=== PATIENT | female | born 1950 | race Caucasian/White ===

== ENCOUNTER 2019-04-20 08:23 | Emergency (ER) | payer MEDICARE, MEDICAID, SELFPAY ==
[2019-04-20 08:46] VITALS: BP 143/87; PULSE 92; RESP 16; TEMP 36.9; O2SAT 96; BMI 36.6
[2019-04-20 09:24] VITALS: BP 110/74; PULSE 86; RESP 18; O2SAT 98
--- NOTE | 2019-04-20 09:27 | PC.NURSE ---
Pt states that she has a spot on the right upper ribs that bothers her all the time. Patient states that her main complaint today is her headache and vomitting with constant dizziness - these have all been present for about a month now. Pt states she is worried that her cancer may have moved, she is unsure of the cause of her symptoms.
--- NOTE | 2019-04-20 09:29 | ED_ITS ---
Entered by Erma Benton, acting as scribe for Apr 20, 2019 08:23 HPI - Nausea/Vomiting/Diarrhea General: Chief complaint: Nausea/Vomiting/Diarrhea Stated complaint: multiple complaints Time Seen by Provider: 04/20/19 09:29 Source: patient and family Mode of arrival: ambulatory Limitations: no limitations History of Present Illness: HPI Narrative: 68 yo female presents with dizziness and vomiting. pt states this started one month ago. Pt has had neck pain. pt has R sided abdomen pain that is chronic. pt a history of lung cancer. pt has had a headache. pt denies any other symptoms at this time. MD elicited complaint: nausea, vomiting and abdominal pain (R side pain) Onset (ago): day(s) (yesterday) Associated nausea: Yes Associated abdominal pain: Yes Location of pain: RUQ and Other (head) Radiation: diffuse Pain consistency: constant Severity: moderate Exacerbating factors: vomiting and other (headache, dizziness) Relieving factors: none Associated symtoms: Reports dizziness, headache(s), nausea and other (neck pain); Denies altered mental status, change in vision, chest pain, diaphoresis, dysuria, fatigue, malaise, palpitations or syncope Treatment prior to arrival: none Review of Systems General: Reports: other (negative unless marked) Const: Denies: fever, chills, body aches, fatigue, malaise or diaphoresis Eyes: Denies: change in vision or blurry vision ENMT: Denies: throat pain, painful swallowing, hoarseness, ear pain, ear discharge, Change in hearing or nasal discharge Card: Denies: chest pain, palpitations, irregular heart rhythm, syncope, pre- syncope, shortness of breath on exertion or shortness of breath when lying down Resp: Denies: shortness of breath, productive cough, non-productive cough, wheezing, coughing up blood or chest congestion GI: Reports: nausea : Denies: flank pain, painful urination, urinary frequency, urinary urgency, decreased urine ouput, urinary incontinence or blood in urine Musc: Denies: neck pain, back pain, extremity pain, extremity swelling, joint pain, joint swelling, joint warmth or joint stiffness Skin/Breast: Denies: rash, skin tenderness or yellow skin Neuro: Reports: headache and dizziness Endo: Denies: excessive thirst, tired all the time, cold intolerance, excessive sweating, flushing or hot flashes Alexis/Lymph: Denies: easy bruising, easy bleeding, petechiae or enlarged lymph nodes All/Imm: Denies: hives, throat swelling, tongue swelling, facial swelling or acute wheezing PFSH ED PFSH: Statuses (acute, chronic, etc) shown below reflect problem list status as previously entered and may not be historically accurate Surgical History (Updated 04/20/19 @ 09:46 by Erma Benton) History of hysterectomy (Acute) Social History Smoking and tobacco status: former smoker Physical Exam Const: COMMON NORMALS: no apparent distress, oriented x3, no limitations, healthy appearing and well nourished EXAM LIMITATIONS: no altered mental status GENERAL APPEARANCE: cooperative, well kempt and well developed ORIENTATION/CONSCIOUSNESS: Yes awake HENMT: COMMON NORMALS: normocephalic, head/scalp atraumatic, hearing grossly normal bilaterally, external ears normal, EAC's normal, external nose normal and moist oral mucous membranes HEAD & SCALP: normal to inspection, normocephalic and atraumatic FACE & SINUS: normal facial exam and face symmetric NOSE: external nose normal and nares normal EXTERNAL EAR: Yes external ears normal EXTERNAL AUDITORY CANAL: EAC's normal MOUTH: oral and palatal mucosa normal and tongue normal Eye: COMMON NORMALS: PERRL, EOMs intact bilaterally, conjunctivae normal and no scleral icterus GENERAL EYE: normal appearance of both eyes and normal light reflex CONJUNCTIVA: Yes conjunctivae normal SCLERA: sclerae normal CORNEA: Yes corneas normal PUPIL: Yes PERRL DIRECT OPHTHALMOSCOPY: Yes normal light reflex Neck/C-Spine: COMMON NORMALS: full ROM, no lymphadenopathy, supple, no meningeal signs and no JVD GENERAL: Yes normal visual inspection and Yes trachea midline CERVICAL SPINE: Yes cervical ROM normal Chest: COMMONS NORMALS: inspection of chest normal and palpation of chest normal Resp: COMMON NORMALS: normal respiratory effort, no retractions, no use of accessory muscles and clear to auscultation bilaterally EFFORT & INSPECTION: Yes able to speak in complete sentences AUSCULTATION: clear to auscultation bilaterally Cardio: COMMON NORMALS: no JVD, regular rate, regular rhythm, S1 normal heart sound, S2 normal heart sound, no gallops, no clicks, no murmurs and no rub JUGULAR VENOUS DISTENTION: no JVD RATE: regular rate RHYTHM: regular rhythm HEART SOUNDS: S1 normal and S2 normal GI: COMMON NORMALS: soft to palpation, non-tender, no hepatosplenomegaly and no masses INSPECTION: Yes normal to inspection PALPATION: Yes soft and Yes no hepatosplenomegaly : COMMON NORMALS: Yes no CVA tenderness BLADDER/KIDNEY EXAM: Yes no CVA tenderness Back/Pelvis: COMMON NORMALS: no CVA tenderness, thoracic and lumbar spine normal to inspection, no thoracic nor lumbar tenderness and thoraco-lumbar ROM normal Extremity: COMMON NORMALS: normal to inspection, full ROM, normal capillary refill, no joint enlargement, no clubbing, cyanosis or edema and no calf tenderness Neuro: COMMON NORMALS: oriented x3, CN's II-XII intact bilaterally, moves all extremities, no focal motor deficits and no sensory deficits noted MENINGEAL SIGNS: Yes no meningeal signs Psych: COMMON NORMALS: mental status grossly normal, thought process normal, cooperative, affect normal, speech normal and activity/motor behavior normal APPEARANCE: Yes well kempt SPEECH: Yes normal speech THOUGHT PROCESS: normal thought process Skin: COMMON NORMALS: no rashes or lesions noted, skin turgor normal, no jaundice, no petechiae and no mottling GENERAL SKIN EXAM: no rashes or lesions noted and turgor normal Course Vital Signs: Vital signs: Vital Signs Temperature 98.1 F 04/20/19 11:25 Pulse Rate 92 04/20/19 11:25 Respiratory Rate 18 04/20/19 11:25 Blood Pressure 154/97 04/20/19 11:25 Pulse Oximetry 95 04/20/19 11:25 MDM - Nausea/Vomiting/Diarrhea MDM Narrative: Medical decision making narrative: 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 She will need transferred as we have no neurosurgery on-call here. The patient other than dizziness is asymptomatic. It appears as though she did not know she had metastatic disease. The concern is the amount of swelling and the possible development of herniation/hydrocephalus. I reviewed the case in full with Dr. Márquez at [facility] in the emergency department and he will accept the patient in transfer. We are currently trying to transfer by air but have been turned down. We will continue to try to transfer by air ambulance service but if unable we will transfer by life-threatening emergent status by self I will ground ambulance. Lab Data: Labs: Lab Results 04/20/19 04/20/19 04/20/19 Range/Units 09:39 09:39 10:06 WBC 8.5 (4.0-10.0) 10^3/ uL RBC 4.61 (4.1-5.3) 10^6/u L Hgb 13.2 (11.5-15.3) g/dL Hct 42.1 (37.0-47.0) % MCV 91.3 (81-99) fL MCH 28.6 (28.0-34.0) pg MCHC 31.4 (30.0-36.0) g/dL RDW 13.5 (12.1-15.1) % Plt Count 223 (130-400) 10^3/c mm MPV 8.6 (7.4-10.4) fL Neut % (Auto) 80.1 % Lymph % (Auto) 12.7 % [place]upe % (Auto) 5.9 % Eos % (Auto) 0.7 % Baso % (Auto) 0.2 % Neut # (Auto) 6.8 (1.8-7.7) 10^3/u L Lymph # (Auto) 1.1 (0.8-4.8) 10^3/u L [place] # (Auto) 0.5 (0.2-0.9) 10^3/u L Eos # (Auto) 0.1 (0.0-0.8) 10^3/u L Baso # (Auto) 0.0 (0.0-0.1) 10^3/u L Nucleated RBC % (a uto) 0 % Nucleated RBCs # 0.0 /100WBC Sodium 138 (136-145) mmol/L Potassium 4.8 (3.5-5.1) mmol/L Chloride 101 (98-107) mmol/L Carbon Dioxide 26 (22-29) mmol/L Anion Gap 15.8 (5-19) BUN 9 (8-23) mg/dL Creatinine 0.6 (0.5-0.9) mg/dL GFR Calculation 99.1 (90-130) mL/min Glucose 133 H (74-106) mg/dL Calcium 10.3 H (8.8-10.2) mg/Dl Magnesium 1.9 (1.7-2.3) mg/dL Total Bilirubin 0.5 (0.15-1.2) mg/dL AST 31 (0-32) U/L ALT 27 (0-33) U/L Alkaline Phosphata se 85 (35-105) IU/L Total Protein 7.7 (6.6-8.7) g/dL Albumin 5.1 (3.5-5.2) g/dL Globulin 2.6 (1.3-4.6) g/dL Lipase 27 (13-60) U/L Urine Color Straw (Yellow) Urine Appearance Sl hazy (CLEAR) Urine pH 7 (5-7) Ur Specific Gravit y 1.005 (1.005-1.030) Urine Protein Neg (Negative) Urine Glucose (UA) Norm (Normal) Urine Ketones Negative (Negative) Urine Occult Blood Neg (Negative) Urine Nitrate Negative (Negative) Urine Bilirubin Neg (NEGATIVE) Urine Urobilinogen Norm (Negative) mg/dL Ur Leukocyte Humaira ase Negative (Negative) Urine RBC Rare (0-2) /hpf Urine WBC 0-4 H (0-5) /hpf Ur Squamous Epith Cells 5-10 H (0-5) Urine Bacteria 1+ H (NONE) Hyaline Casts Rare Urine Mucus Trace Imaging Data^: CT Head: Radiologist's impression: [place] [address] CT Scan Report Signed Patient: Kristina Bertrand MR#: [id number] : 1950 Acct:[id number] Age/Sex: 68 / F ADM Date: 04/20/19 Loc: ER Attending Dr: Ordering Physician: Mandie Aleman DO Date of Service: 04/20/19 Procedure(s): CT head wo con* [id number] Accession Number(s): [id number] Report Number: [id number] WS: [id number] CT HEAD NONCONTRAST HISTORY: Dizziness TECHNIQUE: Contiguous axial imaging performed through the brain in 2.5 mm imaging. Bone and soft tissue windows. Sagittal and coronal reformats reviewed. All CT scans at [facility] use at least one of these dose optimization techniques: automated exposure control; mA and/or kV adjustment per patient size (includes targeted exams where dose is matched to clinical indication); or iterative reconstruction. DLP: 788.23 mGy.cm COMPARISON: None available. Large area of edema and sulcal effacement centered in the RIGHT cerebellum. There is shift of midline structures and effacement of the fourth ventricle. 6 mm of midline shift to the LEFT. There is also edema extending across the midline of the cerebellum to the LEFT. No associated hemorrhage is appreciated. Mild atrophy. Prior lacunar infarct RIGHT basal ganglia. Area of decreased attenuation in the subcortical white matter of the RIGHT parietal vertex. Ventricles: There is very minimal prominence of the temporal horns bilaterally. Third ventricle and the lateral ventricles are not dilated. Paranasal sinuses: Mucoperiosteal thickening in the posterior RIGHT ethmoid sinus. Mastoid air cells: Sclerosis and chronic RIGHT mastoiditis. Coalescence of the air spaces. Calvarium and scalp: Skull is intact with no soft tissue edema or swelling. Notified Mandie Aleman at 04/20/2019 10:[address]/CT head wo con* [id number] IMPRESSION: 1. Large amount of edema and centered in the RIGHT cerebellum with sulcal effacement and mass effect on the fourth ventricle. Highly suspicious for metastatic lesion or primary brain tumor. Recommend MRI brain with contrast. 2. Near complete effacement of the fourth ventricle. At this time there is no significant hydrocephalus. 3. Additional areas of decreased attenuation and prior lacunar infarcts in the supratentorial region. May be all related to chronic ischemic disease. Dictated By: Ivana Jones DO Signed By: Ivana Jones DO Signed Date/Time:04/20/19 1021 DD/ 1013 Discharge Plan Discharge Patient Disposition: Xfer Short-Term Hosp Clinical Impression: Metastatic cancer to brain, Dizzinesses Condition: Stable Discharge Orders: Discharge Order (Routine); Ordered 04/20/19 Ordered By: Mandie Aleman Referrals: Bakari Leahy [Primary Care Provider] - Discharge Date/Time: 04/20/19 11:25 Coding Level of Care Code ED Electrical Checkout Mechanic for Chg Fwd Exam Problem Focused The documentation recorded by the Chetan blake Bridget Annette, accurately reflects the service I personally performed and the decisions made by Guzmán Eli N Apr 20, 2019 08:23
--- NOTE | 2019-04-20 09:35 | CT_ITS ---
WS: [id number] CT HEAD NONCONTRAST HISTORY: Dizziness TECHNIQUE: Contiguous axial imaging performed through the brain in 2.5 mm imaging. Bone and soft tiss ue windows. Sagittal and coronal reformats reviewed. All CT scans at [facility] use at ast one of these dose optimization techniques: automated exposure control; mA and/or kV adjustment pe r patient size (includes targeted exams where dose is matched to clinical indication); or iterative r econstruction. DLP: 788.23 mGy.cm COMPARISON: None available. Large area of edema and sulcal effacement centered in the RIGHT cerebellum. There is shift of midline structures and effacement of the fourth ventricle. 6 mm of midline shift to the LEFT. There is also edema extending across the midline of the cerebellum to the LEFT. No associated hemorrhage is appreci ated. Mild atrophy. Prior lacunar infarct RIGHT basal ganglia. Area of decreased attenuation in the subcort ical white matter of the RIGHT parietal vertex. Ventricles: There is very minimal prominence of the temporal horns bilaterally. Third ventricle and the lateral ventricles are not dilated. Paranasal sinuses: Mucoperiosteal thickening in the posterior RIGHT ethmoid sinus. Mastoid air cells: Sclerosis and chronic RIGHT mastoiditis. Coalescence of the air spaces. Calvarium and scalp: Skull is intact with no soft tissue edema or swelling. Notified Mandie Aleman at 04/20/2019 10:[address]/CT head wo con* [id number] IMPRESSION: 1. Large amount of edema and centered in the RIGHT cerebellum with sulcal effa cement and mass effect on the fourth ventricle. Highly suspicious for metastati c lesion or primary brain tumor. Recommend MRI brain with contrast. 2. Near complete effacement of the fourth ventricle. At this time there is no significant hydrocephalus. 3. Additional areas of decreased attenuation and prior lacunar infarcts in the supratentorial region. May be all related to chronic ischemic disease.
[2019-04-20 09:40] VITALS: BP 124/74; PULSE 91; RESP 18; O2SAT 95
[2019-04-20 09:41] VITALS: BP 116/77; PULSE 95; RESP 18; O2SAT 95
[2019-04-20 09:48] LABS: Basophils % 0.2 %; Eosinophils # 0.1 10^3/uL (0.0-0.8); Eosinophils % 0.7 %; Hematocrit 42.1 % (37.0-47.0); Hemoglobin 13.2 g/dL (11.5-15.3); Lymphocytes # 1.1 10^3/uL (0.8-4.8); Lymphocytes % 12.7 %; Mean Corpuscular HGB Conc 31.4 g/dL (30.0-36.0); Mean Corpuscular Hemoglobin 28.6 pg (28.0-34.0); Mean Corpuscular Volume 91.3 fL (81-99); Mean Platelet Volume 8.6 fL (7.4-10.4); Monocytes # 0.5 10^3/uL (0.2-0.9); Monocytes % 5.9 %; Neutrophils # 6.8 10^3/uL (1.8-7.7); Neutrophils % 80.1 %; Nucleated Red Blood Cells % 0 %; Platelet Count 223 10^3/cmm (130-400); Red Blood Count 4.61 10^6/uL (4.1-5.3); Red Cell Distribution Width 13.5 % (12.1-15.1); White Blood Count 8.5 10^3/uL (4.0-10.0)
[2019-04-20 10:02] LABS: Alanine Aminotransferase 27 U/L (0-33); Albumin Level 5.1 g/dL (3.5-5.2); Alkaline Phosphatase 85 IU/L (35-105); Anion Gap 15.8 (5-19); Aspartate Amino Transferase 31 U/L (0-32); Blood Urea Nitrogen 9 mg/dL (8-23); Calcium 10.3 mg/Dl (8.8-10.2); Carbon Dioxide 26 mmol/L (22-29); Chloride 101 mmol/L (98-107); Globulin 2.6 g/dL (1.3-4.6); Glomerular Filtration Rate 99.1 mL/min (90-130); Glucose 133 mg/dL (74-106); Lipase 27 U/L (13-60); Magnesium 1.9 mg/dL (1.7-2.3); Potassium 4.8 mmol/L (3.5-5.1); Sodium 138 mmol/L (136-145); Total Bilirubin 0.5 mg/dL (0.15-1.2); Total Protein 7.7 g/dL (6.6-8.7)
--- NOTE | 2019-04-20 10:11 | PC.NURSE ---
Patient to CT at this time.
[2019-04-20] MEDS: diazePAM 5 mg Tablet PO (10:25)
[2019-04-20] MEDS: ondansetron 2 mg/ML SDV 2 mL 4 MG IVP (10:25)
[2019-04-20] MEDS: sodium chloride 0.9% 1,000 ML 999 ML IV (10:27)
[2019-04-20 10:46] LABS: Bilirubin Urine Neg (NEGATIVE); Blood Urine Neg (Negative); Glucose Urine UA Norm (Normal); Ketones Urine Negative (Negative); Leukocyte Esterase Urine Negative (Negative); Nitrate Urine Negative (Negative); Protein Urine Neg (Negative); Specific Gravity, Urine 1.005 (1.005-1.030); Urine Appearance SL Hazy (CLEAR); Urine Color Straw (Yellow); Urobilinogen Urine Norm (Negative); pH Urine 7 (5-7)
[2019-04-20 10:49] LABS: Hyaline Casts Urine RARE; Mucus Urine TRACE
[2019-04-20 10:51] LABS: Add Urine Culture? No; Bacteria Urine 1+; RBC Urine RARE /hpf (0-2); WBC Urine 0-4 /hpf (0-5)
--- NOTE | 2019-04-20 10:55 | PC.NURSE ---
DEXAMETHASONE WAS GIVEN IVP. NOT IN A DRIP
[2019-04-20 11:25] VITALS: BP 154/97; PULSE 92; RESP 18; TEMP 36.7; O2SAT 95
--- NOTE | 2019-04-20 11:26 | PC.CHAP ---
Pastoral Care Encounter/Spiritual Assessment Type of Contact [] Declined district fire management officer visit [] Patient/Family/Request visit [] Outpatient visit [] Follow-up visit [] Physician referral [] Code/Alert [] Routine visit [] Staff referral [] Actively dying [] Patient sleeping [] Family support [] [] Out of room [] Palliative care [] [] Receiving care in room [] Pre-surgical visit [] Trauma [] Long length of stay [] ICU visit [] Other: Relational/Emotional Strength [x] Patient feels connected with others/family/visitors/staff [] Distress [] Loneliness/isolation [] Abandonment Spirituality of Patient [x] Person of Radha [] Attends Scientology of their Radha [x] Believes in Prayer [] Reads Bible or Yazidi materials [] There are Spiritual issues to be addressed Central Office Inspector Interventions [x] Prayer [x] Active listening [x] Non-anxious presence [x] Spiritual/emotional support [x] Crisis/trauma care [x] Spiritual counseling [] Bereavement support [] Provided bereavement packet [] Provided Bible/devotional materials [] Provided toy/stuffed animal, coloring book to patient or family member [x] Completed spiritual assessment [] Provided Communion [] Anointing/[place] [] Salvation [] Other: Impact on Illness or Injury [] Angry [x] Fearful [x] Anxious [] Often cries [] Exhaustion [] Unable to work [] Unable to attend pentecostalism [] Unable to walk/stand [] Unable to read [] Unable to drive [] Unable to eat/drink [] Unable to sleep [] Unable to be with family [x] Other: fearful of unknown. Summary is very tearful. Central Office Inspector offered prayer for peace and strength for . guidance for the doctors as they provide care. Patient has a fear of flying and is very anxious to be flying.Family has been notified by patient. Time spent with patient 15 min
== END 2019-04-20 11:25 | disposition short-term general hospital (02) ==
PROVIDERS: Emergency Provider Emergency Medicine; PCP Radiology Radiation Oncology
DX: C79.31 Secondary malignant neoplasm of brain (principal); Z87.891 Personal history of nicotine dependence; Z85.118 Personal history of other malignant neoplasm of bronchus and lung
CPT/HCPCS: 70450; 80053; 81001; 83690; 83735; 85025; 96360; 96365; 96374; 99282; J1100; J2405; J7030

== ENCOUNTER 2019-09-13 09:13 | Outpatient (CLI) | payer MEDICARE, MEDICAID, SELFPAY ==
[2019-09-13 10:46] LABS: Basophils % 0.4 %; Eosinophils # 0.1 10^3/uL (0.0-0.8); Eosinophils % 1.6 %; Hematocrit 44.3 % (37.0-47.0); Hemoglobin 13.7 g/dL (11.5-15.3); Lymphocytes % 39.7 %; Mean Corpuscular HGB Conc 30.9 g/dL (30.0-36.0); Mean Corpuscular Hemoglobin 29.1 pg (28.0-34.0); Mean Corpuscular Volume 94.1 fL (81-99); Mean Platelet Volume 8.9 fL (7.4-10.4); Monocytes # 0.6 10^3/uL (0.2-0.9); Monocytes % 12.4 %; Neutrophils # 2.3 10^3/uL (1.8-7.7); Neutrophils % 45.7 %; Nucleated Red Blood Cells % 0 %; Platelet Count 209 10^3/cmm (130-400); Red Blood Count 4.71 10^6/uL (4.1-5.3); Red Cell Distribution Width 12.6 % (12.1-15.1)
[2019-09-13 11:21] LABS: Alanine Aminotransferase 41 U/L (0-33); Albumin Level 4.4 g/dL (3.5-5.2); Alkaline Phosphatase 67 IU/L (35-105); Anion Gap 16.1 (5-19); Aspartate Amino Transferase 43 U/L (0-32); Blood Urea Nitrogen 9 mg/dL (8-23); Calcium 9.6 mg/dL (8.5-10.5); Carbon Dioxide 25 mmol/L (22-29); Chloride 102 mmol/L (98-107); Globulin 2.9 g/dL (1.3-4.6); Glomerular Filtration Rate 99.1 mL/min (90-130); Glucose 111 mg/dL (65-115); Osmolality Calculated 285 mOsm/kg (285-295); Potassium 4.1 mmol/L (3.5-5.1); Sodium 139 mmol/L (136-145); Thyroid Stimulating Hormone 1.22 uIU/mL (0.27-4.20); Total Bilirubin 0.4 mg/dL (0.15-1.2); Total Protein 7.3 g/dL (6.6-8.7)
--- NOTE | 2019-09-13 20:19 | ONC CON_ITS ---
Dr. Meyer New Patient Note Patient: Kristina Bertrand Unit #: [id number]: 1950 Dicatated By: Maldonado Meyer M.D.Date of Visit: September 13, 2019 Onc MED New Patient/Consult Referring Physician: [facility] [place] Chief Complaint: Non-small cell lung cancer. 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 She was found to have a right upper lobe lung mass in December 2012 during the course of an ER evaluation for suspected diverticulitis. A CT guided needle biopsy of the mass January 2013 did confirm TTF-1 positive well-differentiated adenocarcinoma which was EGFR, ALK, and ROS-1 negative. Staging evaluation with brain MRI and PET/CT showed no obvious metastatic disease. The PET/CT showed right upper lobe mass measuring 3.2 x 2.4 cm and an additional right upper lobe nodule measuring 8 mm. She underwent thoracotomy with right upper lobectomy and mediastinal lymph node dissection on 04/29/2014. Pathology showed well-differentiated adenocarcinoma with predominantly mixed acinar and alveolar pattern. It measured 3.1 cm. There was invasion of the visceral pleura, but margins were negative. Lymph nodes at station 7, 11, and 10 were negative, thus stage IA (pT2a, pN0, M0). She received no adjuvant therapy. Surveillance chest CT in July 2015 showed a 2 cm nodule in the posterior central left lingual area, suspicious for metastatic disease or new primary malignancy. A subsequent PET/CT showed a smoothly marginated nodule in the left lung measuring 12 mm and tiny right upper lobe nodules which apparently felt to be improving, with no evidence of residual malignancy. She underwent bronchoscopy with FNA of station 11 on 08/22/2015. The FNA was negative. Brushings were inconclusive. Biopsy of the left lung nodule on 09/16/2015 was positive for adenocarcinoma, TTF-1 positive and EGFR mutation negative. There was insufficient material for ALK and ROS-1 studies. The tumor was negative for PD-L1 expression. In October [address] [facility] for second opinion evaluation. Evaluation there included brain MRI which showed no evidence of metastatic disease. PET/CT on 11/04/2015 showed an FDG avid centrally located left upper lobe nodule which had increased in size. There was no evidence of leonel or distant metastatic disease on that study. However, there was reportedly evidence of groundglass opacities in both lungs with the differential including atypical adenomatous hyperplasia and multifocal primary lung malignancy. Also noted were 2 air-containing cystic lesions with groundglass component's within the right lower lobe, also felt to be suspicious for primary lung malignancies. Ultimately, it was recommended that she undergo neoadjuvant chemotherapy with 4 cycles of cisplatin-pemetrexed. She was then seen here because she preferred to receive her chemotherapy locally. She received cycle 1 of cisplatin/Alimta on 12/15/2015. She tolerated it well. Side effects were limited to mild nausea and stomatitis. She received cycles 2 and 3 on schedule with no dose reductions. She did receive Neupogen following the second cycle due to a low radhika granulocyte count, and she was then given Neulasta prophylactically with cycle 3. She completed 4 cycles on 02/16/16. Her restaging PET/CT at [facility] on 03/18/2016 showed new FDG activity involving bilateral axillary lymph nodes, though without associated lymph node enlargement. Pre-paracardial lymph node was mildly increased in size but markedly FDG avid. A juxtaphrenic lymph node also showed new FDG activity with slight increased size. Small right paratracheal lymph nodes were not significantly change in size and only slightly FDG avid. The tumor at the left hilum was not significantly changed in size, but it remained markedly FDG avid. Groundglass attenuation nodules in both lungs were unchanged. The abdomen/pelvis showed extensive new metabolic activity at left gastric and periportal adenopathy with slight increase in the size of the lymph nodes. Multiple small retroperitoneal lymph nodes also showed new metabolic activity. Small left inguinal lymph nodes and bilateral external iliac lymph nodes also appeared FDG avid. Overall, the left hilar tumor was unchanged and there was new widespread leonel metabolic activity with only slight increase in the size of some the lymph nodes, consistent with reactive process. A repeat chest CT on 05/06/2016 showed stable left hilar lesion measuring 2.4 cm. There was no change in size of the FDG avid lymph nodes noted on the PET/CT in March. The right middle lobe peribronchial vascular nodular opacities were mildly decreased compared to October 2015. Given the findings on the imaging studies, it was felt that her disease was localized. She was given the option of surgical resection, but that would have necessitated complete pneumonectomy. Ultimately, she opted against surgery. She was then treated with radiation to the left hilar lesion. She completed treatment on 09/01/2016 to a total dose of 6600 cGy. The tumor did appear slightly smaller on the follow-up CT scan on 10/07/2016. Her restaging CT on 01/06/2017 showed stable left infrahilar soft tissue lesion measuring 1.3 x 1.1 cm. A groundglass opacity in the right lower lobe laterally measuring 1.7 x 1.4 cm it appeared slightly more prominent compared to previous study from April 2016. There was no mediastinal or hilar lymphadenopathy noted. Chest CT on 04/21/2017 reported increased enlargement of the right lower lobe lateral segment some solid nodule with reported differential including progressive neoplastic process, inflammatory process, and atypical infectious process. A right lower lobe anterior segment nodule at increased slightly, from 5.7 to 6.9 mm. A right upper lung zone groundglass nodule measuring 3-4 mm appeared unchanged. Left lower lobe superior segment bandlike atelectasis and/or scarring appeared stable. Restaging PET/CT on 07/30/2017 showed irregular right lower lobe infiltrate measuring 1.7 x 2.9 cm with FDG uptake less than that of normal mediastinal background, supporting a benign diagnosis. There was inflammatory uptake at a right lower lobe bulla. There was no evidence of malignancy. Given those findings, she continued on observation/expectant management. A repeat chest CT on 12/01/2017 showed persistence and slight progression of the irregular marginated semisolid densities in the anterior basal segment right lower lobe adjacent to a bolus emphysematous cavity. It measured 4 x 1.9 x 1.7 cm compared to 3.3 x 1.8 x 1.7 cm on the study from July 2017. A 7 mm rounded groundglass nodule in the anterior aspect of the right lower lobe appeared stable and a 4.3 mm right middle lobe nodule appeared stable. There was no obvious hilar, mediastinal, axillary, or supraclavicular lymphadenopathy noted. As the changes in the right lower lobe lesion were felt to be suspicious, she was referred to Dr. Justina Keith in [place], and a CT-guided biopsy of the right lung mass on 02/01/2018 was positive for malignant cells, at least adenocarcinoma in situ. She was then seen by Dr. Leahy and she underwent SBRT to the right lung lesion, completed on 03/08/2018 to a total dose of 5000 cGy. During subsequent follow-up, her surveillance chest CT on 12/12/2018 showed findings suspicious for developing neoplasm in the superior segment right lower lobe adjacent to a bolus emphysematous cavity. Postradiation changes in the right lower lobe at the site of the previous semisolid mass lesion appeared stable. Further evaluation with PET/CT on 12/16/2018 showed significant FDG uptake in the solid mural portion of the superior segment right lower lobe bulla, SUV up to 3.4 compared to 1.8 on the previous study. This was felt to be strongly suspicious for malignancy. There was no change in mild inflammatory activity in the scarlike infiltrate in the lateral right lower lobe. With those findings, he was given further SBRT to the right lower lobe lung lesion, completed on 01/08/2019 to a total dose of [address] on 02/19/2019 showed no change in the bullous emphysematous cavity in the right lower lobe with adjacent nodule measuring 11 x 10 mm, suspicious for neoplasm. A small adjacent noncalcified pulmonary nodule measuring 4 to 5 mm with slightly improved. Additional subcentimeter nodules in the right lower and right upper lobes also are unchanged. There is stable fibrotic opacity along the lingula and stable soft tissue thickening along the left hilum. Overall there was no evidence of disease progression. On 04/20/2019 she presented to the emergency room with nausea/vomiting and dizziness. Head CT showed a large amount of edema centered in the right cerebellum with sulcal effacement and mass-effect on the fourth ventricle. This is highly suspicious for metastatic lesion or primary brain tumor. She was admitted to [facility] and on 04/27/2019 she underwent craniotomy and resection of intra-axial and extra-axial metastatic lesion. Pathology showed metastatic adenocarcinoma. She then underwent stereotactic radiotherapy to the cerebellar metastasis cavity, completed on 06/05/2019 to a total dose of 2100 cGy. Her repeat brain MRI on 08/21/2019 showed minimal hemorrhage within the right cerebellar hemisphere at the site of the tumor resection. Residual enhancing tumor was still identified immediately abutting the right-sided transverse and sigmoid sinus. The tumor appeared to measure 2.9 cm in greatest long axis diameter, 9 mm transversely, and 9 mm superiorly to inferiorly. A 1 to 2 mm rounded area of enhancement within the left cerebellar hemisphere compatible with an additional site of metastasis was not significantly changed. There was significant improvement in vasogenic edema within the right cerebellar hemisphere and cerebellar vermis. There were no new areas of enhancement to suggest additional metastasis. She is seen for a follow-up visit. She says she is feeling good. Her energy has been okay. She has pretty much normal activity. Her ECOG score is 0. She has good appetite. She has not had fever or night sweats. She does report having some hot flashes. She has some shortness of breath with activity. She has just occasional cough. She still has some pain at the thoracotomy site in her right chest area. She otherwise does not have chest pain. She indicates that her heart occasionally skips now. She has no GI or complaints. She has no other joint or bone pain. She sometimes has headache, but is managed with Tylenol. She has a little bit of dysequilibrium when she first gets up, so that she tends to hold onto stuff to keep her balance. She has had numbness/tingling in her hands and feet for years. Past Medical History: Her medical history includes lung cancer and diverticulitis. Past Surgical History: She underwent craniotomy with resection of right cerebellar metastasis on 04/27/2019. Her other surgical/procedural history consists of bilateral cataract excisions, cholecystectomy, hernia repair, hysterctomy without oophorectomy, braim tumor removed in 2019, needle biopsy of left lung mass in 2015, bronchoscopy with FNA biopsy of station 11 in 2015, right thoracotomy with right upper lobectomy in 2014, cervical mediastinoscopy in 2013, biopsy of right lung mass in 2013, colonoscopy in 2011, and chest tube placement for right pneumothorax in 1999. Medications: Probiotic 1 Tablet Capsule Oral daily, Ventolin HFA 2 puff(s) (of 108 (90 base) mcg/act) Aerosol, solution Inhalation q 4 hours PRN Allergies: IV Contrast and Sulfa Antibiotics. Social History: Ms. Bertrand is . She has a history of smoking 2 packs of cigarettes daily for 30 years. She quit smoking in 1999. She does not drink alcohol. Family History: Both parents of lung cancer, father at age 77 and mother at age 81. She indicates that 3 sisters also of lung cancer, but she says that all were heavy smokers. Review of Systems: Constitutional - She is generally feeling pretty good. Her energy is good. Her activity is mostly normal. Her appetite is good and weight is stable. No fever or chills. She has hot flashes. No sweats. ECOG score is 0, ENMT - No sinus congestion/drainage. No mouth sores. No sore throat or difficulty swallowing, Hematologic/Lymphatic - No abnormal bruising or bleeding, Respiratory - She has occasional dyspnea with exertional activity. No cough. No hemoptysis. She has intermittent pain near her right lung/axilla area from previous surgery, Cardiovascular - No angina pain. She has noticed that her heart skips occasionally, Gastrointestinal - No nausea or vomiting. No heartburn or acid reflux. No diarrhea or constipation. No blood in the stool or black stools, Genitourinary (F) - No dysuria or hematuria. No urinary frequency. No urgency or incontinence, Musculoskeletal - No joint or bone pain, Integumentary - No skin complications, Neurologic - No headache or dizziness. She has chronic neuropathy in her hands and feet, this is unchanged, Psychiatric - No anxiety or depression. No insomnia. Vital Signs: Performed on September 13, 2019 09:40 Height - 63.00 in Weight - 193.4 lbs (LOW) BSA - 1.91 sq.m BMI - 34.26 (HIGH) Temperature - 98.4 F Pulse - 84 /min Respiration - 20 /min BP - 151/90 mm(hg) (HIGH) O2 Sat - 98 % Pain - 0 Physical Examination: Constitutional - She looks good generally, Eyes - Sclerae nonicteric. Conjunctivae clear, ENMT - No lesions noted in the oral cavity, Hematologic/Lymphatic - No cervical, clavicular, or axillary adenopathy, Respiratory - Lungs sound clear with slightly diminished breath sounds bilaterally, Cardiovascular - Heart rhythm is regular. There is no murmur, gallop, or rub noted, Abdomen - Soft. Liver and spleen are not enlarged. There is no abdominal mass or ascites noted and there is no inguinal adenopathy, Extremities - No edema. Dorsalis pedis pulses are palpable bilaterally, Neurologic - No focal neurologic deficits noted. Impression: 1. Patient with bilateral non-small cell lung cancer, now with evidence of metastatic involvement in the right cerebellar hemisphere, for which she underwent surgical resection on 04/27/2019. 2. She was then given stereotactic radiation to the cerebellar metastasis cavity, completed on 06/05/2019 to a total dose of 2100 cGy. 3. Restaging head MRI on 08/21/2019 showed residual enhancing tumor in the right cerebellar hemisphere measuring 2.9 cm. 4. She has additional MRI evidence of a small metastatic lesion in the left cerebellar hemisphere, but that appeared stable on the follow-up MRI. 5. She was originally diagnosed with TTF-1 positive adenocarcinoma involving the upper lobe of the right lung in 2014. She underwent right upper lobectomy/mediastinal lymph node dissection in April 2014. Her disease was stage IA (pT2a, pN0, M0). 6. She then had biopsy-proven adenocarcinoma involving the upper lobe of the left lung. By clinical evaluation her disease was most likely stage IA (T1b, N0, M0). 7. She was given neoadjuvant chemotherapy with 4 cycles of cisplatin/Alimta from 09/14/2015 through 02/16/2016. She tolerated the treatment well, both with only minimal response by follow-up imaging. 8. She was treated with radiation to the left lung lesion, completed on 09/01/2016 to a total dose of 6600 cGy. She tolerated the treatment well. 9. A repeat chest CT on 12/01/2017 showed further increase in the anterior segment right lower lobe densities, consistent with indolent neoplastic or unusual infectious process. CT-directed needle biopsy of the right lower lobe mass on 02/01/2018 was positive for malignant cells, at least adenocarcinoma in situ. She was treated with SBRT, completed on 03/08/2018 to a total dose of 5000 cGy. 10. There was suspected new involvement in new superior segment right lower lobe by PET/CT on 12/16/2018. It was treated with additional SBRT, completed on 01/08/2019 to a total dose of 4800 cGy. Plan: She will be scheduled for restaging PET/CT. In the meantime, I will request the MRI disks for review. In addition, I will request a next generation sequencing study on the resected cerebellar metastatic lesion so that we have an accurate assessment regarding the potential for immunotherapy and/or targeted therapy. Signed By: Maldonado Meyer M.D. <<Signature on File>>
== END 2019-09-13 09:14 | disposition home or self-care (01) ==
PROVIDERS: PCP Nurse Practitioner Family; Visit Provider Internal Medicine Medical Oncology
DX: C79.31 Secondary malignant neoplasm of brain (principal); C34.12 Malignant neoplasm of upper lobe, left bronchus or lung; C34.31 Malignant neoplasm of lower lobe, right bronchus or lung; R00.2 Palpitations; Z90.2 Acquired absence of lung [part of]; Z92.3 Personal history of irradiation; Z92.21 Personal history of antineoplastic chemotherapy; Z87.891 Personal history of nicotine dependence
CPT/HCPCS: 80053; 84443; 85025; 99215

== ENCOUNTER 2019-11-28 11:12 | Outpatient (CLI) | payer MEDICARE, MEDICAID, SELFPAY ==
--- NOTE | 2019-12-03 07:50 | ONC FU_ITS ---
Dr. Meyer Patient Follow-Up Note Patient: Kristina Bertrand Unit #: [id number]: 1950 Dicatated By: Maldonado Meyer M.D.Date of Visit:Nov 28, 2019 Onc Med Follow-up/Prog Note Chief Complaint: Non-small cell lung cancer. 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 She was found to have a right upper lobe lung mass in December 2012 during the course of an ER evaluation for suspected diverticulitis. A CT guided needle biopsy of the mass January 2013 did confirm TTF-1 positive well-differentiated adenocarcinoma which was EGFR, ALK, and ROS-1 negative. Staging evaluation with brain MRI and PET/CT showed no obvious metastatic disease. The PET/CT showed right upper lobe mass measuring 3.2 x 2.4 cm and an additional right upper lobe nodule measuring 8 mm. She underwent thoracotomy with right upper lobectomy and mediastinal lymph node dissection on 04/29/2014. Pathology showed well-differentiated adenocarcinoma with predominantly mixed acinar and alveolar pattern. It measured 3.1 cm. There was invasion of the visceral pleura, but margins were negative. Lymph nodes at station 7, 11, and 10 were negative, thus stage IA (pT2a, pN0, M0). She received no adjuvant therapy. Surveillance chest CT in July 2015 showed a 2 cm nodule in the posterior central left lingual area, suspicious for metastatic disease or new primary malignancy. A subsequent PET/CT showed a smoothly marginated nodule in the left lung measuring 12 mm and tiny right upper lobe nodules which apparently felt to be improving, with no evidence of residual malignancy. She underwent bronchoscopy with FNA of station 11 on 08/22/2015. The FNA was negative. Brushings were inconclusive. Biopsy of the left lung nodule on 09/16/2015 was positive for adenocarcinoma, TTF-1 positive and EGFR mutation negative. There was insufficient material for ALK and ROS-1 studies. The tumor was negative for PD-L1 expression. In October 2015 she went to [facility] for second opinion evaluation. Evaluation there included brain MRI which showed no evidence of metastatic disease. PET/CT on 11/04/2015 showed an FDG avid centrally located left upper lobe nodule which had increased in size. There was no evidence of leonel or distant metastatic disease on that study. However, there was reportedly evidence of groundglass opacities in both lungs with the differential including atypical adenomatous hyperplasia and multifocal primary lung malignancy. Also noted were 2 air-containing cystic lesions with groundglass component's within the right lower lobe, also felt to be suspicious for primary lung malignancies. Ultimately, it was recommended that she undergo neoadjuvant chemotherapy with 4 cycles of cisplatin-pemetrexed. She was then seen here because she preferred to receive her chemotherapy locally. She received cycle 1 of cisplatin/Alimta on 12/15/2015. She tolerated it well. Side effects were limited to mild nausea and stomatitis. She received cycles 2 and 3 on schedule with no dose reductions. She did receive Neupogen following the 2nd cycle due to a low radhika granulocyte count, and she was then given Neulasta prophylactically with cycle 3. She completed 4 cycles on 02/16/16. Her restaging PET/CT at [facility] on 03/18/2016 showed new FDG activity involving bilateral axillary lymph nodes, though without associated lymph node enlargement. Pre-paracardial lymph node was mildly increased in size but markedly FDG avid. A juxtaphrenic lymph node also showed new FDG activity with slight increased size. Small right paratracheal lymph nodes were not significantly change in size and only slightly FDG avid. The tumor at the left hilum was not significantly changed in size, but it remained markedly FDG avid. Groundglass attenuation nodules in both lungs were unchanged. The abdomen/pelvis showed extensive new metabolic activity at left gastric and periportal adenopathy with slight increase in the size of the lymph nodes. Multiple small retroperitoneal lymph nodes also showed new metabolic activity. Small left inguinal lymph nodes and bilateral external iliac lymph nodes also appeared FDG avid. Overall, the left hilar tumor was unchanged and there was new widespread leonel metabolic activity with only slight increase in the size of some the lymph nodes, consistent with reactive process. A repeat chest CT on 05/06/2016 showed stable left hilar lesion measuring 2.4 cm. There was no change in size of the FDG avid lymph nodes noted on the PET/CT in March. The right middle lobe peribronchial vascular nodular opacities were mildly decreased compared to October 2015. Given the findings on the imaging studies, it was felt that her disease was localized. She was given the option of surgical resection, but that would have necessitated complete pneumonectomy. Ultimately, she opted against surgery. She was then treated with radiation to the left hilar lesion. She completed treatment on 09/01/2016 to a total dose of 6600 cGy. The tumor did appear slightly smaller on the follow-up CT scan on 10/07/2016. Her restaging CT on 01/06/2017 showed stable left infrahilar soft tissue lesion measuring 1.3 x 1.1 cm. A groundglass opacity in the right lower lobe laterally measuring 1.7 x 1.4 cm it appeared slightly more prominent compared to previous study from April 2016. There was no mediastinal or hilar lymphadenopathy noted. Chest CT on 04/21/2017 reported increased enlargement of the right lower lobe lateral segment some solid nodule with reported differential including progressive neoplastic process, inflammatory process, and atypical infectious process. A right lower lobe anterior segment nodule at increased slightly, from 5.7 to 6.9 mm. A right upper lung zone groundglass nodule measuring 3-4 mm appeared unchanged. Left lower lobe superior segment bandlike atelectasis and/or scarring appeared stable. Restaging PET/CT on 07/30/2017 showed irregular right lower lobe infiltrate measuring 1.7 x 2.9 cm with FDG uptake less than that of normal mediastinal background, supporting a benign diagnosis. There was inflammatory uptake at a right lower lobe bulla. There was no evidence of malignancy. Given those findings, she continued on observation/expectant management. A repeat chest CT on 12/01/2017 showed persistence and slight progression of the irregular marginated semisolid densities in the anterior basal segment right lower lobe adjacent to a bolus emphysematous cavity. It measured 4 x 1.9 x 1.7 cm compared to 3.3 x 1.8 x 1.7 cm on the study from July 2017. A 7 mm rounded groundglass nodule in the anterior aspect of the right lower lobe appeared stable and a 4.3 mm right middle lobe nodule appeared stable. There was no obvious hilar, mediastinal, axillary, or supraclavicular lymphadenopathy noted. As the changes in the right lower lobe lesion were felt to be suspicious, she was referred to Dr. Justina Keith in [place], and a CT-guided biopsy of the right lung mass on 02/01/2018 was positive for malignant cells, at least adenocarcinoma in situ. She was then seen by Dr. Leahy and she underwent SBRT to the right lung lesion, completed on 03/08/2018 to a total dose of 5000 cGy. During subsequent follow-up, her surveillance chest CT on 12/12/2018 showed findings suspicious for developing neoplasm in the superior segment right lower lobe adjacent to a bolus emphysematous cavity. Postradiation changes in the right lower lobe at the site of the previous semisolid mass lesion appeared stable. Further evaluation with PET/CT on 12/16/2018 showed significant FDG uptake in the solid mural portion of the superior segment right lower lobe bulla, SUV up to 3.4 compared to 1.8 on the previous study. This was felt to be strongly suspicious for malignancy. There was no change in mild inflammatory activity in the scarlike infiltrate in the lateral right lower lobe. With those findings, he was given further SBRT to the right lower lobe lung lesion, completed on 01/08/2019 to a total dose of [address] on 02/19/2019 showed no change in the bullous emphysematous cavity in the right lower lobe with adjacent nodule measuring 11 x 10 mm, suspicious for neoplasm. A small adjacent noncalcified pulmonary nodule measuring 4 to 5 mm with slightly improved. Additional subcentimeter nodules in the right lower and right upper lobes also are unchanged. There is stable fibrotic opacity along the lingula and stable soft tissue thickening along the left hilum. Overall there was no evidence of disease progression. On 04/20/2019 she presented to the emergency room with nausea/vomiting and dizziness. Head CT showed a large amount of edema centered in the right cerebellum with sulcal effacement and mass-effect on the fourth ventricle. This is highly suspicious for metastatic lesion or primary brain tumor. She was admitted to [facility] and on 04/27/2019 she underwent craniotomy and resection of intra-axial and extra-axial metastatic lesion. Pathology showed metastatic adenocarcinoma. She then underwent stereotactic radiotherapy to the cerebellar metastasis cavity, completed on 06/05/2019 to a total dose of 2100 cGy. Her repeat brain MRI on 08/21/2019 showed minimal hemorrhage within the right cerebellar hemisphere at the site of the tumor resection. Residual enhancing tumor was still identified immediately abutting the right-sided transverse and sigmoid sinus. The tumor appeared to measure 2.9 cm in greatest long axis diameter, 9 mm transversely, and 9 mm superiorly to inferiorly. A 1 to 2 mm rounded area of enhancement within the left cerebellar hemisphere compatible with an additional site of metastasis was not significantly changed. There was significant improvement in vasogenic edema within the right cerebellar hemisphere and cerebellar vermis. There were no new areas of enhancement to suggest additional metastasis. I had seen her for a follow-up visit on 09/13/2019. She had further evaluation with restaging PET/CT on 09/22/2019. On that study the scarlike infiltrate in the right lower lobe was noted to be a solid lesion measuring 3.0 x 3.9 cm with SUV increased to 4.9 compared to 2.8 on the prior study from November 2018. The solid tissue in the superior segment right lower lobe bulla also showed an interval increase in SUV from 3.4 to 4.3. Both findings were felt to be indicative of malignant progression. There were stable reactive changes in mediastinal lymph nodes. There were no other areas of abnormal uptake. In the meantime, I also had requested a next generation sequencing study on the cerebellar lesion. It showed no evidence for EGFR, BRAF, or M ET mutations, and the ALK and ROS1 rearrangements were not detected. 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 The tumor was noted to be MSI stable, and it was negative for PD-L1 expression at 0%. She returns today to review the PET/CT and to discuss options for further management of her lung cancer. Medications: Probiotic 1 Tablet Capsule Oral daily, Ventolin HFA 2 puff(s) (of 108 (90 base) mcg/act) Aerosol, solution Inhalation q 4 hours PRN Allergies: IV Contrast and Sulfa Antibiotics. Vital Signs: Performed on Nov 28, 2019 11:35 Height - 63.00 in Weight - 191.6 lbs (LOW) BSA - 1.90 sq.m BMI - 33.94 (HIGH) Temperature - 99.2 F (HIGH) Pulse - 94 /min Respiration - 24 /min BP - 117/69 mm(hg) O2 Sat - 96 % Pain - 5 Impression: 1. Patient with bilateral non-small cell lung cancer, stage IV, with development of metastatic involvement in the right cerebellar hemisphere, for which she underwent surgical resection on 04/27/2019. 2. She was then given stereotactic radiation to the cerebellar metastasis cavity, completed on 06/05/2019 to a total dose of 2100 cGy. 3. Restaging head MRI on 08/21/2019 showed residual enhancing tumor in the right cerebellar hemisphere measuring 2.9 cm. 4. She had additional MRI evidence of a small metastatic lesion in the left cerebellar hemisphere, but that appeared stable on the follow-up MRI. 5. She was originally diagnosed with TTF-1 positive adenocarcinoma involving the upper lobe of the right lung in 2014. She underwent right upper lobectomy/mediastinal lymph node dissection in April 2014. Her disease was stage IA (pT2a, pN0, M0). 6. She then had biopsy-proven adenocarcinoma involving the upper lobe of the left lung. By clinical evaluation her disease was most likely stage IA (T1b, N0, M0). 7. She was given neoadjuvant chemotherapy with 4 cycles of cisplatin/Alimta from 09/14/2015 through 02/16/2016. She tolerated the treatment well, both with only minimal response by follow-up imaging. 8. She was treated with radiation to the left lung lesion, completed on 09/01/2016 to a total dose of 6600 cGy. She tolerated the treatment well. 9. A repeat chest CT on 12/01/2017 showed further increase in the anterior segment right lower lobe densities, consistent with indolent neoplastic or unusual infectious process. CT-directed needle biopsy of the right lower lobe mass on 02/01/2018 was positive for malignant cells, at least adenocarcinoma in situ. She was treated with SBRT, completed on 03/08/2018 to a total dose of 5000 cGy. 10. There was suspected new involvement in new superior segment right lower lobe by PET/CT on 12/16/2018. It was treated with additional SBRT, completed on 01/08/2019 to a total dose of 4800 cGy. Her restaging PET/CT on 09/22/2019 showed findings consistent with progression of 2 areas of malignant involvement in the lower lobe of the right lung. There was no evidence for any new metastatic disease. 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 The tumor was negative for PD-L1 expression at 0%. Plan: The PET/CT findings were reviewed, I also reviewed the PET/CT images with comparison to prior CT scans and the prior PET/CT. There clearly has been some change in the appearance of the 2 right lung lesions, though neither appears to be significantly larger, and in the absence of any new disease, there does not appear to be any urgency with starting systemic therapy. I did review treatment options, 1 of which would be the possibility of participating in a clinical trial targeting the KRAS mutation. The other option would be a trial of standard treatment with a chemotherapy/immunotherapy combination. At this point she prefers to just monitor the disease closely. As such, she will be scheduled for a follow-up visit with a repeat chest CT, which will represent a 3-month interval from her most recent PET/CT. [id number] time with patient was more than 30 minutes, greater than 50% spent in counseling/discussion. Signed By: Maldonado Meyer M.D. <<Signature on File>>
== END 2019-11-28 11:13 | disposition home or self-care (01) ==
LOC: ONCMED 11:21
PROVIDERS: PCP Nurse Practitioner Family; Visit Provider Internal Medicine Medical Oncology
DX: C34.31 Malignant neoplasm of lower lobe, right bronchus or lung (principal); C34.12 Malignant neoplasm of upper lobe, left bronchus or lung; C79.31 Secondary malignant neoplasm of brain; Z92.3 Personal history of irradiation; Z90.2 Acquired absence of lung [part of]; Z92.21 Personal history of antineoplastic chemotherapy
CPT/HCPCS: 99214

== ENCOUNTER 2020-01-01 10:11 | Outpatient (CLI) | payer MEDICARE, MEDICAID, SELFPAY ==
--- NOTE | 2020-01-01 10:17 | CT_ITS ---
WS: [id number] CT CHEST WITHOUT INTRAVENOUS CONTRAST HISTORY: LUNG CANCER TECHNIQUE: Contiguous 5 mm axial imaging performed on the thorax. Coronal and sagittal reformats are submitted. All CT scans at [facility] use at least one of these dose optimization techniq ues: automated exposure control; mA and/or kV adjustment per patient size (includes targeted exams wh ere dose is matched to clinical indication); or iterative reconstruction. CONTRAST: None DLP: 788.62 mGy.cm COMPARISON: 02/19/2019 Lungs and central airway: Prior RIGHT upper lobectomy. Cavitary lesion with wall thickening has progr essed since 02/19/2019. Cavitary lesion is unchanged in size of the solid peripheral lobulated compone nt continues to increase now measuring 1.8 x 2.3 cm. Increase in the soft tissue thickening around ne ansley the entire cavitation. Significant increase in size of the irregular spiculated solid component in the RIGHT lung base prior study. Spiculated mass with pleural thickening and tagging measures 3.3 x 5.3 cm. Groundglass nodule measuring 5 mm in the RIGHT lower lobe, image 29 of series 3. Scattered groundglass opacifications in the LEFT upper lobe. Again noted is a soft tissue thickening at the LEF T hilum which appears more prominent but it has on prior studies. The extent of disease is difficult to determine and stability is difficult to determine without IV contrast. Pleura: Normal. No pleural effusion. Heart and pericardium: Normal size heart with no pericardial effusion. Mediastinum and bryan: Precarinal lymph node measures 10 mm and has slightly increased in size. Increa sing fullness at the hilar regions bilaterally. Calcified subcarinal lymph node. Increasing soft tiss ue component around the proximal RIGHT lower lobe bronchus. Vessels: Mild atherosclerosis aorta. Chest wall and lower neck: No soft tissue masses. Upper abdomen: Prior cholecystectomy. Hepatic steatosis. Small hiatal hernia. Osseous structures: Mild increase in thoracic kyphosis. No osteoblastic or osteolytic disease. CT/CT chest wo con [id number] IMPRESSION: 1. Significant progression of the soft tissue nodular component surrounding th e cavitary lesion in the superior RIGHT lower lobe. Consistent with progression of neoplastic disease. 2. Cavitary lesion in the inferior aspect of the RIGHT lower lobe has become m ore consolidated with a large soft tissue spiculated mass measuring 3.3 x 5.3 c m. Highly suspicious for additional neoplasm. 3. Increasing soft tissue at the hilar regions suspicious for progression of m etastatic adenopathy. Mild progression of precarinal lymph node. Without IV con trast evaluation of individual lymph nodes and progression of disease is diffic ult. PET/CT may be worthwhile. 4. Prior RIGHT upper lobectomy.
[2020-01-01 10:57] LABS: Basophils # 0.1 10^3/uL (0.0-0.1); Basophils % 0.8 %; Eosinophils # 0.1 10^3/uL (0.0-0.8); Hematocrit 42.1 % (37.0-47.0); Hemoglobin 13.1 g/dL (11.5-15.3); Lymphocytes % 30.3 %; Mean Corpuscular HGB Conc 31.1 g/dL (30.0-36.0); Mean Corpuscular Hemoglobin 28.8 pg (28.0-34.0); Mean Corpuscular Volume 92.5 fL (81-99); Mean Platelet Volume 8.6 fL (7.4-10.4); Monocytes # 0.8 10^3/uL (0.2-0.9); Monocytes % 11.3 %; Neutrophils # 3.67 10^3/uL (1.8-7.7); Neutrophils % 55.3 %; Nucleated Red Blood Cells % 0 %; Platelet Count 242 10^3/cmm (130-400); Red Blood Count 4.55 10^6/uL (4.1-5.3); Red Cell Distribution Width 14.4 % (12.1-15.1); White Blood Count 6.6 10^3/uL (4.0-10.0)
[2020-01-01 11:23] LABS: Alanine Aminotransferase 31 U/L (0-33); Albumin Level 4.2 g/dL (3.5-5.2); Alkaline Phosphatase 77 IU/L (35-105); Anion Gap 13.1 (5-19); Aspartate Amino Transferase 31 U/L (0-32); Blood Urea Nitrogen 15 mg/dL (8-23); Calcium 9.2 mg/dL (8.5-10.5); Carbon Dioxide 28 mmol/L (22-29); Chloride 101 mmol/L (98-107); Globulin 3.6 g/dL (1.3-4.6); Glomerular Filtration Rate 98.8 mL/min (90-130); Glucose 114 mg/dL (65-115); Osmolality Calculated 283 mOsm/kg (285-295); Potassium 4.1 mmol/L (3.5-5.1); Sodium 138 mmol/L (136-145); Total Bilirubin 0.4 mg/dL (0.15-1.2); Total Protein 7.8 g/dL (6.6-8.7)
== END 2020-01-01 10:12 | disposition home or self-care (01) ==
LOC: CT 10:14
PROVIDERS: PCP Nurse Practitioner Family; Visit Provider Internal Medicine Medical Oncology
DX: C79.31 Secondary malignant neoplasm of brain (principal); C34.31 Malignant neoplasm of lower lobe, right bronchus or lung; D70.2 Other drug-induced agranulocytosis; C34.12 Malignant neoplasm of upper lobe, left bronchus or lung; C34.11 Malignant neoplasm of upper lobe, right bronchus or lung; Z90.2 Acquired absence of lung [part of]
CPT/HCPCS: 36415; 71250; 80053; 85025

== ENCOUNTER 2020-01-03 08:41 | Outpatient (CLI) | payer MEDICARE, MEDICAID, SELFPAY ==
--- NOTE | 2020-01-06 09:19 | ONC FU_ITS ---
Dr. Meyer Patient Follow-Up Note Patient: Kristina Bertrand Unit #: [id number]: 1950 Dicatated By: Maldonado Meyer M.D.Date of Visit:Jan 03, 2020 Onc Med Follow-up/Prog Note Chief Complaint: Non-small cell lung cancer. 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 She was found to have a right upper lobe lung mass in December 2012 during the course of an ER evaluation for suspected diverticulitis. A CT guided needle biopsy of the mass January 2013 did confirm TTF-1 positive well-differentiated adenocarcinoma which was EGFR, ALK, and ROS-1 negative. Staging evaluation with brain MRI and PET/CT showed no obvious metastatic disease. The PET/CT showed right upper lobe mass measuring 3.2 x 2.4 cm and an additional right upper lobe nodule measuring 8 mm. She underwent thoracotomy with right upper lobectomy and mediastinal lymph node dissection on 04/29/2014. Pathology showed well-differentiated adenocarcinoma with predominantly mixed acinar and alveolar pattern. It measured 3.1 cm. There was invasion of the visceral pleura, but margins were negative. Lymph nodes at station 7, 11, and 10 were negative, thus stage IA (pT2a, pN0, M0). She received no adjuvant therapy. Surveillance chest CT in July 2015 showed a 2 cm nodule in the posterior central left lingual area, suspicious for metastatic disease or new primary malignancy. A subsequent PET/CT showed a smoothly marginated nodule in the left lung measuring 12 mm and tiny right upper lobe nodules which apparently felt to be improving, with no evidence of residual malignancy. She underwent bronchoscopy with FNA of station 11 on 08/22/2015. The FNA was negative. Brushings were inconclusive. Biopsy of the left lung nodule on 09/16/2015 was positive for adenocarcinoma, TTF-1 positive and EGFR mutation negative. There was insufficient material for ALK and ROS-1 studies. The tumor was negative for PD-L1 expression. In October 2015 she went to [facility] for second opinion evaluation. Evaluation there included brain MRI which showed no evidence of metastatic disease. PET/CT on 11/04/2015 showed an FDG avid centrally located left upper lobe nodule which had increased in size. There was no evidence of leonel or distant metastatic disease on that study. However, there was reportedly evidence of groundglass opacities in both lungs with the differential including atypical adenomatous hyperplasia and multifocal primary lung malignancy. Also noted were 2 air-containing cystic lesions with groundglass component's within the right lower lobe, also felt to be suspicious for primary lung malignancies. Ultimately, it was recommended that she undergo neoadjuvant chemotherapy with 4 cycles of cisplatin-pemetrexed. She was then seen here because she preferred to receive her chemotherapy locally. She received cycle 1 of cisplatin/Alimta on 12/15/2015. She tolerated it well. Side effects were limited to mild nausea and stomatitis. She received cycles 2 and 3 on schedule with no dose reductions. She did receive Neupogen following the 2nd cycle due to a low radhika granulocyte count, and she was then given Neulasta prophylactically with cycle 3. She completed 4 cycles on 02/16/16. Her restaging PET/CT at [facility] on 03/18/2016 showed new FDG activity involving bilateral axillary lymph nodes, though without associated lymph node enlargement. Pre-paracardial lymph node was mildly increased in size but markedly FDG avid. A juxtaphrenic lymph node also showed new FDG activity with slight increased size. Small right paratracheal lymph nodes were not significantly change in size and only slightly FDG avid. The tumor at the left hilum was not significantly changed in size, but it remained markedly FDG avid. Groundglass attenuation nodules in both lungs were unchanged. The abdomen/pelvis showed extensive new metabolic activity at left gastric and periportal adenopathy with slight increase in the size of the lymph nodes. Multiple small retroperitoneal lymph nodes also showed new metabolic activity. Small left inguinal lymph nodes and bilateral external iliac lymph nodes also appeared FDG avid. Overall, the left hilar tumor was unchanged and there was new widespread leonel metabolic activity with only slight increase in the size of some the lymph nodes, consistent with reactive process. A repeat chest CT on 05/06/2016 showed stable left hilar lesion measuring 2.4 cm. There was no change in size of the FDG avid lymph nodes noted on the PET/CT in March. The right middle lobe peribronchial vascular nodular opacities were mildly decreased compared to October 2015. Given the findings on the imaging studies, it was felt that her disease was localized. She was given the option of surgical resection, but that would have necessitated complete pneumonectomy. Ultimately, she opted against surgery. She was then treated with radiation to the left hilar lesion. She completed treatment on 09/01/2016 to a total dose of 6600 cGy. The tumor did appear slightly smaller on the follow-up CT scan on 10/07/2016. Her restaging CT on 01/06/2017 showed stable left infrahilar soft tissue lesion measuring 1.3 x 1.1 cm. A groundglass opacity in the right lower lobe laterally measuring 1.7 x 1.4 cm it appeared slightly more prominent compared to previous study from April 2016. There was no mediastinal or hilar lymphadenopathy noted. Chest CT on 04/21/2017 reported increased enlargement of the right lower lobe lateral segment some solid nodule with reported differential including progressive neoplastic process, inflammatory process, and atypical infectious process. A right lower lobe anterior segment nodule at increased slightly, from 5.7 to 6.9 mm. A right upper lung zone groundglass nodule measuring 3-4 mm appeared unchanged. Left lower lobe superior segment bandlike atelectasis and/or scarring appeared stable. Restaging PET/CT on 07/30/2017 showed irregular right lower lobe infiltrate measuring 1.7 x 2.9 cm with FDG uptake less than that of normal mediastinal background, supporting a benign diagnosis. There was inflammatory uptake at a right lower lobe bulla. There was no evidence of malignancy. Given those findings, she continued on observation/expectant management. A repeat chest CT on 12/01/2017 showed persistence and slight progression of the irregular marginated semisolid densities in the anterior basal segment right lower lobe adjacent to a bolus emphysematous cavity. It measured 4 x 1.9 x 1.7 cm compared to 3.3 x 1.8 x 1.7 cm on the study from July 2017. A 7 mm rounded groundglass nodule in the anterior aspect of the right lower lobe appeared stable and a 4.3 mm right middle lobe nodule appeared stable. There was no obvious hilar, mediastinal, axillary, or supraclavicular lymphadenopathy noted. As the changes in the right lower lobe lesion were felt to be suspicious, she was referred to Dr. Justina Keith in [place], and a CT-guided biopsy of the right lung mass on 02/01/2018 was positive for malignant cells, at least adenocarcinoma in situ. She was then seen by Dr. Leahy and she underwent SBRT to the right lung lesion, completed on 03/08/2018 to a total dose of 5000 cGy. During subsequent follow-up, her surveillance chest CT on 12/12/2018 showed findings suspicious for developing neoplasm in the superior segment right lower lobe adjacent to a bolus emphysematous cavity. Postradiation changes in the right lower lobe at the site of the previous semisolid mass lesion appeared stable. Further evaluation with PET/CT on 12/16/2018 showed significant FDG uptake in the solid mural portion of the superior segment right lower lobe bulla, SUV up to 3.4 compared to 1.8 on the previous study. This was felt to be strongly suspicious for malignancy. There was no change in mild inflammatory activity in the scarlike infiltrate in the lateral right lower lobe. With those findings, he was given further SBRT to the right lower lobe lung lesion, completed on 01/08/2019 to a total dose of [address] on 02/19/2019 showed no change in the bullous emphysematous cavity in the right lower lobe with adjacent nodule measuring 11 x 10 mm, suspicious for neoplasm. A small adjacent noncalcified pulmonary nodule measuring 4 to 5 mm with slightly improved. Additional subcentimeter nodules in the right lower and right upper lobes also are unchanged. There is stable fibrotic opacity along the lingula and stable soft tissue thickening along the left hilum. Overall there was no evidence of disease progression. On 04/20/2019 she presented to the emergency room with nausea/vomiting and dizziness. Head CT showed a large amount of edema centered in the right cerebellum with sulcal effacement and mass-effect on the fourth ventricle. This is highly suspicious for metastatic lesion or primary brain tumor. She was admitted to [facility] and on 04/27/2019 she underwent craniotomy and resection of intra-axial and extra-axial metastatic lesion. Pathology showed metastatic adenocarcinoma. She then underwent stereotactic radiotherapy to the cerebellar metastasis cavity, completed on 06/05/2019 to a total dose of 2100 cGy. Her repeat brain MRI on 08/21/2019 showed minimal hemorrhage within the right cerebellar hemisphere at the site of the tumor resection. Residual enhancing tumor was still identified immediately abutting the right-sided transverse and sigmoid sinus. The tumor appeared to measure 2.9 cm in greatest long axis diameter, 9 mm transversely, and 9 mm superiorly to inferiorly. A 1 to 2 mm rounded area of enhancement within the left cerebellar hemisphere compatible with an additional site of metastasis was not significantly changed. There was significant improvement in vasogenic edema within the right cerebellar hemisphere and cerebellar vermis. There were no new areas of enhancement to suggest additional metastasis. I had seen her for a follow-up visit on 09/13/2019. She had further evaluation with restaging PET/CT on 09/22/2019. On that study the scarlike infiltrate in the right lower lobe was noted to be a solid lesion measuring 3.0 x 3.9 cm with SUV increased to 4.9 compared to 2.8 on the prior study from November 2018. The solid tissue in the superior segment right lower lobe bulla also showed an interval increase in SUV from 3.4 to 4.3. Both findings were felt to be indicative of malignant progression. There were stable reactive changes in mediastinal lymph nodes. There were no other areas of abnormal uptake. In the meantime, I also had requested a next generation sequencing study on the cerebellar lesion. It showed no evidence for EGFR, BRAF, or M ET mutations, and the ALK and ROS1 rearrangements were not detected. 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 The tumor was noted to be MSI stable, and it was negative for PD-L1 expression at 0%. I had reviewed the PET/CT with the patient and with the radiologist. While there did appear to be some progression, those changes were fairly minor at least for the time being we opted to continue observation/expectant management. She then had a restaging chest CT on 01/01/2020. That study reported significant progression of the soft tissue nodular component surrounding the cavitary lesion in the superior right lower lobe, consistent with progression of neoplastic disease. The cavitary lesion in the inferior aspect of the right lower lobe has become more consolidated having the appearance of a large soft tissue spiculated mass measuring 3.3 x 5.3 cm, highly suspicious for additional neoplasm. Increasing soft tissue at the hilar regions was also felt to be suspicious for progression of metastatic adenopathy. There is additionally mild progression of a precarinal lymph node. She is seen for a follow-up visit. She is still feeling okay. She has pretty good energy/activity tolerance. Her ECOG score is 0. She has good appetite. She has no fever or night sweats. She has just a little bit of cough productive of white or clear sputum. She is also just a little bit short of breath. She does not complain of chest pain. She has no GI or complaints. She has some joint pain, which is not new. She does not complain of headache. She has some numbness/tingling in her hands. Medications: Probiotic 1 Tablet Capsule Oral daily, Ventolin HFA 2 puff(s) (of 108 (90 base) mcg/act) Aerosol, solution Inhalation q 4 hours PRN Allergies: IV Contrast and Sulfa Antibiotics. Review of Systems: Constitutional - She is feeling good and her energy is good. She has normal activity without restrictions. Her appetite is good and weight is stable. No fever, night sweats, or hot flashes. ECOG score is 0, ENMT - No sinus congestion/drainage. No mouth sores. No sore throat or difficulty swallowing, Hematologic/Lymphatic - No abnormal bruising or bleeding, Respiratory - She is having more shortness of breath. She has a cough that is occasional produces clear or white phlegm. No pleuritic pain or hemoptysis, Cardiovascular - No angina pain. No palpitations, Gastrointestinal - No nausea or vomiting. She has occasional heartburn depending on what she eats. No diarrhea or constipation. No blood in the stool or black stools, Genitourinary (F) - No dysuria or hematuria. No urinary frequency. No urgency or incontinence, Musculoskeletal - No joint or bone pain, Integumentary - No skin complications, Neurologic - No headache. She has occasional dizziness with positional changes and when she bends over. She has numbness and tingling in her hands. No other focal neurologic symptoms, Psychiatric - No anxiety or depression. No insomnia. Vital Signs: Performed on Jan 03, 2020 09:01 Height - 63.00 in Weight - 189.8 lbs (LOW) BSA - 1.89 sq.m BMI - 33.62 (HIGH) Temperature - 99.1 F (HIGH) Pulse - 87 /min Respiration - 22 /min BP - 134/85 mm(hg) O2 Sat - 96 % Pain - 0 Physical Examination: Constitutional - She looks pretty good generally, Eyes - Sclerae nonicteric. Conjunctivae clear, ENMT - No lesions noted in the oral cavity, Hematologic/Lymphatic - No cervical, clavicular, or axillary adenopathy, Respiratory - Lungs sound clear, Cardiovascular - Heart rhythm is regular. There is no murmur, gallop, or rub noted, Abdomen - Soft. Liver and spleen are not enlarged. There is no abdominal mass or ascites noted and there is no inguinal adenopathy, Extremities - No edema, Neurologic - No focal neurologic deficits noted. Lab/Imaging: CBC shows hemoglobin 13.1 g, white blood cell count 6600, and platelet count 242,000. Comprehensive metabolic profile is unremarkable. Impression: 1. Patient with bilateral non-small cell lung cancer, stage IV, with development of metastatic involvement in the right cerebellar hemisphere, for which she underwent surgical resection on 04/27/2019. 2. She was then given stereotactic radiation to the cerebellar metastasis cavity, completed on 06/05/2019 to a total dose of 2100 cGy. 3. Restaging head MRI on 08/21/2019 showed residual enhancing tumor in the right cerebellar hemisphere measuring 2.9 cm. 4. She had additional MRI evidence of a small metastatic lesion in the left cerebellar hemisphere, but that appeared stable on the follow-up MRI. 5. She was originally diagnosed with TTF-1 positive adenocarcinoma involving the upper lobe of the right lung in 2014. She underwent right upper lobectomy/mediastinal lymph node dissection in April 2014. Her disease was stage IA (pT2a, pN0, M0). 6. She then had biopsy-proven adenocarcinoma involving the upper lobe of the left lung. By clinical evaluation her disease was most likely stage IA (T1b, N0, M0). 7. She was given neoadjuvant chemotherapy with 4 cycles of cisplatin/Alimta from 09/14/2015 through 02/16/2016. She tolerated the treatment well, both with only minimal response by follow-up imaging. 8. She was treated with radiation to the left lung lesion, completed on 09/01/2016 to a total dose of 6600 cGy. She tolerated the treatment well. 9. A repeat chest CT on 12/01/2017 showed further increase in the anterior segment right lower lobe densities, consistent with indolent neoplastic or unusual infectious process. CT-directed needle biopsy of the right lower lobe mass on 02/01/2018 was positive for malignant cells, at least adenocarcinoma in situ. She was treated with SBRT, completed on 03/08/2018 to a total dose of 5000 cGy. 10. There was suspected new involvement in new superior segment right lower lobe by PET/CT on 12/16/2018. It was treated with additional SBRT, completed on 01/08/2019 to a total dose of 4800 cGy. Her restaging PET/CT on 09/22/2019 showed findings consistent with progression of 2 areas of malignant involvement in the lower lobe of the right lung. There was no evidence for any new metastatic disease. 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 The tumor was negative for PD-L1 expression at 0%. After review of the PET/CT, the areas of progression appeared to be fairly minor, and we had initially opted to just continue with observation/expectant management. Her restaging chest CT on 01/01/2020, though, shows more significant progression of both lesions in the right lower lobe, now with high probability of malignancy. Her clinical status remains stable. Plan: I reviewed the CT images with the patient and her . We discussed the fact that there is now a very high probability that the lesions in the right lower lobe are malignant and are progressing. I discussed options for further management, one of which is to continue observation, though I do not really recommend it. A second option is to biopsy, and to that end I will review the CT with the radiologist. The third option is to just proceed with treatment which in her case would most likely be a chemotherapy/immunotherapy combination. The decision will be deferred pending review of the CT scan. Signed By: Maldonado Meyer M.D. <<Signature on File>>
== END 2020-01-03 08:42 | disposition home or self-care (01) ==
LOC: ONCMED 08:44
PROVIDERS: PCP Nurse Practitioner Family; Visit Provider Internal Medicine Medical Oncology
DX: C34.31 Malignant neoplasm of lower lobe, right bronchus or lung (principal); C79.31 Secondary malignant neoplasm of brain; D70.2 Other drug-induced agranulocytosis; T45.1X5A Adverse effect of antineoplastic and immunosuppressive drugs, initial encounter
CPT/HCPCS: 99214

== ENCOUNTER 2020-02-19 08:14 | Outpatient (CLI) | payer MEDICARE, MEDICAID, SELFPAY ==
[2020-02-19] MEDS: pneumococcal (23 valent) SDV 0.5 mL IM (09:35)
--- NOTE | 2020-02-23 10:15 | ONC FU_ITS ---
Dr. Meyer Patient Follow-Up Note Patient: Kristina Bertrand Unit #: [id number]: 1950 Dicatated By: Maldonado Meyer M.D.Date of Visit:Feb 19, 2020 Onc Med Follow-up/Prog Note Chief Complaint: Non-small cell lung cancer. 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 She was found to have a right upper lobe lung mass in December 2012 during the course of an ER evaluation for suspected diverticulitis. A CT guided needle biopsy of the mass January 2013 did confirm TTF-1 positive well-differentiated adenocarcinoma which was EGFR, ALK, and ROS-1 negative. Staging evaluation with brain MRI and PET/CT showed no obvious metastatic disease. The PET/CT showed right upper lobe mass measuring 3.2 x 2.4 cm and an additional right upper lobe nodule measuring 8 mm. She underwent thoracotomy with right upper lobectomy and mediastinal lymph node dissection on 04/29/2014. Pathology showed well-differentiated adenocarcinoma with predominantly mixed acinar and alveolar pattern. It measured 3.1 cm. There was invasion of the visceral pleura, but margins were negative. Lymph nodes at station 7, 11, and 10 were negative, thus stage IA (pT2a, pN0, M0). She received no adjuvant therapy. Surveillance chest CT in July 2015 showed a 2 cm nodule in the posterior central left lingual area, suspicious for metastatic disease or new primary malignancy. A subsequent PET/CT showed a smoothly marginated nodule in the left lung measuring 12 mm and tiny right upper lobe nodules which apparently felt to be improving, with no evidence of residual malignancy. She underwent bronchoscopy with FNA of station 11 on 08/22/2015. The FNA was negative. Brushings were inconclusive. Biopsy of the left lung nodule on 09/16/2015 was positive for adenocarcinoma, TTF-1 positive and EGFR mutation negative. There was insufficient material for ALK and ROS-1 studies. The tumor was negative for PD-L1 expression. In October 2015 she went to [facility] for second opinion evaluation. Evaluation there included brain MRI which showed no evidence of metastatic disease. PET/CT on 11/04/2015 showed an FDG avid centrally located left upper lobe nodule which had increased in size. There was no evidence of leonel or distant metastatic disease on that study. However, there was reportedly evidence of groundglass opacities in both lungs with the differential including atypical adenomatous hyperplasia and multifocal primary lung malignancy. Also noted were 2 air-containing cystic lesions with groundglass component's within the right lower lobe, also felt to be suspicious for primary lung malignancies. Ultimately, it was recommended that she undergo neoadjuvant chemotherapy with 4 cycles of cisplatin-pemetrexed. She was then seen here because she preferred to receive her chemotherapy locally. She received cycle 1 of cisplatin/Alimta on 12/15/2015. She tolerated it well. Side effects were limited to mild nausea and stomatitis. She received cycles 2 and 3 on schedule with no dose reductions. She did receive Neupogen following the 2nd cycle due to a low radhika granulocyte count, and she was then given Neulasta prophylactically with cycle 3. She completed 4 cycles on 02/16/16. Her restaging PET/CT at [facility] on 03/18/2016 showed new FDG activity involving bilateral axillary lymph nodes, though without associated lymph node enlargement. Pre-paracardial lymph node was mildly increased in size but markedly FDG avid. A juxtaphrenic lymph node also showed new FDG activity with slight increased size. Small right paratracheal lymph nodes were not significantly change in size and only slightly FDG avid. The tumor at the left hilum was not significantly changed in size, but it remained markedly FDG avid. Groundglass attenuation nodules in both lungs were unchanged. The abdomen/pelvis showed extensive new metabolic activity at left gastric and periportal adenopathy with slight increase in the size of the lymph nodes. Multiple small retroperitoneal lymph nodes also showed new metabolic activity. Small left inguinal lymph nodes and bilateral external iliac lymph nodes also appeared FDG avid. Overall, the left hilar tumor was unchanged and there was new widespread leonel metabolic activity with only slight increase in the size of some the lymph nodes, consistent with reactive process. A repeat chest CT on 05/06/2016 showed stable left hilar lesion measuring 2.4 cm. There was no change in size of the FDG avid lymph nodes noted on the PET/CT in March. The right middle lobe peribronchial vascular nodular opacities were mildly decreased compared to October 2015. Given the findings on the imaging studies, it was felt that her disease was localized. She was given the option of surgical resection, but that would have necessitated complete pneumonectomy. Ultimately, she opted against surgery. She was then treated with radiation to the left hilar lesion. She completed treatment on 09/01/2016 to a total dose of 6600 cGy. The tumor did appear slightly smaller on the follow-up CT scan on 10/07/2016. Her restaging CT on 01/06/2017 showed stable left infrahilar soft tissue lesion measuring 1.3 x 1.1 cm. A groundglass opacity in the right lower lobe laterally measuring 1.7 x 1.4 cm it appeared slightly more prominent compared to previous study from April 2016. There was no mediastinal or hilar lymphadenopathy noted. Chest CT on 04/21/2017 reported increased enlargement of the right lower lobe lateral segment some solid nodule with reported differential including progressive neoplastic process, inflammatory process, and atypical infectious process. A right lower lobe anterior segment nodule at increased slightly, from 5.7 to 6.9 mm. A right upper lung zone groundglass nodule measuring 3-4 mm appeared unchanged. Left lower lobe superior segment bandlike atelectasis and/or scarring appeared stable. Restaging PET/CT on 07/30/2017 showed irregular right lower lobe infiltrate measuring 1.7 x 2.9 cm with FDG uptake less than that of normal mediastinal background, supporting a benign diagnosis. There was inflammatory uptake at a right lower lobe bulla. There was no evidence of malignancy. Given those findings, she continued on observation/expectant management. A repeat chest CT on 12/01/2017 showed persistence and slight progression of the irregular marginated semisolid densities in the anterior basal segment right lower lobe adjacent to a bolus emphysematous cavity. It measured 4 x 1.9 x 1.7 cm compared to 3.3 x 1.8 x 1.7 cm on the study from July 2017. A 7 mm rounded groundglass nodule in the anterior aspect of the right lower lobe appeared stable and a 4.3 mm right middle lobe nodule appeared stable. There was no obvious hilar, mediastinal, axillary, or supraclavicular lymphadenopathy noted. As the changes in the right lower lobe lesion were felt to be suspicious, she was referred to Dr. Justina Keith in [place], and a CT-guided biopsy of the right lung mass on 02/01/2018 was positive for malignant cells, at least adenocarcinoma in situ. She was then seen by Dr. Leahy and she underwent SBRT to the right lung lesion, completed on 03/08/2018 to a total dose of 5000 cGy. During subsequent follow-up, her surveillance chest CT on 12/12/2018 showed findings suspicious for developing neoplasm in the superior segment right lower lobe adjacent to a bolus emphysematous cavity. Postradiation changes in the right lower lobe at the site of the previous semisolid mass lesion appeared stable. Further evaluation with PET/CT on 12/16/2018 showed significant FDG uptake in the solid mural portion of the superior segment right lower lobe bulla, SUV up to 3.4 compared to 1.8 on the previous study. This was felt to be strongly suspicious for malignancy. There was no change in mild inflammatory activity in the scarlike infiltrate in the lateral right lower lobe. With those findings, he was given further SBRT to the right lower lobe lung lesion, completed on 01/08/2019 to a total dose of [address] on 02/19/2019 showed no change in the bullous emphysematous cavity in the right lower lobe with adjacent nodule measuring 11 x 10 mm, suspicious for neoplasm. A small adjacent noncalcified pulmonary nodule measuring 4 to 5 mm with slightly improved. Additional subcentimeter nodules in the right lower and right upper lobes also are unchanged. There is stable fibrotic opacity along the lingula and stable soft tissue thickening along the left hilum. Overall there was no evidence of disease progression. On 04/20/2019 she presented to the emergency room with nausea/vomiting and dizziness. Head CT showed a large amount of edema centered in the right cerebellum with sulcal effacement and mass-effect on the fourth ventricle. This is highly suspicious for metastatic lesion or primary brain tumor. She was admitted to [facility] and on 04/27/2019 she underwent craniotomy and resection of intra-axial and extra-axial metastatic lesion. Pathology showed metastatic adenocarcinoma. She then underwent stereotactic radiotherapy to the cerebellar metastasis cavity, completed on 06/05/2019 to a total dose of 2100 cGy. Her repeat brain MRI on 08/21/2019 showed minimal hemorrhage within the right cerebellar hemisphere at the site of the tumor resection. Residual enhancing tumor was still identified immediately abutting the right-sided transverse and sigmoid sinus. The tumor appeared to measure 2.9 cm in greatest long axis diameter, 9 mm transversely, and 9 mm superiorly to inferiorly. A 1 to 2 mm rounded area of enhancement within the left cerebellar hemisphere compatible with an additional site of metastasis was not significantly changed. There was significant improvement in vasogenic edema within the right cerebellar hemisphere and cerebellar vermis. There were no new areas of enhancement to suggest additional metastasis. I had seen her for a follow-up visit on 09/13/2019. She had further evaluation with restaging PET/CT on 09/22/2019. On that study the scarlike infiltrate in the right lower lobe was noted to be a solid lesion measuring 3.0 x 3.9 cm with SUV increased to 4.9 compared to 2.8 on the prior study from November 2018. The solid tissue in the superior segment right lower lobe bulla also showed an interval increase in SUV from 3.4 to 4.3. Both findings were felt to be indicative of malignant progression. There were stable reactive changes in mediastinal lymph nodes. There were no other areas of abnormal uptake. In the meantime, I also had requested a next generation sequencing study on the cerebellar lesion. It showed no evidence for EGFR, BRAF, or M ET mutations, and the ALK and ROS1 rearrangements were not detected. 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 The tumor was noted to be MSI stable, and it was negative for PD-L1 expression at 0%. I had reviewed the PET/CT with the patient and with the radiologist. While there did appear to be some progression, those changes were fairly minor at least for the time being we opted to continue observation/expectant management. She then had a restaging chest CT on 01/01/2020. That study reported significant progression of the soft tissue nodular component surrounding the cavitary lesion in the superior right lower lobe, consistent with progression of neoplastic disease. The cavitary lesion in the inferior aspect of the right lower lobe has become more consolidated having the appearance of a large soft tissue spiculated mass measuring 3.3 x 5.3 cm, highly suspicious for additional neoplasm. Increasing soft tissue at the hilar regions was also felt to be suspicious for progression of metastatic adenopathy. There was additionally mild progression of a precarinal lymph node. I had been seeing her for a follow-up visit to discuss treatment options, including the possibility of a targeted therapy for the KRAS mutation, which would have been in the setting of a clinical trial. The other option would be chemotherapy/immunotherapy combination regimen. Ultimately, she opted for the latter, but when I came to actually scheduling her for the treatment, she wanted to reconsider. She is seen for a follow-up visit. She is still feeling good generally. She has good energy and activity tolerance. ECOG score 0. Appetite also is good. She has no fever or night sweats. She does get a little short of breath with activity. She does not complain of cough. She still has some discomfort in the area of her thoracotomy in the right chest. She has no GI or complaints. She sometimes has joint pain, but not bad. She does not complain of headache or dizziness. She does have some numbness/tingling in her hands. Medications: Probiotic 1 Tablet Capsule Oral daily, Ventolin HFA 2 puff(s) (of 108 (90 base) mcg/act) Aerosol, solution Inhalation q 4 hours PRN Allergies: IV Contrast and Sulfa Antibiotics. Review of Systems: Constitutional - She has been feeling good generally. She has good energy and activity tolerance. Appetite is good. Her weight is stable. No fever, night sweats, or hot flashes. ECOG score is 0, ENMT - No sinus congestion/drainage. No mouth sores. No sore throat or difficulty swallowing, Hematologic/Lymphatic - No abnormal bruising or bleeding, Respiratory - She has been a little bit more short of breath. No cough. She still has some postthoracotomy pain in the right chest. No hemoptysis, Cardiovascular - No angina pain. No palpitations, Gastrointestinal - No nausea or vomiting. No heartburn or acid reflux. No diarrhea or constipation. No blood in the stool or black stools, Genitourinary (F) - No dysuria or hematuria. No urinary frequency. No urgency or incontinence, Musculoskeletal - She sometimes has joint pain, Integumentary - No skin rash, Neurologic - No headache or dizziness. She always has numbness/tingling. No other focal neurologic symptoms, Psychiatric - She does have some anxiety. No depression. No insomnia. Vital Signs: Performed on Feb 19, 2020 08:51 Height - 63.00 in Weight - 190.6 lbs (HIGH) BSA - 1.89 sq.m BMI - 33.76 (HIGH) Temperature - 99.4 F (HIGH) Pulse - 82 /min Respiration - 22 /min BP - 177/76 mm(hg) (HIGH) O2 Sat - 99 % Pain - 0 Physical Examination: Constitutional - She looks good generally, Eyes - Sclerae nonicteric. Conjunctivae clear, ENMT - No lesions noted in the oral cavity, Hematologic/Lymphatic - No cervical, clavicular, or axillary adenopathy, Respiratory - Lungs sound clear, Cardiovascular - Heart rhythm is regular. There is no murmur, gallop, or rub noted, Abdomen - Soft. There is mild tenderness in the right upper quadrant. Liver and spleen are not enlarged. There is no abdominal mass or ascites noted and there is no inguinal adenopathy, Extremities - No edema, Neurologic - No focal neurologic deficits noted. Impression: 1. Patient with bilateral non-small cell lung cancer, stage IV, with development of metastatic involvement in the right cerebellar hemisphere, for which she underwent surgical resection on 04/27/2019. 2. She was then given stereotactic radiation to the cerebellar metastasis cavity, completed on 06/05/2019 to a total dose of 2100 cGy. 3. Restaging head MRI on 08/21/2019 showed residual enhancing tumor in the right cerebellar hemisphere measuring 2.9 cm. 4. She had additional MRI evidence of a small metastatic lesion in the left cerebellar hemisphere, but that appeared stable on the follow-up MRI. 5. She was originally diagnosed with TTF-1 positive adenocarcinoma involving the upper lobe of the right lung in 2014. She underwent right upper lobectomy/mediastinal lymph node dissection in April 2014. Her disease was stage IA (pT2a, pN0, M0). 6. She then had biopsy-proven adenocarcinoma involving the upper lobe of the left lung. By clinical evaluation her disease was most likely stage IA (T1b, N0, M0). 7. She was given neoadjuvant chemotherapy with 4 cycles of cisplatin/Alimta from 09/14/2015 through 02/16/2016. She tolerated the treatment well, both with only minimal response by follow-up imaging. 8. She was treated with radiation to the left lung lesion, completed on 09/01/2016 to a total dose of 6600 cGy. She tolerated the treatment well. 9. A repeat chest CT on 12/01/2017 showed further increase in the anterior segment right lower lobe densities, consistent with indolent neoplastic or unusual infectious process. CT-directed needle biopsy of the right lower lobe mass on 02/01/2018 was positive for malignant cells, at least adenocarcinoma in situ. She was treated with SBRT, completed on 03/08/2018 to a total dose of 5000 cGy. 10. There was suspected new involvement in new superior segment right lower lobe by PET/CT on 12/16/2018. It was treated with additional SBRT, completed on 01/08/2019 to a total dose of 4800 cGy. Her restaging PET/CT on 09/22/2019 showed findings consistent with progression of 2 areas of malignant involvement in the lower lobe of the right lung. There was no evidence for any new metastatic disease. 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 The tumor was negative for PD-L1 expression at 0%. After review of the PET/CT, the areas of progression appeared to be fairly minor, and we had initially opted to just continue with observation/expectant management. Her restaging chest CT on 01/01/2020 showed more significant progression of both lesions in the right lower lobe, particularly the lesion at the right lung base. The findings were felt to be consistent with a high probability of malignancy. I had seen her to discuss treatment options, at 1 point she did agree to proceed with a trial of a combination chemotherapy/immunotherapy regimen. However, as her disease was still localized to those 2 areas and as she has not experienced any change in her clinical status, she ultimately decided to defer starting any treatment. Plan: I again reviewed the CT images with the patient and her . While there is definitely progression of the findings in both the right lung lesions, particularly at the right lung base, her disease is still localized to those 2 areas, and as long as she is not overtly symptomatic, she prefers to continue to monitor this with close observation. As such, I will schedule her for a restaging PET/CT to be done next month, which will be a 3-month interval from her chest CT scan, but that will be subject to verification of insurance coverage. She will be given the flu shot and Pneumovax. Signed By: Maldonado Meyer M.D. <<Signature on File>>
== END 2020-02-19 08:15 | disposition home or self-care (01) ==
LOC: ONCMED 08:18
PROVIDERS: PCP Nurse Practitioner Family; Visit Provider Internal Medicine Medical Oncology
DX: C34.11 Malignant neoplasm of upper lobe, right bronchus or lung (principal); C34.12 Malignant neoplasm of upper lobe, left bronchus or lung; C34.31 Malignant neoplasm of lower lobe, right bronchus or lung; C79.31 Secondary malignant neoplasm of brain; D70.1 Agranulocytosis secondary to cancer chemotherapy; T45.1X5A Adverse effect of antineoplastic and immunosuppressive drugs, initial encounter; Z23 Encounter for immunization
CPT/HCPCS: 90471; 90686; 90732; 99214

== ENCOUNTER 2020-03-26 05:57 | Outpatient (CLI) | payer MEDICARE, MEDICAID, SELFPAY ==
[2020-03-26 11:01] LABS: Basophils % 0.5 %; Eosinophils # 0.1 10^3/uL (0.0-0.8); Eosinophils % 1.3 %; Hemoglobin 13.6 g/dL (11.5-15.3); Lymphocytes # 2.2 10^3/uL (0.8-4.8); Lymphocytes % 39.6 %; Mean Corpuscular HGB Conc 31.6 g/dL (30.0-36.0); Mean Corpuscular Hemoglobin 29.2 pg (28.0-34.0); Mean Corpuscular Volume 92.3 fL (81-99); Monocytes # 0.6 10^3/uL (0.2-0.9); Neutrophils # 2.56 10^3/uL (1.8-7.7); Neutrophils % 46.3 %; Nucleated Red Blood Cells % 0 %; Platelet Count 226 10^3/cmm (130-400); Red Blood Count 4.66 10^6/uL (4.1-5.3); Red Cell Distribution Width 14.7 % (12.1-15.1); White Blood Count 5.5 10^3/uL (4.0-10.0)
[2020-03-26 11:20] LABS: Alanine Aminotransferase 43 U/L (0-33); Albumin Level 4.4 g/dL (3.5-5.2); Alkaline Phosphatase 67 IU/L (35-105); Chloride 100 mmol/L (98-107); Potassium 4.5 mmol/L (3.5-5.1); Sodium 137 mmol/L (136-145)
[2020-03-26 11:35] LABS: Anion Gap 14.5 (5-19); Aspartate Amino Transferase 38 U/L (0-32); Blood Urea Nitrogen 11 mg/dL (8-23); Calcium 9.7 mg/dL (8.5-10.5); Carbon Dioxide 27 mmol/L (22-29); Globulin 3.1 g/dL (1.3-4.6); Glucose 100 mg/dL (65-115); Osmolality Calculated 283 mOsm/kg (285-295); Total Bilirubin 0.4 mg/dL (0.15-1.2); Total Protein 7.5 g/dL (6.6-8.7)
--- NOTE | 2020-03-29 12:11 | ONC FU_ITS ---
Dr. Meyer Patient Follow-Up Note Patient: Kristina Bertrand Unit #: [id number]: 1950 Dicatated By: Maldonado Meyer M.D.Date of Visit:Mar 26, 2020 Onc Med Follow-up/Prog Note Chief Complaint: Non-small cell lung cancer. 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 She was found to have a right upper lobe lung mass in December 2012 during the course of an ER evaluation for suspected diverticulitis. A CT guided needle biopsy of the mass January 2013 did confirm TTF-1 positive well-differentiated adenocarcinoma which was EGFR, ALK, and ROS-1 negative. Staging evaluation with brain MRI and PET/CT showed no obvious metastatic disease. The PET/CT showed right upper lobe mass measuring 3.2 x 2.4 cm and an additional right upper lobe nodule measuring 8 mm. She underwent thoracotomy with right upper lobectomy and mediastinal lymph node dissection on 04/29/2014. Pathology showed well-differentiated adenocarcinoma with predominantly mixed acinar and alveolar pattern. It measured 3.1 cm. There was invasion of the visceral pleura, but margins were negative. Lymph nodes at station 7, 11, and 10 were negative, thus stage IA (pT2a, pN0, M0). She received no adjuvant therapy. Surveillance chest CT in July 2015 showed a 2 cm nodule in the posterior central left lingual area, suspicious for metastatic disease or new primary malignancy. A subsequent PET/CT showed a smoothly marginated nodule in the left lung measuring 12 mm and tiny right upper lobe nodules which apparently felt to be improving, with no evidence of residual malignancy. She underwent bronchoscopy with FNA of station 11 on 08/22/2015. The FNA was negative. Brushings were inconclusive. Biopsy of the left lung nodule on 09/16/2015 was positive for adenocarcinoma, TTF-1 positive and EGFR mutation negative. There was insufficient material for ALK and ROS-1 studies. The tumor was negative for PD-L1 expression. In October 2015 she went to [facility] for second opinion evaluation. Evaluation there included brain MRI which showed no evidence of metastatic disease. PET/CT on 11/04/2015 showed an FDG avid centrally located left upper lobe nodule which had increased in size. There was no evidence of leonel or distant metastatic disease on that study. However, there was reportedly evidence of groundglass opacities in both lungs with the differential including atypical adenomatous hyperplasia and multifocal primary lung malignancy. Also noted were 2 air-containing cystic lesions with groundglass component's within the right lower lobe, also felt to be suspicious for primary lung malignancies. Ultimately, it was recommended that she undergo neoadjuvant chemotherapy with 4 cycles of cisplatin-pemetrexed. She was then seen here because she preferred to receive her chemotherapy locally. She received cycle 1 of cisplatin/Alimta on 12/15/2015. She tolerated it well. Side effects were limited to mild nausea and stomatitis. She received cycles 2 and 3 on schedule with no dose reductions. She did receive Neupogen following the 2nd cycle due to a low radhika granulocyte count, and she was then given Neulasta prophylactically with cycle 3. She completed 4 cycles on 02/16/16. Her restaging PET/CT at [facility] on 03/18/2016 showed new FDG activity involving bilateral axillary lymph nodes, though without associated lymph node enlargement. Pre-paracardial lymph node was mildly increased in size but markedly FDG avid. A juxtaphrenic lymph node also showed new FDG activity with slight increased size. Small right paratracheal lymph nodes were not significantly change in size and only slightly FDG avid. The tumor at the left hilum was not significantly changed in size, but it remained markedly FDG avid. Groundglass attenuation nodules in both lungs were unchanged. The abdomen/pelvis showed extensive new metabolic activity at left gastric and periportal adenopathy with slight increase in the size of the lymph nodes. Multiple small retroperitoneal lymph nodes also showed new metabolic activity. Small left inguinal lymph nodes and bilateral external iliac lymph nodes also appeared FDG avid. Overall, the left hilar tumor was unchanged and there was new widespread elonel metabolic activity with only slight increase in the size of some the lymph nodes, consistent with reactive process. A repeat chest CT on 05/06/2016 showed stable left hilar lesion measuring 2.4 cm. There was no change in size of the FDG avid lymph nodes noted on the PET/CT in March. The right middle lobe peribronchial vascular nodular opacities were mildly decreased compared to October 2015. Given the findings on the imaging studies, it was felt that her disease was localized. She was given the option of surgical resection, but that would have necessitated complete pneumonectomy. Ultimately, she opted against surgery. She was then treated with radiation to the left hilar lesion. She completed treatment on 09/01/2016 to a total dose of 6600 cGy. The tumor did appear slightly smaller on the follow-up CT scan on 10/07/2016. Her restaging CT on 01/06/2017 showed stable left infrahilar soft tissue lesion measuring 1.3 x 1.1 cm. A groundglass opacity in the right lower lobe laterally measuring 1.7 x 1.4 cm it appeared slightly more prominent compared to previous study from April 2016. There was no mediastinal or hilar lymphadenopathy noted. Chest CT on 04/21/2017 reported increased enlargement of the right lower lobe lateral segment some solid nodule with reported differential including progressive neoplastic process, inflammatory process, and atypical infectious process. A right lower lobe anterior segment nodule at increased slightly, from 5.7 to 6.9 mm. A right upper lung zone groundglass nodule measuring 3-4 mm appeared unchanged. Left lower lobe superior segment bandlike atelectasis and/or scarring appeared stable. Restaging PET/CT on 07/30/2017 showed irregular right lower lobe infiltrate measuring 1.7 x 2.9 cm with FDG uptake less than that of normal mediastinal background, supporting a benign diagnosis. There was inflammatory uptake at a right lower lobe bulla. There was no evidence of malignancy. Given those findings, she continued on observation/expectant management. A repeat chest CT on 12/01/2017 showed persistence and slight progression of the irregular marginated semisolid densities in the anterior basal segment right lower lobe adjacent to a bolus emphysematous cavity. It measured 4 x 1.9 x 1.7 cm compared to 3.3 x 1.8 x 1.7 cm on the study from July 2017. A 7 mm rounded groundglass nodule in the anterior aspect of the right lower lobe appeared stable and a 4.3 mm right middle lobe nodule appeared stable. There was no obvious hilar, mediastinal, axillary, or supraclavicular lymphadenopathy noted. As the changes in the right lower lobe lesion were felt to be suspicious, she was referred to Dr. Justina Keith in [place], and a CT-guided biopsy of the right lung mass on 02/01/2018 was positive for malignant cells, at least adenocarcinoma in situ. She was then seen by Dr. Leahy and she underwent SBRT to the right lung lesion, completed on 03/08/2018 to a total dose of 5000 cGy. During subsequent follow-up, her surveillance chest CT on 12/12/2018 showed findings suspicious for developing neoplasm in the superior segment right lower lobe adjacent to a bolus emphysematous cavity. Postradiation changes in the right lower lobe at the site of the previous semisolid mass lesion appeared stable. Further evaluation with PET/CT on 12/16/2018 showed significant FDG uptake in the solid mural portion of the superior segment right lower lobe bulla, SUV up to 3.4 compared to 1.8 on the previous study. This was felt to be strongly suspicious for malignancy. There was no change in mild inflammatory activity in the scarlike infiltrate in the lateral right lower lobe. With those findings, he was given further SBRT to the right lower lobe lung lesion, completed on 01/08/2019 to a total dose of [address] on 02/19/2019 showed no change in the bullous emphysematous cavity in the right lower lobe with adjacent nodule measuring 11 x 10 mm, suspicious for neoplasm. A small adjacent noncalcified pulmonary nodule measuring 4 to 5 mm with slightly improved. Additional subcentimeter nodules in the right lower and right upper lobes also are unchanged. There is stable fibrotic opacity along the lingula and stable soft tissue thickening along the left hilum. Overall there was no evidence of disease progression. On 04/20/2019 she presented to the emergency room with nausea/vomiting and dizziness. Head CT showed a large amount of edema centered in the right cerebellum with sulcal effacement and mass-effect on the fourth ventricle. This is highly suspicious for metastatic lesion or primary brain tumor. She was admitted to [facility] and on 04/27/2019 she underwent craniotomy and resection of intra-axial and extra-axial metastatic lesion. Pathology showed metastatic adenocarcinoma. She then underwent stereotactic radiotherapy to the cerebellar metastasis cavity, completed on 06/05/2019 to a total dose of 2100 cGy. Her repeat brain MRI on 08/21/2019 showed minimal hemorrhage within the right cerebellar hemisphere at the site of the tumor resection. Residual enhancing tumor was still identified immediately abutting the right-sided transverse and sigmoid sinus. The tumor appeared to measure 2.9 cm in greatest long axis diameter, 9 mm transversely, and 9 mm superiorly to inferiorly. A 1 to 2 mm rounded area of enhancement within the left cerebellar hemisphere compatible with an additional site of metastasis was not significantly changed. There was significant improvement in vasogenic edema within the right cerebellar hemisphere and cerebellar vermis. There were no new areas of enhancement to suggest additional metastasis. I had seen her for a follow-up visit on 09/13/2019. She had further evaluation with restaging PET/CT on 09/22/2019. On that study the scarlike infiltrate in the right lower lobe was noted to be a solid lesion measuring 3.0 x 3.9 cm with SUV increased to 4.9 compared to 2.8 on the prior study from November 2018. The solid tissue in the superior segment right lower lobe bulla also showed an interval increase in SUV from 3.4 to 4.3. Both findings were felt to be indicative of malignant progression. There were stable reactive changes in mediastinal lymph nodes. There were no other areas of abnormal uptake. In the meantime, I also had requested a next generation sequencing study on the cerebellar lesion. It showed no evidence for EGFR, BRAF, or M ET mutations, and the ALK and ROS1 rearrangements were not detected. 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 The tumor was noted to be MSI stable, and it was negative for PD-L1 expression at 0%. I had reviewed the PET/CT with the patient and with the radiologist. While there did appear to be some progression, those changes were fairly minor at least for the time being we opted to continue observation/expectant management. She then had a restaging chest CT on 01/01/2020. That study reported significant progression of the soft tissue nodular component surrounding the cavitary lesion in the superior right lower lobe, consistent with progression of neoplastic disease. The cavitary lesion in the inferior aspect of the right lower lobe has become more consolidated having the appearance of a large soft tissue spiculated mass measuring 3.3 x 5.3 cm, highly suspicious for additional neoplasm. Increasing soft tissue at the hilar regions was also felt to be suspicious for progression of metastatic adenopathy. There was additionally mild progression of a precarinal lymph node. I had been seeing her for a follow-up visit to discuss treatment options, including the possibility of a targeted therapy for the KRAS mutation, which would have been in the setting of a clinical trial. The other option would be chemotherapy/immunotherapy combination regimen. Ultimately, she opted to continue close observation. Restaging PET/CT on 03/22/2020 showed unchanged right lower lobe pulmonary nodule measuring 2.7 x 4.2 cm. The SUV was down slightly at 3.8 compared to 4.9 on the prior study. The mural right lower lobe bulla activity on the previous study showed decreased SUV to 2.2, down from 4.3. There were no new lesions identified. Overall, there is mild to moderate improvement compared to the prior PET/CT from 09/22/2019. She is seen for a follow-up visit. She says she is feeling fine. She does have some shortness of breath with activity, but she has good energy and activity tolerance. Her ECOG score is 0. She has good appetite. She has no fever or night sweats. She does not complain of cough and she has not been having chest pain. She has generalized joint pain, which she manages with Tylenol. She recently has developed some new pain in the area of the right costovertebral angle. She has no associated symptoms. She reports having some numbness in her hands and arms, but that has been going on for years. Medications: Probiotic 1 Tablet Capsule Oral daily, Ventolin HFA 2 puff(s) (of 108 (90 base) mcg/act) Aerosol, solution Inhalation q 4 hours PRN Allergies: IV Contrast and Sulfa Antibiotics. Review of Systems: Constitutional - She is feeling fine. She has good energy and activity tolerance. Appetite is good and weight is stable. No fever, night sweats, or hot flashes. ECOG score is 0, ENMT - No sinus congestion/drainage. No mouth sores. No sore throat or difficulty swallowing, Hematologic/Lymphatic - No abnormal bruising or bleeding, Respiratory - She has some shortness of breath with activity. No cough. No pleuritic pain or hemoptysis, Cardiovascular - No angina pain. No palpitations, Gastrointestinal - No nausea or vomiting. No heartburn or acid reflux. No diarrhea or constipation. No blood in the stool or black stools, Genitourinary (F) - No dysuria or hematuria. No urinary frequency. No urgency or incontinence, Musculoskeletal - She has generalized joint pain, which she manages with Tylenol. Recently she has had pain on the right side of her back, Integumentary - No skin rash, Neurologic - No headache or dizziness. She has some numbness in her hands and arms, but that has been going on for years. No other focal neurologic symptoms, Psychiatric - No anxiety or depression. No insomnia. Vital Signs: Performed on Mar 26, 2020 11:57 Height - 63.00 in Weight - 189.8 lbs (LOW) BSA - 1.89 sq.m BMI - 33.62 (HIGH) Temperature - 99.2 F (HIGH) Pulse - 104 /min (HIGH) Respiration - 20 /min BP - 140/74 mm(hg) O2 Sat - 96 % Pain - 0 Physical Examination: Constitutional - She looks pretty good generally, Eyes - Sclerae nonicteric. Conjunctivae clear, ENMT - No lesions noted in the oral cavity, Hematologic/Lymphatic - No cervical, clavicular, or axillary adenopathy, Respiratory - Lungs sound clear with diminished air movement bilaterally, Cardiovascular - Heart rhythm is regular. There is no murmur, gallop, or rub noted, Abdomen - Soft and non-tender. Liver and spleen are not enlarged. There is no abdominal mass or ascites noted and there is no inguinal adenopathy, Back/Spine - Her pain does localizes to the area of the right costovertebral angle, but she is not really tender in that area, Extremities - No edema, Neurologic - No focal neurologic deficits noted. Lab/Imaging: Test performed on Mar 26, 2020 10:18 Sodium 137 mmol/L Potassium 4.5 mmol/L Chloride 100 mmol/L CO2 27 mmol/L Anion Gap 14.5 BUN 11 mg/dL Creatinine 0.5 mg/dL Cr Clearance (Est) 148.8900 mL/min eGFR 122.0 mL/min Glucose 100 mg/dL Osmolality - Calculated 283 mOsm/kg Calcium 9.7 mg/dL Protein, Total 7.5 g/dL Albumin 4.4 g/dL Globulin 3.1 g/dL Bilirubin, Total 0.4 mg/dL ALT (SGPT) 43 U/L AST (SGOT) 38 U/L Alkaline Phosphatase 67 IU/L WBC 5.5 10 3/uL RBC 4.66 10 6/uL HGB 13.6 g/dL HCT 43.0 % MCV 92.3 fL MCH 29.2 pg MCHC 31.6 g/dL RDW 14.7 % Platelet Count 226 10 3/cmm MPV 9.0 fL Neutrophils 2.56 10 3/uL Lymphocytes 2.2 10 3/uL Monocytes 0.6 10 3/uL Eosinophils 0.1 10 3/uL Basophils 0.0 10 3/uL Neutrophil % 46.3 % Lymphocyte % 39.6 % Monocyte % 11.0 % Eosinophil % 1.3 % Basophils % 0.5 % NRBC % 0 % Impression: 1. Patient with bilateral non-small cell lung cancer, stage IV, with development of metastatic involvement in the right cerebellar hemisphere, for which she underwent surgical resection on 04/27/2019. 2. She was then given stereotactic radiation to the cerebellar metastasis cavity, completed on 06/05/2019 to a total dose of 2100 cGy. 3. Restaging head MRI on 08/21/2019 showed residual enhancing tumor in the right cerebellar hemisphere measuring 2.9 cm. 4. She had additional MRI evidence of a small metastatic lesion in the left cerebellar hemisphere, but that appeared stable on the follow-up MRI. 5. She was originally diagnosed with TTF-1 positive adenocarcinoma involving the upper lobe of the right lung in 2014. She underwent right upper lobectomy/mediastinal lymph node dissection in April 2014. Her disease was stage IA (pT2a, pN0, M0). 6. She then had biopsy-proven adenocarcinoma involving the upper lobe of the left lung. By clinical evaluation her disease was most likely stage IA (T1b, N0, M0). 7. She was given neoadjuvant chemotherapy with 4 cycles of cisplatin/Alimta from 09/14/2015 through 02/16/2016. She tolerated the treatment well, both with only minimal response by follow-up imaging. 8. She was treated with radiation to the left lung lesion, completed on 09/01/2016 to a total dose of 6600 cGy. She tolerated the treatment well. 9. A repeat chest CT on 12/01/2017 showed further increase in the anterior segment right lower lobe densities, consistent with indolent neoplastic or unusual infectious process. CT-directed needle biopsy of the right lower lobe mass on 02/01/2018 was positive for malignant cells, at least adenocarcinoma in situ. She was treated with SBRT, completed on 03/08/2018 to a total dose of 5000 cGy. 10. There was suspected new involvement in new superior segment right lower lobe by PET/CT on 12/16/2018. It was treated with additional SBRT, completed on 01/08/2019 to a total dose of 4800 cGy. Her restaging PET/CT on 09/22/2019 showed findings consistent with progression of 2 areas of malignant involvement in the lower lobe of the right lung. There was no evidence for any new metastatic disease. 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 The tumor was negative for PD-L1 expression at 0%. After review of the PET/CT, the areas of progression appeared to be fairly minor, and we had initially opted to just continue with observation/expectant management. Her restaging chest CT on 01/01/2020 showed more significant progression of both lesions in the right lower lobe, particularly the lesion at the right lung base. The findings were felt to be consistent with a high probability of malignancy. I had seen her to discuss treatment options, at 1 point she did agree to proceed with a trial of a combination chemotherapy/immunotherapy regimen. However, as her disease was still localized to those 2 areas and as she had not experienced any change in her clinical status, she ultimately decided to defer starting any treatment. At this point her clinical status remains stable. Her restaging PET/CT showed actually shows mild to moderate improvement compared to the previous study from September 2019. Plan: In the absence of any evidence of disease progression, she continues on observation/expectant management. I will see her again in 3 months. Signed By: Maldonado Meyer M.D. <<Signature on File>>
== END 2020-03-26 05:58 | disposition home or self-care (01) ==
LOC: ONCMED 05:59
PROVIDERS: PCP Nurse Practitioner Family; Visit Provider Internal Medicine Medical Oncology
DX: Z08 Encounter for follow-up examination after completed treatment for malignant neoplasm (principal); Z85.118 Personal history of other malignant neoplasm of bronchus and lung; Z85.841 Personal history of malignant neoplasm of brain; Q04.3 Other reduction deformities of brain; Z92.3 Personal history of irradiation; Z92.21 Personal history of antineoplastic chemotherapy
CPT/HCPCS: 80053; 85025; G0463

== ENCOUNTER 2020-06-23 13:39 | Outpatient (CLI) | payer MEDICARE, MEDICAID, SELFPAY ==
--- NOTE | 2020-06-23 14:27 | CT_ITS ---
WS: [id number] CT CHEST TECHNIQUE: Contrast enhanced CT of the chest with coronal and sagittal reformatted images. CLINICAL INFORMATION: LUNG CANCER COMPARISON: CT to December 2019 and PET/CT March 2020 DLP: 820.[address] scans at [facility] use at least one of these dose optimization techniques: automat ed exposure control; mA and/or kV adjustment per patient size (includes targeted exams where dose is matched to clinical indication); or iterative reconstruction. FINDINGS: Prior postoperative changes right upper lobectomy. Moderate chronic emphysematous changes. Cavitary l esion in the super segment right lower lobe with mural nodularity is not significantly changed since the prior examinations. Eccentric soft tissue nodularity measures 1.6 x 1.9 cm. Noncalcified nodule right upper lobe measuring 4 mm is unchanged. Spiculated mass in the right lower lobe abutting the pleura with associated pleural thickening. This is unchanged from previous today me asuring 4.8 x 2.6 cm. This measures a few millimeters smaller today. Otherwise not significantly castillo ged. There are a few associated air bronchograms. Stable hazy opacities within the lingula. Aortic calcification. Proximal main pulmonary arteries are normal. Coronary calcification. Bronchovas cular thickening along the right hilum is unchanged. Enlarged right hilar lymph node measuring 11 mm unchanged. Calcified subcarinal lymph nodes. No progressive mediastinal or hilar lymphadenopathy. No axillary lymphadenopathy.Small pericardial effusion/pericardial thickening. Cholecystectomy clips. Diffuse fatty infiltration liver. Adrenal glands are normal. Hypertrophic changes thoracic spine. CT/CT chest w con* [id number] IMPRESSION: 1. No evidence of disease progression. 2. Prior postoperative changes right upper lobectomy. 3. Stable bullae in the super segment right upper lobe with eccentric mural no dularity. 4. Stable spiculated mass in the right lower lobe suspicious for neoplasm. Thi s measures a few millimeters smaller today but not significantly changed. 5. Stable enlarged right hilar lymph node measuring 11 mm. No progressed lymph adenopathy. 6. Noncalcified nodule right upper lobe measuring 4 mm is unchanged. 7. No other significant changes from previous.
[2020-06-23 14:32] LABS: Basophils % 0.7 %; Eosinophils # 0.1 10^3/uL (0.0-0.8); Eosinophils % 1.3 %; Hematocrit 41.3 % (37.0-47.0); Lymphocytes # 2.1 10^3/uL (0.8-4.8); Lymphocytes % 35.2 %; Mean Corpuscular HGB Conc 31.5 g/dL (30.0-36.0); Mean Corpuscular Hemoglobin 29.3 pg (28.0-34.0); Mean Corpuscular Volume 93.2 fL (81-99); Mean Platelet Volume 8.9 fL (7.4-10.4); Monocytes # 0.5 10^3/uL (0.2-0.9); Monocytes % 9.1 %; Neutrophils # 3.16 10^3/uL (1.8-7.7); Neutrophils % 53.2 %; Nucleated Red Blood Cells % 0 %; Platelet Count 210 10^3/cmm (130-400); Red Blood Count 4.43 10^6/uL (4.1-5.3); Red Cell Distribution Width 13.5 % (12.1-15.1); White Blood Count 5.9 10^3/uL (4.0-10.0)
[2020-06-23 14:45] LABS: Chloride 101 mmol/L (98-107); Potassium 3.9 mmol/L (3.5-5.1); Sodium 138 mmol/L (136-145)
[2020-06-23 15:07] LABS: Alanine Aminotransferase 29 U/L (0-33); Albumin Level 4.1 g/dL (3.5-5.2); Alkaline Phosphatase 65 IU/L (35-105); Anion Gap 14.9 (5-19); Aspartate Amino Transferase 27 U/L (0-32); Blood Urea Nitrogen 13 mg/dL (8-23); Calcium 9.3 mg/dL (8.5-10.5); Carbon Dioxide 26 mmol/L (22-29); Globulin 3.6 g/dL (1.3-4.6); Glomerular Filtration Rate 98.8 mL/min (90-130); Glucose 91 mg/dL (65-115); Osmolality Calculated 286 mOsm/kg (285-295); Total Bilirubin 0.3 mg/dL (0.15-1.2); Total Protein 7.7 g/dL (6.6-8.7)
[2020-06-23] MEDS: iohexol 300 mg/mL 100 mL Btl IV (15:29)
== END 2020-06-23 13:40 | disposition home or self-care (01) ==
PROVIDERS: PCP Nurse Practitioner Family; Visit Provider Internal Medicine Medical Oncology
DX: C34.31 Malignant neoplasm of lower lobe, right bronchus or lung (principal); R91.1 Solitary pulmonary nodule
CPT/HCPCS: 36415; 71260; 80053; 85025

== ENCOUNTER 2020-06-26 11:52 | Outpatient (CLI) | payer MEDICARE, MEDICAID, SELFPAY ==
--- NOTE | 2020-06-26 20:24 | ONC FU_ITS ---
Dr. Meyer Patient Follow-Up Note Patient: Kristina Bertrand Unit #: [id number]: 1950 Dicatated By: Maldonado Meyer M.D.Date of Visit:Jun 26, 2020 Onc Med Follow-up/Prog Note Chief Complaint: Non-small cell lung cancer. 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 She was found to have a right upper lobe lung mass in December 2012 during the course of an ER evaluation for suspected diverticulitis. A CT guided needle biopsy of the mass January 2013 did confirm TTF-1 positive well-differentiated adenocarcinoma which was EGFR, ALK, and ROS-1 negative. Staging evaluation with brain MRI and PET/CT showed no obvious metastatic disease. The PET/CT showed right upper lobe mass measuring 3.2 x 2.4 cm and an additional right upper lobe nodule measuring 8 mm. She underwent thoracotomy with right upper lobectomy and mediastinal lymph node dissection on 04/29/2014. Pathology showed well-differentiated adenocarcinoma with predominantly mixed acinar and alveolar pattern. It measured 3.1 cm. There was invasion of the visceral pleura, but margins were negative. Lymph nodes at station 7, 11, and 10 were negative, thus stage IA (pT2a, pN0, M0). She received no adjuvant therapy. Surveillance chest CT in July 2015 showed a 2 cm nodule in the posterior central left lingual area, suspicious for metastatic disease or new primary malignancy. A subsequent PET/CT showed a smoothly marginated nodule in the left lung measuring 12 mm and tiny right upper lobe nodules which apparently felt to be improving, with no evidence of residual malignancy. She underwent bronchoscopy with FNA of station 11 on 08/22/2015. The FNA was negative. Brushings were inconclusive. Biopsy of the left lung nodule on 09/16/2015 was positive for adenocarcinoma, TTF-1 positive and EGFR mutation negative. There was insufficient material for ALK and ROS-1 studies. The tumor was negative for PD-L1 expression. In October 2015 she went to [facility] for second opinion evaluation. Evaluation there included brain MRI which showed no evidence of metastatic disease. PET/CT on 11/04/2015 showed an FDG avid centrally located left upper lobe nodule which had increased in size. There was no evidence of leonel or distant metastatic disease on that study. However, there was reportedly evidence of groundglass opacities in both lungs with the differential including atypical adenomatous hyperplasia and multifocal primary lung malignancy. Also noted were 2 air-containing cystic lesions with groundglass component's within the right lower lobe, also felt to be suspicious for primary lung malignancies. Ultimately, it was recommended that she undergo neoadjuvant chemotherapy with 4 cycles of cisplatin-pemetrexed. She was then seen here because she preferred to receive her chemotherapy locally. She received cycle 1 of cisplatin/Alimta on 12/15/2015. She tolerated it well. Side effects were limited to mild nausea and stomatitis. She received cycles 2 and 3 on schedule with no dose reductions. She did receive Neupogen following the 2nd cycle due to a low radhika granulocyte count, and she was then given Neulasta prophylactically with cycle 3. She completed 4 cycles on 02/16/16. Her restaging PET/CT at [facility] on 03/18/2016 showed new FDG activity involving bilateral axillary lymph nodes, though without associated lymph node enlargement. Pre-paracardial lymph node was mildly increased in size but markedly FDG avid. A juxtaphrenic lymph node also showed new FDG activity with slight increased size. Small right paratracheal lymph nodes were not significantly change in size and only slightly FDG avid. The tumor at the left hilum was not significantly changed in size, but it remained markedly FDG avid. Groundglass attenuation nodules in both lungs were unchanged. The abdomen/pelvis showed extensive new metabolic activity at left gastric and periportal adenopathy with slight increase in the size of the lymph nodes. Multiple small retroperitoneal lymph nodes also showed new metabolic activity. Small left inguinal lymph nodes and bilateral external iliac lymph nodes also appeared FDG avid. Overall, the left hilar tumor was unchanged and there was new widespread leonel metabolic activity with only slight increase in the size of some the lymph nodes, consistent with reactive process. A repeat chest CT on 05/06/2016 showed stable left hilar lesion measuring 2.4 cm. There was no change in size of the FDG avid lymph nodes noted on the PET/CT in March. The right middle lobe peribronchial vascular nodular opacities were mildly decreased compared to October 2015. Given the findings on the imaging studies, it was felt that her disease was localized. She was given the option of surgical resection, but that would have necessitated complete pneumonectomy. Ultimately, she opted against surgery. She was then treated with radiation to the left hilar lesion. She completed treatment on 09/01/2016 to a total dose of 6600 cGy. The tumor did appear slightly smaller on the follow-up CT scan on 10/07/2016. Her restaging CT on 01/06/2017 showed stable left infrahilar soft tissue lesion measuring 1.3 x 1.1 cm. A groundglass opacity in the right lower lobe laterally measuring 1.7 x 1.4 cm it appeared slightly more prominent compared to previous study from April 2016. There was no mediastinal or hilar lymphadenopathy noted. Chest CT on 04/21/2017 reported increased enlargement of the right lower lobe lateral segment some solid nodule with reported differential including progressive neoplastic process, inflammatory process, and atypical infectious process. A right lower lobe anterior segment nodule at increased slightly, from 5.7 to 6.9 mm. A right upper lung zone groundglass nodule measuring 3-4 mm appeared unchanged. Left lower lobe superior segment bandlike atelectasis and/or scarring appeared stable. Restaging PET/CT on 07/30/2017 showed irregular right lower lobe infiltrate measuring 1.7 x 2.9 cm with FDG uptake less than that of normal mediastinal background, supporting a benign diagnosis. There was inflammatory uptake at a right lower lobe bulla. There was no evidence of malignancy. Given those findings, she continued on observation/expectant management. A repeat chest CT on 12/01/2017 showed persistence and slight progression of the irregular marginated semisolid densities in the anterior basal segment right lower lobe adjacent to a bolus emphysematous cavity. It measured 4 x 1.9 x 1.7 cm compared to 3.3 x 1.8 x 1.7 cm on the study from July 2017. A 7 mm rounded groundglass nodule in the anterior aspect of the right lower lobe appeared stable and a 4.3 mm right middle lobe nodule appeared stable. There was no obvious hilar, mediastinal, axillary, or supraclavicular lymphadenopathy noted. As the changes in the right lower lobe lesion were felt to be suspicious, she was referred to Dr. Justina Keith in [place], and a CT-guided biopsy of the right lung mass on 02/01/2018 was positive for malignant cells, at least adenocarcinoma in situ. She was then seen by Dr. Leahy and she underwent SBRT to the right lung lesion, completed on 03/08/2018 to a total dose of 5000 cGy. During subsequent follow-up, her surveillance chest CT on 12/12/2018 showed findings suspicious for developing neoplasm in the superior segment right lower lobe adjacent to a bolus emphysematous cavity. Postradiation changes in the right lower lobe at the site of the previous semisolid mass lesion appeared stable. Further evaluation with PET/CT on 12/16/2018 showed significant FDG uptake in the solid mural portion of the superior segment right lower lobe bulla, SUV up to 3.4 compared to 1.8 on the previous study. This was felt to be strongly suspicious for malignancy. There was no change in mild inflammatory activity in the scarlike infiltrate in the lateral right lower lobe. With those findings, he was given further SBRT to the right lower lobe lung lesion, completed on 01/08/2019 to a total dose of [address] on 02/19/2019 showed no change in the bullous emphysematous cavity in the right lower lobe with adjacent nodule measuring 11 x 10 mm, suspicious for neoplasm. A small adjacent noncalcified pulmonary nodule measuring 4 to 5 mm with slightly improved. Additional subcentimeter nodules in the right lower and right upper lobes also are unchanged. There is stable fibrotic opacity along the lingula and stable soft tissue thickening along the left hilum. Overall there was no evidence of disease progression. On 04/20/2019 she presented to the emergency room with nausea/vomiting and dizziness. Head CT showed a large amount of edema centered in the right cerebellum with sulcal effacement and mass-effect on the fourth ventricle. This is highly suspicious for metastatic lesion or primary brain tumor. She was admitted to [facility] and on 04/27/2019 she underwent craniotomy and resection of intra-axial and extra-axial metastatic lesion. Pathology showed metastatic adenocarcinoma. She then underwent stereotactic radiotherapy to the cerebellar metastasis cavity, completed on 06/05/2019 to a total dose of 2100 cGy. Her repeat brain MRI on 08/21/2019 showed minimal hemorrhage within the right cerebellar hemisphere at the site of the tumor resection. Residual enhancing tumor was still identified immediately abutting the right-sided transverse and sigmoid sinus. The tumor appeared to measure 2.9 cm in greatest long axis diameter, 9 mm transversely, and 9 mm superiorly to inferiorly. A 1 to 2 mm rounded area of enhancement within the left cerebellar hemisphere compatible with an additional site of metastasis was not significantly changed. There was significant improvement in vasogenic edema within the right cerebellar hemisphere and cerebellar vermis. There were no new areas of enhancement to suggest additional metastasis. I had seen her for a follow-up visit on 09/13/2019. She had further evaluation with restaging PET/CT on 09/22/2019. On that study the scarlike infiltrate in the right lower lobe was noted to be a solid lesion measuring 3.0 x 3.9 cm with SUV increased to 4.9 compared to 2.8 on the prior study from November 2018. The solid tissue in the superior segment right lower lobe bulla also showed an interval increase in SUV from 3.4 to 4.3. Both findings were felt to be indicative of malignant progression. There were stable reactive changes in mediastinal lymph nodes. There were no other areas of abnormal uptake. In the meantime, I also had requested a next generation sequencing study on the cerebellar lesion. It showed no evidence for EGFR, BRAF, or M ET mutations, and the ALK and ROS1 rearrangements were not detected. 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 The tumor was noted to be MSI stable, and it was negative for PD-L1 expression at 0%. I had reviewed the PET/CT with the patient and with the radiologist. While there did appear to be some progression, those changes were fairly minor at least for the time being we opted to continue observation/expectant management. She then had a restaging chest CT on 01/01/2020. That study reported significant progression of the soft tissue nodular component surrounding the cavitary lesion in the superior right lower lobe, consistent with progression of neoplastic disease. The cavitary lesion in the inferior aspect of the right lower lobe has become more consolidated having the appearance of a large soft tissue spiculated mass measuring 3.3 x 5.3 cm, highly suspicious for additional neoplasm. Increasing soft tissue at the hilar regions was also felt to be suspicious for progression of metastatic adenopathy. There was additionally mild progression of a precarinal lymph node. I had been seeing her for a follow-up visit to discuss treatment options, including the possibility of a targeted therapy for the KRAS mutation, which would have been in the setting of a clinical trial. The other option would be chemotherapy/immunotherapy combination regimen. Ultimately, she opted to continue close observation. Restaging PET/CT on 03/22/2020 showed unchanged right lower lobe pulmonary nodule measuring 2.7 x 4.2 cm. The SUV was down slightly at 3.8 compared to 4.9 on the prior study. The mural right lower lobe bulla activity on the previous study showed decreased SUV to 2.2, down from 4.3. There were no new lesions identified. Overall, there was mild to moderate improvement compared to the prior PET/CT from 09/22/2019. Repeat chest CT on 06/23/2020 showed spiculated mass in the right lower lobe. The appearance was suspicious for neoplasm, but it measured a few millimeters smaller compared to the prior study. The cavitary lesion in the superior segment right lower lobe with mural nodularity also has not significantly changed. An enlarged right hilar lymph node appeared stable measuring 11 mm. Overall, there was no evidence of disease progression. She is seen for a follow-up visit. She is feeling fine. She has good energy and activity tolerance. ECOG score 0. Her appetite is good. She has no fever or night sweats. She does have some shortness of breath with activity. She has just very occasional cough. She does not complain of chest pain. She has no GI or complaints. She does have some joint pain, mainly in her hands, that is unchanged. She does not complain of headache. She sometimes has orthostatic lightheadedness. She has some numbness in her fingers and hands. Medications: Probiotic 1 Tablet Capsule Oral daily, Ventolin HFA 2 puff(s) (of 108 (90 base) mcg/act) Aerosol, solution Inhalation q 4 hours PRN Allergies: IV Contrast and Sulfa Antibiotics. Vital Signs: Performed on Jun 26, 2020 12:19 Height - 63.00 in Weight - 191.8 lbs (HIGH) BSA - 1.90 sq.m BMI - 33.98 (HIGH) Temperature - 98.7 F Pulse - 89 /min Respiration - 16 /min BP - 155/87 mm(hg) (HIGH) O2 Sat - 96 % Pain - 0 Physical Examination: Constitutional - She looks pretty good generally, Eyes - Sclerae nonicteric. Conjunctivae clear, ENMT - No lesions noted in the oral cavity, Hematologic/Lymphatic - No cervical, clavicular, or axillary adenopathy, Respiratory - Lungs sound clear. She has pretty good air movement bilaterally, Cardiovascular - Heart rhythm is regular. There is no murmur, gallop, or rub noted, Abdomen - Soft. Liver and spleen are not enlarged. There is no abdominal mass or ascites noted and there is no inguinal adenopathy, Extremities - No edema, Neurologic - No focal neurologic deficits noted. Lab/Imaging: CBC shows hemoglobin 13.0 g, white blood cell count 5900, and platelet count 210,000. Comprehensive metabolic profile is unremarkable. Problem List: 1. Patient with bilateral non-small cell lung cancer, stage IV, with development of metastatic involvement in the right cerebellar hemisphere, for which she underwent surgical resection on 04/27/2019. 2. She has a history of diverticulitis, but she has had no other ongoing medical illnesses. Problems Addressed with this Encounter and Plan: 1. Patient with bilateral non-small cell lung cancer, stage IV. She was originally diagnosed with TTF-1 positive adenocarcinoma involving the upper lobe of the right lung in 2014. She underwent right upper lobectomy/mediastinal lymph node dissection in April 2014. Her disease was stage IA (pT2a, pN0, M0). She then had biopsy-proven adenocarcinoma involving the upper lobe of the left lung. By clinical evaluation her disease was most likely stage IA (T1b, N0, M0). She was given neoadjuvant chemotherapy with 4 cycles of cisplatin/Alimta from 09/14/2015 through 02/16/2016. She tolerated the treatment well, but with only minimal response by follow-up imaging. She was treated with radiation to the left lung lesion, completed on 09/01/2016 to a total dose of 6600 cGy. She tolerated the treatment well. A repeat chest CT on 12/01/2017 showed further increase in the anterior segment right lower lobe densities, consistent with indolent neoplastic or unusual infectious process. CT-directed needle biopsy of the right lower lobe mass on 02/01/2018 was positive for malignant cells, at least adenocarcinoma in situ. She was treated with SBRT, completed on 03/08/2018 to a total dose of 5000 cGy. She then had suspected new involvement in the superior segment right lower lobe by PET/CT on 12/16/2018. It was treated with additional SBRT, completed on 01/08/2019 to a total dose of 4800 cGy. She was then followed expectantly. During followup there had been suspicion of disease progression by imaging, but she opted to continue observation. Thus far her further PET/CT and CT scans have showed stable findings with no evidence of diseae progression. Her clincal status has remained stable. At this point she remains on observation/expectant management. I will see her again in 3 months. 2. 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 Pathology showed metastatic adenocarcinoma. A next generation sequencing study on the cerebellar lesion showed no evidence for EGFR, BRAF, or M ET mutations, or for the ALK and ROS1 rearrangements were not detected. 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 The tumor was noted to be MSI stable, and it was negative for PD-L1 expression at 0%. She was given stereotactic radiation to the cerebellar metastasis cavity, completed on 06/05/2019 to a total dose of 2100 cGy. Restaging head MRI on 08/21/2019 showed residual enhancing tumor in the right cerebellar hemisphere measuring 2.9 cm. She had additional MRI evidence of a small metastatic lesion in the left cerebellar hemisphere, but that appeared stable on the follow-up MRI. Thus far during follow-up she has had no recurrence of PAINTER MIRROR symptoms, but she is overdue for surveillance MRI, and that will be scheduled now. She will have further evaluation as indicated. Signed By: Maldonado Meyer M.D. <<Signature on File>>
== END 2020-06-26 11:53 | disposition home or self-care (01) ==
LOC: ONCMED 11:56
PROVIDERS: PCP Nurse Practitioner Family; Visit Provider Internal Medicine Medical Oncology
DX: C34.11 Malignant neoplasm of upper lobe, right bronchus or lung (principal); C34.12 Malignant neoplasm of upper lobe, left bronchus or lung; C79.31 Secondary malignant neoplasm of brain; Z92.3 Personal history of irradiation; Z92.21 Personal history of antineoplastic chemotherapy
CPT/HCPCS: 99214

== ENCOUNTER 2020-07-16 12:16 | Outpatient (CLI) | payer MEDICARE, MEDICAID, SELFPAY ==
--- NOTE | 2020-07-16 | MR_ITS ---
WS: [id number] MRI BRAIN WITH AND WITHOUT CONTRAST HISTORY: LUNG CANCER, BRAIN METS COMPARISON: 08/21/2019 TECHNIQUE: Multiplanar imaging performed through the brain with MultiHance 19 ml's IV. Patient is status post RIGHT occipital craniotomy. Prior resection of a cerebellar tumor. At the tumo r site there is a new area of enhancement with nodularity and possible leptomeningeal spread centrall y. Moderate amount of surrounding edema and sulcal effacement. New area of enhancement extends along the inferior margin of the cerebellum with dural thickening and enhancement. Mass measures 1.9 x 1.8 x 1.7 cm. There is an additional mass in the LEFT inferior cerebellum towards the midline measuring 1 .5 x 1.6 x 1.2 cm. Small amount of surrounding edema. No additional areas of enhancement in the supra tentorial brain are appreciated. Moderate scattered chronic microvascular ischemic disease in the subcortical white matter. Ventricles are normal size. Paranasal sinuses: Well aerated with no significant disease. Mastoid air cells: Small amount of fluid in the RIGHT mastoid air cells. Calvarium and scalp: RIGHT occipital craniotomy. MR/MR head wo/w con [id number] IMPRESSION: 1. Bilateral cerebellar metastatic masses. 2. Mass in the RIGHT cerebellum that the prior craniotomy and resection site w ith moderate amount of surrounding edema. This mass measures 1.9 x 1.8 x 1.7 cm . There is enhancement and thickening along the inferior dura and possible meni ngeal extension. 3. Inferomedial LEFT cerebellar metastatic lesion measures 1.5 x 1.6 x 1.2 cm.
[2020-07-16] MEDS: gadobenate dimeglumine 20 mL vial IV (13:34)
== END 2020-07-16 12:17 | disposition home or self-care (01) ==
LOC: RADSHAW 12:17
PROVIDERS: PCP Nurse Practitioner Family; Visit Provider Internal Medicine Medical Oncology
DX: C34.90 Malignant neoplasm of unspecified part of unspecified bronchus or lung (principal); C79.31 Secondary malignant neoplasm of brain; R22.0 Localized swelling, mass and lump, head
CPT/HCPCS: 70553; A9577

== ENCOUNTER 2020-10-01 09:36 | Outpatient (CLI) | payer MEDICARE, MEDICAID, SELFPAY ==
--- NOTE | 2020-10-01 09:42 | CT_ITS ---
WS: [id number] CT CHEST AND ABDOMEN WITH CONTRAST HISTORY: LUNG CANCER TECHNIQUE: Axial imaging is performed through the chest and abdomen with IV and oral contrast.. Sagit hai and coronal reformats. All CT scans at [facility] use at least one of these dose opti mization techniques: automated exposure control; mA and/or kV adjustment per patient size (includes t argeted exams where dose is matched to clinical indication); or iterative reconstruction. CONTRAST: Omnipaque 300; 95 mL IV. DLP: 2160.43 mGy-cm. COMPARISON: 06/23/2020 and 01/01/[address]: Prior RIGHT upper lobectomy. Soft tissue ovoid consolidation in the RIGHT lower lobe with pleural tag ging measures 3.9 x 2.5 cm and continues to slowly decrease in size. The additional cavitary lesion i n the superior segment RIGHT lower lobe has slightly decreased in size. The solid peripheral componen t has decreased in size. The entire cavity measures 3.1 x 3.1 cm. The soft tissue nodular component n ow measures 2.0 x 0.8 cm. 4 mm nodule at the RIGHT apex is unchanged. Mild scarring or atelectasis at the lingula is stable. There is additional focal groundglass attenuation in the LEFT upper lobe whic h is unchanged. No pericardial or pleural effusions. Decrease in size of the RIGHT hilar lymph node now measuring 6 mm. Decreased from 11 mm on the prior study. No new or increasing adenopathy. There is a precarinal lymph node measuring 8 mm. Stable lymph node anterior to the pericardium. Abdomen CT: Liver: Hepatic steatosis. No mass. Gallbladder: Prior cholecystectomy. Pancreas: Normal. Spleen: Normal. Right kidney: Normal size kidney. Cortical hypodensities are too small to characterize. No obstructio n. Left kidney: Cortical hypodensities are too small to characterize. No obstruction or mass. Abdominal aorta: Mild atherosclerosis with no aneurysm. No adenopathy or ascites. Gastrointestinal tract: Visualized GI tract is tortuous with overlapping loops. Moderate fecal retent ion. Numerous diverticula in the transverse and visualized descending colon. There is a lobulated den se area of soft tissue measuring 3.7 x 3.5 cm in the cecum. There is adjacent fecal material. Osseous structures: No destructive lesions identified. CT/CT chest abdomen w con* IMPRESSION: 1. Status post RIGHT upper lobectomy. 2. Soft tissue consolidation in the RIGHT lower lobe continues to slowly decre ase in size now measuring 3.9 x 2.5 cm. 3. Decrease in size of the nodular component associated with the cavitary lesi on in the superior segment RIGHT lower lobe. 4. No new or increasing mediastinal or hilar adenopathy. 5. Stable 4 mm nodule at the RIGHT upper lung field. 6. No metastatic disease to the liver. 7. Lobulated soft tissue mass in the cecum measuring 3.7 x 3.5 cm. This may be inspissated fecal material. Underlying colonic neoplasm is not excluded. Consi sirisha follow-up evaluation by colonoscopy.
[2020-10-01 10:56] LABS: Basophils % 0.5 %; Eosinophils % 0.5 %; Hematocrit 43.1 % (37.0-47.0); Hemoglobin 13.6 g/dL (11.5-15.3); Lymphocytes # 2.1 10^3/uL (0.8-4.8); Lymphocytes % 27.9 %; Mean Corpuscular HGB Conc 31.6 g/dL (30.0-36.0); Mean Corpuscular Hemoglobin 29.6 pg (28.0-34.0); Mean Corpuscular Volume 93.9 fL (81-99); Mean Platelet Volume 8.6 fL (7.4-10.4); Monocytes # 0.6 10^3/uL (0.2-0.9); Monocytes % 8.1 %; Neutrophils # 4.61 10^3/uL (1.8-7.7); Neutrophils % 62.5 %; Nucleated Red Blood Cells % 0 %; Platelet Count 239 10^3/cmm (130-400); Red Blood Count 4.59 10^6/uL (4.1-5.3); White Blood Count 7.4 10^3/uL (4.0-10.0)
[2020-10-01] MEDS: iohexol 300 mg/mL 50 mL Btl PO (11:06)
[2020-10-01 11:31] LABS: Alanine Aminotransferase 33 U/L (0-33); Albumin Level 4.1 g/dL (3.5-5.2); Alkaline Phosphatase 64 IU/L (35-105); Anion Gap 13.1 (5-19); Aspartate Amino Transferase 24 U/L (0-32); Blood Urea Nitrogen 11 mg/dL (8-23); Calcium 8.8 mg/dL (8.5-10.5); Carbon Dioxide 25 mmol/L (22-29); Chloride 102 mmol/L (98-107); Globulin 2.8 g/dL (1.3-4.6); Glucose 99 mg/dL (65-115); Osmolality Calculated 281 mOsm/kg (285-295); Potassium 4.1 mmol/L (3.5-5.1); Sodium 136 mmol/L (136-145); Total Bilirubin 0.4 mg/dL (0.15-1.2); Total Protein 6.9 g/dL (6.6-8.7)
[2020-10-01] MEDS: iohexol 300 mg/mL 100 mL Btl IV (11:41)
== END 2020-10-01 09:37 | disposition home or self-care (01) ==
LOC: RADWPI 09:53 → ONCMED 10:14
PROVIDERS: Nurse Practitioner; PCP Nurse Practitioner Family; Visit Provider Internal Medicine Medical Oncology
DX: C34.11 Malignant neoplasm of upper lobe, right bronchus or lung (principal); C34.12 Malignant neoplasm of upper lobe, left bronchus or lung; C34.31 Malignant neoplasm of lower lobe, right bronchus or lung; C79.31 Secondary malignant neoplasm of brain; D70.2 Other drug-induced agranulocytosis; J98.11 Atelectasis; I70.0 Atherosclerosis of aorta; Z79.899 Other long term (current) drug therapy
CPT/HCPCS: 36415; 71260; 74160; 80053; 85025; Q9967

== ENCOUNTER 2020-10-06 06:06 | Outpatient (CLI) | payer MEDICARE, MEDICAID, SELFPAY ==
--- NOTE | 2020-10-10 11:12 | ONC FU_ITS ---
Dr. Meyer Patient Follow-Up Note Patient: Kristina Bertrand Unit #: [id number]: 1950 Dicatated By: Maldonado Meyer M.D.Date of Visit:Oct 06, 2020 Onc Med Follow-up/Prog Note Chief Complaint: Non-small cell lung cancer. 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 She was found to have a right upper lobe lung mass in December 2012 during the course of an ER evaluation for suspected diverticulitis. A CT guided needle biopsy of the mass January 2013 did confirm TTF-1 positive well-differentiated adenocarcinoma which was EGFR, ALK, and ROS-1 negative. Staging evaluation with brain MRI and PET/CT showed no obvious metastatic disease. The PET/CT showed right upper lobe mass measuring 3.2 x 2.4 cm and an additional right upper lobe nodule measuring 8 mm. She underwent thoracotomy with right upper lobectomy and mediastinal lymph node dissection on 04/29/2014. Pathology showed well-differentiated adenocarcinoma with predominantly mixed acinar and alveolar pattern. It measured 3.1 cm. There was invasion of the visceral pleura, but margins were negative. Lymph nodes at station 7, 11, and 10 were negative, thus stage IA (pT2a, pN0, M0). She received no adjuvant therapy. Surveillance chest CT in July 2015 showed a 2 cm nodule in the posterior central left lingual area, suspicious for metastatic disease or new primary malignancy. A subsequent PET/CT showed a smoothly marginated nodule in the left lung measuring 12 mm and tiny right upper lobe nodules which apparently felt to be improving, with no evidence of residual malignancy. She underwent bronchoscopy with FNA of station 11 on 08/22/2015. The FNA was negative. Brushings were inconclusive. Biopsy of the left lung nodule on 09/16/2015 was positive for adenocarcinoma, TTF-1 positive and EGFR mutation negative. There was insufficient material for ALK and ROS-1 studies. The tumor was negative for PD-L1 expression. In October [address] [facility] for second opinion evaluation. Evaluation there included brain MRI which showed no evidence of metastatic disease. PET/CT on 11/04/2015 showed an FDG avid centrally located left upper lobe nodule which had increased in size. There was no evidence of leonel or distant metastatic disease on that study. However, there was reportedly evidence of groundglass opacities in both lungs with the differential including atypical adenomatous hyperplasia and multifocal primary lung malignancy. Also noted were 2 air-containing cystic lesions with groundglass component's within the right lower lobe, also felt to be suspicious for primary lung malignancies. Ultimately, it was recommended that she undergo neoadjuvant chemotherapy with 4 cycles of cisplatin-pemetrexed. She was then seen here because she preferred to receive her chemotherapy locally. She received cycle 1 of cisplatin/Alimta on 12/15/2015. She tolerated it well. Side effects were limited to mild nausea and stomatitis. She received cycles 2 and 3 on schedule with no dose reductions. She did receive Neupogen following the 2nd cycle due to a low radhika granulocyte count, and she was then given Neulasta prophylactically with cycle 3. She completed 4 cycles on 02/16/16. Her restaging PET/CT at [facility] on 03/18/2016 showed new FDG activity involving bilateral axillary lymph nodes, though without associated lymph node enlargement. Pre-paracardial lymph node was mildly increased in size but markedly FDG avid. A juxtaphrenic lymph node also showed new FDG activity with slight increased size. Small right paratracheal lymph nodes were not significantly change in size and only slightly FDG avid. The tumor at the left hilum was not significantly changed in size, but it remained markedly FDG avid. Groundglass attenuation nodules in both lungs were unchanged. The abdomen/pelvis showed extensive new metabolic activity at left gastric and periportal adenopathy with slight increase in the size of the lymph nodes. Multiple small retroperitoneal lymph nodes also showed new metabolic activity. Small left inguinal lymph nodes and bilateral external iliac lymph nodes also appeared FDG avid. Overall, the left hilar tumor was unchanged and there was new widespread leonel metabolic activity with only slight increase in the size of some the lymph nodes, consistent with reactive process. A repeat chest CT on 05/06/2016 showed stable left hilar lesion measuring 2.4 cm. There was no change in size of the FDG avid lymph nodes noted on the PET/CT in March. The right middle lobe peribronchial vascular nodular opacities were mildly decreased compared to October 2015. Given the findings on the imaging studies, it was felt that her disease was localized. She was given the option of surgical resection, but that would have necessitated complete pneumonectomy. Ultimately, she opted against surgery. She was then treated with radiation to the left hilar lesion. She completed treatment on 09/01/2016 to a total dose of 6600 cGy. The tumor did appear slightly smaller on the follow-up CT scan on 10/07/2016. Her restaging CT on 01/06/2017 showed stable left infrahilar soft tissue lesion measuring 1.3 x 1.1 cm. A groundglass opacity in the right lower lobe laterally measuring 1.7 x 1.4 cm it appeared slightly more prominent compared to previous study from April 2016. There was no mediastinal or hilar lymphadenopathy noted. Chest CT on 04/21/2017 reported increased enlargement of the right lower lobe lateral segment some solid nodule with reported differential including progressive neoplastic process, inflammatory process, and atypical infectious process. A right lower lobe anterior segment nodule at increased slightly, from 5.7 to 6.9 mm. A right upper lung zone groundglass nodule measuring 3-4 mm appeared unchanged. Left lower lobe superior segment bandlike atelectasis and/or scarring appeared stable. Restaging PET/CT on 07/30/2017 showed irregular right lower lobe infiltrate measuring 1.7 x 2.9 cm with FDG uptake less than that of normal mediastinal background, supporting a benign diagnosis. There was inflammatory uptake at a right lower lobe bulla. There was no evidence of malignancy. Given those findings, she continued on observation/expectant management. A repeat chest CT on 12/01/2017 showed persistence and slight progression of the irregular marginated semisolid densities in the anterior basal segment right lower lobe adjacent to a bolus emphysematous cavity. It measured 4 x 1.9 x 1.7 cm compared to 3.3 x 1.8 x 1.7 cm on the study from July 2017. A 7 mm rounded groundglass nodule in the anterior aspect of the right lower lobe appeared stable and a 4.3 mm right middle lobe nodule appeared stable. There was no obvious hilar, mediastinal, axillary, or supraclavicular lymphadenopathy noted. As the changes in the right lower lobe lesion were felt to be suspicious, she was referred to Dr. Justina Keith in [place], and a CT-guided biopsy of the right lung mass on 02/01/2018 was positive for malignant cells, at least adenocarcinoma in situ. She was then seen by Dr. Leahy and she underwent SBRT to the right lung lesion, completed on 03/08/2018 to a total dose of 5000 cGy. During subsequent follow-up, her surveillance chest CT on 12/12/2018 showed findings suspicious for developing neoplasm in the superior segment right lower lobe adjacent to a bolus emphysematous cavity. Postradiation changes in the right lower lobe at the site of the previous semisolid mass lesion appeared stable. Further evaluation with PET/CT on 12/16/2018 showed significant FDG uptake in the solid mural portion of the superior segment right lower lobe bulla, SUV up to 3.4 compared to 1.8 on the previous study. This was felt to be strongly suspicious for malignancy. There was no change in mild inflammatory activity in the scarlike infiltrate in the lateral right lower lobe. With those findings, he was given further SBRT to the right lower lobe lung lesion, completed on 01/08/2019 to a total dose of [address] on 02/19/2019 showed no change in the bullous emphysematous cavity in the right lower lobe with adjacent nodule measuring 11 x 10 mm, suspicious for neoplasm. A small adjacent noncalcified pulmonary nodule measuring 4 to 5 mm with slightly improved. Additional subcentimeter nodules in the right lower and right upper lobes also are unchanged. There is stable fibrotic opacity along the lingula and stable soft tissue thickening along the left hilum. Overall there was no evidence of disease progression. On 04/20/2019 she presented to the emergency room with nausea/vomiting and dizziness. Head CT showed a large amount of edema centered in the right cerebellum with sulcal effacement and mass-effect on the fourth ventricle. This is highly suspicious for metastatic lesion or primary brain tumor. She was admitted to [facility] and on 04/27/2019 she underwent craniotomy and resection of intra-axial and extra-axial metastatic lesion. Pathology showed metastatic adenocarcinoma. She then underwent stereotactic radiotherapy to the cerebellar metastasis cavity, completed on 06/05/2019 to a total dose of 2100 cGy. Her repeat brain MRI on 08/21/2019 showed minimal hemorrhage within the right cerebellar hemisphere at the site of the tumor resection. Residual enhancing tumor was still identified immediately abutting the right-sided transverse and sigmoid sinus. The tumor appeared to measure 2.9 cm in greatest long axis diameter, 9 mm transversely, and 9 mm superiorly to inferiorly. A 1 to 2 mm rounded area of enhancement within the left cerebellar hemisphere compatible with an additional site of metastasis was not significantly changed. There was significant improvement in vasogenic edema within the right cerebellar hemisphere and cerebellar vermis. There were no new areas of enhancement to suggest additional metastasis. I had seen her for a follow-up visit on 09/13/2019. She had further evaluation with restaging PET/CT on 09/22/2019. On that study the scarlike infiltrate in the right lower lobe was noted to be a solid lesion measuring 3.0 x 3.9 cm with SUV increased to 4.9 compared to 2.8 on the prior study from November 2018. The solid tissue in the superior segment right lower lobe bulla also showed an interval increase in SUV from 3.4 to 4.3. Both findings were felt to be indicative of malignant progression. There were stable reactive changes in mediastinal lymph nodes. There were no other areas of abnormal uptake. In the meantime, I also had requested a next generation sequencing study on the cerebellar lesion. It showed no evidence for EGFR, BRAF, or M ET mutations, and the ALK and ROS1 rearrangements were not detected. 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 The tumor was noted to be MSI stable, and it was negative for PD-L1 expression at 0%. I had reviewed the PET/CT with the patient and with the radiologist. While there did appear to be some progression, those changes were fairly minor at least for the time being we opted to continue observation/expectant management. She then had a restaging chest CT on 01/01/2020. That study reported significant progression of the soft tissue nodular component surrounding the cavitary lesion in the superior right lower lobe, consistent with progression of neoplastic disease. The cavitary lesion in the inferior aspect of the right lower lobe has become more consolidated having the appearance of a large soft tissue spiculated mass measuring 3.3 x 5.3 cm, highly suspicious for additional neoplasm. Increasing soft tissue at the hilar regions was also felt to be suspicious for progression of metastatic adenopathy. There was additionally mild progression of a precarinal lymph node. I had been seeing her for a follow-up visit to discuss treatment options, including the possibility of a targeted therapy for the KRAS mutation, which would have been in the setting of a clinical trial. The other option would be chemotherapy/immunotherapy combination regimen. Ultimately, she opted to continue close observation. Restaging PET/CT on 03/22/2020 showed unchanged right lower lobe pulmonary nodule measuring 2.7 x 4.2 cm. The SUV was down slightly at 3.8 compared to 4.9 on the prior study. The mural right lower lobe bulla activity on the previous study showed decreased SUV to 2.2, down from 4.3. There were no new lesions identified. Overall, there was mild to moderate improvement compared to the prior PET/CT from 09/22/2019. Repeat chest CT on 06/23/2020 showed spiculated mass in the right lower lobe. The appearance was suspicious for neoplasm, but it measured a few millimeters smaller compared to the prior study. The cavitary lesion in the superior segment right lower lobe with mural nodularity also has not significantly changed. An enlarged right hilar lymph node appeared stable measuring 11 mm. Overall, there was no evidence of disease progression. She was still feeling good generally, and she opted to continue on expectant management. Her repeat CT of the chest/abdomen on 10/01/2020 showed continued slow decrease in size of the right lower lobe soft tissue consolidation measuring 3.9 x 2.5 cm. There was also decreased in the size of the nodular component associated with the cavitary lesion in the superior segment of the right lower lobe. A 4 mm nodule in the right upper lung field appeared stable. There was no new or increasing mediastinal or hilar adenopathy. A lobulated soft tissue mass in the cecum measuring 3.7 x 3.5 cm appeared consistent with inspissated fecal material, but underlying colonic neoplasm was not excluded. She is seen for a follow-up visit. She has been feeling pretty good generally. Recently she has developed some pain in the right shoulder area rating into her back muscles. The pain at first started in the area just under her right shoulder blade. She has been managing it with topical therapy. She still has normal activity. ECOG score is 0. She has good appetite. She has no fever or night sweats. She has some allergy related sinus symptoms. She does not have much cough. She has a little bit of shortness of breath with activity. She does not complain of chest pain. She developed nausea/vomiting a couple of weeks ago. At that point her steroid dosage was increased to 2 mg twice daily, and the symptoms improved. The dosage was then tapered. As of a couple days ago it was down to 1 mg daily. She has no other GI or complaints. She has no other joint or bone pain. She does not complain of headache. She sometimes has dizziness. She has some numbness/tingling in her right arm. She has no other focal neurologic symptoms. Medications: Dexamethasone (2 mg) Tablet Oral b.i.d., Probiotic 1 Tablet Capsule Oral daily, Ventolin HFA 2 puff(s) (of 108 (90 base) mcg/act) Aerosol, solution Inhalation q 4 hours PRN Allergies: IV Contrast and Sulfa Antibiotics. Vital Signs: Performed on Oct 06, 2020 15:57 Height - 63.00 in Weight - 194.2 lbs (HIGH) BSA - 1.91 sq.m BMI - 34.40 (HIGH) Temperature - 97.8 F (LOW) Pulse - 99 /min Respiration - 18 /min BP - 142/79 mm(hg) (HIGH) O2 Sat - 96 % Pain - 8 Fatigue - 6 Physical Examination: Constitutional - She looks pretty good generally, Eyes - Sclerae nonicteric. Conjunctivae clear, ENMT - No lesions noted in the oral cavity, Hematologic/Lymphatic - No cervical, clavicular, or axillary adenopathy, Respiratory - Lungs sound clear with slightly diminished air movement bilaterally, Cardiovascular - Heart rhythm is regular. There is no murmur, gallop, or rub noted, Abdomen - Soft. Liver and spleen are not enlarged. There is no abdominal mass or ascites noted and there is no inguinal adenopathy, Extremities - No edema, Neurologic - No focal neurologic deficits noted. Lab/Imaging: CBC shows hemoglobin 13.6 g, white blood cell count 7400, and platelet count 239,000. Comprehensive metabolic profile is unremarkable. Problem List: 1. Patient with bilateral non-small cell lung cancer, stage IV, with development of metastatic involvement in the right cerebellar hemisphere, for which she underwent surgical resection on 04/27/2019. 2. She has a history of diverticulitis, but she has had no other ongoing medical illnesses. Problems Addressed with this Encounter and Plan: 1. Patient with bilateral non-small cell lung cancer, stage IV. She was originally diagnosed with TTF-1 positive adenocarcinoma involving the upper lobe of the right lung in 2014. She underwent right upper lobectomy/mediastinal lymph node dissection in April 2014. Her disease was stage IA (pT2a, pN0, M0). She then had biopsy-proven adenocarcinoma involving the upper lobe of the left lung. By clinical evaluation her disease was most likely stage IA (T1b, N0, M0). She was given neoadjuvant chemotherapy with 4 cycles of cisplatin/Alimta from 09/14/2015 through 02/16/2016. She tolerated the treatment well, but with only minimal response by follow-up imaging. She was treated with radiation to the left lung lesion, completed on 09/01/2016 to a total dose of 6600 cGy. She tolerated the treatment well. A repeat chest CT on 12/01/2017 showed further increase in the anterior segment right lower lobe densities, consistent with indolent neoplastic or unusual infectious process. CT-directed needle biopsy of the right lower lobe mass on 02/01/2018 was positive for malignant cells, at least adenocarcinoma in situ. She was treated with SBRT, completed on 03/08/2018 to a total dose of 5000 cGy. She then had suspected new involvement in the superior segment right lower lobe by PET/CT on 12/16/2018. It was treated with additional SBRT, completed on 01/08/2019 to a total dose of 4800 cGy. She was then followed expectantly. During followup there had been suspicion of disease progression by imaging, but she opted to continue observation. Thus far her further surveillance imaging with PET/CT and CT scans have shown stable findings with no evidence of diseae progression. As her clincal status has also remained stable, she has preferred to continue expectant management. I will see her again in 3 months. 2. 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 Pathology showed metastatic adenocarcinoma. A next generation sequencing study on the cerebellar lesion showed no evidence for EGFR, BRAF, or M ET mutations, or for the ALK and ROS1 rearrangements were not detected. 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 The tumor was noted to be MSI stable, and it was negative for PD-L1 expression at 0%. She was given stereotactic radiation to the cerebellar metastasis cavity, completed on 06/05/2019 to a total dose of 2100 cGy. Restaging head MRI on 08/21/2019 showed residual enhancing tumor in the right cerebellar hemisphere measuring 2.9 cm. She had additional MRI evidence of a small metastatic lesion in the left cerebellar hemisphere, but that appeared stable on the follow-up MRI. She has continued follow-up for the [employer] disease with her radiation oncologist. She recently had increased her dexamethasone dosage due to recurrence of nausea/vomiting. Thus far her symptoms have remained adequately managed as the dexamethasone dosage has been tapered. She is now down to 1 mg daily, which she will continue for 2 weeks. She will then further reduce to 0.5 mg daily. Signed By: Maldonado Meyer M.D. <<Signature on File>>
== END 2020-10-06 06:07 | disposition home or self-care (01) ==
LOC: ONCMED 06:09
PROVIDERS: PCP Nurse Practitioner Family; Visit Provider Internal Medicine Medical Oncology
DX: C34.01 Malignant neoplasm of right main bronchus (principal); C34.02 Malignant neoplasm of left main bronchus; C79.31 Secondary malignant neoplasm of brain; K57.92 Diverticulitis of intestine, part unspecified, without perforation or abscess without bleeding; Z79.899 Other long term (current) drug therapy; Z92.21 Personal history of antineoplastic chemotherapy; Z92.3 Personal history of irradiation
CPT/HCPCS: 99214

== ENCOUNTER 2020-11-24 13:12 | Outpatient (CLI) | payer MEDICARE, MEDICAID, SELFPAY ==
--- NOTE | 2020-11-24 13:18 | MR_ITS ---
WS: [id number] MRI HEAD WITH CONTRAST TECHNIQUE: Sagittal T1, T2 axial, T2 axial FLAIR, axial susceptibility weighted imaging, axial diffus ion weighted images, and coronal T2 images were obtained. Pre and post-T1 axial and post T1 coronal i mages. ADC and FSPGR images. CLINICAL INFORMATION: BRAIN METS;HX OF MALIG NEOPLASM OF BRONCHUS/LUNG COMPARISON: MRI 07/16/2020 and 08/21/2019 FINDINGS: History of prior right occipital craniotomy. Resection cavity in the right cerebellum. Interval enlar gement of the enhancing right cerebellar lesion today measuring 3.4 x 3.3 cm abutting the right trans verse and sigmoid sinus. Larger amount of surrounding edema with mass effect on the middle cerebellar peduncle and brachium pontis. Partial effacement of the fourth ventricle. Mass effect on the jesse wi th effacement of the right ambient cistern. Mass effect on the aqueduct. Previously described left cerebellar lesion has decreased in size today measuring 7.9 x 9.4 mm. Stabl e edema and T2 hyperintensity within the left cerebellum. New enhancing metastatic lesion in the left occipital skull base and mastoid with adjacent narrowing of the sigmoid sinus and transverse sinus. This involves the left occipital condyle and abuts the bas ioccipital portion of the clivus. This extends into the hypoglossal canal and likely involves the jug ular foramen. Mild obstructive hydrocephalus with mild dilatation of the lateral ventricles. Mild bowing of the thi rd ventricle and temporal horns. Small amount of transependymal edema about the occipital horns. Moderate small vessel changes. Moderate parenchymal volume loss. Fluid in the mastoid air cells. Mild mucosal thickening in the paranasal sinuses. Small focus of hemosiderin in the inferior left cerebel lum. Tiny focus of restricted diffusion in the inferior medial left cerebellum. Normal optic chiasm a nd pituitary infundibulum. MR/MR head wo/w con [id number] IMPRESSION: 1. Interval progression of the right cerebellar metastatic lesion compared to the prior examination today measuring 3.3 x 3.4 cm with a large amount of edema in the right cerebellum and partial effacement of the fourth ventricle. 2. Mass effect on the right middle cerebellar peduncle and brachium pontis wit h effacement of the right ambient cistern. Associated obstructive hydrocephalus with dilatation of ventricular system progressed from July 16, 2020. Small am ount of transependymal edema about the occipital horns. 3. New enhancing metastatic lesion involving the left skull base measuring 1.9 x 2.1 cm involving the left occipital condyle and hypoglossal canal extending to the left mastoid. Associated narrowing of the sigmoid and transverse sinus. 4. Smaller left cerebellar lesion is decreased in size today measuring 7.9 x 9 .4 mm with stable surrounding nonenhancing T2 hyperintensity. 5. Tiny focus of restricted diffusion in the left parasagittal cerebellum susp icious for small tiny focus of acute ischemia. Notified Dr. Meyer at 11/24/2020 5:02 PM.
== END 2020-11-24 13:13 | disposition home or self-care (01) ==
LOC: RADSHAW 13:17
PROVIDERS: PCP Nurse Practitioner Family; Visit Provider Specialist
DX: Z92.3 Personal history of irradiation (principal); C79.31 Secondary malignant neoplasm of brain; Z85.118 Personal history of other malignant neoplasm of bronchus and lung; G93.9 Disorder of brain, unspecified
CPT/HCPCS: 70553; A9577

== ENCOUNTER 2020-12-18 14:23 | Outpatient (CLI) | payer MEDICARE, MEDICAID, SELFPAY ==
--- NOTE | 2020-12-19 07:23 | ONC FU_ITS ---
Dr. Meyer Patient Follow-Up Note Patient: Kristina Bertrand Unit #: [id number]: 1950 Dicatated By: Maldonado Meyer M.D.Date of Visit:Dec 18, 2020 Onc Med Follow-up/Prog Note Chief Complaint: Non-small cell lung cancer. 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 She was found to have a right upper lobe lung mass in December 2012 during the course of an ER evaluation for suspected diverticulitis. A CT guided needle biopsy of the mass January 2013 did confirm TTF-1 positive well-differentiated adenocarcinoma which was EGFR, ALK, and ROS-1 negative. Staging evaluation with brain MRI and PET/CT showed no obvious metastatic disease. The PET/CT showed right upper lobe mass measuring 3.2 x 2.4 cm and an additional right upper lobe nodule measuring 8 mm. She underwent thoracotomy with right upper lobectomy and mediastinal lymph node dissection on 04/29/2014. Pathology showed well-differentiated adenocarcinoma with predominantly mixed acinar and alveolar pattern. It measured 3.1 cm. There was invasion of the visceral pleura, but margins were negative. Lymph nodes at station 7, 11, and 10 were negative, thus stage IA (pT2a, pN0, M0). She received no adjuvant therapy. Surveillance chest CT in July 2015 showed a 2 cm nodule in the posterior central left lingual area, suspicious for metastatic disease or new primary malignancy. A subsequent PET/CT showed a smoothly marginated nodule in the left lung measuring 12 mm and tiny right upper lobe nodules which apparently felt to be improving, with no evidence of residual malignancy. She underwent bronchoscopy with FNA of station 11 on 08/22/2015. The FNA was negative. Brushings were inconclusive. Biopsy of the left lung nodule on 09/16/2015 was positive for adenocarcinoma, TTF-1 positive and EGFR mutation negative. There was insufficient material for ALK and ROS-1 studies. The tumor was negative for PD-L1 expression. In October 2015 she went to [facility] for second opinion evaluation. Evaluation there included brain MRI which showed no evidence of metastatic disease. PET/CT on 11/04/2015 showed an FDG avid centrally located left upper lobe nodule which had increased in size. There was no evidence of leonel or distant metastatic disease on that study. However, there was reportedly evidence of groundglass opacities in both lungs with the differential including atypical adenomatous hyperplasia and multifocal primary lung malignancy. Also noted were 2 air-containing cystic lesions with groundglass component's within the right lower lobe, also felt to be suspicious for primary lung malignancies. Ultimately, it was recommended that she undergo neoadjuvant chemotherapy with 4 cycles of cisplatin-pemetrexed. She was then seen here because she preferred to receive her chemotherapy locally. She received cycle 1 of cisplatin/Alimta on 12/15/2015. She tolerated it well. Side effects were limited to mild nausea and stomatitis. She received cycles 2 and 3 on schedule with no dose reductions. She did receive Neupogen following the 2nd cycle due to a low radhika granulocyte count, and she was then given Neulasta prophylactically with cycle 3. She completed 4 cycles on 02/16/16. Her restaging PET/CT at [facility] on 03/18/2016 showed new FDG activity involving bilateral axillary lymph nodes, though without associated lymph node enlargement. Pre-paracardial lymph node was mildly increased in size but markedly FDG avid. A juxtaphrenic lymph node also showed new FDG activity with slight increased size. Small right paratracheal lymph nodes were not significantly change in size and only slightly FDG avid. The tumor at the left hilum was not significantly changed in size, but it remained markedly FDG avid. Groundglass attenuation nodules in both lungs were unchanged. The abdomen/pelvis showed extensive new metabolic activity at left gastric and periportal adenopathy with slight increase in the size of the lymph nodes. Multiple small retroperitoneal lymph nodes also showed new metabolic activity. Small left inguinal lymph nodes and bilateral external iliac lymph nodes also appeared FDG avid. Overall, the left hilar tumor was unchanged and there was new widespread leonel metabolic activity with only slight increase in the size of some the lymph nodes, consistent with reactive process. A repeat chest CT on 05/06/2016 showed stable left hilar lesion measuring 2.4 cm. There was no change in size of the FDG avid lymph nodes noted on the PET/CT in March. The right middle lobe peribronchial vascular nodular opacities were mildly decreased compared to October 2015. Given the findings on the imaging studies, it was felt that her disease was localized. She was given the option of surgical resection, but that would have necessitated complete pneumonectomy. Ultimately, she opted against surgery. She was then treated with radiation to the left hilar lesion. She completed treatment on 09/01/2016 to a total dose of 6600 cGy. The tumor did appear slightly smaller on the follow-up CT scan on 10/07/2016. Her restaging CT on 01/06/2017 showed stable left infrahilar soft tissue lesion measuring 1.3 x 1.1 cm. A groundglass opacity in the right lower lobe laterally measuring 1.7 x 1.4 cm it appeared slightly more prominent compared to previous study from April 2016. There was no mediastinal or hilar lymphadenopathy noted. Chest CT on 04/21/2017 reported increased enlargement of the right lower lobe lateral segment some solid nodule with reported differential including progressive neoplastic process, inflammatory process, and atypical infectious process. A right lower lobe anterior segment nodule at increased slightly, from 5.7 to 6.9 mm. A right upper lung zone groundglass nodule measuring 3-4 mm appeared unchanged. Left lower lobe superior segment bandlike atelectasis and/or scarring appeared stable. Restaging PET/CT on 07/30/2017 showed irregular right lower lobe infiltrate measuring 1.7 x 2.9 cm with FDG uptake less than that of normal mediastinal background, supporting a benign diagnosis. There was inflammatory uptake at a right lower lobe bulla. There was no evidence of malignancy. Given those findings, she continued on observation/expectant management. A repeat chest CT on 12/01/2017 showed persistence and slight progression of the irregular marginated semisolid densities in the anterior basal segment right lower lobe adjacent to a bolus emphysematous cavity. It measured 4 x 1.9 x 1.7 cm compared to 3.3 x 1.8 x 1.7 cm on the study from July 2017. A 7 mm rounded groundglass nodule in the anterior aspect of the right lower lobe appeared stable and a 4.3 mm right middle lobe nodule appeared stable. There was no obvious hilar, mediastinal, axillary, or supraclavicular lymphadenopathy noted. As the changes in the right lower lobe lesion were felt to be suspicious, she was referred to Dr. Justina Keith in [place], and a CT-guided biopsy of the right lung mass on 02/01/2018 was positive for malignant cells, at least adenocarcinoma in situ. She was then seen by Dr. Leahy and she underwent SBRT to the right lung lesion, completed on 03/08/2018 to a total dose of 5000 cGy. During subsequent follow-up, her surveillance chest CT on 12/12/2018 showed findings suspicious for developing neoplasm in the superior segment right lower lobe adjacent to a bolus emphysematous cavity. Postradiation changes in the right lower lobe at the site of the previous semisolid mass lesion appeared stable. Further evaluation with PET/CT on 12/16/2018 showed significant FDG uptake in the solid mural portion of the superior segment right lower lobe bulla, SUV up to 3.4 compared to 1.8 on the previous study. This was felt to be strongly suspicious for malignancy. There was no change in mild inflammatory activity in the scarlike infiltrate in the lateral right lower lobe. With those findings, he was given further SBRT to the right lower lobe lung lesion, completed on 01/08/2019 to a total dose of [address] on 02/19/2019 showed no change in the bullous emphysematous cavity in the right lower lobe with adjacent nodule measuring 11 x 10 mm, suspicious for neoplasm. A small adjacent noncalcified pulmonary nodule measuring 4 to 5 mm with slightly improved. Additional subcentimeter nodules in the right lower and right upper lobes also are unchanged. There is stable fibrotic opacity along the lingula and stable soft tissue thickening along the left hilum. Overall there was no evidence of disease progression. On 04/20/2019 she presented to the emergency room with nausea/vomiting and dizziness. Head CT showed a large amount of edema centered in the right cerebellum with sulcal effacement and mass-effect on the fourth ventricle. This is highly suspicious for metastatic lesion or primary brain tumor. She was admitted to [facility] and on 04/27/2019 she underwent craniotomy and resection of intra-axial and extra-axial metastatic lesion. Pathology showed metastatic adenocarcinoma. She then underwent stereotactic radiotherapy to the cerebellar metastasis cavity, completed on 06/05/2019 to a total dose of 2100 cGy. Her repeat brain MRI on 08/21/2019 showed minimal hemorrhage within the right cerebellar hemisphere at the site of the tumor resection. Residual enhancing tumor was still identified immediately abutting the right-sided transverse and sigmoid sinus. The tumor appeared to measure 2.9 cm in greatest long axis diameter, 9 mm transversely, and 9 mm superiorly to inferiorly. A 1 to 2 mm rounded area of enhancement within the left cerebellar hemisphere compatible with an additional site of metastasis was not significantly changed. There was significant improvement in vasogenic edema within the right cerebellar hemisphere and cerebellar vermis. There were no new areas of enhancement to suggest additional metastasis. I had seen her for a follow-up visit on 09/13/2019. She had further evaluation with restaging PET/CT on 09/22/2019. On that study the scarlike infiltrate in the right lower lobe was noted to be a solid lesion measuring 3.0 x 3.9 cm with SUV increased to 4.9 compared to 2.8 on the prior study from November 2018. The solid tissue in the superior segment right lower lobe bulla also showed an interval increase in SUV from 3.4 to 4.3. Both findings were felt to be indicative of malignant progression. There were stable reactive changes in mediastinal lymph nodes. There were no other areas of abnormal uptake. In the meantime, I also had requested a next generation sequencing study on the cerebellar lesion. It showed no evidence for EGFR, BRAF, or M ET mutations, and the ALK and ROS1 rearrangements were not detected. 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 The tumor was noted to be MSI stable, and it was negative for PD-L1 expression at 0%. I had reviewed the PET/CT with the patient and with the radiologist. While there did appear to be some progression, those changes were fairly minor at least for the time being we opted to continue observation/expectant management. She then had a restaging chest CT on 01/01/2020. That study reported significant progression of the soft tissue nodular component surrounding the cavitary lesion in the superior right lower lobe, consistent with progression of neoplastic disease. The cavitary lesion in the inferior aspect of the right lower lobe has become more consolidated having the appearance of a large soft tissue spiculated mass measuring 3.3 x 5.3 cm, highly suspicious for additional neoplasm. Increasing soft tissue at the hilar regions was also felt to be suspicious for progression of metastatic adenopathy. There was additionally mild progression of a precarinal lymph node. I had been seeing her for a follow-up visit to discuss treatment options, including the possibility of a targeted therapy for the KRAS mutation, which would have been in the setting of a clinical trial. The other option would be chemotherapy/immunotherapy combination regimen. Ultimately, she opted to continue close observation. Restaging PET/CT on 03/22/2020 showed unchanged right lower lobe pulmonary nodule measuring 2.7 x 4.2 cm. The SUV was down slightly at 3.8 compared to 4.9 on the prior study. The mural right lower lobe bulla activity on the previous study showed decreased SUV to 2.2, down from 4.3. There were no new lesions identified. Overall, there was mild to moderate improvement compared to the prior PET/CT from 09/22/2019. Repeat chest CT on 06/23/2020 showed spiculated mass in the right lower lobe. The appearance was suspicious for neoplasm, but it measured a few millimeters smaller compared to the prior study. The cavitary lesion in the superior segment right lower lobe with mural nodularity also has not significantly changed. An enlarged right hilar lymph node appeared stable measuring 11 mm. Overall, there was no evidence of disease progression. Her repeat CT of the chest/abdomen on 10/01/2020 showed continued slow decrease in size of the right lower lobe soft tissue consolidation measuring 3.9 x 2.5 cm. There was also decreased in the size of the nodular component associated with the cavitary lesion in the superior segment of the right lower lobe. A 4 mm nodule in the right upper lung field appeared stable. There was no new or increasing mediastinal or hilar adenopathy. A lobulated soft tissue mass in the cecum measuring 3.7 x 3.5 cm appeared consistent with inspissated fecal material, but underlying colonic neoplasm was not excluded. With those findings she opted to continue on expectant management. A follow-up head MRI on 11/24/2020 showed interval progression of the right cerebellar metastatic lesion measuring 3.3 x 3.4 cm. There was a large amount of associated edema in the right cerebellum with partial effacement of the fourth ventricle. There was mass-effect on the right middle cerebellar peduncle and brachium pontis with effacement of the right ambient cistern. There was also associated obstructive hydrocephalus with dilatation of the ventricular system, progressed since the June 2020 study. There was a new enhancing metastatic lesion involving the left skull base measuring 1.9 x 2.1 cm involving the left occipital condyle and hypoglossal canal extending to the left mastoid. The smaller left cerebellar lesion was noted to have decreased in size measuring 7.9 x 9.4 mm. She then began on dexamethasone 4 mg 4 times daily. She had radiation oncology follow-up with Dr. Pompa on 12/01/2020. She was offered the option to have whole brain radiation, which she initially declined. In the meantime, we had also contacted her neurosurgeon in [place], Dr. Fabio England, and the MRI images were shared electronically with that office. She is seen for a follow-up visit. She has been feeling good generally since she has been on the dexamethasone, though she does complain that it is making her crazy. She has since then taper the daily dosage from 16 to 12 mg. She says she does not have much energy, but she is still doing light work. ECOG score is 1. She has good appetite. She has not had fever. She does have some sweating after she takes her steroid. She has not had sore mouth or throat. She complains that she has a little bit of cough after she takes the steroid. Her breathing, though, has been okay. She does not complain of chest pain. She has no GI complaints other than some acid reflux, which she manages with Rolaids. She has frequent urination. She has no significant joint or bone pain. She does not complain of headache. She does have some dizziness/dysequilibrium. She has no numbness/paresthesia or other focal neurologic symptoms. Medications: Dexamethasone (2 mg) Tablet Oral b.i.d., Probiotic 1 Tablet Capsule Oral daily, Ventolin HFA 2 puff(s) (of 108 (90 base) mcg/act) Aerosol, solution Inhalation q 4 hours PRN Allergies: IV Contrast and Sulfa Antibiotics. Vital Signs: Performed on Dec 18, 2020 15:28 Height - 63.00 in Weight - 191 lbs (LOW) BSA - 1.90 sq.m BMI - 33.83 (HIGH) Temperature - 96.8 F (LOW) Pulse - 73 /min Respiration - 18 /min BP - 166/81 mm(hg) (HIGH) O2 Sat - 97 % Pain - 0 Fatigue - 8 Physical Examination: Constitutional - She looks pretty good generally, Eyes - Sclerae nonicteric. Conjunctivae clear, ENMT - No lesions noted in the oral cavity, Hematologic/Lymphatic - No cervical, clavicular, or axillary adenopathy, Respiratory - Lungs show slightly diminished air movement and coarse breath sounds bilaterally, Cardiovascular - Heart rhythm is regular. There is no murmur, gallop, or rub noted, Abdomen - Soft. Liver and spleen are not enlarged. There is no abdominal mass or ascites noted and there is no inguinal adenopathy, Extremities - No edema, Neurologic - No focal neurologic deficits noted. Problem List: 1. Patient with bilateral non-small cell lung cancer, stage IV, with development of metastatic involvement in the right cerebellar hemisphere, for which she underwent surgical resection on 04/27/2019. 2. She has a history of diverticulitis, but she has had no other ongoing medical illnesses. Problems Addressed with this Encounter and Plan: 1. Patient with bilateral non-small cell lung cancer, stage IV. She was originally diagnosed with TTF-1 positive adenocarcinoma involving the upper lobe of the right lung in 2014. She underwent right upper lobectomy/mediastinal lymph node dissection in April 2014. Her disease was stage IA (pT2a, pN0, M0). She then had biopsy-proven adenocarcinoma involving the upper lobe of the left lung. By clinical evaluation her disease was most likely stage IA (T1b, N0, M0). She was given neoadjuvant chemotherapy with 4 cycles of cisplatin/Alimta from 09/14/2015 through 02/16/2016. She tolerated the treatment well, but with only minimal response by follow-up imaging. She was treated with radiation to the left lung lesion, completed on 09/01/2016 to a total dose of 6600 cGy. She tolerated the treatment well. A repeat chest CT on 12/01/2017 showed further increase in the anterior segment right lower lobe densities, consistent with indolent neoplastic or unusual infectious process. CT-directed needle biopsy of the right lower lobe mass on 02/01/2018 was positive for malignant cells, at least adenocarcinoma in situ. She was treated with SBRT, completed on 03/08/2018 to a total dose of 5000 cGy. She then had suspected new involvement in the superior segment right lower lobe by PET/CT on 12/16/2018. It was treated with additional SBRT, completed on 01/08/2019 to a total dose of 4800 cGy. She was then followed expectantly. During followup there has been suspicion of disease progression by imaging. She had previously opted to just continue with observation/symptomatic management. However, at this point she is agreeable to begin a trial of targeted therapy with sotorasib for the KRAS G12C mutation. It will be initiated at a standard dosage of 960 mg daily, subject to verification of insurance coverage. She will need restaging CT scans prior to starting treatment. 2. 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 Pathology showed metastatic adenocarcinoma. A next generation sequencing study on the cerebellar lesion showed no evidence for EGFR, BRAF, or M ET mutations, or for the ALK and ROS1 rearrangements were not detected. 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 The tumor was noted to be MSI stable, and it was negative for PD-L1 expression at 0%. She was given stereotactic radiation to the cerebellar metastasis cavity, completed on 06/05/2019 to a total dose of 2100 cGy. Restaging head MRI on 08/21/2019 showed residual enhancing tumor in the right cerebellar hemisphere measuring 2.9 cm. She had additional MRI evidence of a small metastatic lesion in the left cerebellar hemisphere, but that appeared stable on the follow-up MRI. She was initially followed on expectant management. As of her follow-up visit in September 2020 she had required an increase in her dexamethasone dosage due to nausea/vomiting. Her repeat head MRI on 11/24/2020 showed significant progression of the right cerebellar metastatic lesion as well as development of a new enhancing metastatic lesion involving the left skull base. She has had improvement in her symptoms with a further increase in her dexamethasone dosage. As she is having some side effects with the dexamethasone, I will now have her try tapering the dosage to 4 mg daily. At least for now she is not interested in pursuing whole brain radiation, but there may potentially be benefit in controlling her [employer] disease with the targeted therapy. She will, though, require close monitoring. Signed By: Maldonado Meyer M.D. <<Signature on File>>
== END 2020-12-18 14:24 | disposition home or self-care (01) ==
LOC: ONCMED 14:29
PROVIDERS: PCP Nurse Practitioner Family; Visit Provider Internal Medicine Medical Oncology
DX: C34.12 Malignant neoplasm of upper lobe, left bronchus or lung (principal); C34.31 Malignant neoplasm of lower lobe, right bronchus or lung; C79.31 Secondary malignant neoplasm of brain; Z79.899 Other long term (current) drug therapy; Z79.52 Long term (current) use of systemic steroids
CPT/HCPCS: 99215

== ENCOUNTER 2021-01-02 07:40 | Outpatient (CLI) | payer MEDICARE, MEDICAID, SELFPAY ==
[2021-01-02 08:43] LABS: Basophils % 0.3 %; Eosinophils % 0.2 %; Hematocrit 43.3 % (37.0-47.0); Lymphocytes # 1.7 10^3/uL (0.8-4.8); Lymphocytes % 16.4 %; Mean Corpuscular HGB Conc 32.3 g/dL (30.0-36.0); Mean Corpuscular Hemoglobin 30.3 pg (28.0-34.0); Mean Corpuscular Volume 93.7 fl (81-99); Mean Platelet Volume 7.9 fL (7.4-10.4); Monocytes # 0.5 10^3/uL (0.2-0.9); Monocytes % 4.8 %; Neutrophils # 7.34 10^3/uL (1.8-7.7); Neutrophils % 72.7 %; Nucleated Red Blood Cells % 0 %; Platelet Count 341 10^3/cmm (130-400); Red Blood Count 4.62 10^6/uL (4.1-5.3); Red Cell Distribution Width 14.4 % (12.1-15.1); White Blood Count 10.1 10^3/uL (4.0-10.0)
[2021-01-02 08:54] LABS: Alanine Aminotransferase 40 U/L (0-33); Albumin Level 3.6 g/dL (3.5-5.2); Alkaline Phosphatase 65 IU/L (35-105); Aspartate Amino Transferase 16 U/L (0-32); Blood Urea Nitrogen 15 mg/dL (8-23); Calcium 8.8 mg/dL (8.5-10.5); Carbon Dioxide 26 mmol/L (22-29); Chloride 99 mmol/L (98-107); Globulin 2.7 g/dL (1.3-4.6); Glucose 91 mg/dL (65-115); Osmolality Calculated 280 mOsm/kg (285-295); Sodium 135 mmol/L (136-145); Total Bilirubin 0.3 mg/dL (0.15-1.2); Total Protein 6.3 g/dL (6.6-8.7)
--- NOTE | 2021-01-02 09:03 | CT_ITS ---
WS: [id number] CT CHEST, ABDOMEN AND PELVIS WITH CONTRAST HISTORY: LUNG CA TECHNIQUE: Contiguous 5 mm axial imaging performed through the chest, abdomen and pelvis with IV cont rast, oral contrast has been provided. Coronal and sagittal reformats chest. Coronal and sagittal ref ormats through the abdomen and pelvis. All CT scans at [facility] use at least one of these d ose optimization techniques: automated exposure control; mA and/or kV adjustment per patient size (in cludes targeted exams where dose is matched to clinical indication); or iterative reconstruction. CONTRAST: Omnipaque 300; 95 mL IV. DLP: 1732.03 mGy.cm COMPARISON: 10/01/2020 and 06/23/2020 and 01/01/2020. Chest CT: Status post RIGHT upper lobectomy. Bullous nodule with eccentric soft tissue nodular compon ent has not significantly changed. The solid component measures 2.8 x 0.5 cm. There is also no improv ement. There are additional small scattered nodules within the RIGHT middle and RIGHT upper lobe whic h are stable. Larger consolidation in the RIGHT lower lobe measures 3.6 x 2.4 cm and has not signific antly changed since 10/01/2020. This nodule has decreased since 06/23/2020. There are also a few very snowden btle groundglass opacifications in the LEFT upper lobe which are stable. Moderate atherosclerosis aor ta. Pulmonary artery size is slightly enlarged. High RIGHT paratracheal lymph node at 5 mm is stable. Inferior RIGHT paratracheal lymph node stable at 8 mm. No new or increasing size of hilar adenopathy . Heart is normal size. No pericardial effusions. Abdomen CT: There is a very subtle area of decreased attenuation in the LEFT lobe of the liver adjace nt to the LEFT hepatic vein. This area measures 1.4 cm and appears slightly more obvious than on the prior study. An early metastatic lesion is not excluded. Very mild central bile duct dilatation. Panc reas and spleen are normal. No adrenal mass. No change the kidneys. No hydronephrosis. Atherosclerosi s aorta. No adenopathy or ascites. Moderate diffuse fecal retention and diffuse diverticular disease. Pelvic CT: No free fluid in the pelvis. No adenopathy. L5 bilateral pars defects. No osteoblastic or osteolytic bone disease. CT/CT chest abd pel w con* IMPRESSION: 1. Eccentric soft tissue nodule associated with the largest bulla in the super ior segment RIGHT lower lobe has not significantly progressed or improved. 2. Stable RIGHT lower lobe mass without increase in size. 3. There are a few areas of groundglass attenuation in the LEFT upper lobe whi ch are stable. These could represent early neoplastic sites. Will reevaluated o n follow-up imaging. 4. LEFT hepatic lobe 1.4 cm area of decreased attenuation. Appears more promin ent than it did on the most recent examination. Early metastatic lesions not ex cluded. Recommend 3 month follow-up CT evaluation. This would probably not be e vident by ultrasound.
[2021-01-02 09:27] LABS: Slide Review Slide Review Perform
[2021-01-02] MEDS: iohexol 300 mg/mL 50 mL Btl PO (09:40)
[2021-01-02] MEDS: iohexol 300 mg/mL 100 mL Btl IV (11:05)
== END 2021-01-02 07:41 | disposition home or self-care (01) ==
LOC: ONCMED 07:40
PROVIDERS: PCP Nurse Practitioner Family; Visit Provider Internal Medicine Medical Oncology
DX: C34.31 Malignant neoplasm of lower lobe, right bronchus or lung (principal); C79.31 Secondary malignant neoplasm of brain
CPT/HCPCS: 36415; 71260; 74177; 80053; 85025; Q9967

== ENCOUNTER 2021-01-13 12:50 | Outpatient (CLI) | payer MEDICARE, MEDICAID, SELFPAY ==
[2021-01-13 13:13] LABS: Hematocrit 43.4 % (37.0-47.0); Hemoglobin 14.1 g/dL (11.5-15.3); Mean Corpuscular HGB Conc 32.5 g/dL (30.0-36.0); Mean Corpuscular Hemoglobin 30.3 pg (28.0-34.0); Mean Corpuscular Volume 93.1 fl (81-99); Mean Platelet Volume 8.1 fL (7.4-10.4); Platelet Count 337 10^3/cmm (130-400); Red Blood Count 4.66 10^6/uL (4.1-5.3); Red Cell Distribution Width 14.7 % (12.1-15.1); White Blood Count 19.1 10^3/uL (4.0-10.0)
[2021-01-13 13:38] LABS: Alanine Aminotransferase 77 U/L (0-33); Albumin Level 3.6 g/dL (3.5-5.2); Alkaline Phosphatase 58 IU/L (35-105); Anion Gap 13.7 (5-19); Aspartate Amino Transferase 26 U/L (0-32); Blood Urea Nitrogen 18 mg/dL (8-23); Calcium 9.1 mg/dL (8.5-10.5); Carbon Dioxide 27 mmol/L (22-29); Chloride 99 mmol/L (98-107); Globulin 2.8 g/dL (1.3-4.6); Glucose 99 mg/dL (65-115); Osmolality Calculated 282 mOsm/kg (285-295); Potassium 4.7 mmol/L (3.5-5.1); Sodium 135 mmol/L (136-145); Total Bilirubin 0.3 mg/dL (0.15-1.2); Total Protein 6.4 g/dL (6.6-8.7)
[2021-01-13 13:55] LABS: Absolute Segmented Neutrophil 12.6 10/cmm (1.6-7.1); Band Neutrophils Absolute 1.9 10^3/cmm (0.0-1.2); Segmented Neutrophils 66 %; Total Cells Counted 100 (0-100)
[2021-01-13 13:56] LABS: Absolute Neutrophil 14.5 10^3/cmm (1.4-6.5); Lymphocytes 11 %; Lymphocytes Absolute 2.9 10^3/cmm (1.2-3.4); Monocytes Absolute 0.6 10^3/cmm (0.1-0.6); Platelet Estimate Normal (Normal)
--- NOTE | 2021-01-14 06:52 | ONC FU_ITS ---
Dr. Meyer Patient Follow-Up Note Patient: Kristina Bertrand Unit #: [id number]: 1950 Dicatated By: Maldonado Meyer M.D.Date of Visit:Jan 13, 2021 Onc Med Follow-up/Prog Note Chief Complaint: Non-small cell lung cancer. 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 She was found to have a right upper lobe lung mass in December 2012 during the course of an ER evaluation for suspected diverticulitis. A CT guided needle biopsy of the mass January 2013 did confirm TTF-1 positive well-differentiated adenocarcinoma which was EGFR, ALK, and ROS-1 negative. Staging evaluation with brain MRI and PET/CT showed no obvious metastatic disease. The PET/CT showed right upper lobe mass measuring 3.2 x 2.4 cm and an additional right upper lobe nodule measuring 8 mm. She underwent thoracotomy with right upper lobectomy and mediastinal lymph node dissection on 04/29/2014. Pathology showed well-differentiated adenocarcinoma with predominantly mixed acinar and alveolar pattern. It measured 3.1 cm. There was invasion of the visceral pleura, but margins were negative. Lymph nodes at station 7, 11, and 10 were negative, thus stage IA (pT2a, pN0, M0). She received no adjuvant therapy. Surveillance chest CT in July 2015 showed a 2 cm nodule in the posterior central left lingual area, suspicious for metastatic disease or new primary malignancy. A subsequent PET/CT showed a smoothly marginated nodule in the left lung measuring 12 mm and tiny right upper lobe nodules which apparently felt to be improving, with no evidence of residual malignancy. She underwent bronchoscopy with FNA of station 11 on 08/22/2015. The FNA was negative. Brushings were inconclusive. Biopsy of the left lung nodule on 09/16/2015 was positive for adenocarcinoma, TTF-1 positive and EGFR mutation negative. There was insufficient material for ALK and ROS-1 studies. The tumor was negative for PD-L1 expression. In October 2015 she went to [facility] for second opinion evaluation. Evaluation there included brain MRI which showed no evidence of metastatic disease. PET/CT on 11/04/2015 showed an FDG avid centrally located left upper lobe nodule which had increased in size. There was no evidence of leonel or distant metastatic disease on that study. However, there was reportedly evidence of groundglass opacities in both lungs with the differential including atypical adenomatous hyperplasia and multifocal primary lung malignancy. Also noted were 2 air-containing cystic lesions with groundglass component's within the right lower lobe, also felt to be suspicious for primary lung malignancies. Ultimately, it was recommended that she undergo neoadjuvant chemotherapy with 4 cycles of cisplatin-pemetrexed. She was then seen here because she preferred to receive her chemotherapy locally. She received cycle 1 of cisplatin/Alimta on 12/15/2015. She tolerated it well. Side effects were limited to mild nausea and stomatitis. She received cycles 2 and 3 on schedule with no dose reductions. She did receive Neupogen following the 2nd cycle due to a low radhika granulocyte count, and she was then given Neulasta prophylactically with cycle 3. She completed 4 cycles on 02/16/16. Her restaging PET/CT at [facility] on 03/18/2016 showed new FDG activity involving bilateral axillary lymph nodes, though without associated lymph node enlargement. Pre-paracardial lymph node was mildly increased in size but markedly FDG avid. A juxtaphrenic lymph node also showed new FDG activity with slight increased size. Small right paratracheal lymph nodes were not significantly change in size and only slightly FDG avid. The tumor at the left hilum was not significantly changed in size, but it remained markedly FDG avid. Groundglass attenuation nodules in both lungs were unchanged. The abdomen/pelvis showed extensive new metabolic activity at left gastric and periportal adenopathy with slight increase in the size of the lymph nodes. Multiple small retroperitoneal lymph nodes also showed new metabolic activity. Small left inguinal lymph nodes and bilateral external iliac lymph nodes also appeared FDG avid. Overall, the left hilar tumor was unchanged and there was new widespread leonel metabolic activity with only slight increase in the size of some the lymph nodes, consistent with reactive process. A repeat chest CT on 05/06/2016 showed stable left hilar lesion measuring 2.4 cm. There was no change in size of the FDG avid lymph nodes noted on the PET/CT in March. The right middle lobe peribronchial vascular nodular opacities were mildly decreased compared to October 2015. Given the findings on the imaging studies, it was felt that her disease was localized. She was given the option of surgical resection, but that would have necessitated complete pneumonectomy. Ultimately, she opted against surgery. She was then treated with radiation to the left hilar lesion. She completed treatment on 09/01/2016 to a total dose of 6600 cGy. The tumor did appear slightly smaller on the follow-up CT scan on 10/07/2016. Her restaging CT on 01/06/2017 showed stable left infrahilar soft tissue lesion measuring 1.3 x 1.1 cm. A groundglass opacity in the right lower lobe laterally measuring 1.7 x 1.4 cm it appeared slightly more prominent compared to previous study from April 2016. There was no mediastinal or hilar lymphadenopathy noted. Chest CT on 04/21/2017 reported increased enlargement of the right lower lobe lateral segment some solid nodule with reported differential including progressive neoplastic process, inflammatory process, and atypical infectious process. A right lower lobe anterior segment nodule at increased slightly, from 5.7 to 6.9 mm. A right upper lung zone groundglass nodule measuring 3-4 mm appeared unchanged. Left lower lobe superior segment bandlike atelectasis and/or scarring appeared stable. Restaging PET/CT on 07/30/2017 showed irregular right lower lobe infiltrate measuring 1.7 x 2.9 cm with FDG uptake less than that of normal mediastinal background, supporting a benign diagnosis. There was inflammatory uptake at a right lower lobe bulla. There was no evidence of malignancy. Given those findings, she continued on observation/expectant management. A repeat chest CT on 12/01/2017 showed persistence and slight progression of the irregular marginated semisolid densities in the anterior basal segment right lower lobe adjacent to a bolus emphysematous cavity. It measured 4 x 1.9 x 1.7 cm compared to 3.3 x 1.8 x 1.7 cm on the study from July 2017. A 7 mm rounded groundglass nodule in the anterior aspect of the right lower lobe appeared stable and a 4.3 mm right middle lobe nodule appeared stable. There was no obvious hilar, mediastinal, axillary, or supraclavicular lymphadenopathy noted. As the changes in the right lower lobe lesion were felt to be suspicious, she was referred to Dr. Justina Keith in [place], and a CT-guided biopsy of the right lung mass on 02/01/2018 was positive for malignant cells, at least adenocarcinoma in situ. She was then seen by Dr. Leahy and she underwent SBRT to the right lung lesion, completed on 03/08/2018 to a total dose of 5000 cGy. During subsequent follow-up, her surveillance chest CT on 12/12/2018 showed findings suspicious for developing neoplasm in the superior segment right lower lobe adjacent to a bolus emphysematous cavity. Postradiation changes in the right lower lobe at the site of the previous semisolid mass lesion appeared stable. Further evaluation with PET/CT on 12/16/2018 showed significant FDG uptake in the solid mural portion of the superior segment right lower lobe bulla, SUV up to 3.4 compared to 1.8 on the previous study. This was felt to be strongly suspicious for malignancy. There was no change in mild inflammatory activity in the scarlike infiltrate in the lateral right lower lobe. With those findings, he was given further SBRT to the right lower lobe lung lesion, completed on 01/08/2019 to a total dose of [address] on 02/19/2019 showed no change in the bullous emphysematous cavity in the right lower lobe with adjacent nodule measuring 11 x 10 mm, suspicious for neoplasm. A small adjacent noncalcified pulmonary nodule measuring 4 to 5 mm with slightly improved. Additional subcentimeter nodules in the right lower and right upper lobes also are unchanged. There is stable fibrotic opacity along the lingula and stable soft tissue thickening along the left hilum. Overall there was no evidence of disease progression. On 04/20/2019 she presented to the emergency room with nausea/vomiting and dizziness. Head CT showed a large amount of edema centered in the right cerebellum with sulcal effacement and mass-effect on the fourth ventricle. This is highly suspicious for metastatic lesion or primary brain tumor. She was admitted to [facility] and on 04/27/2019 she underwent craniotomy and resection of intra-axial and extra-axial metastatic lesion. Pathology showed metastatic adenocarcinoma. She then underwent stereotactic radiotherapy to the cerebellar metastasis cavity, completed on 06/05/2019 to a total dose of 2100 cGy. Her repeat brain MRI on 08/21/2019 showed minimal hemorrhage within the right cerebellar hemisphere at the site of the tumor resection. Residual enhancing tumor was still identified immediately abutting the right-sided transverse and sigmoid sinus. The tumor appeared to measure 2.9 cm in greatest long axis diameter, 9 mm transversely, and 9 mm superiorly to inferiorly. A 1 to 2 mm rounded area of enhancement within the left cerebellar hemisphere compatible with an additional site of metastasis was not significantly changed. There was significant improvement in vasogenic edema within the right cerebellar hemisphere and cerebellar vermis. There were no new areas of enhancement to suggest additional metastasis. I had seen her for a follow-up visit on 09/13/2019. She had further evaluation with restaging PET/CT on 09/22/2019. On that study the scarlike infiltrate in the right lower lobe was noted to be a solid lesion measuring 3.0 x 3.9 cm with SUV increased to 4.9 compared to 2.8 on the prior study from November 2018. The solid tissue in the superior segment right lower lobe bulla also showed an interval increase in SUV from 3.4 to 4.3. Both findings were felt to be indicative of malignant progression. There were stable reactive changes in mediastinal lymph nodes. There were no other areas of abnormal uptake. In the meantime, I also had requested a next generation sequencing study on the cerebellar lesion. It showed no evidence for EGFR, BRAF, or M ET mutations, and the ALK and ROS1 rearrangements were not detected. 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 The tumor was noted to be MSI stable, and it was negative for PD-L1 expression at 0%. I had reviewed the PET/CT with the patient and with the radiologist. While there did appear to be some progression, those changes were fairly minor at least for the time being we opted to continue observation/expectant management. She then had a restaging chest CT on 01/01/2020. That study reported significant progression of the soft tissue nodular component surrounding the cavitary lesion in the superior right lower lobe, consistent with progression of neoplastic disease. The cavitary lesion in the inferior aspect of the right lower lobe has become more consolidated having the appearance of a large soft tissue spiculated mass measuring 3.3 x 5.3 cm, highly suspicious for additional neoplasm. Increasing soft tissue at the hilar regions was also felt to be suspicious for progression of metastatic adenopathy. There was additionally mild progression of a precarinal lymph node. I had been seeing her for a follow-up visit to discuss treatment options, including the possibility of a targeted therapy for the KRAS mutation, which would have been in the setting of a clinical trial. The other option would be chemotherapy/immunotherapy combination regimen. Ultimately, she opted to continue close observation. Restaging PET/CT on 03/22/2020 showed unchanged right lower lobe pulmonary nodule measuring 2.7 x 4.2 cm. The SUV was down slightly at 3.8 compared to 4.9 on the prior study. The mural right lower lobe bulla activity on the previous study showed decreased SUV to 2.2, down from 4.3. There were no new lesions identified. Overall, there was mild to moderate improvement compared to the prior PET/CT from 09/22/2019. Repeat chest CT on 06/23/2020 showed spiculated mass in the right lower lobe. The appearance was suspicious for neoplasm, but it measured a few millimeters smaller compared to the prior study. The cavitary lesion in the superior segment right lower lobe with mural nodularity also has not significantly changed. An enlarged right hilar lymph node appeared stable measuring 11 mm. Overall, there was no evidence of disease progression. Her repeat CT of the chest/abdomen on 10/01/2020 showed continued slow decrease in size of the right lower lobe soft tissue consolidation measuring 3.9 x 2.5 cm. There was also decreased in the size of the nodular component associated with the cavitary lesion in the superior segment of the right lower lobe. A 4 mm nodule in the right upper lung field appeared stable. There was no new or increasing mediastinal or hilar adenopathy. A lobulated soft tissue mass in the cecum measuring 3.7 x 3.5 cm appeared consistent with inspissated fecal material, but underlying colonic neoplasm was not excluded. With those findings she opted to continue on expectant management. A follow-up head MRI on 11/24/2020 showed interval progression of the right cerebellar metastatic lesion measuring 3.3 x 3.4 cm. There was a large amount of associated edema in the right cerebellum with partial effacement of the fourth ventricle. There was mass-effect on the right middle cerebellar peduncle and brachium pontis with effacement of the right ambient cistern. There was also associated obstructive hydrocephalus with dilatation of the ventricular system, progressed since the June 2020 study. There was a new enhancing metastatic lesion involving the left skull base measuring 1.9 x 2.1 cm involving the left occipital condyle and hypoglossal canal extending to the left mastoid. The smaller left cerebellar lesion was noted to have decreased in size measuring 7.9 x 9.4 mm. She then began on dexamethasone 4 mg 4 times daily. She had radiation oncology follow-up with Dr. Pompa on 12/01/2020. She was offered the option to have whole brain radiation, which she initially declined. Restaging CT scans of the chest, abdomen, and pelvis on 01/02/2021 showed no significant progression of the soft tissue nodule with associated large bulla in the superior segment right lower lobe and the right lower lobe mass also appeared stable. A few areas of groundglass attenuation in the left upper lobe also appeared stable. An area of decreased attenuation in the left hepatic lobe measuring 1.4 cm appeared slightly more prominent, suspicious for metastatic involvement. There were no other areas of disease progression. She is seen for a follow-up visit. She complains that she is really really weak. She continues on dexamethasone with her dosage adjusted to 4 mg in the morning, 2 mg in the afternoon and 2 mg in the evening. She has limited activity. She is able to ambulate with a walker. ECOG score is 2. She has good appetite. She has not had fever. She does have some sweating. She has had a little bit of soreness in her mouth and throat. She does not complain of cough, and she has not been having shortness of breath or chest pain. She has not been having nausea. She does have some heartburn, depending on what she eats. Her bowels have been a little loose. Bladder function remains adequate, though she has noticed a different odor to her urine. She has no significant joint or bone pain. She is not having headaches and she does not complain of dizziness. She has no numbness/paresthesia or other focal neurologic symptoms. Medications: Dexamethasone (2 mg) Tablet Oral b.i.d., Probiotic 1 Tablet Capsule Oral daily, Ventolin HFA 2 puff(s) (of 108 (90 base) mcg/act) Aerosol, solution Inhalation q 4 hours PRN Allergies: IV Contrast and Sulfa Antibiotics. Vital Signs: Performed on Jan 13, 2021 16:48 Height - 63.00 in Temperature - 98 F (LOW) Pulse - 109 /min (HIGH) Respiration - 18 /min BP - 148/89 mm(hg) (HIGH) O2 Sat - 97 % Pain - 0 Fatigue - 8 Physical Examination: Constitutional - She appears somewhat weak generally, Eyes - Sclerae nonicteric. Conjunctivae clear, ENMT - There is very slight oral candidiasis. There are no other lesions noted in the oral cavity, Hematologic/Lymphatic - No cervical, clavicular, or axillary adenopathy, Respiratory - Lungs show slightly diminished air movement and coarse breath sounds bilaterally, Cardiovascular - Heart rhythm is regular. There is no murmur, gallop, or rub noted, Abdomen - Soft. Liver and spleen are not enlarged. There is no abdominal mass or ascites noted and there is no inguinal adenopathy, Extremities - No edema, Neurologic - No focal neurologic deficits noted. Lab/Imaging: Test performed on Jan 13, 2021 12:50 Sodium 135 mmol/L Potassium 4.7 mmol/L Chloride 99 mmol/L CO2 27 mmol/L Anion Gap 13.7 BUN 18 mg/dL Creatinine 0.5 mg/dL Cr Clearance (Est) 146.7600 mL/min Glucose 99 mg/dL Osmolality - Calculated 282 mOsm/kg Calcium 9.1 mg/dL Protein, Total 6.4 g/dL Albumin 3.6 g/dL Globulin 2.8 g/dL Bilirubin, Total 0.3 mg/dL ALT (SGPT) 77 U/L AST (SGOT) 26 U/L Alkaline Phosphatase 58 IU/L WBC 19.1 10 3/uL Manual Segs % 66 % Manual Bands % 10.0 % RBC 4.66 10 6/uL HGB 14.1 g/dL Manual Lymphs % 11 % Atypical Lymphs % 4.0 % HCT 43.4 % MCV 93.1 fl Total Cells Counted 100 Manual Monos % 3.0 % MCH 30.3 pg MCHC 32.5 g/dL RDW 14.7 % Metamyelocytes % 2.0 % Platelet Count 337 10 3/cmm MPV 8.1 fL Myelocytes % 4.0 % Platelet Estimate Normal Manual Segs Abs 12.6 10/cmm Manual Bands Abs 1.9 10 3/cmm Manual Neutrophils Abs 14.5 10 3/cmm Manual Lymphocytes Abs 2.9 10 3/cmm Manual Monocytes Abs 0.6 10 3/cmm Problem List: 1. Patient with bilateral non-small cell lung cancer, stage IV, with development of metastatic involvement in the right cerebellar hemisphere, for which she underwent surgical resection on 04/27/2019. 2. She has a history of diverticulitis, but she has had no other ongoing medical illnesses. Problems Addressed with this Encounter and Plan: 1. Patient with bilateral non-small cell lung cancer, stage IV. She was originally diagnosed with TTF-1 positive adenocarcinoma involving the upper lobe of the right lung in 2014. She underwent right upper lobectomy/mediastinal lymph node dissection in April 2014. Her disease was stage IA (pT2a, pN0, M0). She then had biopsy-proven adenocarcinoma involving the upper lobe of the left lung. By clinical evaluation her disease was most likely stage IA (T1b, N0, M0). She was given neoadjuvant chemotherapy with 4 cycles of cisplatin/Alimta from 09/14/2015 through 02/16/2016. She tolerated the treatment well, but with only minimal response by follow-up imaging. She was treated with radiation to the left lung lesion, completed on 09/01/2016 to a total dose of 6600 cGy. She tolerated the treatment well. A repeat chest CT on 12/01/2017 showed further increase in the anterior segment right lower lobe densities, consistent with indolent neoplastic or unusual infectious process. CT-directed needle biopsy of the right lower lobe mass on 02/01/2018 was positive for malignant cells, at least adenocarcinoma in situ. She was treated with SBRT, completed on 03/08/2018 to a total dose of 5000 cGy. She then had suspected new involvement in the superior segment right lower lobe by PET/CT on 12/16/2018. It was treated with additional SBRT, completed on 01/08/2019 to a total dose of 4800 cGy. She was then followed expectantly. During followup there has been suspicion of disease progression by imaging. Her restaging CT scans on 01/02/2021 showed no significant pression of the known disease in the lower lobe of the right lung, but there was suspected progression of metastatic involvement in the left hepatic lobe. With those findings, and with the known KRAS G12C mutation, she will now begin a trial of therapy with sotorasib at the standard dosage of 960 mg daily. I reviewed anticipated side effects which may include fatigue, GI symptoms, musculoskeletal pain, skin rash, and liver toxicity, among others. She is aware that there is also a low risk for cardiac and/or pulmonary toxicity. She will be scheduled for a follow-up visit in 3 weeks. 2. 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 Pathology showed metastatic adenocarcinoma. A next generation sequencing study on the cerebellar lesion showed no evidence for EGFR, BRAF, or M ET mutations, or for the ALK and ROS1 rearrangements were not detected. 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 The tumor was noted to be MSI stable, and it was negative for PD-L1 expression at 0%. She was given stereotactic radiation to the cerebellar metastasis cavity, completed on 06/05/2019 to a total dose of 2100 cGy. Restaging head MRI on 08/21/2019 showed residual enhancing tumor in the right cerebellar hemisphere measuring 2.9 cm. She had additional MRI evidence of a small metastatic lesion in the left cerebellar hemisphere, but that appeared stable on the follow-up MRI. She was initially followed on expectant management. As of her follow-up visit in September 2020 she had required an increase in her dexamethasone dosage due to nausea/vomiting. Her repeat head MRI on 11/24/2020 showed significant progression of the right cerebellar metastatic lesion as well as development of a new enhancing metastatic lesion involving the left skull base. She has had improvement in her symptoms with a further increase in her dexamethasone dosage, but that has been somewhat problematic, she also has had side effects with the dexamethasone. For now she will continue dexamethasone at the same dosage, that is 4 mg in the morning, 2 mg in the afternoon and 2 mg in the evening. Signed By: Maldonado Meyer M.D. <<Signature on File>>
== END 2021-01-13 12:51 | disposition home or self-care (01) ==
LOC: ONCMED 12:54
PROVIDERS: PCP Nurse Practitioner Family; Visit Provider Internal Medicine Medical Oncology
DX: C79.31 Secondary malignant neoplasm of brain (principal); C34.11 Malignant neoplasm of upper lobe, right bronchus or lung; K57.92 Diverticulitis of intestine, part unspecified, without perforation or abscess without bleeding; Z79.899 Other long term (current) drug therapy; Z79.52 Long term (current) use of systemic steroids
CPT/HCPCS: 36415; 80053; 85007; 85025; 99215

== ENCOUNTER 2021-02-03 08:52 | Outpatient (CLI) | payer MEDICARE, MEDICAID, SELFPAY ==
[2021-02-03 09:44] LABS: Basophils % 0.4 %; Eosinophils % 0.4 %; Hematocrit 39.9 % (37.0-47.0); Hemoglobin 12.6 g/dL (11.5-15.3); Lymphocytes # 2.7 10^3/uL (0.8-4.8); Lymphocytes % 29.4 %; Mean Corpuscular HGB Conc 31.6 g/dL (30.0-36.0); Mean Corpuscular Volume 98.3 fl (81-99); Mean Platelet Volume 7.7 fL (7.4-10.4); Monocytes # 0.7 10^3/uL (0.2-0.9); Monocytes % 7.8 %; Neutrophils # 5.19 10^3/uL (1.8-7.7); Neutrophils % 57.3 %; Nucleated Red Blood Cells % 0 %; Platelet Count 258 10^3/cmm (130-400); Red Blood Count 4.06 10^6/uL (4.1-5.3); Red Cell Distribution Width 17.1 % (12.1-15.1); White Blood Count 9.1 10^3/uL (4.0-10.0)
[2021-02-03 10:33] LABS: Alanine Aminotransferase 44 U/L (0-33); Albumin Level 3.7 g/dL (3.5-5.2); Alkaline Phosphatase 56 IU/L (35-105); Anion Gap 12.8 (5-19); Aspartate Amino Transferase 19 U/L (0-32); Blood Urea Nitrogen 19 mg/dL (8-23); Calcium 9.4 mg/dL (8.5-10.5); Carbon Dioxide 27 mmol/L (22-29); Chloride 103 mmol/L (98-107); Globulin 2.6 g/dL (1.3-4.6); Glucose 88 mg/dL (65-115); Osmolality Calculated 288 mOsm/kg (285-295); Potassium 4.8 mmol/L (3.5-5.1); Sodium 138 mmol/L (136-145); Total Bilirubin 0.2 mg/dL (0.15-1.2); Total Protein 6.3 g/dL (6.6-8.7)
--- NOTE | 2021-02-11 23:47 | ONC FU_ITS ---
[facility] Patient Note Patient: Kristina Bertrand Unit #: [id number]: 1950 Dictated By: Jose L NamDate of Visit: Feb 03, 2021 Onc MED Follow-Up/Prog Note Chief Complaint: Non-small cell lung cancer. 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 She was found to have a right upper lobe lung mass in December 2012 during the course of an ER evaluation for suspected diverticulitis. A CT guided needle biopsy of the mass January 2013 did confirm TTF-1 positive well-differentiated adenocarcinoma which was EGFR, ALK, and ROS-1 negative. Staging evaluation with brain MRI and PET/CT showed no obvious metastatic disease. The PET/CT showed right upper lobe mass measuring 3.2 x 2.4 cm and an additional right upper lobe nodule measuring 8 mm. She underwent thoracotomy with right upper lobectomy and mediastinal lymph node dissection on 04/29/2014. Pathology showed well-differentiated adenocarcinoma with predominantly mixed acinar and alveolar pattern. It measured 3.1 cm. There was invasion of the visceral pleura, but margins were negative. Lymph nodes at station 7, 11, and 10 were negative, thus stage IA (pT2a, pN0, M0). She received no adjuvant therapy. Surveillance chest CT in July 2015 showed a 2 cm nodule in the posterior central left lingual area, suspicious for metastatic disease or new primary malignancy. A subsequent PET/CT showed a smoothly marginated nodule in the left lung measuring 12 mm and tiny right upper lobe nodules which apparently felt to be improving, with no evidence of residual malignancy. She underwent bronchoscopy with FNA of station 11 on 08/22/2015. The FNA was negative. Brushings were inconclusive. Biopsy of the left lung nodule on 09/16/2015 was positive for adenocarcinoma, TTF-1 positive and EGFR mutation negative. There was insufficient material for ALK and ROS-1 studies. The tumor was negative for PD-L1 expression. In October 2015 she went to [facility] for second opinion evaluation. Evaluation there included brain MRI which showed no evidence of metastatic disease. PET/CT on 11/04/2015 showed an FDG avid centrally located left upper lobe nodule which had increased in size. There was no evidence of leonel or distant metastatic disease on that study. However, there was reportedly evidence of groundglass opacities in both lungs with the differential including atypical adenomatous hyperplasia and multifocal primary lung malignancy. Also noted were 2 air-containing cystic lesions with groundglass component's within the right lower lobe, also felt to be suspicious for primary lung malignancies. Ultimately, it was recommended that she undergo neoadjuvant chemotherapy with 4 cycles of cisplatin-pemetrexed. She was then seen here because she preferred to receive her chemotherapy locally. She received cycle 1 of cisplatin/Alimta on 12/15/2015. She tolerated it well. Side effects were limited to mild nausea and stomatitis. She received cycles 2 and 3 on schedule with no dose reductions. She did receive Neupogen following the 2nd cycle due to a low radhika granulocyte count, and she was then given Neulasta prophylactically with cycle 3. She completed 4 cycles on 02/16/16. Her restaging PET/CT at [facility] on 03/18/2016 showed new FDG activity involving bilateral axillary lymph nodes, though without associated lymph node enlargement. Pre-paracardial lymph node was mildly increased in size but markedly FDG avid. A juxtaphrenic lymph node also showed new FDG activity with slight increased size. Small right paratracheal lymph nodes were not significantly change in size and only slightly FDG avid. The tumor at the left hilum was not significantly changed in size, but it remained markedly FDG avid. Groundglass attenuation nodules in both lungs were unchanged. The abdomen/pelvis showed extensive new metabolic activity at left gastric and periportal adenopathy with slight increase in the size of the lymph nodes. Multiple small retroperitoneal lymph nodes also showed new metabolic activity. Small left inguinal lymph nodes and bilateral external iliac lymph nodes also appeared FDG avid. Overall, the left hilar tumor was unchanged and there was new widespread leonel metabolic activity with only slight increase in the size of some the lymph nodes, consistent with reactive process. A repeat chest CT on 05/06/2016 showed stable left hilar lesion measuring 2.4 cm. There was no change in size of the FDG avid lymph nodes noted on the PET/CT in March. The right middle lobe peribronchial vascular nodular opacities were mildly decreased compared to October 2015. Given the findings on the imaging studies, it was felt that her disease was localized. She was given the option of surgical resection, but that would have necessitated complete pneumonectomy. Ultimately, she opted against surgery. She was then treated with radiation to the left hilar lesion. She completed treatment on 09/01/2016 to a total dose of 6600 cGy. The tumor did appear slightly smaller on the follow-up CT scan on 10/07/2016. Her restaging CT on 01/06/2017 showed stable left infrahilar soft tissue lesion measuring 1.3 x 1.1 cm. A groundglass opacity in the right lower lobe laterally measuring 1.7 x 1.4 cm it appeared slightly more prominent compared to previous study from April 2016. There was no mediastinal or hilar lymphadenopathy noted. Chest CT on 04/21/2017 reported increased enlargement of the right lower lobe lateral segment some solid nodule with reported differential including progressive neoplastic process, inflammatory process, and atypical infectious process. A right lower lobe anterior segment nodule at increased slightly, from 5.7 to 6.9 mm. A right upper lung zone groundglass nodule measuring 3-4 mm appeared unchanged. Left lower lobe superior segment bandlike atelectasis and/or scarring appeared stable. Restaging PET/CT on 07/30/2017 showed irregular right lower lobe infiltrate measuring 1.7 x 2.9 cm with FDG uptake less than that of normal mediastinal background, supporting a benign diagnosis. There was inflammatory uptake at a right lower lobe bulla. There was no evidence of malignancy. Given those findings, she continued on observation/expectant management. A repeat chest CT on 12/01/2017 showed persistence and slight progression of the irregular marginated semisolid densities in the anterior basal segment right lower lobe adjacent to a bolus emphysematous cavity. It measured 4 x 1.9 x 1.7 cm compared to 3.3 x 1.8 x 1.7 cm on the study from July 2017. A 7 mm rounded groundglass nodule in the anterior aspect of the right lower lobe appeared stable and a 4.3 mm right middle lobe nodule appeared stable. There was no obvious hilar, mediastinal, axillary, or supraclavicular lymphadenopathy noted. As the changes in the right lower lobe lesion were felt to be suspicious, she was referred to Dr. Justina Keith in [place], and a CT-guided biopsy of the right lung mass on 02/01/2018 was positive for malignant cells, at least adenocarcinoma in situ. She was then seen by Dr. Leahy and she underwent SBRT to the right lung lesion, completed on 03/08/2018 to a total dose of 5000 cGy. During subsequent follow-up, her surveillance chest CT on 12/12/2018 showed findings suspicious for developing neoplasm in the superior segment right lower lobe adjacent to a bolus emphysematous cavity. Postradiation changes in the right lower lobe at the site of the previous semisolid mass lesion appeared stable. Further evaluation with PET/CT on 12/16/2018 showed significant FDG uptake in the solid mural portion of the superior segment right lower lobe bulla, SUV up to 3.4 compared to 1.8 on the previous study. This was felt to be strongly suspicious for malignancy. There was no change in mild inflammatory activity in the scarlike infiltrate in the lateral right lower lobe. With those findings, he was given further SBRT to the right lower lobe lung lesion, completed on 01/08/2019 to a total dose of [address] on 02/19/2019 showed no change in the bullous emphysematous cavity in the right lower lobe with adjacent nodule measuring 11 x 10 mm, suspicious for neoplasm. A small adjacent noncalcified pulmonary nodule measuring 4 to 5 mm with slightly improved. Additional subcentimeter nodules in the right lower and right upper lobes also are unchanged. There is stable fibrotic opacity along the lingula and stable soft tissue thickening along the left hilum. Overall there was no evidence of disease progression. On 04/20/2019 she presented to the emergency room with nausea/vomiting and dizziness. Head CT showed a large amount of edema centered in the right cerebellum with sulcal effacement and mass-effect on the fourth ventricle. This is highly suspicious for metastatic lesion or primary brain tumor. She was admitted to [facility] and on 04/27/2019 she underwent craniotomy and resection of intra-axial and extra-axial metastatic lesion. Pathology showed metastatic adenocarcinoma. She then underwent stereotactic radiotherapy to the cerebellar metastasis cavity, completed on 06/05/2019 to a total dose of 2100 cGy. Her repeat brain MRI on 08/21/2019 showed minimal hemorrhage within the right cerebellar hemisphere at the site of the tumor resection. Residual enhancing tumor was still identified immediately abutting the right-sided transverse and sigmoid sinus. The tumor appeared to measure 2.9 cm in greatest long axis diameter, 9 mm transversely, and 9 mm superiorly to inferiorly. A 1 to 2 mm rounded area of enhancement within the left cerebellar hemisphere compatible with an additional site of metastasis was not significantly changed. There was significant improvement in vasogenic edema within the right cerebellar hemisphere and cerebellar vermis. There were no new areas of enhancement to suggest additional metastasis. Dr Meyer had seen her for a follow-up visit on 09/13/2019. She had further evaluation with restaging PET/CT on 09/22/2019. On that study the scarlike infiltrate in the right lower lobe was noted to be a solid lesion measuring 3.0 x 3.9 cm with SUV increased to 4.9 compared to 2.8 on the prior study from November 2018. The solid tissue in the superior segment right lower lobe bulla also showed an interval increase in SUV from 3.4 to 4.3. Both findings were felt to be indicative of malignant progression. There were stable reactive changes in mediastinal lymph nodes. There were no other areas of abnormal uptake. In the meantime, I also had requested a next generation sequencing study on the cerebellar lesion. It showed no evidence for EGFR, BRAF, or M ET mutations, and the ALK and ROS1 rearrangements were not detected. 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 The tumor was noted to be MSI stable, and it was negative for PD-L1 expression at 0%. Dr Meyer had reviewed the PET/CT from 09/22/2019 with the patient and with the radiologist. While there did appear to be some progression, those changes were fairly minor at least for the time being we opted to continue observation/expectant management. She then had a restaging chest CT on 01/01/2020. That study reported significant progression of the soft tissue nodular component surrounding the cavitary lesion in the superior right lower lobe, consistent with progression of neoplastic disease. The cavitary lesion in the inferior aspect of the right lower lobe has become more consolidated having the appearance of a large soft tissue spiculated mass measuring 3.3 x 5.3 cm, highly suspicious for additional neoplasm. Increasing soft tissue at the hilar regions was also felt to be suspicious for progression of metastatic adenopathy. There was additionally mild progression of a precarinal lymph node. Dr Meyer had been seeing her for a follow-up visit to discuss treatment options, including the possibility of a targeted therapy for the KRAS mutation, which would have been in the setting of a clinical trial. The other option would be chemotherapy/immunotherapy combination regimen. Ultimately, she opted to continue close observation. Restaging PET/CT on 03/22/2020 showed unchanged right lower lobe pulmonary nodule measuring 2.7 x 4.2 cm. The SUV was down slightly at 3.8 compared to 4.9 on the prior study. The mural right lower lobe bulla activity on the previous study showed decreased SUV to 2.2, down from 4.3. There were no new lesions identified. Overall, there was mild to moderate improvement compared to the prior PET/CT from 09/22/2019. Repeat chest CT on 06/23/2020 showed spiculated mass in the right lower lobe. The appearance was suspicious for neoplasm, but it measured a few millimeters smaller compared to the prior study. The cavitary lesion in the superior segment right lower lobe with mural nodularity also has not significantly changed. An enlarged right hilar lymph node appeared stable measuring 11 mm. Overall, there was no evidence of disease progression. Her repeat CT of the chest/abdomen on 10/01/2020 showed continued slow decrease in size of the right lower lobe soft tissue consolidation measuring 3.9 x 2.5 cm. There was also decreased in the size of the nodular component associated with the cavitary lesion in the superior segment of the right lower lobe. A 4 mm nodule in the right upper lung field appeared stable. There was no new or increasing mediastinal or hilar adenopathy. A lobulated soft tissue mass in the cecum measuring 3.7 x 3.5 cm appeared consistent with inspissated fecal material, but underlying colonic neoplasm was not excluded. With those findings she opted to continue on expectant management. A follow-up head MRI on 11/24/2020 showed interval progression of the right cerebellar metastatic lesion measuring 3.3 x 3.4 cm. There was a large amount of associated edema in the right cerebellum with partial effacement of the fourth ventricle. There was mass-effect on the right middle cerebellar peduncle and brachium pontis with effacement of the right ambient cistern. There was also associated obstructive hydrocephalus with dilatation of the ventricular system, progressed since the June 2020 study. There was a new enhancing metastatic lesion involving the left skull base measuring 1.9 x 2.1 cm involving the left occipital condyle and hypoglossal canal extending to the left mastoid. The smaller left cerebellar lesion was noted to have decreased in size measuring 7.9 x 9.4 mm. She then began on dexamethasone 4 mg 4 times daily. She had radiation oncology follow-up with Dr. Pompa on 12/01/2020. She was offered the option to have whole brain radiation, which she initially declined. Restaging CT scans of the chest, abdomen, and pelvis on 01/02/2021 showed no significant progression of the soft tissue nodule with associated large bulla in the superior segment right lower lobe and the right lower lobe mass also appeared stable. A few areas of groundglass attenuation in the left upper lobe also appeared stable. An area of decreased attenuation in the left hepatic lobe measuring 1.4 cm appeared slightly more prominent, suspicious for metastatic involvement. There were no other areas of disease progression. She was seen by Dr. Meyer on January 13, 2021 and was having significant fatigue even with dexamethasone 4 mg the morning 2 in the afternoon and 2 in the evening. She was able to ambulate with a walker and her ECOG was 2. Dr. Meyer discussed with her that there was suspicion of progression in the metastatic involvement in the left hepatic lobe. She has a known KRAS G12C mutation making her a candidate for treatment with sotorasib. Dr. Meyer did discuss potential risk and benefits and she is opted to undergo a trial. Her current dosing is 160 mg daily. She began this on January 13, 2021. Mrs. Bertrand is here today for follow-up after initiating a trial of the sotorasib. She reports she thinks she is doing well with that overall. She denies any nausea or vomiting. She has had no rash. She denies any fever or chills. She denies any worsening headaches or vision changes. Her current dexamethasone dose is at 4 mg a.m. 2 at noon and 2 in p.m. She has not tried to wean recently according to her. Discussing this with her he actually regulates her medication. He feels that there would like to try to decrease her dexamethasone more to see if we can wean her off more. We did discuss using the dexamethasone 2 mg 3 times a day and gradually weaning as needed. Mrs. Sharif complains of significant leg cramps. She is wanting to try quinine for this. She states they bother her more so at rest. She denies any lower extremity edema. She has had no swelling or warmth of the extremities. She denies any lower back pain. She states her bowel and bladder are normal for her. She has not had any diarrhea or constipation. Her ECOG is 2. She states she is feeling pretty good overall except the leg cramps. Past Medical History: Diverticulitis Lung cancer Past Surgical History: Bilateral cataract excisions Cholecystectomy Hernia repair Hysterctomy without oophorectomy Flu vaccine in 2019 - given in right deltoid/lc Pneumonia vaccine in 2019 - given in left deltoid/lc Braim tumor removed in 2019 Needle biopsy of left lung mass in 2015 Bronchoscopy with FNA biopsy of station 11 in 2015 Right thoracotomy with right upper lobectomy in 2014 Cervical mediastinoscopy in 2013 Biopsy of right lung mass in 2013 Colonoscopy in 2011 Chest tube placement for right pneumothorax in 1999 Allergies: IV Contrast and Sulfa Antibiotics. Medications: Dexamethasone (2 mg) Tablet Oral b.i.d. Probiotic 1 Tablet Capsule Oral daily Ventolin HFA 2 puff(s) (of 108 (90 base) mcg/act) Aerosol, solution Inhalation q 4 hours PRN Family History: Ms. Bertrand's mother at age 81: lung cancer. Ms. Bertrand's father at age 77: lung cancer. Ms. Bertrand has 3 sisters: 3 . Ms. Bertrand's first sister's lung cancer. Another sister's lung cancer. Another sister's lung cancer. Both parents of lung cancer, father at age 77 and mother at age 81. She indicates that 3 sisters also of lung cancer, but she says that all were heavy smokers. Social History: Ms. Bertrand is and she is unemployed. Ms. Bertrand quit smoking 19 years ago but had smoked 2.0 packs/day for 30 years. She has no history of drinking. Ms. Bertrand reports the following support systems: lives with spouse, significant other, family, or friends, lives in own house, supportive family/friends willing to assist with needs, and adequate transportation available for expected visits. Her diet consists of regular meals. She indicates her activity level as: daily activities. She has a history of smoking 2 packs of cigarettes daily for 30 years. She quit smoking in 1999. She does not drink alcohol. Review Of Symptoms: <See Above> Vital Signs: Performed on Feb 03, 2021 11:33 Height - 63.00 in Weight - 195.2 lbs (HIGH) BSA - 1.91 sq.m BMI - 34.58 (HIGH) Temperature - 97.6 F (LOW) Pulse - 112 /min (HIGH) Respiration - 18 /min BP - 156/84 mm(hg) (HIGH) O2 Sat - 95 % (LOW) Pain - 0 Fatigue - 8,2 - Ambulatory/capable of all self-care, unable to perform any work activities. Up and about more than 50% of waking hours. (ECOG) Physical Examination: Constitutional Alert, oriented, no acute distress. Skin pink, warm and dry. Head Normocephalic; atraumatic. Eyes Conjunctivae and sclerae are clear and without icterus. Pupils are reactive and equal. Neck Supple without masses or thyromegaly. No jugular venous distension. Hematologic/Lymphatic No petechiae or purpura. No tender or palpable lymph nodes in the cervical or supraclavicular area Respiratory Lungs are clear to auscultation without rhonchi or wheezing. Cardiovascular Regular rate and rhythm of heart without murmurs,clicks, gallops or rubs. Back/Spine Non-tender to palpation. Extremities No visible deformities, no cyanosis, clubbing or edema. Musculoskeletal No tenderness or swelling, normal range of motion without obvious weakness. Integumentary No rashes or lesions. Other than above. Neurologic No obvious sensory or motor deficits-normal speech and answers questions appropriately normal/slow gait. Psychiatric Alert and oriented times three. Coherent speech. Verbalizes understanding of our discussions today. Laboratory:Test performed on Feb 03, 2021 09:16 Sodium 138 mmol/L Potassium 4.8 mmol/L Chloride 103 mmol/L CO2 27 mmol/L Anion Gap 12.8 BUN 19 mg/dL Creatinine 0.4 mg/dL Cr Clearance (Est) 183.4500 mL/min Glucose 88 mg/dL Osmolality - Calculated 288 mOsm/kg Calcium 9.4 mg/dL Protein, Total 6.3 g/dL Albumin 3.7 g/dL Globulin 2.6 g/dL Bilirubin, Total 0.2 mg/dL ALT (SGPT) 44 U/L AST (SGOT) 19 U/L Alkaline Phosphatase 56 IU/L WBC 9.1 10 3/uL RBC 4.06 10 6/uL HGB 12.6 g/dL HCT 39.9 % MCV 98.3 fl MCH 31.0 pg MCHC 31.6 g/dL RDW 17.1 % Platelet Count 258 10 3/cmm MPV 7.7 fL Neutrophils 5.19 10 3/uL Lymphocytes 2.7 10 3/uL Monocytes 0.7 10 3/uL Eosinophils 0.0 10 3/uL Basophils 0.0 10 3/uL Neutrophil % 57.3 % Lymphocyte % 29.4 % Monocyte % 7.8 % Eosinophil % 0.4 % Basophils % 0.4 % NRBC % 0 % Test performed on Jan 13, 2021 12:50 Manual Segs % 66 % Manual Bands % 10.0 % Manual Lymphs % 11 % Atypical Lymphs % 4.0 % Total Cells Counted 100 Manual Monos % 3.0 % Metamyelocytes % 2.0 % Myelocytes % 4.0 % Platelet Estimate Normal Manual Segs Abs 12.6 10/cmm Manual Bands Abs 1.9 10 3/cmm Manual Neutrophils Abs 14.5 10 3/cmm Manual Lymphocytes Abs 2.9 10 3/cmm Manual Monocytes Abs 0.6 10 3/cmm Impression: 1. Patient with bilateral non-small cell lung cancer, stage IV, with development of metastatic involvement in the right cerebellar hemisphere, for which she underwent surgical resection on 04/27/2019. 2. She has a history of diverticulitis, but she has had no other ongoing medical illnesses. Plan/Problems Addressed at this Visit: 1. Patient with bilateral non-small cell lung cancer, stage IV. She was originally diagnosed with TTF-1 positive adenocarcinoma involving the upper lobe of the right lung in 2014. She underwent right upper lobectomy/mediastinal lymph node dissection in April 2014. Her disease was stage IA (pT2a, pN0, M0). She then had biopsy-proven adenocarcinoma involving the upper lobe of the left lung. By clinical evaluation her disease was most likely stage IA (T1b, N0, M0). She was given neoadjuvant chemotherapy with 4 cycles of cisplatin/Alimta from 09/14/2015 through 02/16/2016. She tolerated the treatment well, but with only minimal response by follow-up imaging. She was treated with radiation to the left lung lesion, completed on 09/01/2016 to a total dose of 6600 cGy. She tolerated the treatment well. A repeat chest CT on 12/01/2017 showed further increase in the anterior segment right lower lobe densities, consistent with indolent neoplastic or unusual infectious process. CT-directed needle biopsy of the right lower lobe mass on 02/01/2018 was positive for malignant cells, at least adenocarcinoma in situ. She was treated with SBRT, completed on 03/08/2018 to a total dose of 5000 cGy. She then had suspected new involvement in the superior segment right lower lobe by PET/CT on 12/16/2018. It was treated with additional SBRT, completed on 01/08/2019 to a total dose of 4800 cGy. She was then followed expectantly. During followup there has been suspicion of disease progression by imaging. Her restaging CT scans on 01/02/2021 showed no significant pression of the known disease in the lower lobe of the right lung, but there was suspected progression of metastatic involvement in the left hepatic lobe. With those findings, and with the known KRAS G12C mutation, she began a trial of therapy with sotorasib at the standard dosage of 960 mg daily on 01/13/2021. A. Proceed with sotorasib 960 mg daily orally. B. Attempt to decrease dexamethasone to 2 mg 3 times daily. Mr. Bertrand and I discussed at length that they could titrate her back up if needed to 4 mg a.m. 2 mg a p.m. which is her current dose. They could also try weaning her to 2 mg twice daily for a week or 2 and then once daily if she tolerates this. We will just have to see how she does with that. C. Today's labs were reviewed in detail and discussed with and Mrs. Bertrand and a copy was given to them. WBC 9.1, hemoglobin 12.6, platelets 258,000, ANC is 5200. Potassium 4.8 random glucose 88 creatinine 0.4 her ALT is improved at 44 it was 77 at her last visit. Her AST is 19 and her alk phos is 56. Her weight is stable at 195.2 today. Her blood pressure stable 156/84. D. I have asked to add a TSH to the blood in lab just for her significant fatigue. This is most likely related to her disease and current treatment but will follow up on a TSH. E. We will plan to see her back in 3 weeks with CBC CMP as well as a provider visit to monitor how she is tolerating the new treatment with the sotorasib 960 mg daily. F. WE DID DISCUSS TO AVOID GRAPEFRUIT PRODUCTS WITH ORAL CHEMOTHERAPY G. and Mrs. Bertrand were instructed to contact us in interim should questions or problems arise. 2.. LEG CRAMPS OF UNKNOWN ETIOLOGY WITH NORMAL CHEMISTRY A. she may try Quinine 324 mg 1 at bedtime prn for leg cramps. B. She was encouraged to contact us if this is not working. 3. 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 Pathology showed metastatic adenocarcinoma. A next generation sequencing study on the cerebellar lesion showed no evidence for EGFR, BRAF, or M ET mutations, or for the ALK and ROS1 rearrangements were not detected. 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 The tumor was noted to be MSI stable, and it was negative for PD-L1 expression at 0%. She was given stereotactic radiation to the cerebellar metastasis cavity, completed on 06/05/2019 to a total dose of 2100 cGy. Restaging head MRI on 08/21/2019 showed residual enhancing tumor in the right cerebellar hemisphere measuring 2.9 cm. She had additional MRI evidence of a small metastatic lesion in the left cerebellar hemisphere, but that appeared stable on the follow-up MRI. She was initially followed on expectant management. As of her follow-up visit in September 2020 she had required an increase in her dexamethasone dosage due to nausea/vomiting. Her repeat head MRI on 11/24/2020 showed significant progression of the right cerebellar metastatic lesion as well as development of a new enhancing metastatic lesion involving the left skull base. She had improvement in her symptoms with a further increase in her dexamethasone dosage, but that has been somewhat problematic, she also has had side effects with the dexamethasone. She and her states that her symptoms have stable she is having no further nausea or vomiting. She is wanting to try to decrease the steroids as they tend to give her side effects such as crabbiness , she also attributes her worsening fatigue to the steroids and possibly her leg cramps per her report. We did discuss decreasing the steroids as above but she will just have to monitor side effects and may need to increase as needed. Signed By: Jose L Nam-, AOCNP Maldonado Meyer MD <<Signature on File>>
== END 2021-02-03 08:53 | disposition home or self-care (01) ==
LOC: ONCMED 08:57
PROVIDERS: PCP Nurse Practitioner Family; Visit Provider Nurse Practitioner
DX: C34.11 Malignant neoplasm of upper lobe, right bronchus or lung (principal); C78.02 Secondary malignant neoplasm of left lung; C79.31 Secondary malignant neoplasm of brain
CPT/HCPCS: 36415; 80053; 85025; 99214

== ENCOUNTER 2021-02-24 13:14 | Outpatient (CLI) | payer MEDICARE, MEDICAID, SELFPAY ==
[2021-02-24 14:21] LABS: Basophils % 0.5 %; Eosinophils % 0.4 %; Hematocrit 36.3 % (37.0-47.0); Hemoglobin 11.3 g/dL (11.5-15.3); Lymphocytes # 1.8 10^3/uL (0.8-4.8); Lymphocytes % 24.3 %; Mean Corpuscular HGB Conc 31.1 g/dL (30.0-36.0); Mean Corpuscular Hemoglobin 31.4 pg (28.0-34.0); Mean Corpuscular Volume 100.8 fl (81-99); Mean Platelet Volume 8.4 fL (7.4-10.4); Monocytes # 0.5 10^3/uL (0.2-0.9); Monocytes % 6.4 %; Neutrophils % 67.3 %; Nucleated Red Blood Cells % 0 %; Platelet Count 274 10^3/cmm (130-400); Red Cell Distribution Width 17.5 % (12.1-15.1); White Blood Count 7.3 10^3/uL (4.0-10.0)
[2021-02-24 14:50] LABS: Alanine Aminotransferase 23 U/L (0-33); Albumin Level 3.7 g/dL (3.5-5.2); Alkaline Phosphatase 51 IU/L (35-105); Aspartate Amino Transferase 17 U/L (0-32); Blood Urea Nitrogen 14 mg/dL (8-23); Calcium 9.1 mg/dL (8.5-10.5); Carbon Dioxide 26 mmol/L (22-29); Chloride 101 mmol/L (98-107); Globulin 2.8 g/dL (1.3-4.6); Glucose 150 mg/dL (65-115); Osmolality Calculated 287 mOsm/kg (285-295); Sodium 137 mmol/L (136-145); Total Bilirubin 0.2 mg/dL (0.15-1.2); Total Protein 6.5 g/dL (6.6-8.7)
== END 2021-02-24 13:15 | disposition home or self-care (01) ==
LOC: ONCMED 13:19
PROVIDERS: PCP Nurse Practitioner Family; Visit Provider Internal Medicine Medical Oncology
DX: C34.01 Malignant neoplasm of right main bronchus (principal); C78.02 Secondary malignant neoplasm of left lung; C79.31 Secondary malignant neoplasm of brain; D70.2 Other drug-induced agranulocytosis; T45.1X5D Adverse effect of antineoplastic and immunosuppressive drugs, subsequent encounter; Z79.899 Other long term (current) drug therapy
CPT/HCPCS: 36415; 80053; 85025

== ENCOUNTER 2021-03-03 06:35 | Outpatient (CLI) | payer MEDICARE, MEDICAID, SELFPAY ==
--- NOTE | 2021-03-16 23:48 | ONC FU_ITS ---
[facility] Patient Note Patient: Kristina Bertrand Unit #: [id number]: 1950 Dictated By: Jose L NamDate of Visit: Mar 03, 2021 Onc MED Follow-Up/Prog Note Chief Complaint: Non-small cell lung cancer. 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 She was found to have a right upper lobe lung mass in December 2012 during the course of an ER evaluation for suspected diverticulitis. A CT guided needle biopsy of the mass January 2013 did confirm TTF-1 positive well-differentiated adenocarcinoma which was EGFR, ALK, and ROS-1 negative. Staging evaluation with brain MRI and PET/CT showed no obvious metastatic disease. The PET/CT showed right upper lobe mass measuring 3.2 x 2.4 cm and an additional right upper lobe nodule measuring 8 mm. She underwent thoracotomy with right upper lobectomy and mediastinal lymph node dissection on 04/29/2014. Pathology showed well-differentiated adenocarcinoma with predominantly mixed acinar and alveolar pattern. It measured 3.1 cm. There was invasion of the visceral pleura, but margins were negative. Lymph nodes at station 7, 11, and 10 were negative, thus stage IA (pT2a, pN0, M0). She received no adjuvant therapy. Surveillance chest CT in July 2015 showed a 2 cm nodule in the posterior central left lingual area, suspicious for metastatic disease or new primary malignancy. A subsequent PET/CT showed a smoothly marginated nodule in the left lung measuring 12 mm and tiny right upper lobe nodules which apparently felt to be improving, with no evidence of residual malignancy. She underwent bronchoscopy with FNA of station 11 on 08/22/2015. The FNA was negative. Brushings were inconclusive. Biopsy of the left lung nodule on 09/16/2015 was positive for adenocarcinoma, TTF-1 positive and EGFR mutation negative. There was insufficient material for ALK and ROS-1 studies. The tumor was negative for PD-L1 expression. In October 2015 she went to [facility] for second opinion evaluation. Evaluation there included brain MRI which showed no evidence of metastatic disease. PET/CT on 11/04/2015 showed an FDG avid centrally located left upper lobe nodule which had increased in size. There was no evidence of leonel or distant metastatic disease on that study. However, there was reportedly evidence of groundglass opacities in both lungs with the differential including atypical adenomatous hyperplasia and multifocal primary lung malignancy. Also noted were 2 air-containing cystic lesions with groundglass component's within the right lower lobe, also felt to be suspicious for primary lung malignancies. Ultimately, it was recommended that she undergo neoadjuvant chemotherapy with 4 cycles of cisplatin-pemetrexed. She was then seen here because she preferred to receive her chemotherapy locally. She received cycle 1 of cisplatin/Alimta on 12/15/2015. She tolerated it well. Side effects were limited to mild nausea and stomatitis. She received cycles 2 and 3 on schedule with no dose reductions. She did receive Neupogen following the 2nd cycle due to a low radhika granulocyte count, and she was then given Neulasta prophylactically with cycle 3. She completed 4 cycles on 02/16/16. Her restaging PET/CT at [facility] on 03/18/2016 showed new FDG activity involving bilateral axillary lymph nodes, though without associated lymph node enlargement. Pre-paracardial lymph node was mildly increased in size but markedly FDG avid. A juxtaphrenic lymph node also showed new FDG activity with slight increased size. Small right paratracheal lymph nodes were not significantly change in size and only slightly FDG avid. The tumor at the left hilum was not significantly changed in size, but it remained markedly FDG avid. Groundglass attenuation nodules in both lungs were unchanged. The abdomen/pelvis showed extensive new metabolic activity at left gastric and periportal adenopathy with slight increase in the size of the lymph nodes. Multiple small retroperitoneal lymph nodes also showed new metabolic activity. Small left inguinal lymph nodes and bilateral external iliac lymph nodes also appeared FDG avid. Overall, the left hilar tumor was unchanged and there was new widespread leonel metabolic activity with only slight increase in the size of some the lymph nodes, consistent with reactive process. A repeat chest CT on 05/06/2016 showed stable left hilar lesion measuring 2.4 cm. There was no change in size of the FDG avid lymph nodes noted on the PET/CT in March. The right middle lobe peribronchial vascular nodular opacities were mildly decreased compared to October 2015. Given the findings on the imaging studies, it was felt that her disease was localized. She was given the option of surgical resection, but that would have necessitated complete pneumonectomy. Ultimately, she opted against surgery. She was then treated with radiation to the left hilar lesion. She completed treatment on 09/01/2016 to a total dose of 6600 cGy. The tumor did appear slightly smaller on the follow-up CT scan on 10/07/2016. Her restaging CT on 01/06/2017 showed stable left infrahilar soft tissue lesion measuring 1.3 x 1.1 cm. A groundglass opacity in the right lower lobe laterally measuring 1.7 x 1.4 cm it appeared slightly more prominent compared to previous study from April 2016. There was no mediastinal or hilar lymphadenopathy noted. Chest CT on 04/21/2017 reported increased enlargement of the right lower lobe lateral segment some solid nodule with reported differential including progressive neoplastic process, inflammatory process, and atypical infectious process. A right lower lobe anterior segment nodule at increased slightly, from 5.7 to 6.9 mm. A right upper lung zone groundglass nodule measuring 3-4 mm appeared unchanged. Left lower lobe superior segment bandlike atelectasis and/or scarring appeared stable. Restaging PET/CT on 07/30/2017 showed irregular right lower lobe infiltrate measuring 1.7 x 2.9 cm with FDG uptake less than that of normal mediastinal background, supporting a benign diagnosis. There was inflammatory uptake at a right lower lobe bulla. There was no evidence of malignancy. Given those findings, she continued on observation/expectant management. A repeat chest CT on 12/01/2017 showed persistence and slight progression of the irregular marginated semisolid densities in the anterior basal segment right lower lobe adjacent to a bolus emphysematous cavity. It measured 4 x 1.9 x 1.7 cm compared to 3.3 x 1.8 x 1.7 cm on the study from July 2017. A 7 mm rounded groundglass nodule in the anterior aspect of the right lower lobe appeared stable and a 4.3 mm right middle lobe nodule appeared stable. There was no obvious hilar, mediastinal, axillary, or supraclavicular lymphadenopathy noted. As the changes in the right lower lobe lesion were felt to be suspicious, she was referred to Dr. Justina Keith in [place], and a CT-guided biopsy of the right lung mass on 02/01/2018 was positive for malignant cells, at least adenocarcinoma in situ. She was then seen by Dr. Leahy and she underwent SBRT to the right lung lesion, completed on 03/08/2018 to a total dose of 5000 cGy. During subsequent follow-up, her surveillance chest CT on 12/12/2018 showed findings suspicious for developing neoplasm in the superior segment right lower lobe adjacent to a bolus emphysematous cavity. Postradiation changes in the right lower lobe at the site of the previous semisolid mass lesion appeared stable. Further evaluation with PET/CT on 12/16/2018 showed significant FDG uptake in the solid mural portion of the superior segment right lower lobe bulla, SUV up to 3.4 compared to 1.8 on the previous study. This was felt to be strongly suspicious for malignancy. There was no change in mild inflammatory activity in the scarlike infiltrate in the lateral right lower lobe. With those findings, he was given further SBRT to the right lower lobe lung lesion, completed on 01/08/2019 to a total dose of [address] on 02/19/2019 showed no change in the bullous emphysematous cavity in the right lower lobe with adjacent nodule measuring 11 x 10 mm, suspicious for neoplasm. A small adjacent noncalcified pulmonary nodule measuring 4 to 5 mm with slightly improved. Additional subcentimeter nodules in the right lower and right upper lobes also are unchanged. There is stable fibrotic opacity along the lingula and stable soft tissue thickening along the left hilum. Overall there was no evidence of disease progression. On 04/20/2019 she presented to the emergency room with nausea/vomiting and dizziness. Head CT showed a large amount of edema centered in the right cerebellum with sulcal effacement and mass-effect on the fourth ventricle. This is highly suspicious for metastatic lesion or primary brain tumor. She was admitted to [facility] and on 04/27/2019 she underwent craniotomy and resection of intra-axial and extra-axial metastatic lesion. Pathology showed metastatic adenocarcinoma. She then underwent stereotactic radiotherapy to the cerebellar metastasis cavity, completed on 06/05/2019 to a total dose of 2100 cGy. Her repeat brain MRI on 08/21/2019 showed minimal hemorrhage within the right cerebellar hemisphere at the site of the tumor resection. Residual enhancing tumor was still identified immediately abutting the right-sided transverse and sigmoid sinus. The tumor appeared to measure 2.9 cm in greatest long axis diameter, 9 mm transversely, and 9 mm superiorly to inferiorly. A 1 to 2 mm rounded area of enhancement within the left cerebellar hemisphere compatible with an additional site of metastasis was not significantly changed. There was significant improvement in vasogenic edema within the right cerebellar hemisphere and cerebellar vermis. There were no new areas of enhancement to suggest additional metastasis. Dr Meyer had seen her for a follow-up visit on 09/13/2019. She had further evaluation with restaging PET/CT on 09/22/2019. On that study the scarlike infiltrate in the right lower lobe was noted to be a solid lesion measuring 3.0 x 3.9 cm with SUV increased to 4.9 compared to 2.8 on the prior study from November 2018. The solid tissue in the superior segment right lower lobe bulla also showed an interval increase in SUV from 3.4 to 4.3. Both findings were felt to be indicative of malignant progression. There were stable reactive changes in mediastinal lymph nodes. There were no other areas of abnormal uptake. In the meantime, I also had requested a next generation sequencing study on the cerebellar lesion. It showed no evidence for EGFR, BRAF, or M ET mutations, and the ALK and ROS1 rearrangements were not detected. 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 The tumor was noted to be MSI stable, and it was negative for PD-L1 expression at 0%. Dr Meyer had reviewed the PET/CT from 09/22/2019 with the patient and with the radiologist. While there did appear to be some progression, those changes were fairly minor at least for the time being we opted to continue observation/expectant management. She then had a restaging chest CT on 01/01/2020. That study reported significant progression of the soft tissue nodular component surrounding the cavitary lesion in the superior right lower lobe, consistent with progression of neoplastic disease. The cavitary lesion in the inferior aspect of the right lower lobe has become more consolidated having the appearance of a large soft tissue spiculated mass measuring 3.3 x 5.3 cm, highly suspicious for additional neoplasm. Increasing soft tissue at the hilar regions was also felt to be suspicious for progression of metastatic adenopathy. There was additionally mild progression of a precarinal lymph node. Dr Meyer had been seeing her for a follow-up visit to discuss treatment options, including the possibility of a targeted therapy for the KRAS mutation, which would have been in the setting of a clinical trial. The other option would be chemotherapy/immunotherapy combination regimen. Ultimately, she opted to continue close observation. Restaging PET/CT on 03/22/2020 showed unchanged right lower lobe pulmonary nodule measuring 2.7 x 4.2 cm. The SUV was down slightly at 3.8 compared to 4.9 on the prior study. The mural right lower lobe bulla activity on the previous study showed decreased SUV to 2.2, down from 4.3. There were no new lesions identified. Overall, there was mild to moderate improvement compared to the prior PET/CT from 09/22/2019. Repeat chest CT on 06/23/2020 showed spiculated mass in the right lower lobe. The appearance was suspicious for neoplasm, but it measured a few millimeters smaller compared to the prior study. The cavitary lesion in the superior segment right lower lobe with mural nodularity also has not significantly changed. An enlarged right hilar lymph node appeared stable measuring 11 mm. Overall, there was no evidence of disease progression. Her repeat CT of the chest/abdomen on 10/01/2020 showed continued slow decrease in size of the right lower lobe soft tissue consolidation measuring 3.9 x 2.5 cm. There was also decreased in the size of the nodular component associated with the cavitary lesion in the superior segment of the right lower lobe. A 4 mm nodule in the right upper lung field appeared stable. There was no new or increasing mediastinal or hilar adenopathy. A lobulated soft tissue mass in the cecum measuring 3.7 x 3.5 cm appeared consistent with inspissated fecal material, but underlying colonic neoplasm was not excluded. With those findings she opted to continue on expectant management. A follow-up head MRI on 11/24/2020 showed interval progression of the right cerebellar metastatic lesion measuring 3.3 x 3.4 cm. There was a large amount of associated edema in the right cerebellum with partial effacement of the fourth ventricle. There was mass-effect on the right middle cerebellar peduncle and brachium pontis with effacement of the right ambient cistern. There was also associated obstructive hydrocephalus with dilatation of the ventricular system, progressed since the June 2020 study. There was a new enhancing metastatic lesion involving the left skull base measuring 1.9 x 2.1 cm involving the left occipital condyle and hypoglossal canal extending to the left mastoid. The smaller left cerebellar lesion was noted to have decreased in size measuring 7.9 x 9.4 mm. She then began on dexamethasone 4 mg 4 times daily. She had radiation oncology follow-up with Dr. Pompa on 12/01/2020. She was offered the option to have whole brain radiation, which she initially declined. Restaging CT scans of the chest, abdomen, and pelvis on 01/02/2021 showed no significant progression of the soft tissue nodule with associated large bulla in the superior segment right lower lobe and the right lower lobe mass also appeared stable. A few areas of groundglass attenuation in the left upper lobe also appeared stable. An area of decreased attenuation in the left hepatic lobe measuring 1.4 cm appeared slightly more prominent, suspicious for metastatic involvement. There were no other areas of disease progression. She was seen by Dr. Meyer on January 13, 2021 and was having significant fatigue even with dexamethasone 4 mg the morning 2 in the afternoon and 2 in the evening. She was able to ambulate with a walker and her ECOG was 2. Dr. Meyer discussed with her that there was suspicion of progression in the metastatic involvement in the left hepatic lobe. She has a known KRAS G12C mutation making her a candidate for treatment with sotorasib. Dr. Meyer did discuss potential risk and benefits and she is opted to undergo a trial. Her current dosing is 160 mg daily. She began this on January 13, 2021. Mrs. Bertrand is here today for follow-up after initiating a trial of the sotorasib. She reports she thinks she is doing well with that overall. She denies any nausea or vomiting. She has had no rash. She denies any fever or chills. She denies any worsening headaches or vision changes. Her current dexamethasone dose is at 2 mg a.m. 1 at noon and 2 in p.m. Should requested quinine for leg cramps at her last visit but was unable to get it through her local pharmacy. She states the leg cramps are some better and she is known to tolerate them overall. She denies any new concerns. She states her bowels and bladder are normal for her. She denies any diarrhea or constipation. She denies any lower extremity edema or neuropathy symptoms. Her appetite is good and her weight is up. She denies mouth sores, sore throat or difficulty swallowing. She has an ECOG of 1 today. Past Medical History: Diverticulitis Lung cancer Past Surgical History: Bilateral cataract excisions Cholecystectomy Hernia repair Hysterctomy without oophorectomy Flu vaccine in 2019 - given in right deltoid/lc Pneumonia vaccine in 2019 - given in left deltoid/lc Braim tumor removed in 2019 Needle biopsy of left lung mass in 2015 Bronchoscopy with FNA biopsy of station 11 in 2015 Right thoracotomy with right upper lobectomy in 2014 Cervical mediastinoscopy in 2013 Biopsy of right lung mass in 2013 Colonoscopy in 2011 Chest tube placement for right pneumothorax in 1999 Allergies: IV Contrast and Sulfa Antibiotics. Medications: Dexamethasone (2 mg) Tablet Oral b.i.d. Probiotic 1 Tablet Capsule Oral daily Ventolin HFA 2 puff(s) (of 108 (90 base) mcg/act) Aerosol, solution Inhalation q 4 hours PRN Family History: Ms. Bertrand's mother at age 81: lung cancer. Ms. Bertrand's father at age 77: lung cancer. Ms. Bertrand has 3 sisters: 3 . Ms. Bertrand's first sister's lung cancer. Another sister's lung cancer. Another sister's lung cancer. Both parents of lung cancer, father at age 77 and mother at age 81. She indicates that 3 sisters also of lung cancer, but she says that all were heavy smokers. Social History: Ms. Bertrand is and she is unemployed. Ms. Bertrand quit smoking 19 years ago but had smoked 2.0 packs/day for 30 years. She has no history of drinking. Ms. Bertrand reports the following support systems: lives with spouse, significant other, family, or friends, lives in own house, supportive family/friends willing to assist with needs, and adequate transportation available for expected visits. Her diet consists of regular meals. She indicates her activity level as: daily activities. She has a history of smoking 2 packs of cigarettes daily for 30 years. She quit smoking in 1999. She does not drink alcohol. Review Of Symptoms: <See Above> Vital Signs: Performed on Mar 03, 2021 11:47 Height - 63.00 in Weight - 208.6 lbs (HIGH) BSA - 1.97 sq.m BMI - 36.95 (HIGH) Temperature - 98.1 F (LOW) Pulse - 103 /min (HIGH) Respiration - 18 /min BP - 144/83 mm(hg) (HIGH) O2 Sat - 100 % Pain - 0 Fatigue - 8,1 - No physically strenuous activity, but ambulatory and able to carry out light or sedentary work (e.g. office work, light house work). (ECOG) Physical Examination: Constitutional Alert, oriented, no acute distress. Skin pink, warm and dry. Head Normocephalic; atraumatic. Eyes Conjunctivae and sclerae are clear and without icterus. Pupils are reactive and equal. Neck Supple without masses or thyromegaly. No jugular venous distension. Hematologic/Lymphatic No petechiae or purpura. No tender or palpable lymph nodes in the cervical or supraclavicular area Respiratory Lungs are clear to auscultation without rhonchi or wheezing. Cardiovascular Regular rate and rhythm of heart without murmurs,clicks, gallops or rubs. Back/Spine Non-tender to palpation. Extremities No visible deformities, no cyanosis, clubbing or edema. Musculoskeletal No tenderness or swelling, normal range of motion without obvious weakness. Integumentary No rashes or lesions. Other than above. Neurologic No obvious sensory or motor deficits-normal speech and answers questions appropriately normal/slow gait. Psychiatric Alert and oriented times three. Coherent speech. Verbalizes understanding of our discussions today. Laboratory:Test performed on Feb 24, 2021 13:42 Sodium 137 mmol/L Potassium 4.0 mmol/L Chloride 101 mmol/L CO2 26 mmol/L Anion Gap 14.0 BUN 14 mg/dL Creatinine 0.4 mg/dL Cr Clearance (Est) 183.4500 mL/min Glucose 150 mg/dL Osmolality - Calculated 287 mOsm/kg Calcium 9.1 mg/dL Protein, Total 6.5 g/dL Albumin 3.7 g/dL Globulin 2.8 g/dL Bilirubin, Total 0.2 mg/dL ALT (SGPT) 23 U/L AST (SGOT) 17 U/L Alkaline Phosphatase 51 IU/L WBC 7.3 10 3/uL RBC 3.60 10 6/uL HGB 11.3 g/dL HCT 36.3 % MCV 100.8 fl MCH 31.4 pg MCHC 31.1 g/dL RDW 17.5 % Platelet Count 274 10 3/cmm MPV 8.4 fL Neutrophils 4.90 10 3/uL Lymphocytes 1.8 10 3/uL Monocytes 0.5 10 3/uL Eosinophils 0.0 10 3/uL Basophils 0.0 10 3/uL Neutrophil % 67.3 % Lymphocyte % 24.3 % Monocyte % 6.4 % Eosinophil % 0.4 % Basophils % 0.5 % NRBC % 0 % Test performed on Jan 13, 2021 12:50 Manual Segs % 66 % Manual Bands % 10.0 % Manual Lymphs % 11 % Atypical Lymphs % 4.0 % Total Cells Counted 100 Manual Monos % 3.0 % Metamyelocytes % 2.0 % Myelocytes % 4.0 % Platelet Estimate Normal Manual Segs Abs 12.6 10/cmm Manual Bands Abs 1.9 10 3/cmm Manual Neutrophils Abs 14.5 10 3/cmm Manual Lymphocytes Abs 2.9 10 3/cmm Manual Monocytes Abs 0.6 10 3/cmm Test performed on Jan 02, 2021 08:14 CBC Slide Review Slide Review Perform SLIDE REVIEW AGREES WITH AUTOMATED RESULTS ST Impression: 1. Patient with bilateral non-small cell lung cancer, stage IV, with development of metastatic involvement in the right cerebellar hemisphere, for which she underwent surgical resection on 04/27/2019. 2. She has a history of diverticulitis, but she has had no other ongoing medical illnesses. Plan/Problems Addressed at this Visit: 1. Patient with bilateral non-small cell lung cancer, stage IV. She was originally diagnosed with TTF-1 positive adenocarcinoma involving the upper lobe of the right lung in 2014. She underwent right upper lobectomy/mediastinal lymph node dissection in April 2014. Her disease was stage IA (pT2a, pN0, M0). She then had biopsy-proven adenocarcinoma involving the upper lobe of the left lung. By clinical evaluation her disease was most likely stage IA (T1b, N0, M0). She was given neoadjuvant chemotherapy with 4 cycles of cisplatin/Alimta from 09/14/2015 through 02/16/2016. She tolerated the treatment well, but with only minimal response by follow-up imaging. She was treated with radiation to the left lung lesion, completed on 09/01/2016 to a total dose of 6600 cGy. She tolerated the treatment well. A repeat chest CT on 12/01/2017 showed further increase in the anterior segment right lower lobe densities, consistent with indolent neoplastic or unusual infectious process. CT-directed needle biopsy of the right lower lobe mass on 02/01/2018 was positive for malignant cells, at least adenocarcinoma in situ. She was treated with SBRT, completed on 03/08/2018 to a total dose of 5000 cGy. She then had suspected new involvement in the superior segment right lower lobe by PET/CT on 12/16/2018. It was treated with additional SBRT, completed on 01/08/2019 to a total dose of 4800 cGy. She was then followed expectantly. During followup there has been suspicion of disease progression by imaging. Her restaging CT scans on 01/02/2021 showed no significant pression of the known disease in the lower lobe of the right lung, but there was suspected progression of metastatic involvement in the left hepatic lobe. With those findings, and with the known KRAS G12C mutation, she began a trial of therapy with sotorasib at the standard dosage of 960 mg daily on 01/13/2021. A. Proceed with sotorasib 960 mg daily orally. B. Attempt to decrease dexamethasone to 2 mg twice times daily. Mr. Bertrand and I discussed at length that they could titrate her back up if needed to 4 mg a.m. 2 mg a p.m. if needed. They could also try weaning her to 2 mg twice daily for a week or 2 and then once daily if she tolerates this. We will just have to see how she does with that. C. February 24, 2021 labs were reviewed in detail and discussed with . and Mrs. Bertrand and a copy was given to them. WBC 7.3, hemoglobin 11.3, platelets 224,000, ANC is 4900. Creatinine 0.4 random glucose 150 LFTs are normal. D. I have asked to add a TSH to the blood in lab just for her significant fatigue. This is most likely related to her disease and current treatment but will follow up on a TSH. E. We will plan to see her back in 3 weeks with CBC CMP as well as a provider visit to monitor how she is tolerating the sotorasib 960 mg daily. She will have follow-up head as her last MRI was 02/24/2021. She also have follow-up CT of the chest abdomen pelvis with contrast as her last scan was 01/02/2021. F. WE DID DISCUSS TO AVOID GRAPEFRUIT PRODUCTS WITH ORAL CHEMOTHERAPY G. and Mrs. Bertrand were instructed to contact us in interim should questions or problems arise. 2.. LEG CRAMPS OF UNKNOWN ETIOLOGY WITH NORMAL CHEMISTRY A. she was unable to try Quinine 324 mg 1 at bedtime prn for leg cramps at it was not available through her local pharmacy. She indicates her leg cramps are somewhat better at present. 3. 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 Pathology showed metastatic adenocarcinoma. A next generation sequencing study on the cerebellar lesion showed no evidence for EGFR, BRAF, or M ET mutations, or for the ALK and ROS1 rearrangements were not detected. 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 The tumor was noted to be MSI stable, and it was negative for PD-L1 expression at 0%. She was given stereotactic radiation to the cerebellar metastasis cavity, completed on 06/05/2019 to a total dose of 2100 cGy. Restaging head MRI on 08/21/2019 showed residual enhancing tumor in the right cerebellar hemisphere measuring 2.9 cm. She had additional MRI evidence of a small metastatic lesion in the left cerebellar hemisphere, but that appeared stable on the follow-up MRI. She was initially followed on expectant management. As of her follow-up visit in September 2020 she had required an increase in her dexamethasone dosage due to nausea/vomiting. Her repeat head MRI on 11/24/2020 showed significant progression of the right cerebellar metastatic lesion as well as development of a new enhancing metastatic lesion involving the left skull base. She had improvement in her symptoms with a further increase in her dexamethasone dosage, but that has been somewhat problematic, she also has had side effects with the dexamethasone. She and her states that her symptoms have been stable and she is having no further nausea or vomiting. She is wanting to continue try to decrease the steroids as they tend to give her side effects such as crabbiness , she also attributes her worsening fatigue to the steroids and possibly her leg cramps per her report. We did discuss decreasing the steroids as above but she will just have to monitor side effects and may need to increase as needed. Signed By: Jose L Nam-, AOCNP Maldonado Meyer MD <<Signature on File>>
== END 2021-03-03 06:36 | disposition home or self-care (01) ==
LOC: ONCMED 06:35
PROVIDERS: PCP Nurse Practitioner Family; Visit Provider Nurse Practitioner
DX: C34.11 Malignant neoplasm of upper lobe, right bronchus or lung (principal); C78.02 Secondary malignant neoplasm of left lung; C79.31 Secondary malignant neoplasm of brain; K57.92 Diverticulitis of intestine, part unspecified, without perforation or abscess without bleeding; Z79.899 Other long term (current) drug therapy; Z92.21 Personal history of antineoplastic chemotherapy
CPT/HCPCS: 99214

== ENCOUNTER 2021-03-09 12:55 | Outpatient (CLI) | payer MEDICARE, MEDICAID, SELFPAY ==
--- NOTE | 2021-03-09 13:09 | MR_ITS ---
WS: [id number] MRI BRAIN WITH AND WITHOUT CONTRAST HISTORY: FOLLOWUP BRAIN METS;LUNG CA COMPARISON: 11/24/2020 TECHNIQUE: Multiplanar imaging performed through the brain with MultiHance ml's IV. Status post prior RIGHT occipital craniotomy and resection cavity is noted in the RIGHT cerebellum. Previously described large metastatic lesion in the RIGHT cerebellum which abutted the RIGHT transver se and sigmoid sinus has significantly decreased in size. There is still an enhancing lesion in the R IGHT cerebellum measuring 2.4 x 2.2 cm. There is enhancement along the dural surface of the inferior cerebellum still abutting the sigmoid sinus. The edema has decreased and there is less mass effect up on the fourth ventricle and the aqueduct and middle cerebellar peduncle. Enhancing metastatic lesion in the central LEFT cerebellum has significantly decreased in size now me asuring 0.5 x 0.3 cm. Metastatic enhancing lesion centered in the LEFT occipital skull base with extension into the mastoid air cells measures 1.9 x 1.7 cm. This enhancing metastatic lesion appears slightly smaller in size w ith less enhancement. This metastatic lesion also abuts and is causing stenosis in the LEFT sigmoid s inus similar to the prior study. No ventricular dilatation or hydrocephalus identified on today's examination. There is extensive manager strategy & account tuyet supraventricular white matter disease which is chronic and not progressed. No hemorrhage. Paranasal sinuses: Well aerated with no significant disease. Mastoid air cells: Bilateral mastoid air cell fluid. Calvarium and scalp: Normal. MR/MR head wo/w con [id number] IMPRESSION: 1. Significant decrease in size of the RIGHT cerebellar metastatic lesion and edema which extended to involve the transverse and sigmoid sinus. This lesion n ow measures 2.4 x 2.2 cm. Less mass effect upon the fourth ventricle and aquedu ct. 2. Significant decrease in size of the medial LEFT cerebellar metastatic lesio n now measuring 0.5 x 0.3 cm. 3. Slight decrease in size of the osseous mass centered in the LEFT skull base . 4. No hydrocephalus persisting. 5. 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 No new or enlarging metastatic lesions.
[2021-03-09] MEDS: gadobenate dimeglumine 20 mL vial IV (14:21)
== END 2021-03-09 12:56 | disposition home or self-care (01) ==
LOC: RADSHAW 12:59
PROVIDERS: PCP Nurse Practitioner Family; Visit Provider Nurse Practitioner
DX: C79.31 Secondary malignant neoplasm of brain (principal); C34.31 Malignant neoplasm of lower lobe, right bronchus or lung; C34.12 Malignant neoplasm of upper lobe, left bronchus or lung; C34.11 Malignant neoplasm of upper lobe, right bronchus or lung; I67.82 Cerebral ischemia
CPT/HCPCS: 70553; A9577

== ENCOUNTER 2021-03-11 10:04 | Outpatient (CLI) | payer MEDICARE, MEDICAID, SELFPAY ==
--- NOTE | 2021-03-11 | CT_ITS ---
WS: [id number] CT CHEST, ABDOMEN, AND PELVIS TECHNIQUE: Contrast-enhanced CT of the chest, abdomen, and pelvis with coronal and sagittal reformatt ed images. CLINICAL INFORMATION: MALIGNANT NEOPLASM LUNG COMPARISON: CT January 02, 2021. October 01, 2020. PET CT March 22, 2020. DLP: 2626.[address] scans at [facility] use at least one of these dose optimization techniques: automated e xposure control; mA and/or kV adjustment per patient size (includes targeted exams where dose is matc hed to clinical indication); or iterative reconstruction. CT CHEST: Prior postoperative changes right upper lobectomy. Again seen is bullous formation with eccentric sof t tissue nodularity in the super segment right lower lobe unchanged in appearance. Right lower lobe m asslike consolidation measuring 3.6 x 2.5 cm Previously described groundglass opacity in the left upper lobe laterally measuring 1.9 cm is persist ent and unchanged. Additional smaller vague ground glass opacities in the left upper lobe laterally a re also unchanged. Additional fibrotic appearing opacity in the inferior segment left upper lobe viviana ures approximately 2.1 x 1.7 cm unchanged from previous. Small noncalcified nodule right upper lobe m easuring 4 mm is stable. Normal caliber thoracic aorta. Aortic calcification. No mediastinal or hilar lymphadenopathy. No axil clair lymphadenopathy. CT ABDOMEN AND PELVIS: Diffuse fatty infiltration the liver. Prior cholecystectomy. Stable low-attenuation lesion left hepat ic lobe measuring 15 mm is unchanged. Normal spleen. Normal pancreas. Normal GE junction. Adrenal gla nds are normal. Normal renal parenchymal enhancement. No hydronephrosis. Diverticulosis. No evidence of acute diverticulitis. No adenopathy in the abdomen or pelvis. Tiny fat -containing umbilical hernia. A few prominent lymph nodes in the upper abdomen unchanged since the pr ior examinations. No pelvic or inguinal lymphadenopathy. Hypertrophic changes thoracic spine. Bilateral pars defects L5-S1. No significant anterolisthesis. CT/CT chest abd pel w con* IMPRESSION: 1. Prior postoperative changes right upper lobectomy. 2. Stable bulla formation in the super segment right lower lobe with eccentric soft tissue thickening. This is unchanged. 3. Stable masslike right lower lobe consolidation is unchanged from previous. 4. Persistent hazy opacities in the left upper lobe are unchanged. These were present dating back to January 01, 2020. 5. Stable irregular fibrotic opacity in the inferior left upper lobe adjacent to the fissure also stable and present dating back to January 01, 2020. 6. No mediastinal or hilar lymphadenopathy. 7. Stable low-attenuation lesion left hepatic lobe measuring 15 mm. 8. No other interval changes.
[2021-03-11] MEDS: iohexol 300 mg/mL 100 mL Btl IV (12:29)
[2021-03-11] MEDS: iohexol 300 mg/mL 50 mL Btl PO (12:30)
== END 2021-03-11 10:05 | disposition home or self-care (01) ==
PROVIDERS: PCP Nurse Practitioner Family; Visit Provider Nurse Practitioner
DX: C34.90 Malignant neoplasm of unspecified part of unspecified bronchus or lung (principal); K76.9 Liver disease, unspecified
CPT/HCPCS: 71260; 74177; Q9967

== ENCOUNTER 2021-03-20 08:25 | Outpatient (CLI) | payer MEDICARE, MEDICAID, SELFPAY ==
[2021-03-20 09:19] LABS: Basophils % 0.7 %; Eosinophils # 0.1 10^3/uL (0.0-0.8); Eosinophils % 0.8 %; Hematocrit 38.3 % (37.0-47.0); Hemoglobin 11.5 g/dL (11.5-15.3); Lymphocytes # 1.5 10^3/uL (0.8-4.8); Lymphocytes % 24.7 %; Mean Corpuscular Hemoglobin 31.3 pg (28.0-34.0); Mean Corpuscular Volume 104.1 fl (81-99); Mean Platelet Volume 8.2 fL (7.4-10.4); Monocytes # 0.7 10^3/uL (0.2-0.9); Neutrophils # 3.77 10^3/uL (1.8-7.7); Nucleated Red Blood Cells % 0 %; Platelet Count 239 10^3/cmm (130-400); Red Blood Count 3.68 10^6/uL (4.1-5.3); Red Cell Distribution Width 15.2 % (12.1-15.1); White Blood Count 6.1 10^3/uL (4.0-10.0)
[2021-03-20 09:35] LABS: Alanine Aminotransferase 20 U/L (0-33); Albumin Level 3.6 g/dL (3.5-5.2); Alkaline Phosphatase 56 IU/L (35-105); Aspartate Amino Transferase 18 U/L (0-32); Blood Urea Nitrogen 11 mg/dL (8-23); Calcium 8.6 mg/dL (8.5-10.5); Carbon Dioxide 29 mmol/L (22-29); Chloride 103 mmol/L (98-107); Globulin 2.5 g/dL (1.3-4.6); Glucose 113 mg/dL (65-115); Osmolality Calculated 290 mOsm/kg (285-295); Sodium 140 mmol/L (136-145); Total Bilirubin 0.2 mg/dL (0.15-1.2); Total Protein 6.1 g/dL (6.6-8.7)
== END 2021-03-20 08:26 | disposition home or self-care (01) ==
LOC: ONCMED 08:29
PROVIDERS: PCP Nurse Practitioner Family; Visit Provider Internal Medicine Medical Oncology
DX: C34.31 Malignant neoplasm of lower lobe, right bronchus or lung (principal); C79.31 Secondary malignant neoplasm of brain
CPT/HCPCS: 36415; 80053; 85025

== ENCOUNTER 2021-04-07 08:43 | Outpatient (CLI) | payer MEDICARE, MEDICAID, SELFPAY ==
[2021-04-07 09:10] LABS: Basophils % 0.6 %; Eosinophils # 0.1 10^3/uL (0.0-0.8); Eosinophils % 1.4 %; Hematocrit 37.7 % (37.0-47.0); Hemoglobin 11.1 g/dL (11.5-15.3); Lymphocytes # 1.5 10^3/uL (0.8-4.8); Mean Corpuscular HGB Conc 29.4 g/dL (30.0-36.0); Mean Corpuscular Hemoglobin 29.8 pg (28.0-34.0); Mean Corpuscular Volume 101.3 fl (81-99); Mean Platelet Volume 8.3 fL (7.4-10.4); Monocytes # 0.8 10^3/uL (0.2-0.9); Monocytes % 11.9 %; Neutrophils # 4.06 10^3/uL (1.8-7.7); Neutrophils % 62.6 %; Nucleated Red Blood Cells % 0 %; Platelet Count 247 10^3/cmm (130-400); Red Blood Count 3.72 10^6/uL (4.1-5.3); Red Cell Distribution Width 13.9 % (12.1-15.1); White Blood Count 6.5 10^3/uL (4.0-10.0)
[2021-04-07 09:29] LABS: Alanine Aminotransferase 21 U/L (0-33); Albumin Level 3.6 g/dL (3.5-5.2); Alkaline Phosphatase 59 IU/L (35-105); Aspartate Amino Transferase 18 U/L (0-32); Blood Urea Nitrogen 12 mg/dL (8-23); Calcium 8.3 mg/dL (8.5-10.5); Carbon Dioxide 25 mmol/L (22-29); Chloride 106 mmol/L (98-107); Globulin 2.7 g/dL (1.3-4.6); Glucose 81 mg/dL (65-115); Osmolality Calculated 293 mOsm/kg (285-295); Sodium 142 mmol/L (136-145); Total Bilirubin 0.2 mg/dL (0.15-1.2); Total Protein 6.3 g/dL (6.6-8.7)
--- NOTE | 2021-04-07 19:30 | ONC FU_ITS ---
Dr. Meyer Patient Follow-Up Note Patient: Kristina Bertrand Unit #: [id number]: 1950 Dicatated By: Maldonado Meyer M.D.Date of Visit:Apr 07, 2021 Onc Med Follow-up/Prog Note Chief Complaint: Non-small cell lung cancer. 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 She was found to have a right upper lobe lung mass in December 2012 during the course of an ER evaluation for suspected diverticulitis. A CT guided needle biopsy of the mass January 2013 did confirm TTF-1 positive well-differentiated adenocarcinoma which was EGFR, ALK, and ROS-1 negative. Staging evaluation with brain MRI and PET/CT showed no obvious metastatic disease. The PET/CT showed right upper lobe mass measuring 3.2 x 2.4 cm and an additional right upper lobe nodule measuring 8 mm. She underwent thoracotomy with right upper lobectomy and mediastinal lymph node dissection on 04/29/2014. Pathology showed well-differentiated adenocarcinoma with predominantly mixed acinar and alveolar pattern. It measured 3.1 cm. There was invasion of the visceral pleura, but margins were negative. Lymph nodes at station 7, 11, and 10 were negative, thus stage IA (pT2a, pN0, M0). She received no adjuvant therapy. Surveillance chest CT in July 2015 showed a 2 cm nodule in the posterior central left lingual area, suspicious for metastatic disease or new primary malignancy. A subsequent PET/CT showed a smoothly marginated nodule in the left lung measuring 12 mm and tiny right upper lobe nodules which apparently felt to be improving, with no evidence of residual malignancy. She underwent bronchoscopy with FNA of station 11 on 08/22/2015. The FNA was negative. Brushings were inconclusive. Biopsy of the left lung nodule on 09/16/2015 was positive for adenocarcinoma, TTF-1 positive and EGFR mutation negative. There was insufficient material for ALK and ROS-1 studies. The tumor was negative for PD-L1 expression. In October [address] [facility] for second opinion evaluation. Evaluation there included brain MRI which showed no evidence of metastatic disease. PET/CT on 11/04/2015 showed an FDG avid centrally located left upper lobe nodule which had increased in size. There was no evidence of leonel or distant metastatic disease on that study. However, there was reportedly evidence of groundglass opacities in both lungs with the differential including atypical adenomatous hyperplasia and multifocal primary lung malignancy. Also noted were 2 air-containing cystic lesions with groundglass component's within the right lower lobe, also felt to be suspicious for primary lung malignancies. Ultimately, it was recommended that she undergo neoadjuvant chemotherapy with 4 cycles of cisplatin-pemetrexed. She was then seen here because she preferred to receive her chemotherapy locally. She received cycle 1 of cisplatin/Alimta on 12/15/2015. She tolerated it well. Side effects were limited to mild nausea and stomatitis. She received cycles 2 and 3 on schedule with no dose reductions. She did receive Neupogen following the 2nd cycle due to a low radhika granulocyte count, and she was then given Neulasta prophylactically with cycle 3. She completed 4 cycles on 02/16/16. Her restaging PET/CT at [facility] on 03/18/2016 showed new FDG activity involving bilateral axillary lymph nodes, though without associated lymph node enlargement. Pre-paracardial lymph node was mildly increased in size but markedly FDG avid. A juxtaphrenic lymph node also showed new FDG activity with slight increased size. Small right paratracheal lymph nodes were not significantly change in size and only slightly FDG avid. The tumor at the left hilum was not significantly changed in size, but it remained markedly FDG avid. Groundglass attenuation nodules in both lungs were unchanged. The abdomen/pelvis showed extensive new metabolic activity at left gastric and periportal adenopathy with slight increase in the size of the lymph nodes. Multiple small retroperitoneal lymph nodes also showed new metabolic activity. Small left inguinal lymph nodes and bilateral external iliac lymph nodes also appeared FDG avid. Overall, the left hilar tumor was unchanged and there was new widespread leonel metabolic activity with only slight increase in the size of some the lymph nodes, consistent with reactive process. A repeat chest CT on 05/06/2016 showed stable left hilar lesion measuring 2.4 cm. There was no change in size of the FDG avid lymph nodes noted on the PET/CT in March. The right middle lobe peribronchial vascular nodular opacities were mildly decreased compared to October 2015. Given the findings on the imaging studies, it was felt that her disease was localized. She was given the option of surgical resection, but that would have necessitated complete pneumonectomy. Ultimately, she opted against surgery. She was then treated with radiation to the left hilar lesion. She completed treatment on 09/01/2016 to a total dose of 6600 cGy. The tumor did appear slightly smaller on the follow-up CT scan on 10/07/2016. Her restaging CT on 01/06/2017 showed stable left infrahilar soft tissue lesion measuring 1.3 x 1.1 cm. A groundglass opacity in the right lower lobe laterally measuring 1.7 x 1.4 cm it appeared slightly more prominent compared to previous study from April 2016. There was no mediastinal or hilar lymphadenopathy noted. Chest CT on 04/21/2017 reported increased enlargement of the right lower lobe lateral segment some solid nodule with reported differential including progressive neoplastic process, inflammatory process, and atypical infectious process. A right lower lobe anterior segment nodule at increased slightly, from 5.7 to 6.9 mm. A right upper lung zone groundglass nodule measuring 3-4 mm appeared unchanged. Left lower lobe superior segment bandlike atelectasis and/or scarring appeared stable. Restaging PET/CT on 07/30/2017 showed irregular right lower lobe infiltrate measuring 1.7 x 2.9 cm with FDG uptake less than that of normal mediastinal background, supporting a benign diagnosis. There was inflammatory uptake at a right lower lobe bulla. There was no evidence of malignancy. Given those findings, she continued on observation/expectant management. A repeat chest CT on 12/01/2017 showed persistence and slight progression of the irregular marginated semisolid densities in the anterior basal segment right lower lobe adjacent to a bolus emphysematous cavity. It measured 4 x 1.9 x 1.7 cm compared to 3.3 x 1.8 x 1.7 cm on the study from July 2017. A 7 mm rounded groundglass nodule in the anterior aspect of the right lower lobe appeared stable and a 4.3 mm right middle lobe nodule appeared stable. There was no obvious hilar, mediastinal, axillary, or supraclavicular lymphadenopathy noted. As the changes in the right lower lobe lesion were felt to be suspicious, she was referred to Dr. Justina Keith in [place], and a CT-guided biopsy of the right lung mass on 02/01/2018 was positive for malignant cells, at least adenocarcinoma in situ. She was then seen by Dr. Leahy and she underwent SBRT to the right lung lesion, completed on 03/08/2018 to a total dose of 5000 cGy. On 04/20/2019 she presented to the emergency room with nausea/vomiting and dizziness. Head CT showed a large amount of edema centered in the right cerebellum with sulcal effacement and mass-effect on the fourth ventricle. This is highly suspicious for metastatic lesion or primary brain tumor. She was admitted to [facility] and on 04/27/2019 she underwent craniotomy and resection of intra-axial and extra-axial metastatic lesion. Pathology showed metastatic adenocarcinoma. She then underwent stereotactic radiotherapy to the cerebellar metastasis cavity, completed on 06/05/2019 to a total dose of 2100 cGy. Her repeat brain MRI on 08/21/2019 showed minimal hemorrhage within the right cerebellar hemisphere at the site of the tumor resection. Residual enhancing tumor was still identified immediately abutting the right-sided transverse and sigmoid sinus. The tumor appeared to measure 2.9 cm in greatest long axis diameter, 9 mm transversely, and 9 mm superiorly to inferiorly. A 1 to 2 mm rounded area of enhancement within the left cerebellar hemisphere compatible with an additional site of metastasis was not significantly changed. There was significant improvement in vasogenic edema within the right cerebellar hemisphere and cerebellar vermis. There were no new areas of enhancement to suggest additional metastasis. I had seen her for a follow-up visit on 09/13/2019. She had further evaluation with restaging PET/CT on 09/22/2019. On that study the scarlike infiltrate in the right lower lobe was noted to be a solid lesion measuring 3.0 x 3.9 cm with SUV increased to 4.9 compared to 2.8 on the prior study from November 2018. The solid tissue in the superior segment right lower lobe bulla also showed an interval increase in SUV from 3.4 to 4.3. Both findings were felt to be indicative of malignant progression. There were stable reactive changes in mediastinal lymph nodes. There were no other areas of abnormal uptake. In the meantime, I also had requested a next generation sequencing study on the cerebellar lesion. It showed no evidence for EGFR, BRAF, or MET mutations, and the ALK and ROS1 rearrangements were not detected. 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 The tumor was noted to be MSI stable, and it was negative for PD-L1 expression at 0%. At that point she opted to continue with observation/expectant management. During subsequent follow-up her clinical status basically remained stable and there was no significant progression on her follow-up imaging studies. However, a follow-up head MRI on 11/24/2020 showed interval progression of the right cerebellar metastatic lesion measuring 3.3 x 3.4 cm. There was a large amount of associated edema in the right cerebellum with partial effacement of the fourth ventricle. There was mass-effect on the right middle cerebellar peduncle and brachium pontis with effacement of the right ambient cistern. There was also associated obstructive hydrocephalus with dilatation of the ventricular system, progressed since the June 2020 study. There was a new enhancing metastatic lesion involving the left skull base measuring 1.9 x 2.1 cm involving the left occipital condyle and hypoglossal canal extending to the left mastoid. The smaller left cerebellar lesion was noted to have decreased in size measuring 7.9 x 9.4 mm. At that point she had become symptomatic with weakness/fatigue, anorexia, and nausea/vomiting. She began on dexamethasone 4 mg 4 times daily. She had radiation oncology follow-up with Dr. Pompa on 12/01/2020. She was offered the option to have whole brain radiation, which she initially declined. Restaging CT scans of the chest, abdomen, and pelvis on 01/02/2021 showed no significant progression of the soft tissue nodule with associated large bulla in the superior segment right lower lobe and the right lower lobe mass also appeared stable. A few areas of groundglass attenuation in the left upper lobe also appeared stable. An area of decreased attenuation in the left hepatic lobe measuring 1.4 cm appeared slightly more prominent, suspicious for metastatic involvement. There were no other areas of disease progression. With evidence of disease progression and with the known KRAS G12C mutation, she was offered the option of a trial of targeted therapy with sotorasib. She began treatment on 02/03/2021 at a standard dosage of 960 mg daily. Repeat head MRI on 03/09/2021 showed a significant decrease in the right cerebellar metastatic lesion measuring 2.4 x 2.2 cm. There was also improvement in the associated edema and the mass-effect on the fourth ventricle. The medial left cerebellar metastatic lesion had also decreased significantly measuring 0.5 x 0.3 cm. There was a slight decrease in the size of the osseous mass centered in the left skull base. There were no new or enlarging metastatic lesions. Restaging CT scans of the chest, abdomen, and pelvis on 03/11/2021 showed similar findings with no evidence of disease progression. She is seen for a follow-up visit. She has been feeling pretty good generally. Since she has been on the sotorasib she has had significant weight gain, now close to 20 pounds. She has been having some hair loss. She has been having more joint pain, mainly in the lower extremities, and her leg muscles have been getting weak to the point that she is having difficulty lifting her legs. She has continued on steroid therapy with dexamethasone, with the dosage now tapered to 2 mg in the morning and 1 mg in the evening. She is still able to do housework. ECOG score is 1. Her appetite is good. She has no fever or night sweats. She has some sinus drainage. She has not had sore mouth or throat. She does not complain of cough. She has been a little more short of breath, but that she attributes to her weight. She has not been having chest pain. She has no GI/ complaints other than her bowels are intermittently runny. She does not complain of headache or dizziness, and she has no focal neurologic symptoms. Medications: Dexamethasone (2 mg) Tablet Oral b.i.d., Probiotic 1 Tablet Capsule Oral daily, Ventolin HFA 2 puff(s) (of 108 (90 base) mcg/act) Aerosol, solution Inhalation q 4 hours PRN Allergies: IV Contrast and Sulfa Antibiotics. Vital Signs: Performed on Apr 07, 2021 11:41 Height - 63.00 in Weight - 212.0 lbs (HIGH) BSA - 1.98 sq.m BMI - 37.55 (HIGH) Temperature - 98.2 F (LOW) Pulse - 105 /min (HIGH) Respiration - 22 /min BP - 164/77 mm(hg) (HIGH) O2 Sat - 92 % (LOW) Pain - 0 Fatigue - 9 Physical Examination: Constitutional - She appears somewhat weak generally, Eyes - Sclerae nonicteric. Conjunctivae clear, ENMT - No lesions noted in the oral cavity, Hematologic/Lymphatic - No cervical, clavicular, or axillary adenopathy, Respiratory - Lungs sound clear with some decrease in air movement bilaterally, Cardiovascular - Heart rhythm is regular. There is no murmur, gallop, or rub noted, Abdomen - Soft. Liver and spleen are not enlarged. There is no abdominal mass or ascites noted and there is no inguinal adenopathy, Extremities - No edema, Neurologic - She appears to have some proximal leg weakness. There are no focal neurologic deficits noted. Lab/Imaging: Test performed on Apr 07, 2021 08:58 Sodium 142 mmol/L TSH 1.10 uIU/mL Potassium 4.0 mmol/L Chloride 106 mmol/L CO2 25 mmol/L Anion Gap 15.0 BUN 12 mg/dL Creatinine 0.5 mg/dL Cr Clearance (Est) 156.67 mL/min Glucose 81 mg/dL Osmolality - Calculated 293 mOsm/kg Calcium 8.3 mg/dL Protein, Total 6.3 g/dL Albumin 3.6 g/dL Globulin 2.7 g/dL Bilirubin, Total 0.2 mg/dL ALT (SGPT) 21 U/L AST (SGOT) 18 U/L Alkaline Phosphatase 59 IU/L WBC 6.5 10 3/uL RBC 3.72 10 6/uL HGB 11.1 g/dL HCT 37.7 % MCV 101.3 fl MCH 29.8 pg MCHC 29.4 g/dL RDW 13.9 % Platelet Count 247 10 3/cmm MPV 8.3 fL Neutrophils 4.06 10 3/uL Lymphocytes 1.5 10 3/uL Monocytes 0.8 10 3/uL Eosinophils 0.1 10 3/uL Basophils 0.0 10 3/uL Neutrophil % 62.6 % Lymphocyte % 23.0 % Monocyte % 11.9 % Eosinophil % 1.4 % Basophils % 0.6 % NRBC % 0 % Problem List: 1. Patient with bilateral non-small cell lung cancer, stage IVB, with development of metastatic involvement in the right cerebellar hemisphere, for which she underwent surgical resection on 04/27/2019. 2. She has a history of diverticulitis, but she has had no other ongoing medical illnesses. Problems Addressed with this Encounter and Plan: Patient with bilateral non-small cell lung cancer, stage IVB. She was originally diagnosed with TTF-1 positive adenocarcinoma involving the upper lobe of the right lung in 2014. She underwent right upper lobectomy/mediastinal lymph node dissection in April 2014. Her disease was stage IA (pT2a, pN0, M0). She then had biopsy-proven adenocarcinoma involving the upper lobe of the left lung. By clinical evaluation her disease was most likely stage IA (T1b, N0, M0). She was given neoadjuvant chemotherapy with 4 cycles of cisplatin/Alimta from 09/14/2015 through 02/16/2016. She tolerated the treatment well, but with only minimal response by follow-up imaging. She was treated with radiation to the left lung lesion, completed on 09/01/2016 to a total dose of 6600 cGy. She tolerated the treatment well. A repeat chest CT on 12/01/2017 showed further increase in the anterior segment right lower lobe densities, consistent with indolent neoplastic or unusual infectious process. CT-directed needle biopsy of the right lower lobe mass on 02/01/2018 was positive for malignant cells, at least adenocarcinoma in situ. She was treated with SBRT, completed on 03/08/2018 to a total dose of 5000 cGy. She then had suspected new involvement in the superior segment right lower lobe by PET/CT on 12/16/2018. It was treated with additional SBRT, completed on 01/08/2019 to a total dose of 4800 cGy. She was then followed expectantly. 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 Pathology showed metastatic adenocarcinoma. A next generation sequencing study on the cerebellar lesion showed no evidence for EGFR, BRAF, or M ET mutations, or for the ALK and ROS1 rearrangements were not detected. 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 The tumor was noted to be MSI stable, and it was negative for PD-L1 expression at 0%. She was given stereotactic radiation to the cerebellar metastasis cavity, completed on 06/05/2019 to a total dose of 2100 cGy. Restaging head MRI on 08/21/2019 showed residual enhancing tumor in the right cerebellar hemisphere measuring 2.9 cm. She had additional MRI evidence of a small metastatic lesion in the left cerebellar hemisphere, but that appeared stable on the follow-up MRI. She was initially followed on expectant management. As of her follow-up visit in September 2020 she had required an increase in her dexamethasone dosage due to nausea/vomiting. Her repeat head MRI on 11/24/2020 showed significant progression of the right cerebellar metastatic lesion as well as development of a new enhancing metastatic lesion involving the left skull base. With those findings, she had radiation oncology consultation with Dr. Gr in [place]. She declined palliative whole brain radiation. With the known KRAS G12C mutation, she was then given the option to have a trial of targeted therapy with sotorasib. She began treatment on 02/03/2021 at the standard dosage of 960 mg daily. During follow-up she has been doing pretty well clinically, though since starting the sotorasib she has had weight gain, alopecia, and joint pain. She also has developed some proximal leg weakness. It is uncertain to what extent those symptoms may be related to the sotorasib, to the steroid, or to the underlying malignancy. However, she does appear to be showing a significant response by follow-up MRI. Her dexamethasone had been tapered to 2 mg in the morning and 1 mg in the evening, and it will now further decreased to 1 mg twice daily. She will continue sotorasib 960 mg daily. I will have her start Lasix 20 mg daily along with a potassium supplement daily. I will see her again in 3 months, or sooner as needed. Signed By: Maldonado Meyer M.D. <<Signature on File>>
== END 2021-04-07 08:44 | disposition home or self-care (01) ==
LOC: ONCMED 08:50
PROVIDERS: PCP Nurse Practitioner Family; Visit Provider Internal Medicine Medical Oncology
DX: C34.12 Malignant neoplasm of upper lobe, left bronchus or lung (principal); C34.11 Malignant neoplasm of upper lobe, right bronchus or lung; C79.31 Secondary malignant neoplasm of brain; K57.92 Diverticulitis of intestine, part unspecified, without perforation or abscess without bleeding; R63.5 Abnormal weight gain; L65.9 Nonscarring hair loss, unspecified; M25.50 Pain in unspecified joint; R53.1 Weakness
CPT/HCPCS: 36415; 80053; 84443; 85025; 99214

== ENCOUNTER 2021-04-14 13:17 | Outpatient (CLI) | payer MEDICARE, MEDICAID, SELFPAY ==
--- NOTE | 2021-04-14 13:24 | XR_ITS ---
WS: [id number] Chest 2 views, 04/14/2021 Clinical Data: LUNG CANCER Comparison: CT chest, 03/11/2021. Findings: No nodules, masses or effusions are seen. The heart is normal. The pulmonary vascularity is not increased. No pneumonia or pneumothorax is seen. There are opacities in the right upper lobe, ri ght lower lobe and left lower lobe which correspond to opacities noted on the CT chest. No new abnorm alities are seen. The heart is normal. The aortic arch shows calcification and mild tortuosity. There are clips in the right upper quadrant from a cholecystectomy. XR/XR chest 2V* [id number] Impression: 1. Right upper lobe, right lower lobe and left lower lobe opacities which corre spond to opacities on the CT chest. 2. Negative for new nodules or masses.
== END 2021-04-14 13:18 | disposition home or self-care (01) ==
LOC: RAD 13:20
PROVIDERS: PCP Nurse Practitioner Family; Visit Provider Nurse Practitioner Family
DX: C34.90 Malignant neoplasm of unspecified part of unspecified bronchus or lung (principal)
CPT/HCPCS: 71046

== ENCOUNTER 2021-05-05 13:23 | Outpatient (CLI) | payer MEDICARE, MEDICAID, SELFPAY ==
[2021-05-05 14:23] LABS: Basophils % 0.4 %; Eosinophils # 0.1 10^3/uL (0.0-0.8); Eosinophils % 0.7 %; Hematocrit 38.1 % (37.0-47.0); Hemoglobin 11.1 g/dL (11.5-15.3); Lymphocytes % 27.9 %; Mean Corpuscular HGB Conc 29.1 g/dL (30.0-36.0); Mean Corpuscular Hemoglobin 28.3 pg (28.0-34.0); Mean Corpuscular Volume 97.2 fl (81-99); Mean Platelet Volume 9.3 fL (7.4-10.4); Monocytes # 0.6 10^3/uL (0.2-0.9); Monocytes % 7.9 %; Neutrophils # 4.44 10^3/uL (1.8-7.7); Neutrophils % 62.7 %; Nucleated Red Blood Cells % 0 %; Platelet Count 185 10^3/cmm (130-400); Red Blood Count 3.92 10^6/uL (4.1-5.3); Red Cell Distribution Width 13.9 % (12.1-15.1); White Blood Count 7.1 10^3/uL (4.0-10.0)
[2021-05-05 14:39] LABS: Alanine Aminotransferase 32 U/L (0-33); Albumin Level 3.8 g/dL (3.5-5.2); Alkaline Phosphatase 71 IU/L (35-105); Aspartate Amino Transferase 29 U/L (0-32); Blood Urea Nitrogen 12 mg/dL (8-23); Carbon Dioxide 25 mmol/L (22-29); Chloride 101 mmol/L (98-107); Glucose 98 mg/dL (65-115); Osmolality Calculated 282 mOsm/kg (285-295); Sodium 136 mmol/L (136-145); Total Bilirubin 0.2 mg/dL (0.15-1.2); Total Protein 6.8 g/dL (6.6-8.7)
[2021-05-05 14:40] LABS: Anion Gap 14.1 (5-19); Potassium 4.1 mmol/L (3.5-5.1)
== END 2021-05-05 13:24 | disposition home or self-care (01) ==
PROVIDERS: PCP Nurse Practitioner Family; Visit Provider Internal Medicine Medical Oncology
DX: C34.11 Malignant neoplasm of upper lobe, right bronchus or lung (principal); C34.12 Malignant neoplasm of upper lobe, left bronchus or lung; C79.31 Secondary malignant neoplasm of brain
CPT/HCPCS: 36415; 80053; 85025

== ENCOUNTER 2021-05-26 13:26 | Outpatient (CLI) | payer MEDICARE, MEDICAID, SELFPAY ==
[2021-05-26 14:10] LABS: Basophils # 0.1 10^3/uL (0.0-0.1); Basophils % 0.7 %; Eosinophils % 0.6 %; Hematocrit 38.8 % (37.0-47.0); Hemoglobin 11.6 g/dL (11.5-15.3); Lymphocytes # 1.7 10^3/uL (0.8-4.8); Lymphocytes % 23.6 %; Mean Corpuscular HGB Conc 29.9 g/dL (30.0-36.0); Mean Corpuscular Hemoglobin 28.4 pg (28.0-34.0); Mean Corpuscular Volume 94.9 fl (81-99); Mean Platelet Volume 8.8 fL (7.4-10.4); Monocytes # 0.6 10^3/uL (0.2-0.9); Monocytes % 8.5 %; Neutrophils # 4.78 10^3/uL (1.8-7.7); Neutrophils % 66.3 %; Nucleated Red Blood Cells % 0 %; Platelet Count 243 10^3/cmm (130-400); Red Blood Count 4.09 10^6/uL (4.1-5.3); Red Cell Distribution Width 14.4 % (12.1-15.1); White Blood Count 7.2 10^3/uL (4.0-10.0)
[2021-05-26 14:43] LABS: Alanine Aminotransferase 31 U/L (0-33); Albumin Level 3.9 g/dL (3.5-5.2); Alkaline Phosphatase 70 IU/L (35-105); Aspartate Amino Transferase 28 U/L (0-32); Glucose 106 mg/dL (65-115); Total Protein 6.9 g/dL (6.6-8.7)
[2021-05-26 14:57] LABS: Blood Urea Nitrogen 19 mg/dL (8-23); Carbon Dioxide 22 mmol/L (22-29); Osmolality Calculated 287 mOsm/kg (285-295); Total Bilirubin 0.2 mg/dL (0.15-1.2)
[2021-05-26 15:00] LABS: Anion Gap 16.5 (5-19); Chloride 103 mmol/L (98-107); Potassium 4.5 mmol/L (3.5-5.1); Sodium 137 mmol/L (136-145)
== END 2021-05-26 13:27 | disposition home or self-care (01) ==
LOC: ONCMED 13:29
PROVIDERS: PCP Nurse Practitioner Family; Visit Provider Internal Medicine Medical Oncology
DX: C34.92 Malignant neoplasm of unspecified part of left bronchus or lung (principal); C34.91 Malignant neoplasm of unspecified part of right bronchus or lung; C79.31 Secondary malignant neoplasm of brain
CPT/HCPCS: 36415; 80053; 85025

== ENCOUNTER 2021-06-29 13:41 | Outpatient (CLI) | payer MEDICARE, MEDICAID, SELFPAY ==
--- NOTE | 2021-06-29 14:02 | MR_ITS ---
WS: [id number] MRI HEAD WITH CONTRAST TECHNIQUE: Sagittal T1, T2 axial, T2 axial FLAIR, axial susceptibility weighted imaging, axial diffus ion weighted images, and coronal T2 images were obtained. Pre and post-T1 axial and post T1 coronal i mages. ADC and FSPGR images. CLINICAL INFORMATION: LUNG CANCER, BRAIN METS COMPARISON: Multiple prior MRIs most recent March 09, 2021 FINDINGS: Previously described osseous lesion LEFT skull base involving the LEFT occipital condyle and hypoglos titi canal extending to the LEFT mastoid demonstrates less enhancement today compatible with treated d isease. No evidence of progression in this area. Subcentimeter LEFT cerebellar lesion is stable in si ze. Enhancing RIGHT cerebellar metastatic lesion is stable. Associated encephalomalacia and gliosis. No evidence of progressed disease. No hydrocephalus. Moderate small vessel changes with moderate parenchymal volume loss. No restricted diffusion to suggest acute ischemia. Prior RIGHT occipital craniotomy with resection cavity in the RI GHT cerebellum. Mucosal thickening in the mastoid tips. Paranasal sinuses are well aerated. Chronic lacunar infarct L EFT cerebellum. Normal vascular flow voids at the skull base. No restricted diffusion to suggest acut e ischemia. Normal optic chiasm and pituitary infundibulum. Moderate symmetric atrophy temporal lobes and hippocampal formations. MR/MR head wo/w con [id number] IMPRESSION: 1. Overall no significant changes compared to previous. 2. Stable enhancing RIGHT cerebellar metastatic lesion. No significant mass ef fect. No hydrocephalus. 3. Stable enhancing medial LEFT cerebellar metastatic lesion subcentimeter in size. 4. LEFT skull base osseous metastatic lesion is stable with no enhancement com patible with treated disease. 5. Recommend continued surveillance of the above metastatic lesions. 6. Moderate small vessel changes with moderate parenchymal volume loss.
[2021-06-29] MEDS: gadobenate dimeglumine 20 mL vial IV (15:48)
== END 2021-06-29 13:42 | disposition home or self-care (01) ==
LOC: RAD 13:43
PROVIDERS: PCP Nurse Practitioner Family; Visit Provider Internal Medicine Medical Oncology
DX: C34.11 Malignant neoplasm of upper lobe, right bronchus or lung (principal); C34.12 Malignant neoplasm of upper lobe, left bronchus or lung; C34.31 Malignant neoplasm of lower lobe, right bronchus or lung; C79.31 Secondary malignant neoplasm of brain
CPT/HCPCS: 70553

== ENCOUNTER 2021-07-02 12:40 | Outpatient (CLI) | payer MEDICARE, MEDICAID, SELFPAY ==
--- NOTE | 2021-07-02 13:00 | CTR_ITS ---
PROCEDURE INFORMATION: Exam: CT Chest With Contrast; Diagnostic Exam date and time: 07/02/2021 1:40 PM Age: 70 years old Clinical indication: Condition or disease; Lung condition and disease; Cancer of the lung; Right; Unspecified; Primary cancer: RT lung CA with brain mets; Follow-up oncological assessment; Prior surgery; Surgery type: Brain, rul lung, breast bx, hyst; Additional info: Lung cancer TECHNIQUE: Imaging protocol: Diagnostic computed tomography of the chest with contrast. Radiation optimization: All CT scans at this facility use at least one of these dose optimization techniques: automated exposure control; mA and/or kV adjustment per patient size (includes targeted exams where dose is matched to clinical indication); or iterative reconstruction. Contrast material: OMNI 300; Contrast volume: 95 ml; Contrast route: INTRAVENOUS (IV); COMPARISON: CT chest abd pel w con* 03/11/2021 12:06 PM RADIATION DOSE METRICS: Total DLP (mGy-cm): 829.56 FINDINGS: Lungs: Emphysematous changes. Right lower lobe superior seg somewhat thick-walled 3.9 cm cavitary lesion concerning for underlying malignancy, similar to prior exam. Several relatively stable areas of ground-glass airspace opacification in the left lung measuring up to 2.2 cm in the upper lobe may reflect persistent metastatic disease. Left upper to lingular lobe 3.3 cm area dense airspace opacification similar to prior exam. Pleural spaces: Right lower lobe superior segment somewhat thick-walled 3.9 cm cavitary lesion concerning for underlying malignancy, similar to prior exam. Heart: Coronary artery atherosclerotic calcifications. Aorta: Unremarkable. No aortic aneurysm. Lymph nodes: Scattered prominent stable subcentimeter mediastinal lymph nodes, nonspecific. Liver: Hepatomegaly suspected. Left hepatic lobe 15 mm low-attenuation lesion not as readily apparent on current exam. Gallbladder and bile ducts: Cholecystectomy. Intestine: Diverticulosis without diverticulitis partially visualized. Bones/joints: Unremarkable. No acute fracture. Soft tissues: Unremarkable. CT/CT chest w con* [id number] IMPRESSION: 1. Scattered prominent stable subcentimeter mediastinal lymph nodes, nonspecific. 2. Coronary artery atherosclerotic calcifications. 3. Hepatomegaly suspected. 4. Cholecystectomy. 5. Diverticulosis without diverticulitis partially visualized. 6. Emphysematous changes. 7. Right lower lobe superior segment somewhat thick-walled 3.9 cm cavitary lesion concerning for underlying malignancy, similar to prior exam. 8. Right lower lobe dense masslike area of airspace opacification abutting the lateral pleura measuring up to 5.3 cm, similar to prior exam, concerning for underlying malignancy. 9. Several relatively stable areas of ground-glass airspace opacification in the left lung measuring up to 2.2 cm in the upper lobe may reflect persistent metastatic disease. 10. Left upper to lingular lobe 3.3 cm area dense airspace opacification similar to prior exam. 11. Left hepatic lobe 15 mm low-attenuation lesion not as readily apparent on current exam.
[2021-07-02] MEDS: iohexol 300 mg/mL 100 mL Btl IV (14:00)
== END 2021-07-02 12:41 | disposition home or self-care (01) ==
LOC: RAD 12:45
PROVIDERS: PCP Nurse Practitioner Family; Visit Provider Internal Medicine Medical Oncology
DX: C34.31 Malignant neoplasm of lower lobe, right bronchus or lung (principal); C34.12 Malignant neoplasm of upper lobe, left bronchus or lung; I25.10 Atherosclerotic heart disease of native coronary artery without angina pectoris; Z90.49 Acquired absence of other specified parts of digestive tract; K57.90 Diverticulosis of intestine, part unspecified, without perforation or abscess without bleeding
CPT/HCPCS: 71260

== ENCOUNTER 2021-07-08 12:57 | Outpatient (CLI) | payer MEDICARE, MEDICAID, SELFPAY ==
[2021-07-08 14:06] LABS: Basophils % 0.6 %; Eosinophils # 0.1 10^3/uL (0.0-0.8); Eosinophils % 0.9 %; Hematocrit 38.8 % (37.0-47.0); Hemoglobin 11.6 g/dL (11.5-15.3); Lymphocytes # 1.5 10^3/uL (0.8-4.8); Lymphocytes % 22.1 %; Mean Corpuscular HGB Conc 29.9 g/dL (30.0-36.0); Mean Corpuscular Hemoglobin 27.2 pg (28.0-34.0); Mean Corpuscular Volume 90.9 fl (81-99); Mean Platelet Volume 8.7 fL (7.4-10.4); Monocytes # 0.5 10^3/uL (0.2-0.9); Monocytes % 7.4 %; Neutrophils # 4.58 10^3/uL (1.8-7.7); Neutrophils % 68.7 %; Nucleated Red Blood Cells % 0 %; Platelet Count 260 10^3/cmm (130-400); Red Blood Count 4.27 10^6/uL (4.1-5.3); Red Cell Distribution Width 15.7 % (12.1-15.1); White Blood Count 6.7 10^3/uL (4.0-10.0)
[2021-07-08 14:23] LABS: Alanine Aminotransferase 29 U/L (0-33); Albumin Level 4.1 g/dL (3.5-5.2); Alkaline Phosphatase 74 IU/L (35-105); Anion Gap 13.1 (5-19); Aspartate Amino Transferase 28 U/L (0-32); Blood Urea Nitrogen 10 mg/dL (8-23); Calcium 9.8 mg/dL (8.5-10.5); Carbon Dioxide 26 mmol/L (22-29); Chloride 102 mmol/L (98-107); Globulin 2.9 g/dL (1.3-4.6); Glucose 127 mg/dL (65-115); Osmolality Calculated 285 mOsm/kg (285-295); Potassium 4.1 mmol/L (3.5-5.1); Sodium 137 mmol/L (136-145); Total Bilirubin 0.2 mg/dL (0.15-1.2)
--- NOTE | 2021-07-12 09:33 | ONC FU_ITS ---
Dr. Meyer Patient Follow-Up Note Patient: Kristina Bertrand Unit #: [id number]: 1950 Dicatated By: Maldonado Meyer M.D.Date of Visit:Jul 08, 2021 Onc Med Follow-up/Prog Note Chief Complaint: Non-small cell lung cancer. 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 She was found to have a right upper lobe lung mass in December 2012 during the course of an ER evaluation for suspected diverticulitis. A CT guided needle biopsy of the mass January 2013 did confirm TTF-1 positive well-differentiated adenocarcinoma which was EGFR, ALK, and ROS-1 negative. Staging evaluation with brain MRI and PET/CT showed no obvious metastatic disease. The PET/CT showed right upper lobe mass measuring 3.2 x 2.4 cm and an additional right upper lobe nodule measuring 8 mm. She underwent thoracotomy with right upper lobectomy and mediastinal lymph node dissection on 04/29/2014. Pathology showed well-differentiated adenocarcinoma with predominantly mixed acinar and alveolar pattern. It measured 3.1 cm. There was invasion of the visceral pleura, but margins were negative. Lymph nodes at station 7, 11, and 10 were negative, thus stage IA (pT2a, pN0, M0). She received no adjuvant therapy. Surveillance chest CT in July 2015 showed a 2 cm nodule in the posterior central left lingual area, suspicious for metastatic disease or new primary malignancy. A subsequent PET/CT showed a smoothly marginated nodule in the left lung measuring 12 mm and tiny right upper lobe nodules which apparently felt to be improving, with no evidence of residual malignancy. She underwent bronchoscopy with FNA of station 11 on 08/22/2015. The FNA was negative. Brushings were inconclusive. Biopsy of the left lung nodule on 09/16/2015 was positive for adenocarcinoma, TTF-1 positive and EGFR mutation negative. There was insufficient material for ALK and ROS-1 studies. The tumor was negative for PD-L1 expression. In October 2015 she went to [facility] for second opinion evaluation. Evaluation there included brain MRI which showed no evidence of metastatic disease. PET/CT on 11/04/2015 showed an FDG avid centrally located left upper lobe nodule which had increased in size. There was no evidence of leonel or distant metastatic disease on that study. However, there was reportedly evidence of groundglass opacities in both lungs with the differential including atypical adenomatous hyperplasia and multifocal primary lung malignancy. Also noted were 2 air-containing cystic lesions with groundglass component's within the right lower lobe, also felt to be suspicious for primary lung malignancies. Ultimately, it was recommended that she undergo neoadjuvant chemotherapy with 4 cycles of cisplatin-pemetrexed. She was then seen here because she preferred to receive her chemotherapy locally. She received cycle 1 of cisplatin/Alimta on 12/15/2015. She tolerated it well. Side effects were limited to mild nausea and stomatitis. She received cycles 2 and 3 on schedule with no dose reductions. She did receive Neupogen following the 2nd cycle due to a low radhika granulocyte count, and she was then given Neulasta prophylactically with cycle 3. She completed 4 cycles on 02/16/16. Her restaging PET/CT at [facility] on 03/18/2016 showed new FDG activity involving bilateral axillary lymph nodes, though without associated lymph node enlargement. Pre-paracardial lymph node was mildly increased in size but markedly FDG avid. A juxtaphrenic lymph node also showed new FDG activity with slight increased size. Small right paratracheal lymph nodes were not significantly change in size and only slightly FDG avid. The tumor at the left hilum was not significantly changed in size, but it remained markedly FDG avid. Groundglass attenuation nodules in both lungs were unchanged. The abdomen/pelvis showed extensive new metabolic activity at left gastric and periportal adenopathy with slight increase in the size of the lymph nodes. Multiple small retroperitoneal lymph nodes also showed new metabolic activity. Small left inguinal lymph nodes and bilateral external iliac lymph nodes also appeared FDG avid. Overall, the left hilar tumor was unchanged and there was new widespread leonel metabolic activity with only slight increase in the size of some the lymph nodes, consistent with reactive process. A repeat chest CT on 05/06/2016 showed stable left hilar lesion measuring 2.4 cm. There was no change in size of the FDG avid lymph nodes noted on the PET/CT in March. The right middle lobe peribronchial vascular nodular opacities were mildly decreased compared to October 2015. Given the findings on the imaging studies, it was felt that her disease was localized. She was given the option of surgical resection, but that would have necessitated complete pneumonectomy. Ultimately, she opted against surgery. She was then treated with radiation to the left hilar lesion. She completed treatment on 09/01/2016 to a total dose of 6600 cGy. The tumor did appear slightly smaller on the follow-up CT scan on 10/07/2016. Her restaging CT on 01/06/2017 showed stable left infrahilar soft tissue lesion measuring 1.3 x 1.1 cm. A groundglass opacity in the right lower lobe laterally measuring 1.7 x 1.4 cm it appeared slightly more prominent compared to previous study from April 2016. There was no mediastinal or hilar lymphadenopathy noted. Chest CT on 04/21/2017 reported increased enlargement of the right lower lobe lateral segment some solid nodule with reported differential including progressive neoplastic process, inflammatory process, and atypical infectious process. A right lower lobe anterior segment nodule at increased slightly, from 5.7 to 6.9 mm. A right upper lung zone groundglass nodule measuring 3-4 mm appeared unchanged. Left lower lobe superior segment bandlike atelectasis and/or scarring appeared stable. Restaging PET/CT on 07/30/2017 showed irregular right lower lobe infiltrate measuring 1.7 x 2.9 cm with FDG uptake less than that of normal mediastinal background, supporting a benign diagnosis. There was inflammatory uptake at a right lower lobe bulla. There was no evidence of malignancy. Given those findings, she continued on observation/expectant management. A repeat chest CT on 12/01/2017 showed persistence and slight progression of the irregular marginated semisolid densities in the anterior basal segment right lower lobe adjacent to a bolus emphysematous cavity. It measured 4 x 1.9 x 1.7 cm compared to 3.3 x 1.8 x 1.7 cm on the study from July 2017. A 7 mm rounded groundglass nodule in the anterior aspect of the right lower lobe appeared stable and a 4.3 mm right middle lobe nodule appeared stable. There was no obvious hilar, mediastinal, axillary, or supraclavicular lymphadenopathy noted. As the changes in the right lower lobe lesion were felt to be suspicious, she was referred to Dr. Justina Keith in [place], and a CT-guided biopsy of the right lung mass on 02/01/2018 was positive for malignant cells, at least adenocarcinoma in situ. She was then seen by Dr. Leahy and she underwent SBRT to the right lung lesion, completed on 03/08/2018 to a total dose of 5000 cGy. On 04/20/2019 she presented to the emergency room with nausea/vomiting and dizziness. Head CT showed a large amount of edema centered in the right cerebellum with sulcal effacement and mass-effect on the fourth ventricle. This is highly suspicious for metastatic lesion or primary brain tumor. She was admitted to [facility] and on 04/27/2019 she underwent craniotomy and resection of intra-axial and extra-axial metastatic lesion. Pathology showed metastatic adenocarcinoma. She then underwent stereotactic radiotherapy to the cerebellar metastasis cavity, completed on 06/05/2019 to a total dose of 2100 cGy. Her repeat brain MRI on 08/21/2019 showed minimal hemorrhage within the right cerebellar hemisphere at the site of the tumor resection. Residual enhancing tumor was still identified immediately abutting the right-sided transverse and sigmoid sinus. The tumor appeared to measure 2.9 cm in greatest long axis diameter, 9 mm transversely, and 9 mm superiorly to inferiorly. A 1 to 2 mm rounded area of enhancement within the left cerebellar hemisphere compatible with an additional site of metastasis was not significantly changed. There was significant improvement in vasogenic edema within the right cerebellar hemisphere and cerebellar vermis. There were no new areas of enhancement to suggest additional metastasis. I had seen her for a follow-up visit on 09/13/2019. She had further evaluation with restaging PET/CT on 09/22/2019. On that study the scarlike infiltrate in the right lower lobe was noted to be a solid lesion measuring 3.0 x 3.9 cm with SUV increased to 4.9 compared to 2.8 on the prior study from November 2018. The solid tissue in the superior segment right lower lobe bulla also showed an interval increase in SUV from 3.4 to 4.3. Both findings were felt to be indicative of malignant progression. There were stable reactive changes in mediastinal lymph nodes. There were no other areas of abnormal uptake. In the meantime, I also had requested a next generation sequencing study on the cerebellar lesion. It showed no evidence for EGFR, BRAF, or MET mutations, and the ALK and ROS1 rearrangements were not detected. 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 The tumor was noted to be MSI stable, and it was negative for PD-L1 expression at 0%. At that point she opted to continue with observation/expectant management. During subsequent follow-up her clinical status basically remained stable and there was no significant progression on her follow-up imaging studies. However, a follow-up head MRI on 11/24/2020 showed interval progression of the right cerebellar metastatic lesion measuring 3.3 x 3.4 cm. There was a large amount of associated edema in the right cerebellum with partial effacement of the fourth ventricle. There was mass-effect on the right middle cerebellar peduncle and brachium pontis with effacement of the right ambient cistern. There was also associated obstructive hydrocephalus with dilatation of the ventricular system, progressed since the June 2020 study. There was a new enhancing metastatic lesion involving the left skull base measuring 1.9 x 2.1 cm involving the left occipital condyle and hypoglossal canal extending to the left mastoid. The smaller left cerebellar lesion was noted to have decreased in size measuring 7.9 x 9.4 mm. At that point she had become symptomatic with weakness/fatigue, anorexia, and nausea/vomiting. She began on dexamethasone 4 mg 4 times daily. She had radiation oncology follow-up with Dr. Pompa on 12/01/2020. She was offered the option to have whole brain radiation, which she initially declined. Restaging CT scans of the chest, abdomen, and pelvis on 01/02/2021 showed no significant progression of the soft tissue nodule with associated large bulla in the superior segment right lower lobe and the right lower lobe mass also appeared stable. A few areas of groundglass attenuation in the left upper lobe also appeared stable. An area of decreased attenuation in the left hepatic lobe measuring 1.4 cm appeared slightly more prominent, suspicious for metastatic involvement. There were no other areas of disease progression. With evidence of disease progression and with the known KRAS G12C mutation, she was offered the option of a trial of targeted therapy with sotorasib. She began treatment on 02/03/2021 at a standard dosage of 960 mg daily. Repeat head MRI on 03/09/2021 showed a significant decrease in the right cerebellar metastatic lesion measuring 2.4 x 2.2 cm. There was also improvement in the associated edema and the mass-effect on the fourth ventricle. The medial left cerebellar metastatic lesion had also decreased significantly measuring 0.5 x 0.3 cm. There was a slight decrease in the size of the osseous mass centered in the left skull base. There were no new or enlarging metastatic lesions. Restaging CT scans of the chest, abdomen, and pelvis on 03/11/2021 showed similar findings with no evidence of disease progression. At that point she appeared stable clinically. She was tolerating treatment without significant toxicity. She continued sotorasib [address] scans on 07/02/2021 showed thin-walled right lower lobe superior segment cavitary lesion measuring 3.9 cm, similar to the prior study. The dense masslike right lower lobe airspace opacification abutting of the lateral pleura measuring 5.3 cm also appeared similar to the prior exam. There were several areas of groundglass airspace opacification in the left lung measuring up to 2.2 cm with stable appearance, and a 3.3 cm area of dense airspace opacification in the left upper lobe also appeared similar. Scattered prominent mediastinal lymph nodes appeared stable. A left hepatic low-attenuation lesion measuring 15 mm was not as readily apparent compared to the prior exam. Overall, there was no evidence of disease progression. She is seen for a follow-up visit. She has been feeling pretty good generally, though her energy has been down a little. She is still doing housework. ECOG score is 1. She has good appetite. She has no fever or night sweats. She has some sinus drainage. She has not had sore mouth or throat, and she does not complain of cough. Her breathing is labored with activity, but no worse. She has had some sharp, pleuritic pain in the right lower anterior chest area. She has no GI or complaints. She has joint pain, mainly in the shoulders/arms and in the hips. She does not complain of headache, and she has no focal neurologic symptoms. Medications: Dexamethasone (2 mg) Tablet Oral b.i.d., Probiotic 1 Tablet Capsule Oral daily, Sotorasib 8 Tablet (of 120 mg) Oral daily, Ventolin HFA 2 puff(s) (of 108 (90 base) mcg/act) Aerosol, solution Inhalation q 4 hours PRN Allergies: IV Contrast and Sulfa Antibiotics. Vital Signs: Performed on Jul 08, 2021 15:26 Height - 63.00 in Weight - 205.8 lbs (LOW) BSA - 1.96 sq.m BMI - 36.46 (HIGH) Temperature - 98.1 F (LOW) Pulse - 112 /min (HIGH) Respiration - 20 /min BP - 157/82 mm(hg) (HIGH) O2 Sat - 94 % (LOW) Pain - 8 Fatigue - 7 Physical Examination: Constitutional - She looks pretty good generally, Eyes - Sclerae nonicteric. Conjunctivae clear, ENMT - No lesions noted in the oral cavity, Hematologic/Lymphatic - No cervical, clavicular, or axillary adenopathy, Respiratory - Lungs sound clear with some decrease in air movement bilaterally, Cardiovascular - Heart rhythm is regular. There is no murmur, gallop, or rub noted, Abdomen - Soft. Liver and spleen are not enlarged. There is no abdominal mass or ascites noted and there is no inguinal adenopathy, Extremities - No edema, Neurologic - No focal neurologic deficits noted. Lab/Imaging: Test performed on Jul 08, 2021 13:55 Sodium 137 mmol/L Potassium 4.1 mmol/L Chloride 102 mmol/L CO2 26 mmol/L Anion Gap 13.1 BUN 10 mg/dL Creatinine 0.4 mg/dL Cr Clearance (Est) 190.11 mL/min Glucose 127 mg/dL Osmolality - Calculated 285 mOsm/kg Calcium 9.8 mg/dL Protein, Total 7.0 g/dL Albumin 4.1 g/dL Globulin 2.9 g/dL Bilirubin, Total 0.2 mg/dL ALT (SGPT) 29 U/L AST (SGOT) 28 U/L Alkaline Phosphatase 74 IU/L WBC 6.7 10 3/uL RBC 4.27 10 6/uL HGB 11.6 g/dL HCT 38.8 % MCV 90.9 fl MCH 27.2 pg MCHC 29.9 g/dL RDW 15.7 % Platelet Count 260 10 3/cmm MPV 8.7 fL Neutrophils 4.58 10 3/uL Lymphocytes 1.5 10 3/uL Monocytes 0.5 10 3/uL Eosinophils 0.1 10 3/uL Basophils 0.0 10 3/uL Neutrophil % 68.7 % Lymphocyte % 22.1 % Monocyte % 7.4 % Eosinophil % 0.9 % Basophils % 0.6 % NRBC % 0 % Test performed on Apr 07, 2021 08:58 TSH 1.10 uIU/mL Test performed on Jan 13, 2021 12:50 Manual Segs % 66 % Manual Bands % 10.0 % Manual Lymphs % 11 % Atypical Lymphs % 4.0 % Total Cells Counted 100 Manual Monos % 3.0 % Metamyelocytes % 2.0 % Myelocytes % 4.0 % Platelet Estimate Normal Manual Segs Abs 12.6 10/cmm Manual Bands Abs 1.9 10 3/cmm Manual Neutrophils Abs 14.5 10 3/cmm Manual Lymphocytes Abs 2.9 10 3/cmm Manual Monocytes Abs 0.6 10 3/cmm Problem List: 1. Patient with bilateral non-small cell lung cancer, stage IVB, with development of metastatic involvement in the right cerebellar hemisphere, for which she underwent surgical resection on 04/27/2019. 2. She has a history of diverticulitis, but she has had no other ongoing medical illnesses. Problems Addressed with this Encounter and Plan: Patient with bilateral non-small cell lung cancer, stage IVB. She was originally diagnosed with TTF-1 positive adenocarcinoma involving the upper lobe of the right lung in 2014. She underwent right upper lobectomy/mediastinal lymph node dissection in April 2014. Her disease was stage IA (pT2a, pN0, M0). She then had biopsy-proven adenocarcinoma involving the upper lobe of the left lung. By clinical evaluation her disease was most likely stage IA (T1b, N0, M0). She was given neoadjuvant chemotherapy with 4 cycles of cisplatin/Alimta from 09/14/2015 through 02/16/2016. She tolerated the treatment well, but with only minimal response by follow-up imaging. She was treated with radiation to the left lung lesion, completed on 09/01/2016 to a total dose of 6600 cGy. She tolerated the treatment well. A repeat chest CT on 12/01/2017 showed further increase in the anterior segment right lower lobe densities, consistent with indolent neoplastic or unusual infectious process. CT-directed needle biopsy of the right lower lobe mass on 02/01/2018 was positive for malignant cells, at least adenocarcinoma in situ. She was treated with SBRT, completed on 03/08/2018 to a total dose of 5000 cGy. She then had suspected new involvement in the superior segment right lower lobe by PET/CT on 12/16/2018. It was treated with additional SBRT, completed on 01/08/2019 to a total dose of 4800 cGy. She was then followed expectantly. 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 Pathology showed metastatic adenocarcinoma. A next generation sequencing study on the cerebellar lesion showed no evidence for EGFR, BRAF, or M ET mutations, or for the ALK and ROS1 rearrangements were not detected. 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 The tumor was noted to be MSI stable, and it was negative for PD-L1 expression at 0%. She was given stereotactic radiation to the cerebellar metastasis cavity, completed on 06/05/2019 to a total dose of 2100 cGy. Restaging head MRI on 08/21/2019 showed residual enhancing tumor in the right cerebellar hemisphere measuring 2.9 cm. She had additional MRI evidence of a small metastatic lesion in the left cerebellar hemisphere, but that appeared stable on the follow-up MRI. She was initially followed on expectant management. As of her follow-up visit in September 2020 she had required an increase in her dexamethasone dosage due to nausea/vomiting. Her repeat head MRI on 11/24/2020 showed significant progression of the right cerebellar metastatic lesion as well as development of a new enhancing metastatic lesion involving the left skull base. With those findings, she had radiation oncology consultation with Dr. Gr in [place]. She declined palliative whole brain radiation. With the known KRAS G12C mutation, she was then given the option to have a trial of targeted therapy with sotorasib. She began treatment on 02/03/2021 at the standard dosage of 960 mg daily. Thus far during follow-up she has had some fatigue, weight gain, and musculoskeletal pain. Overall, though, she has been tolerating treatment well, thus far with no evidence of progression of the lung cancer. As such, she will continue sotorasib 960 mg daily. I will see her again in 3 months, or sooner as needed. Signed By: Maldonado Meyer M.D. <<Signature on File>>
== END 2021-07-08 12:58 | disposition home or self-care (01) ==
PROVIDERS: PCP Nurse Practitioner Family; Visit Provider Internal Medicine Medical Oncology
DX: C79.31 Secondary malignant neoplasm of brain (principal); Z85.118 Personal history of other malignant neoplasm of bronchus and lung; Z79.899 Other long term (current) drug therapy
CPT/HCPCS: 36415; 80053; 85025; 99214

== ENCOUNTER 2021-07-30 09:46 | Outpatient (CLI) | payer MEDICARE, MEDICAID, SELFPAY ==
[2021-07-30 10:21] LABS: Basophils # 0.1 10^3/uL (0.0-0.1); Basophils % 0.6 %; Eosinophils # 0.1 10^3/uL (0.0-0.8); Hematocrit 39.8 % (37.0-47.0); Hemoglobin 11.7 g/dL (11.5-15.3); Lymphocytes # 1.6 10^3/uL (0.8-4.8); Lymphocytes % 17.9 %; Mean Corpuscular HGB Conc 29.4 g/dL (30.0-36.0); Mean Corpuscular Volume 91.9 fl (81-99); Mean Platelet Volume 8.5 fL (7.4-10.4); Monocytes # 0.7 10^3/uL (0.2-0.9); Monocytes % 7.9 %; Neutrophils # 6.53 10^3/uL (1.8-7.7); Neutrophils % 71.9 %; Nucleated Red Blood Cells % 0 %; Platelet Count 297 10^3/cmm (130-400); Red Blood Count 4.33 10^6/uL (4.1-5.3); Red Cell Distribution Width 16.3 % (12.1-15.1); White Blood Count 9.1 10^3/uL (4.0-10.0)
[2021-07-30 10:42] LABS: Alanine Aminotransferase 32 U/L (0-33); Alkaline Phosphatase 79 IU/L (35-105); Anion Gap 12.1 (5-19); Aspartate Amino Transferase 30 U/L (0-32); Blood Urea Nitrogen 11 mg/dL (8-23); Calcium 9.5 mg/dL (8.5-10.5); Carbon Dioxide 28 mmol/L (22-29); Chloride 100 mmol/L (98-107); Globulin 3.7 g/dL (1.3-4.6); Glucose 110 mg/dL (65-115); Osmolality Calculated 282 mOsm/kg (285-295); Potassium 4.1 mmol/L (3.5-5.1); Sodium 136 mmol/L (136-145); Total Bilirubin 0.4 mg/dL (0.15-1.2); Total Protein 7.7 g/dL (6.6-8.7)
== END 2021-07-30 09:47 | disposition home or self-care (01) ==
LOC: ONCMED 09:48
PROVIDERS: PCP Nurse Practitioner Family; Visit Provider Internal Medicine Medical Oncology
DX: C34.11 Malignant neoplasm of upper lobe, right bronchus or lung (principal); C34.12 Malignant neoplasm of upper lobe, left bronchus or lung; C79.31 Secondary malignant neoplasm of brain
CPT/HCPCS: 36415; 80053; 85025

== ENCOUNTER 2021-08-20 14:04 | Outpatient (CLI) | payer MEDICARE, MEDICAID, SELFPAY ==
[2021-08-20 14:31] LABS: Basophils % 0.5 %; Eosinophils # 0.1 10^3/uL (0.0-0.8); Eosinophils % 0.8 %; Hematocrit 39.8 % (37.0-47.0); Hemoglobin 11.8 g/dL (11.5-15.3); Lymphocytes # 1.9 10^3/uL (0.8-4.8); Lymphocytes % 24.5 %; Mean Corpuscular HGB Conc 29.6 g/dL (30.0-36.0); Mean Corpuscular Hemoglobin 26.9 pg (28.0-34.0); Mean Corpuscular Volume 90.7 fl (81-99); Mean Platelet Volume 9.1 fL (7.4-10.4); Monocytes # 0.5 10^3/uL (0.2-0.9); Monocytes % 6.8 %; Neutrophils # 5.13 10^3/uL (1.8-7.7); Neutrophils % 66.9 %; Nucleated Red Blood Cells % 0 %; Platelet Count 313 10^3/cmm (130-400); Red Blood Count 4.39 10^6/uL (4.1-5.3); White Blood Count 7.7 10^3/uL (4.0-10.0)
[2021-08-20 14:57] LABS: Alanine Aminotransferase 32 U/L (0-33); Albumin Level 3.9 g/dL (3.5-5.2); Alkaline Phosphatase 90 IU/L (35-105); Anion Gap 14.1 (5-19); Aspartate Amino Transferase 32 U/L (0-32); Blood Urea Nitrogen 16 mg/dL (8-23); Calcium 9.6 mg/dL (8.5-10.5); Carbon Dioxide 27 mmol/L (22-29); Chloride 103 mmol/L (98-107); Globulin 3.6 g/dL (1.3-4.6); Glucose 157 mg/dL (65-115); Osmolality Calculated 294 mOsm/kg (285-295); Potassium 4.1 mmol/L (3.5-5.1); Sodium 140 mmol/L (136-145); Total Bilirubin 0.2 mg/dL (0.15-1.2); Total Protein 7.5 g/dL (6.6-8.7)
== END 2021-08-20 14:05 | disposition home or self-care (01) ==
LOC: LAB 14:07
PROVIDERS: PCP Nurse Practitioner Family; Visit Provider Internal Medicine Medical Oncology
DX: C34.31 Malignant neoplasm of lower lobe, right bronchus or lung (principal)
CPT/HCPCS: 36415; 80053; 85025

== ENCOUNTER 2021-09-30 12:23 | Outpatient (CLI) | payer MEDICARE, MEDICAID, SELFPAY ==
--- NOTE | 2021-09-30 12:48 | CT_ITS ---
WS: [id number] CT CHEST TECHNIQUE: Contrast enhanced CT of the chest with coronal and sagittal reformatted images. CLINICAL INFORMATION: LUNG CANCER COMPARISON: CT July 02, 2021 March 11, 2021. PET CT March 22, 2020 DLP: 707.[address] scans at [facility] use at least one of these dose optimization techniques: automated e xposure control; mA and/or kV adjustment per patient size (includes targeted exams where dose is matc hed to clinical indication); or iterative reconstruction. FINDINGS: Prior postoperative changes RIGHT upper lobectomy.Again seen is the cavitary lesion with eccentric so ft tissue nodularity in the super segment right lower lobe unchanged in appearance measuring 3.5 x 2. 9 Right lower lobe peripheral masslike consolidation measuring 3.6 x 2.5 cm is stable compared to previ ous. Stable hazy opacity in the LEFT upper lobe measuring 2.0 CM. Stable 4 mm noncalcified nodule RI GHT upper lobe.Stable irregular fibrotic opacity in the inferior left upper lobe adjacent to the fiss ure also stable measuring 2.1 x 1.8 cm Normal caliber thoracic aorta. Mild aortic calcification. Calcified RIGHT hilar and subcarinal lymph nodes. No axillary lymphadenopathy. Normal GE junction. Diffuse fatty infiltration liver. Hepatomegaly. Prior cholecystectomy. Stable low-attenuation lesion LEFT hepatic lobe measuring [address] mm[address] GE junction. CT/CT chest w con* [id number] IMPRESSION: Overall no significant changes compared to previous. 1. Prior postoperative changes right upper lobectomy. 2. Stable cavitary lesion in the super segment right lower lobe with eccentric soft tissue thickening. This is unchanged measuring 3.6 cm. 3. Stable masslike right lower lobe consolidation is unchanged from previous me asuring 3.6 x 2.5 cm. 4. Persistent hazy opacity in the left upper lobe unchanged. 5. Stable irregular fibrotic opacity in the inferior left upper lobe adjacent t o the fissure also stable measuring 2.1 x 1.8 cm 6. No mediastinal or hilar lymphadenopathy.
[2021-09-30] MEDS: iohexol 300 mg/mL 100 mL Btl IV (13:31)
== END 2021-09-30 12:24 | disposition home or self-care (01) ==
LOC: RAD 12:26
PROVIDERS: PCP Nurse Practitioner Family; Visit Provider Internal Medicine Medical Oncology
DX: C34.90 Malignant neoplasm of unspecified part of unspecified bronchus or lung (principal)
CPT/HCPCS: 71260

== ENCOUNTER 2021-10-01 13:25 | Oncology outpatient (recurring) (ONCR) | payer MEDICARE, MEDICAID, SELFPAY ==
[2021-10-01 13:01] LABS: Basophils % 0.5 %; Eosinophils # 0.1 10^3/uL (0.0-0.8); Eosinophils % 0.9 %; Hematocrit 38.3 % (37.0-47.0); Hemoglobin 11.8 g/dL (11.5-15.3); Lymphocytes # 1.7 10^3/uL (0.8-4.8); Lymphocytes % 22.1 %; Mean Corpuscular HGB Conc 30.8 g/dL (30.0-36.0); Mean Corpuscular Hemoglobin 26.8 pg (28.0-34.0); Mean Corpuscular Volume 86.8 fl (81-99); Mean Platelet Volume 9.3 fL (7.4-10.4); Monocytes # 0.6 10^3/uL (0.2-0.9); Monocytes % 8.5 %; Neutrophils # 5.12 10^3/uL (1.8-7.7); Neutrophils % 67.9 %; Nucleated Red Blood Cells % 0 %; Platelet Count 301 10^3/cmm (130-400); Red Blood Count 4.41 10^6/uL (4.1-5.3); Red Cell Distribution Width 15.7 % (12.1-15.1); White Blood Count 7.6 10^3/uL (4.0-10.0)
[2021-10-01 13:15] LABS: Alanine Aminotransferase 32 U/L (0-33); Alkaline Phosphatase 92 IU/L (35-105); Anion Gap 14.3 (5-19); Aspartate Amino Transferase 34 U/L (0-32); Blood Urea Nitrogen 12 mg/dL (8-23); Calcium 9.6 mg/dL (8.5-10.5); Carbon Dioxide 26 mmol/L (22-29); Chloride 101 mmol/L (98-107); Globulin 3.3 g/dL (1.3-4.6); Glucose 99 mg/dL (65-115); Osmolality Calculated 284 mOsm/kg (285-295); Potassium 4.3 mmol/L (3.5-5.1); Sodium 137 mmol/L (136-145); Total Bilirubin 0.2 mg/dL (0.15-1.2); Total Protein 7.3 g/dL (6.6-8.7)
== END 2021-10-15 23:59 | disposition home or self-care (01) ==
PROVIDERS: PCP Nurse Practitioner Family; Visit Provider Internal Medicine Medical Oncology
DX: C34.31 Malignant neoplasm of lower lobe, right bronchus or lung (principal); C79.31 Secondary malignant neoplasm of brain; Z79.52 Long term (current) use of systemic steroids; Z87.891 Personal history of nicotine dependence
CPT/HCPCS: 36415; 80053; 85025; 99214

== ENCOUNTER 2021-10-25 02:52 | Emergency (ER) | payer MEDICARE, MEDICAID, SELFPAY ==
[2021-10-25 03:02] VITALS: BP 132/88; PULSE 104; RESP 24; TEMP 36.8; O2SAT 93
[2021-10-25 03:21] VITALS: BP 149/100; PULSE 99; RESP 16; O2SAT 94
--- NOTE | 2021-10-25 03:21 | ECG_ITS ---
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 Measurements Intervals [place] Rate: 101 P: 70 HI: 168 QRS: 99 QRSD: 86 T: 77 QT: 328 QTc: 426 Interpretive Statements SINUS TACHYCARDIA BORDERLINE RIGHT AXIS DEVIATION [QRS AXIS > 90] No previous ECG available for comparison Electronically Signed On 10-25-2021 23:35:58 CDT by Jermaine Sharma M.D. [id number] f
--- NOTE | 2021-10-25 03:21 | XRR_ITS ---
PROCEDURE INFORMATION: Exam: XR Chest Exam date and time: 10/25/2021 3:35 AM Age: 70 years old Clinical indication: Cough and shortness of breath; Additional info: Cough SOB TECHNIQUE: Imaging protocol: Radiologic exam of the chest. Views: 1 view. COMPARISON: CT chest w con* [id number] 09/30/2021 1:28 PM FINDINGS: Lungs: Unremarkable. No consolidation. Pleural spaces: Unremarkable. No pleural effusion. No pneumothorax. Heart/Mediastinum: Unremarkable. No cardiomegaly. Bones/joints: Unremarkable. XR/XR chest 1V portable [id number] IMPRESSION: No acute findings.
[2021-10-25 03:32] LABS: Basophils # 0.1 10^3/uL (0.0-0.1); Basophils % 0.8 %; Eosinophils # 0.1 10^3/uL (0.0-0.8); Eosinophils % 0.8 %; Hematocrit 39.4 % (37.0-47.0); Hemoglobin 11.8 g/dL (11.5-15.3); Lymphocytes # 1.7 10^3/uL (0.8-4.8); Lymphocytes % 26.7 %; Mean Corpuscular HGB Conc 29.9 g/dL (30.0-36.0); Mean Corpuscular Hemoglobin 26.9 pg (28.0-34.0); Mean Corpuscular Volume 89.7 fl (81-99); Mean Platelet Volume 8.6 fL (7.4-10.4); Monocytes # 0.6 10^3/uL (0.2-0.9); Monocytes % 8.9 %; Neutrophils # 4.05 10^3/uL (1.8-7.7); Neutrophils % 62.3 %; Nucleated Red Blood Cells % 0 %; Platelet Count 272 10^3/cmm (130-400); Red Blood Count 4.39 10^6/uL (4.1-5.3); Red Cell Distribution Width 15.7 % (12.1-15.1); White Blood Count 6.5 10^3/uL (4.0-10.0)
[2021-10-25 03:46] VITALS: PULSE 91; RESP 16; O2SAT 94
[2021-10-25] MEDS: ipratropium-albuterol 3 mL Neb INHALATION (03:46)
[2021-10-25 03:56] LABS: Alanine Aminotransferase 38 U/L (0-33); Albumin Level 3.9 g/dL (3.5-5.2); Alkaline Phosphatase 89 IU/L (35-105); Anion Gap 13.1 (5-19); Aspartate Amino Transferase 35 U/L (0-32); Blood Urea Nitrogen 10 mg/dL (8-23); Calcium 9.3 mg/dL (8.5-10.5); Carbon Dioxide 27 mmol/L (22-29); Chloride 103 mmol/L (98-107); Globulin 3.2 g/dL (1.3-4.6); Glucose 109 mg/dL (65-115); NT Pro B Type Natriuretic Pept 36 pg/mL (0-125); Osmolality Calculated 288 mOsm/kg (285-295); Potassium 4.1 mmol/L (3.5-5.1); Sodium 139 mmol/L (136-145); Total Bilirubin 0.2 mg/dL (0.15-1.2); Total Protein 7.1 g/dL (6.6-8.7)
[2021-10-25] MEDS: doxycycline 100 mg Tablet PO (04:22)
--- NOTE | 2021-10-25 04:22 | PC.NURSE ---
PT refused PCR swab.
[2021-10-25 04:34] VITALS: BP 145/87; PULSE 87; RESP 16; O2SAT 95
--- NOTE | 2021-10-25 05:30 | ED_ITS ---
HPI - SOB/Dyspnea General: Chief Complaint: Shortness of Breath/Dyspnea Stated Complaint: SOB/cough Time Seen by Provider: 10/25/21 03:15 Source: patient History of Present Illness: HPI Narrative: 70-year-old female presenting with shortness of breath. She has a history of right lower lobe cancer of the lung. She is status post lobectomy. She notes she has been coughing for a couple of weeks, and that this is progressed. She has had shortness of breath that has progressed as well. She has used an inhaler on and off without much improvement. She is taken Robitussin without much improvement either. She denies fever. She has some clear sputum no swelling of the feet. No chest pain, except with cough. She does note some wheezing. MD elicited complaint: shortness of breath and cough Pertinent past history: other Onset (ago): day(s) (14) Timing: constant and progressively worsening Severity: moderate Exacerbating factors: lying flat, exertion and coughing Relieving factors: nothing Known history of: other Associated symptoms: Reports chest congestion and cough; Deny abdominal pain, chest pain, diaphoresis, dizziness, extremity pain, fever(s), nausea or vomiting Review of Systems Const: Denies: fever(s) or diaphoresis ENMT: Denies: throat pain Card: Denies: chest pain Resp: Reports: dyspnea, productive cough and chest congestion GI: Denies: abdominal pain, nausea or vomiting Musc: Denies: extremity pain Neuro: Denies: dizziness [facility] ED PFSH: Medical History (Updated 10/25/21 @ 04:09 by Williams Weeks DO) Diverticulitis Metastatic non-small cell lung cancer Surgical History History of bronchoscopy Bronchoscopy with FNA biopsy of station 11 - 08/22/2015 History of cataract extraction Bilateral History of cholecystectomy History of hernia repair History of hysterectomy History of lobectomy of lung (04/29/14) Thoracotomy with right upper lobectomy and mediastinal lymph node dissection History of lung biopsy (09/16/15) Left lung biopsy History of lung biopsy (02/01/18) Right lung biopsy S/P brain surgery (04/27/19) Craniotomy with resection of intra-axial and extra-axial metastatic lesions Family History Sister CAD (coronary artery disease) Clotting disorder Other Cancer Diabetes Hypertension Lung disease Denies family history of Dementia Hyperlipidemia Psychiatric illness Chronic kidney disease (CKD) Suicide Anesthesia complication Bleeding disorder Stroke Social History (Updated 10/01/21 @ 14:25 by Fiona Redman LPN) Smoking and tobacco status: former smoker Alcohol intake: never Physical Exam Const: COMMON NORMALS: no acute distress GENERAL APPEARANCE: cooperative; not ill appearing and not frail appearing HENMT: COMMON NORMALS: normocephalic, atraumatic and Normal external nose present HEAD & SCALP: normocephalic and atraumatic FACE & SINUS: normal facial exam and face symmetric NOSE: Normal external nose present Eye: COMMON NORMALS: Equal, round and reactive pupils present and EOMs intact bilaterally PUPIL: Yes Equal, round and reactive pupils present Neck/C-Spine: COMMON NORMALS: full ROM GENERAL: Yes trachea midline Chest: CHEST: Yes Symmetrical chest wall rise Resp: EFFORT & INSPECTION: Yes uses accessory muscles (mildly) AUSCULTATION: wheezes (intermittent) and diminished lung sounds Cardio: COMMON NORMALS: regular rate and regular rhythm RATE: regular rate RHYTHM: regular rhythm GI: COMMON NORMALS: Soft to palpation PALPATION: Yes Soft to palpation Extremity: COMMON NORMALS: no pedal edema Neuro: JOE COMA SCALE: document GCS findings Joe coma scale eye opening: Spontaneous [place] coma scale verbal response: Orientated Joe coma scale motor response: Obey commands [place] coma scale total score: 15 Course Vital Signs: Vital signs: Vital Signs Temperature 98.2 F 10/25/21 03:02 Pulse Rate 87 10/25/21 04:34 Respiratory Rate 16 10/25/21 04:34 Blood Pressure 145/87 10/25/21 04:34 Pulse Oximetry 95 10/25/21 04:34 MDM - SOB/Dyspnea Medical Decision Making Patient was minimally tachycardic on arrival, not now. She has some wheezes. She has a history of cough. There is no history of chest pain. She is not overly hypoxic. CBC is normal. BMP is normal. Chest x-ray is negative for infiltrate. With cough with sputum production, she will be treated for bronchitis as her symptoms have been persistent for 2 weeks. She declined COVID-19 testing this morning. Lab Data : 10/25/21 03:21 10/25/21 03:21 Labs/Radiology: Radiology Impressions Chest X-Ray 10/25/21 03:21 IMPRESSION: No acute findings. Laboratory Results WBC 6.5 10^3/uL (4.0-10.0) 10/25/21 03:21 RBC 4.39 10^6/uL (4.1-5.3) 10/25/21 03:21 Hgb 11.8 g/dL (11.5-15.3) 10/25/21 03:21 Hct 39.4 % (37.0-47.0) 10/25/21 03:21 MCV 89.7 fl (81-99) 10/25/21 03:21 MCH 26.9 pg (28.0-34.0) L 10/25/21 03:21 MCHC 29.9 g/dL (30.0-36.0) L 10/25/21 03:21 RDW 15.7 % (12.1-15.1) H 10/25/21 03:21 Plt Count 272 10^3/cmm (130-400) 10/25/21 03:21 MPV 8.6 fL (7.4-10.4) 10/25/21 03:21 Neut % (Auto) 62.3 % 10/25/21 03:21 Lymph % (Auto) 26.7 % 10/25/21 03:21 [place] % (Auto) 8.9 % 10/25/21 03:21 Eos % (Auto) 0.8 % 10/25/21 03:21 Baso % (Auto) 0.8 % 10/25/21 03:21 Neut # (Auto) 4.05 10^3/uL (1.8-7.7) 10/25/21 03:21 Lymph # (Auto) 1.7 10^3/uL (0.8-4.8) 10/25/21 03:21 [place] # (Auto) 0.6 10^3/uL (0.2-0.9) 10/25/21 03:21 Eos # (Auto) 0.1 10^3/uL (0.0-0.8) 10/25/21 03:21 Baso # (Auto) 0.1 10^3/uL (0.0-0.1) 10/25/21 03:21 Nucleated RBC % (auto) 0 % 10/25/21 03:21 Nucleated RBCs # 0.0 /100WBC 10/25/21 03:21 Sodium 139 mmol/L (136-145) 10/25/21 03:21 Potassium 4.1 mmol/L (3.5-5.1) 10/25/21 03:21 Chloride 103 mmol/L (98-107) 10/25/21 03:21 Carbon Dioxide 27 mmol/L (22-29) 10/25/21 03:21 Anion Gap 13.1 (5-19) 10/25/21 03:21 BUN 10 mg/dL (8-23) 10/25/21 03:21 Creatinine 0.5 mg/dL (0.5-0.9) 10/25/21 03:21 GFR Calculation Not Reportable 10/25/21 03:21 Glucose 109 mg/dL (65-115) 10/25/21 03:21 Calculated Osmolality 288 mOsm/kg (285-295) 10/25/21 03:21 Calcium 9.3 mg/dL (8.5-10.5) 10/25/21 03:21 Total Bilirubin 0.2 mg/dL (0.15-1.2) 10/25/21 03:21 AST 35 U/L (0-32) H 10/25/21 03:21 ALT 38 U/L (0-33) H 10/25/21 03:21 Alkaline Phosphatase 89 IU/L (35-105) 10/25/21 03:21 NT-Pro-B Natriuret Pep 36 pg/mL (0-125) 10/25/21 03:21 Total Protein 7.1 g/dL (6.6-8.7) 10/25/21 03:21 Albumin 3.9 g/dL (3.5-5.2) 10/25/21 03:21 Globulin 3.2 g/dL (1.3-4.6) 10/25/21 03:21 Discharge Plan Discharge Patient Disposition: Home Clinical Impression: Bronchitis Condition: Stable Prescriptions: New prednisone 20 mg tablet 60 mg PO DAILY Qty: 15 0RF doxycycline hyclate 100 mg capsule 100 mg PO BID 10 Days Qty: 20 0RF No Action Lumakras 120 mg tablet 960 mg PO DAILY Qty: 224 0RF ibuprofen 200 mg Tablet 400 mg PO DAILY PRN (Reason: Pain) 0RF ProAir HFA 90 mcg/actuation Hfa Aerosol Inhaler 2 puff INHALATION Q4H PRN (Reason: Shortness Of Breath) 0RF Probiotic 1 cap PO DAILY PRN0RF dexamethasone 1 mg Tablet 1 mg PO BID 0RF Lumakras 120 mg Tablet 960 mg PO DAILY 0RF Discharge Orders: Discharge ED (Routine); Ordered 10/25/21 Ordered By: Williams Weeks Referrals: Cynthia Fajardo APRN [Primary Care Provider] - Patient Instructions: Acute Bronchitis (ED) Activity Restrictions/Additional Instructions: Stop your dexamethasone while on prednisone. You may restart your dexamethasone after finishing the 5 days. Other medications as directed. Use your inhaler every 4 hours while awake for the next 48 hours, then as needed. Return for worsening shortness of breath despite treatment, fever greater than 100, chest discomfort, or any other concerning symptoms. Coding Level of Care Code ED Dealer Relationship Manager for Marj Calles
== END 2021-10-25 04:38 | disposition home or self-care (01) ==
PROVIDERS: Emergency Provider Emergency Medicine; PCP Nurse Practitioner Family
DX: J40 Bronchitis, not specified as acute or chronic (principal); Z85.118 Personal history of other malignant neoplasm of bronchus and lung; Z90.2 Acquired absence of lung [part of]; Z87.891 Personal history of nicotine dependence
CPT/HCPCS: 71045; 80053; 83880; 85025; 93005; 94640; 96374; 99285; J2930

== ENCOUNTER 2022-01-05 10:41 | Oncology outpatient (recurring) (ONCR) | payer MEDICARE, MEDICAID, SELFPAY ==
--- NOTE | 2021-12-29 14:30 | MR_ITS ---
WS: [id number] MRI HEAD WITH CONTRAST TECHNIQUE: Sagittal T1, T2 axial, T2 axial FLAIR, axial susceptibility weighted imaging, axial diffus ion weighted images, and coronal T2 images were obtained. Pre and post-T1 axial and post T1 coronal i mages. ADC and FSPGR images. CLINICAL INFORMATION: restaging for brain mets COMPARISON: MRI June 29, 2021, 03/09 2021. FINDINGS: LEFT skull base osseous metastatic lesion today demonstrates intense enhancement and appear s more bulky and progressed compared to previous. Today this measures approximately 2.6 x 3.4 x 2.4 c m AP by transverse by craniocaudal. Associated partial effacement and narrowing of the adjacent jugul ar vein, transverse sinus. This appears progressed compared to the prior examination. This involves t he LEFT hypoglossal canal with enhancement extending into the adjacent distal tip of the clivus and a djacent LEFT lateral occipital condyle. Small amount of associated epidural enhancement. Prior RIGHT occipital craniotomy with resection cavity in the RIGHT cerebellum. Subcentimeter LEFT c erebellar lesion is slightly smaller today measuring 4 mm. Enhancing RIGHT cerebellar metastatic lesi on is also slightly smaller today. Associated encephalomalacia and gliosis. No evidence of progressed disease in the posterior fossa. No hydrocephalus. Moderate small vessel changes with moderate parenchymal volume loss. No restricted diffusion to sugge st acute ischemia. Mucosal thickening in the mastoid tips. Mucosal thickening ethmoid air cells. Brattice Builder tuyet lacunar infarct infarcts in the cerebellum. Normal vascular flow voids at the skull base. MR/MR head wo/w con [id number] IMPRESSION: 1. LEFT skull base osseous metastatic lesion today demonstrates intense enhanc ement and appears more bulky and progressed compared to previous. Today this me asures approximately 2.6 x 3.4 x 2.4 cm AP by transverse by craniocaudal. Assoc iated partial effacement and narrowing of the adjacent jugular vein and transve rse sinus. This appears progressed compared to the prior examinations. 2. Enhancing RIGHT cerebellar metastatic lesion is slightly smaller today. 3. Slightly improved medial LEFT cerebellar metastatic lesion subcentimeter in size today measuring 4 mm. 4. No other remarkable changes.
[2021-12-29] MEDS: gadobenate dimeglumine 20 mL vial IV (14:37)
[2022-01-04 15:23] LABS: Basophils % 0.6 %; Eosinophils # 0.1 10^3/uL (0.0-0.8); Eosinophils % 1.1 %; Hematocrit 39.6 % (37.0-47.0); Hemoglobin 11.9 g/dL (11.5-15.3); Lymphocytes # 1.9 10^3/uL (0.8-4.8); Lymphocytes % 26.2 %; Mean Corpuscular HGB Conc 30.1 g/dL (30.0-36.0); Mean Corpuscular Hemoglobin 27.6 pg (28.0-34.0); Mean Corpuscular Volume 91.9 fl (81-99); Mean Platelet Volume 8.5 fL (7.4-10.4); Monocytes # 0.6 10^3/uL (0.2-0.9); Neutrophils # 4.48 10^3/uL (1.8-7.7); Neutrophils % 62.5 %; Nucleated Red Blood Cells % 0 %; Platelet Count 290 10^3/cmm (130-400); Red Blood Count 4.31 10^6/uL (4.1-5.3); Red Cell Distribution Width 15.9 % (12.1-15.1); White Blood Count 7.2 10^3/uL (4.0-10.0)
[2022-01-04 15:54] LABS: Alanine Aminotransferase 33 U/L (0-33); Albumin Level 3.6 g/dL (3.5-5.2); Alkaline Phosphatase 96 U/L (35-105); Anion Gap 10.1 (5-19); Aspartate Amino Transferase 35 U/L (0-32); Blood Urea Nitrogen 8 mg/dL (8-23); Calcium 9.2 mg/dL (8.5-10.5); Carbon Dioxide 30 mmol/L (22-29); Chloride 102 mmol/L (98-107); Globulin 3.3 g/dL (1.3-4.6); Glucose 97 mg/dL (65-115); Osmolality Calculated 284 mOsm/kg (285-295); Potassium 4.1 mmol/L (3.5-5.1); Sodium 138 mmol/L (136-145); Total Bilirubin 0.2 mg/dL (0.15-1.2); Total Protein 6.9 g/dL (6.6-8.7)
[2022-01-04] MEDS: iohexol 350 mg/mL 100 mL Btl IV (16:09)
--- NOTE | 2022-01-04 16:30 | CT_ITS ---
WS: [id number] CT CHEST WITH INTRAVENOUS CONTRAST HISTORY: restaging TECHNIQUE: Contiguous 5 mm axial imaging performed on the thorax. Coronal and sagittal reformats are submitted. All CT scans at [facility] use at least one of these dose optimization techniques: automated exposure control; mA and/or kV adjustment per patient size (includes targeted exams where dose is matched to clinical indication); or iterative reconstruction. CONTRAST: Omnipaque 350; 80 mL IV. DLP: 755.78 mGy.cm COMPARISON: 09/30/2021, 07/02/2021 Lungs and central airway: Status post RIGHT upper lobectomy. Postsurgical changes at the RIGHT hilum from the upper lobectomy. Cavitary lesion with asymmetric thickening of the wall in the superior RIGH T lower lobe is reidentified. Cavitary mass measures 3.4 x 2.7 cm. There is asymmetric wall thickenin g along the medial aspect of the cavitation. Asymmetric wall thickening measures 0.8 cm and appears s lightly greater in diameter than on prior studies. There is additional solid component extending infe riorly from the cavitary lesion, best seen on the sagittal images which appears slightly more promine nt. Conglomerate mass ovoid in shape in the RIGHT lower lobe measures 4.0 x 2.3 cm and probably not s ignificantly changed in size. Additional stable 6 mm ovoid nodule RIGHT middle lobe. Multiple areas o f groundglass attenuation LEFT upper lobe are reidentified. The largest measures 1.3 x 2.5 cm and not significantly increased. Lingular scar versus atelectasis. Pleura: Normal. No pleural effusion. Heart and pericardium: Normal size heart with no pericardial effusion. Mediastinum and bryan: No adenopathy. No increase in size or number of the lymph nodes. Vessels: Mild atherosclerosis aorta. Normal sized pulmonary artery. Chest wall and lower neck: No soft tissue masses. Upper abdomen: Prior cholecystectomy. Hepatic steatosis. No adrenal mass and no metastatic lesions wi thin the liver. Diverticulosis in the visualized colon. Osseous structures: No destructive process. CT/CT chest w con* [id number] IMPRESSION: 1. Status post RIGHT upper lobectomy. 2. Although very subtle there may be progression of soft tissue in the cavitar y lesion the RIGHT lower lobe. The asymmetric wall thickening and the soft tiss ue component extending inferior from the cavitary lesion appears more prominent as compared to prior studies. Recommend [address] follow-up. 3. Otherwise the consolidation in the RIGHT lower lobe and groundglass attenua tion throughout the LEFT lung are stable. 4. No progression of adenopathy.
== END 2022-01-15 23:59 | disposition home or self-care (01) ==
PROVIDERS: PCP Nurse Practitioner Family; Visit Provider Internal Medicine Medical Oncology
DX: C34.31 Malignant neoplasm of lower lobe, right bronchus or lung (principal); Z87.891 Personal history of nicotine dependence; C79.31 Secondary malignant neoplasm of brain; Z92.3 Personal history of irradiation; Z79.899 Other long term (current) drug therapy
CPT/HCPCS: 36415; 70553; 71260; 80053; 85025; 99214

== ENCOUNTER 2022-03-26 10:05 | Outpatient (CLI) | payer MEDICARE, MEDICAID, SELFPAY ==
[2022-03-26 10:32] LABS: Basophils % 0.4 %; Eosinophils # 0.1 10^3/uL (0.0-0.8); Hematocrit 39.6 % (37.0-47.0); Hemoglobin 11.7 g/dL (11.5-15.3); Lymphocytes # 1.5 10^3/uL (0.8-4.8); Lymphocytes % 18.1 %; Mean Corpuscular HGB Conc 29.5 g/dL (30.0-36.0); Mean Corpuscular Hemoglobin 27.3 pg (28.0-34.0); Mean Corpuscular Volume 92.3 fl (81-99); Mean Platelet Volume 8.4 fL (7.4-10.4); Monocytes # 0.9 10^3/uL (0.2-0.9); Monocytes % 10.7 %; Neutrophils # 5.66 10^3/uL (1.8-7.7); Neutrophils % 69.4 %; Nucleated Red Blood Cells % 0 %; Platelet Count 273 10^3/cmm (130-400); Red Blood Count 4.29 10^6/uL (4.1-5.3); Red Cell Distribution Width 15.3 % (12.1-15.1); White Blood Count 8.1 10^3/uL (4.0-10.0)
[2022-03-26 10:50] LABS: Alanine Aminotransferase 34 U/L (0-33); Albumin Level 3.5 g/dL (3.5-5.2); Alkaline Phosphatase 83 U/L (35-105); Anion Gap 12.9 (5-19); Aspartate Amino Transferase 31 U/L (0-32); Blood Urea Nitrogen 11 mg/dL (8-23); Calcium 9.4 mg/dL (8.5-10.5); Carbon Dioxide 27 mmol/L (22-29); Chloride 100 mmol/L (98-107); Globulin 3.4 g/dL (1.3-4.6); Glucose 89 mg/dL (65-115); Osmolality Calculated 281 mOsm/kg (285-295); Potassium 3.9 mmol/L (3.5-5.1); Sodium 136 mmol/L (136-145); Total Bilirubin 0.3 mg/dL (0.15-1.2); Total Protein 6.9 g/dL (6.6-8.7)
== END 2022-03-26 10:06 | disposition home or self-care (01) ==
PROVIDERS: PCP Nurse Practitioner Family; Visit Provider Internal Medicine Medical Oncology
DX: C34.31 Malignant neoplasm of lower lobe, right bronchus or lung (principal); C79.31 Secondary malignant neoplasm of brain
CPT/HCPCS: 36415; 80053; 85025

== ENCOUNTER 2022-04-12 14:30 | Oncology outpatient (recurring) (ONCR) | payer MEDICARE, MEDICAID, SELFPAY ==
--- NOTE | 2022-04-09 13:00 | MR_ITS ---
WS: [id number] MRI HEAD WITH CONTRAST TECHNIQUE: Sagittal T1, T2 axial, T2 axial FLAIR, axial susceptibility weighted imaging, axial diffus ion weighted images, and coronal T2 images were obtained. Pre and post-T1 axial and post T1 coronal i mages. ADC and FSPGR images. CLINICAL INFORMATION: Restaging COMPARISON: MRI December 29, 2021 FINDINGS: Previously described tiny enhancing focus in the medial LEFT cerebellum measuring 3.6 mm is unchanged . No evidence of increasing edema or mass effect. Small amount of T2 signal abnormality in this locat ion. Again seen is the enhancing osseous lesion involving the LEFT skull base. Involvement of the LEF T hypoglossal canal with enhancement extending into the clivus and LEFT lateral occipital condyle is unchanged. Today this demonstrates central necrosis with peripheral enhancement likely due to radiati on therapy. Compression and occlusion of the adjacent distal LEFT jugular vein and sigmoid sinus. Tod ay this lesion measures approximately 2.6 x 3.1 x 2.4 cm transverse by craniocaudal. Previously this measured 2.6 x 3.4 x 2.4 cm AP by transverse by craniocaudal. This appears slightly smaller today and slightly less bulky today. Small residual focus of enhancemen t involving the RIGHT cerebellar resection cavity unchanged. No evidence of restricted diffusion to suggest acute ischemia. Ventricular system and basal cisterns are patent. Moderate small vessel changes. Mild parenchymal volume loss. Tiny chronic lacunar infarct LEFT cerebellum. Normal vascular flow voids at the skull base. No extra-axial fluid collections. No evidence of mass or mass effect. Mild mucosal thickening in the paranasal sinuses. Opacification the LEFT mastoid air cells. Mild mucosal thickening RIGHT mastoid tip. Normal optic chiasm and pituitary infundibulum. Temporal lobes and hippocampal formations demonstrate mild symmetric atrophy. Prior postoperative changes RIGHT occipital craniotomy with postoperative ch anges in the RIGHT cerebellum. Associated encephalomalacia and gliosis. Associated hemosiderin in the RIGHT cerebellum. MR/MR head wo/w con [id number] IMPRESSION: 1. LEFT osseous skull base lesions today demonstrates improvement with central necrosis likely due to radiation change with peripheral enhancement. This viviana ures slightly smaller today 2.6 x 3.1 x 2.4 cm and appears less bulky. No evide nce of progression. 2. Stable associated compression of the adjacent distal jugular vein and sigmo id sinus appear occluded today. Occlusion is new from previous although severel y narrowed on the prior examination. 3. LEFT mastoid effusion new from previous. Small amount of fluid in the RIGHT mastoid tip. 4. No other significant changes compared to previous. 5. Stable tiny enhancing LEFT cerebellar lesion measuring 3.6 mm and stable sm all area of enhancement in the RIGHT cerebellar resection cavity. 6. Moderate small vessel changes with mild parenchymal volume loss. 7. Chronic lacunar infarct LEFT cerebellum. 8. Prior postoperative changes RIGHT occipital craniotomy with resection cavit y in the RIGHT cerebellum.
[2022-04-09] MEDS: gadobenate dimeglumine 20 mL vial IV (13:38)
[2022-04-12] MEDS: iohexol 350 mg/mL 500 mL Btl (per mL) PO (13:57)
--- NOTE | 2022-04-12 14:30 | CT_ITS ---
WS: [id number] CT CHEST, ABDOMEN, AND PELVIS TECHNIQUE: Contrast-enhanced CT of the chest, abdomen, and pelvis with coronal and sagittal reformatt ed images. CLINICAL INFORMATION: Restaging COMPARISON: CT 01/04/22 and March 01, 2021 DLP: 2561.[address] scans at [facility] use at least one of these dose optimization techniques: automated e xposure control; mA and/or kV adjustment per patient size (includes targeted exams where dose is matc hed to clinical indication); or iterative reconstruction. CT CHEST: Prior postoperative changes RIGHT upper lobectomy.Cavitary lesion in the super segment RIGHT lower lo be is stable in appearance compared to January 04, 2022. Today this measures approximately 3.2 x 2. 7 cm not significantly changed. Surrounding asymmetric soft tissue thickening appears unchanged. No e vidence of progression. Stable 6 mm noncalcified nodule RIGHT upper lobe. Stable prominent peritrache al lymph node measuring 10 mm. Stable nodule LEFT lower lobe measuring 5 mm along the diaphragm. Previously described nodular opacity along the inferior margin of the cavitary lesion is stable measu ring approximately 14 x 12 mm. Additional masslike opacity in the RIGHT lower lobe is stable to sligh tly smaller compared to previous measuring 3.9 x 2.1 CM. . Subpleural opacity in the LEFT lower lobe appears slightly larger today measuring 7.6 mm compared to 6 mm previous. A few hazy groundglass opac ities in the LEFT upper lobe are similar in appearance. Masslike subsegmental atelectasis in the ling lee ann is stable. Normal caliber thoracic aorta. Aortic calcification. No mediastinal or hilar lymphadenopathy. Calcifi ed subcarinal lymph nodes. Cholecystectomy clips. Fatty infiltration the liver. Small esophageal hiat al hernia. Adrenal glands are normal. No axillary lymphadenopathy. Hypertrophic changes thoracic spine. Adrenal glands are normal. Normal renal parenchymal enhancement. No hydronephrosis. Normal caliber ab dominal aorta. Aortic calcification. Tiny fat-containing umbilical hernia. Bladder cystocele.. No periaortic or abdominal lymphadenopathy. No inguinal lymphadenopathy. Bilatera l pars defects L5-S1. No significant anterolisthesis. Circumferential soft tissue thickening at the v aginal introitus about the labia is nonspecific. This appears progressed compared to January 02. Recommend clinical correlation. Fluid-filled cecum asymmetric in appearance compared to the remainder of the colon with diffuse wall thickening and patchy areas of enhancement. This has a suspicious appearance and neoplasm not exclude d. Recommend further evaluation with colonoscopy. CT/CT chest abd pel w con* IMPRESSION: 1. Prior postoperative changes RIGHT upper lobectomy. 2. LEFT lower lobe subpleural slightly irregular lesion appears increased comp ared to January 04, 2022 today measuring 7.6 mm compared to 6 mm previous. Re commend 3 month follow-up chest CT. 3. Chest findings are otherwise stable compared to previous described above. C avitary Superior segment RIGHT lower lobe lesion is stable. 4. Fluid distended cecum with wall thickening and enhancement has a suspicious appearance. Recommend further evaluation with colonoscopy. Neoplasm not exclud ed 5. Low-lying bladder cystocele. 6. Diffuse fatty infiltration the liver. Cholecystectomy. 7. No adenopathy in the abdomen or pelvis. 8. Diffuse soft tissue thickening at the vaginal introitus and labia progresse d compared to previous. Recommend clinical correlation.
[2022-04-12] MEDS: iohexol 350 mg/mL 100 mL Btl IV (14:41)
== END 2022-04-17 23:59 | disposition home or self-care (01) ==
LOC: ONCMED 04-19 11:12
PROVIDERS: PCP Nurse Practitioner Family; Visit Provider Internal Medicine Medical Oncology
DX: C34.31 Malignant neoplasm of lower lobe, right bronchus or lung (principal); N81.10 Cystocele, unspecified; K76.0 Fatty (change of) liver, not elsewhere classified; Z90.49 Acquired absence of other specified parts of digestive tract
CPT/HCPCS: 36415; 70553; 71260; 74177; 80053; 85025; 99214; A9577; Q9967

== ENCOUNTER 2022-04-26 11:41 | Emergency (ER) | payer MEDICARE, MEDICAID, SELFPAY ==
[2022-04-26 12:38] VITALS: BP 120/72; PULSE 102; RESP 14; TEMP 37.1; O2SAT 94
--- NOTE | 2022-04-26 13:00 | W.ED.NECK ---
HPI - Neck Pain/Injury General: Chief Complaint: Neck Pain/Injury Stated Complaint: left ear infection Time Seen by Provider: 04/26/22 12:45 History of Present Illness: Patient is a 71-year-old female comes to the ED with neck pain. She denies any injury or trauma to cause pain. Patient says 3 weeks ago she woke up and had bilateral neck pain and soreness. Rotating her head to the left or right causes worsening pain. She rates the pain in her neck and 9 out of 10. She also endorses having some pain in her left ear as well that started approximately 3 weeks ago. Patient has a history of brain and lung cancer and currently is being seen by Dr. Meyer. Patient had an MRI of her head done [address] Meyer told her it looked good and things are improving. Patient says she has been taking Tylenol and ibuprofen and it has not been helping with her neck pain. Associated symptoms: Denies headache(s) or nausea Review of Systems Const: Denies: fever(s), chills or fatigue Eyes: Denies: change in vision or eye discomfort ENMT: Denies: throat pain, odynophagia, nasal discharge or nasal congestion Card: Denies: chest pain, palpitations, edema, swelling of feet/ankles, dyspnea on exertion or orthopnea Resp: Denies: dyspnea, productive cough or non-productive cough GI: Denies: abdominal pain, nausea, vomiting, diarrhea, constipation or hematochezia : Denies: flank pain, dysuria or hematuria Musc: Reports: neck pain; Denies: back pain or extremity swelling Skin/Breast: Denies: rash or new lesions Neuro: Denies: headache(s), numbness in extremities or weakness in extremities PFSH ED PFSH: Medical History Diverticulitis Metastatic non-small cell lung cancer Surgical History History of bronchoscopy Bronchoscopy with FNA biopsy of station 11 - 08/22/2015 History of cataract extraction Bilateral History of cholecystectomy History of hernia repair History of hysterectomy History of lobectomy of lung (04/29/14) Thoracotomy with right upper lobectomy and mediastinal lymph node dissection History of lung biopsy (09/16/15) Left lung biopsy History of lung biopsy (02/01/18) Right lung biopsy S/P brain surgery (04/27/19) Craniotomy with resection of intra-axial and extra-axial metastatic lesions Family History Sister CAD (coronary artery disease) Clotting disorder Other Cancer Diabetes Hypertension Lung disease Denies family history of Dementia Hyperlipidemia Psychiatric illness Chronic kidney disease (CKD) Suicide Anesthesia complication Bleeding disorder Stroke Social History Smoking and tobacco status: former smoker (smoked x 45 years) Alcohol intake: never Physical Exam Const: COMMON NORMALS: patient oriented x3 HENMT: COMMON NORMALS: normocephalic HEAD & SCALP: normocephalic MOUTH: Normal oral and palatal mucosa present THROAT: posterior oropharynx normal and uvula midline Eye: COMMON NORMALS: Equal, round and reactive pupils present and EOMs intact bilaterally GENERAL EYE: appearance normal, both eyes and all related structures PUPIL: Yes Equal, round and reactive pupils present Neck/C-Spine: COMMON NORMALS: supple GENERAL: Yes normal visual inspection CERVICAL SPINE: Yes pain with cervical ROM, No Cervical spine tenderness, Yes Paracervical muscle tenderness bilateral and Yes Trapezius muscle tenderness bilateral Lymph: LYMPHATIC: no lymphadenopathy noted Resp: COMMON NORMALS: normal respiratory effort, No retractions, No use of accessory muscles and clear to auscultation bilaterally AUSCULTATION: clear to auscultation bilaterally Cardio: COMMON NORMALS: regular rate, regular rhythm, S1 normal heart sound present, S2 normal heart sound present, No gallops present (Cardio), No clicks present (Cardio), No murmurs present (Cardio) and Peripheral pulses 2+ throughout RATE: regular rate RHYTHM: regular rhythm HEART SOUNDS: S1 normal heart sound present and S2 normal heart sound present PERIPHERAL PULSES: Peripheral pulses 2+ throughout GI: COMMON NORMALS: Normal to inspection, nondistended, normoactive bowel sounds present, Soft to palpation, non-tender and no masses PALPATION: Yes Soft to palpation : COMMON NORMALS: Yes no CVA tenderness BLADDER/KIDNEY EXAM: Yes no CVA tenderness Back/Pelvis: COMMON NORMALS: no CVA tenderness Extremity: GENERAL: Yes normal exam except as noted Neuro: COMMON NORMALS: patient oriented x3, CN's II-XII intact bilaterally, moves all extremities, no focal motor deficits and no sensory deficits noted SENSORY EXAM: Yes extremities (intact) MOTOR EXAM: 5/5 motor strength present throughout Skin: COMMON NORMALS: no rashes or lesions noted GENERAL SKIN EXAM: no rashes or lesions noted and dry skin Course Vital Signs: Vital signs: Vital Signs Temperature 98.8 F 04/26/22 12:38 Pulse Rate 102 H 04/26/22 12:38 Respiratory Rate 14 04/26/22 12:38 Blood Pressure 120/72 04/26/22 12:38 Pulse Oximetry 94 04/26/22 12:38 Oxygen Delivery Me thod 04/26/22 12:38 MDM - Neck Pain/Injury Medical Decision Making Patient is a 71-year-old female comes to the ED with neck pain. She denies any injury or trauma to cause pain. Patient says 3 weeks ago she woke up and had bilateral neck pain and soreness. Rotating her head to the left or right causes worsening pain. She rates the pain in her neck and 9 out of 10. She also endorses having some pain in her left ear as well that started approximately 3 weeks ago. Vitals are stable. Exam shows paracervical muscle tenderness bilaterally along with trapezius muscle tenderness bilaterally. Rest of exam is benign. Patient was given dose muscle relaxer and hydrocodone to help with symptoms. She was diagnosed with bilateral neck pain and was stable for discharge home. Told to follow-up with PCP in the next week for reevaluation. She was sent home with a prescription for a muscle relaxer and hydrocodone. Told to follow-up with PCP for reevaluation in the next 3 to 5 days. Return ED precautions given. Patient understood and agreed with plan. Discharge Plan Discharge Patient Disposition: Home Clinical Impression: Neck pain, bilateral Condition: Stable Prescriptions: New methocarbamol 750 mg tablet 750 mg PO Q8H PRN (Reason: Neck muscle pain and spasms) Qty: 15 0RF No Action cetirizine [Zyrtec] 10 mg tablet 10 mg PO DAILY PRN dexamethasone 1 mg tablet 1 mg PO BID Qty: 60 2RF diazepam [Valium] 5 mg tablet 5 mg PO ONCE Qty: 1 0RF Rx Instructions: take 30 minutes prior to MRI scan Lumakras 120 mg tablet 960 mg PO DAILY Qty: 224 0RF ibuprofen 200 mg Tablet 400 mg PO DAILY PRN (Reason: Pain) ProAir HFA 90 mcg/actuation Hfa Aerosol Inhaler 2 puff INHALATION Q4H PRN (Reason: Shortness Of Breath) Probiotic 1 cap PO DAILY PRN Discharge Orders: Discharge ED (Routine); Ordered 04/26/22 Ordered By: Brandon Cameron Referrals: Cynthia Fajardo APRN [Primary Care Provider] - Discharge Diet: Regular Discharge Activity: Increase activity as tolerated Patient Instructions: Neck Pain (ED), Opioid Safety Activity Restrictions/Additional Instructions: Follow-up with medical provider as directed in the next 5 to 7 days for reevaluation. Take medications as prescribed. Return to the ER or your medical provider if condition worsens. Please read and understand discharge instructions. Thank you for choosing [facility] for your healthcare needs today. Please realize this is an emergency room and that we are providing you with a medical screening exam and this may not be complete and all inclusive of all the testing and or work up that you may need to determine your ailment or severity of your illness. It is very important that you follow up as instructed or that you return to the Emergency Department should you have concerns or if your condition changes or worsens in any way. Coding Level of Care Code ED Diesel Service Technician for Marj Fwd Exam Comprehensive
[2022-04-26] MEDS: HYDROcodone-acetaminophen 5-325 mg Tablet 1 TAB PO (13:18)
[2022-04-26] MEDS: orphenadrine 30 mg/mL Inj 2 mL 60 MG IM (13:23)
== END 2022-04-26 13:27 | disposition home or self-care (01) ==
PROVIDERS: Emergency Provider Physician Assistant; PCP Nurse Practitioner Family
DX: M54.2 Cervicalgia (principal); Z87.891 Personal history of nicotine dependence; Z85.118 Personal history of other malignant neoplasm of bronchus and lung
CPT/HCPCS: 96372; 99284; J2360

== ENCOUNTER 2022-04-27 08:34 | Oncology outpatient (recurring) (ONCR) | payer MEDICARE, MEDICAID, SELFPAY | END 2022-05-18 23:59 | disposition home or self-care (01) | PROVIDERS: PCP Nurse Practitioner Family; Visit Provider Internal Medicine Medical Oncology | DX: C34.31 Malignant neoplasm of lower lobe, right bronchus or lung (principal); Z90.2 Acquired absence of lung [part of]; C79.31 Secondary malignant neoplasm of brain; C78.02 Secondary malignant neoplasm of left lung; C79.51 Secondary malignant neoplasm of bone; I87.1 Compression of vein; J34.89 Other specified disorders of nose and nasal sinuses; H74.8X2 Other specified disorders of left middle ear and mastoid; Z79.2 Long term (current) use of antibiotics; Z79.52 Long term (current) use of systemic steroids; Z79.899 Other long term (current) drug therapy; Z87.891 Personal history of nicotine dependence | CPT/HCPCS: 99214 ==

== ENCOUNTER 2022-05-09 12:58 | Emergency (ER) | payer MEDICARE, MEDICAID, SELFPAY ==
[2022-05-09 13:24] VITALS: BP 169/88; PULSE 95; RESP 18; TEMP 36.7; O2SAT 95
--- NOTE | 2022-05-09 14:22 | ED_ITS ---
Documented by User: Ayleen Sanchez PA-C 05/09/22 14:45 HPI - Headache General: Chief Complaint: Headache Stated Complaint: headache, previous brain cancer pt Time Seen by Provider: 05/09/22 14:05 Source: patient and family Mode of arrival: wheelchair Limitations: no limitations History of Present Illness: 71-year-old female with a history of metastatic brain cancer presents to the ER today for continued headache. Patient reports this headache is been going on for couple of months now. She saw Dr. Meyer her specialist about a month ago and had imaging done. At that time everything was stable. Patient was given hydrocodone and also treated for an ear infection. Patient reports she has no ear pain. The pain she has is in the back of her neck radiating up into her head. Patient reports her neck is even become stiff at this point because of the pain. Patient reports she is in pain all the time. She reports the pain never improves despite taking the hydrocodone, Tylenol, Motrin, or muscle relaxers. Patient is very frustrated because she feels like she cannot live in pain all the time like this. Patient reports her next point with Dr. Meyer is not until a month from now. Review of Systems General: Reports: 10 or more systems reviewed and unremarkable except in HPI and below PFSH ED PFSH: Medical History Diverticulitis Metastatic non-small cell lung cancer Surgical History History of bronchoscopy Bronchoscopy with FNA biopsy of station 11 - 08/22/2015 History of cataract extraction Bilateral History of cholecystectomy History of hernia repair History of hysterectomy History of lobectomy of lung (04/29/14) Thoracotomy with right upper lobectomy and mediastinal lymph node dissection History of lung biopsy (09/16/15) Left lung biopsy History of lung biopsy (02/01/18) Right lung biopsy S/P brain surgery (04/27/19) Craniotomy with resection of intra-axial and extra-axial metastatic lesions Family History Sister CAD (coronary artery disease) Clotting disorder Other Cancer Diabetes Hypertension Lung disease Denies family history of Dementia Hyperlipidemia Psychiatric illness Chronic kidney disease (CKD) Suicide Anesthesia complication Bleeding disorder Stroke Social History Smoking and tobacco status: former smoker (smoked x 45 years) Alcohol intake: never Physical Exam Const: COMMON NORMALS: average body habitus, patient oriented x3, no limitations, healthy appearing, alert and well nourished HENMT: COMMON NORMALS: normocephalic, atraumatic, external ears normal, TM's normal bilaterally, Normal external nose present, Normal nasal mucous membranes and turbinates present and moist oral mucous membranes HEAD & SCALP: normocephalic and atraumatic NOSE: Normal external nose present and Normal nasal mucous membranes and turbinates present EXTERNAL EAR: Yes external ears normal TYMPANIC MEMBRANE: TM's normal bilaterally Eye: COMMON NORMALS: Equal, round and reactive pupils present and conjunctivae normal CONJUNCTIVA: Yes conjunctivae normal PUPIL: Yes Equal, round and reactive pupils present Neck/C-Spine: OTHER: Patient has tenderness along the cervical spine and the left sternocleidomastoid. Lymph: LYMPHATIC: no lymphadenopathy noted Resp: COMMON NORMALS: normal respiratory effort EFFORT & INSPECTION: Yes able to speak in complete sentences Cardio: COMMON NORMALS: regular rate and regular rhythm RATE: regular rate RHYTHM: regular rhythm Extremity: COMMON NORMALS: normal to inspection and no pedal edema Neuro: COMMON NORMALS: patient oriented x3 SENSORIUM/ORIENTATION: Yes alert Psych: COMMON NORMALS: mental status grossly normal, Normal thought process present and cooperative THOUGHT PROCESS: Normal thought process present OTHER: Patient tearful and frustrated with being in constant pain. Skin: COMMON NORMALS: no rashes or lesions noted GENERAL SKIN EXAM: no rashes or lesions noted Course ED course: Patient presents to the ER with a history of metastatic brain cancer. She is having constant headaches that never improved. Patient was seen by her specialist Dr. Meyer about a month ago and started on hydrocodone. He also treated for an ear infection. Patient reports no ear pain at this time. She reports the hydrocodone does not touch the pain. Patient reports she lives in pain all the time and it is getting to the point she cannot handle it. Patient does not have another appointment for at least another month and feels like she cannot go that long with this pain. She has had no changes in other symptoms that she reports. Patient has tapered from 8 mg of prednisone daily to 2 mg daily at this time. Vital Signs: Vital signs: Vital Signs Temperature 98.1 F 05/09/22 13:24 Pulse Rate 86 05/09/22 14:46 Respiratory Rate 18 05/09/22 14:46 Blood Pressure 159/89 05/09/22 14:46 Pulse Oximetry 97 05/09/22 14:46 Oxygen Delivery Me thod 05/09/22 13:24 MDM - Headache Medical Decision Making Patient had recent imaging and everything was unchanged. Her headaches were happening at that time and have not changed since then. Patient's biggest issue is her headaches are not letting up, at any time throughout the day. Patient is very frustrated and upset. She is very tearful in ER today. Patient just wants some relief of the pain. She is open to seeing the doctor as soon as she can to see if there are other alternative options such as injections as he discussed with her. We will change patient's pain medication from hydrocodone to oxycodone. I spoke with Dr. Elizondo regarding this patient and he wrote pain medication. Case management was sent a referral to see if patient can have a sooner appointment. Patient should follow-up to the ER for any new or worsening symptoms. She verbalized understanding and was in agreement with this treatment plan. 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 Chronic headache Qualifiers: Headache type: unspecified Intractability: intractable Qualified Code(s): R51.9 - Headache, unspecified Condition: Stable Prescriptions: New oxycodone 5 mg capsule 5 mg PO Q4H PRN (Reason: pain) Qty: 30 0RF No Action cetirizine [Zyrtec] 10 mg tablet 10 mg PO DAILY PRN diazepam [Valium] 5 mg tablet 5 mg PO ONCE PRN (Reason: anxiety) Rx Instructions: take 30 minutes prior to MRI scan ciprofloxacin HCl 500 mg tablet 500 mg PO BID Qty: 7 1RF metronidazole 500 mg tablet 500 mg PO TID 7 Days Qty: 21 1RF hydrocodone-acetaminophen 5-325 mg tablet 1 tab PO Q6H PRN (Reason: pain) 30 Days Qty: 120 0RF dexamethasone 1 mg tablet 1 mg PO BID Qty: 60 2RF Lumakras 120 mg tablet 960 mg PO DAILY Qty: 224 0RF ibuprofen 200 mg Tablet 400 mg PO DAILY PRN (Reason: Pain) ProAir HFA 90 mcg/actuation Hfa Aerosol Inhaler 2 puff INHALATION Q4H PRN (Reason: Shortness Of Breath) Probiotic 1 cap PO DAILY PRN methocarbamol 750 mg tablet 750 mg PO Q8H PRN (Reason: Neck muscle pain and spasms) Qty: 15 0RF Discharge Orders: Discharge ED (Routine); Ordered 05/09/22 Ordered By: Ayleen Sanchez Referrals: Cynthia Fajardo APRN [Primary Care Provider] - Discharge Diet: Usual diet Discharge Activity: Resume usual activity Patient Instructions: Opioid Safety, Pain Management Activity Restrictions/Additional Instructions: Oxycodone as prescribed. Contact Dr. Meyer's office tomorrow for an earlier appointment. Continue all other home medications as previously prescribed. Coding Level of Care Code ED Extrusion Manager for Chg Fwd Exam Comprehensive Documented by User: Shelton Ferrera DO 05/10/22 06:21 HPI - Headache General: Chief Complaint: Headache Stated Complaint: headache, previous brain cancer pt Time Seen by Provider: 05/09/22 14:05 [facility] ED PFSH: Medical History Diverticulitis Metastatic non-small cell lung cancer Surgical History History of bronchoscopy Bronchoscopy with FNA biopsy of station 11 - 08/22/2015 History of cataract extraction Bilateral History of cholecystectomy History of hernia repair History of hysterectomy History of lobectomy of lung (04/29/14) Thoracotomy with right upper lobectomy and mediastinal lymph node dissection History of lung biopsy (09/16/15) Left lung biopsy History of lung biopsy (02/01/18) Right lung biopsy S/P brain surgery (04/27/19) Craniotomy with resection of intra-axial and extra-axial metastatic lesions Family History Sister CAD (coronary artery disease) Clotting disorder Other Cancer Diabetes Hypertension Lung disease Denies family history of Dementia Hyperlipidemia Psychiatric illness Chronic kidney disease (CKD) Suicide Anesthesia complication Bleeding disorder Stroke Social History Smoking and tobacco status: former smoker (smoked x 45 years) Alcohol intake: never Course Vital Signs: Vital signs: Vital Signs Temperature 98.1 F 05/09/22 13:24 Pulse Rate 86 05/09/22 14:46 Respiratory Rate 18 05/09/22 14:46 Blood Pressure 159/89 05/09/22 14:46 Pulse Oximetry 97 05/09/22 14:46 Oxygen Delivery Me thod 05/09/22 13:24 MDM - Headache Medical Decision Making Patient had recent imaging and everything was unchanged. Her headaches were happening at that time and have not changed since then. Patient's biggest issue is her headaches are not letting up, at any time throughout the day. Patient is very frustrated and upset. She is very tearful in ER today. Patient just wants some relief of the pain. She is open to seeing the doctor as soon as she can to see if there are other alternative options such as injections as he discussed with her. We will change patient's pain medication from hydrocodone to oxycodone. I spoke with Dr. Elizondo regarding this patient and he wrote pain medication. Case management was sent a referral to see if patient can have a sooner appointment. Patient should follow-up to the ER for any new or worsening symptoms. She verbalized understanding and was in agreement with this treatment plan. Chart reviewed and patient discussed with midlevel. Agree with assessment and plan. Medical Records I reviewed the patient's medical records. Lab Data I reviewed the patient's lab results. 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 Chronic headache Qualifiers: Headache type: unspecified Intractability: intractable Qualified Code(s): R51.9 - Headache, unspecified Condition: Stable Prescriptions: New oxycodone 5 mg capsule 5 mg PO Q4H PRN (Reason: pain) Qty: 30 0RF No Action cetirizine [Zyrtec] 10 mg tablet 10 mg PO DAILY PRN diazepam [Valium] 5 mg tablet 5 mg PO ONCE PRN (Reason: anxiety) Rx Instructions: take 30 minutes prior to MRI scan ciprofloxacin HCl 500 mg tablet 500 mg PO BID Qty: 7 1RF metronidazole 500 mg tablet 500 mg PO TID 7 Days Qty: 21 1RF hydrocodone-acetaminophen 5-325 mg tablet 1 tab PO Q6H PRN (Reason: pain) 30 Days Qty: 120 0RF dexamethasone 1 mg tablet 1 mg PO BID Qty: 60 2RF Lumakras 120 mg tablet 960 mg PO DAILY Qty: 224 0RF ibuprofen 200 mg Tablet 400 mg PO DAILY PRN (Reason: Pain) ProAir HFA 90 mcg/actuation Hfa Aerosol Inhaler 2 puff INHALATION Q4H PRN (Reason: Shortness Of Breath) Probiotic 1 cap PO DAILY PRN methocarbamol 750 mg tablet 750 mg PO Q8H PRN (Reason: Neck muscle pain and spasms) Qty: 15 0RF Discharge Orders: Discharge ED (Routine); Ordered 05/09/22 Ordered By: Ayleen Sanchez Referrals: Cynthia Fajardo APRN [Primary Care Provider] - Discharge Diet: Usual diet Discharge Activity: Resume usual activity Patient Instructions: Opioid Safety, Pain Management Activity Restrictions/Additional Instructions: Oxycodone as prescribed. Contact Dr. Meyer's office tomorrow for an earlier appointment. Continue all other home medications as previously prescribed. Coding Level of Care Code ED Extrusion Manager for Marj Fwhuma Exam Comprehensive
[2022-05-09 14:46] VITALS: BP 159/89; PULSE 86; RESP 18; O2SAT 97
--- NOTE | 2022-05-11 12:33 | DCPLANNER ---
Addendum entered by Adriana Sullivan 06/18/22 07:21: Patient had a follow up appointment at the [facility]- patient did attend appointment. Addendum entered by Adriana Sullivan 05/18/22 13:27: Patient has a follow up appointment scheduled for Tuesday, June 02, 2022 at 2:00 at the [facility]. Clinic will call patient with appointment information. Original Note: manager music had message to speak with the [facility] to see if patients appointment could be rescheduled any sooner than what it was scheduled. manager music called Mamie Avilez, operations support coordinator, gave clinic patients information. manager music was told that patients information will be printed and reviewed. Clinic will call patient with appointment information.
== END 2022-05-09 14:46 | disposition home or self-care (01) ==
PROVIDERS: Emergency Provider Physician Assistant; PCP Nurse Practitioner Family
DX: R51.9 Headache, unspecified (principal); C79.31 Secondary malignant neoplasm of brain; Z87.891 Personal history of nicotine dependence; Z85.118 Personal history of other malignant neoplasm of bronchus and lung; Z90.2 Acquired absence of lung [part of]
CPT/HCPCS: 99283

== ENCOUNTER 2022-06-02 13:30 | Oncology outpatient (recurring) (ONCR) | payer MEDICARE, MEDICAID, SELFPAY ==
[2022-06-01 10:09] LABS: Basophils % 0.4 %; Eosinophils # 0.1 10^3/uL (0.0-0.8); Eosinophils % 0.8 %; Hematocrit 37.8 % (37.0-47.0); Hemoglobin 11.3 g/dL (11.5-15.3); Lymphocytes # 1.6 10^3/uL (0.8-4.8); Lymphocytes % 21.6 %; Mean Corpuscular HGB Conc 29.9 g/dL (30.0-36.0); Mean Corpuscular Hemoglobin 27.3 pg (28.0-34.0); Mean Corpuscular Volume 91.3 fl (81-99); Mean Platelet Volume 8.6 fL (7.4-10.4); Monocytes # 0.7 10^3/uL (0.2-0.9); Neutrophils # 4.78 10^3/uL (1.8-7.7); Neutrophils % 66.5 %; Nucleated Red Blood Cells % 0 %; Platelet Count 276 10^3/cmm (130-400); Red Blood Count 4.14 10^6/uL (4.1-5.3); Red Cell Distribution Width 14.7 % (12.1-15.1); White Blood Count 7.2 10^3/uL (4.0-10.0)
[2022-06-01 10:25] LABS: Alanine Aminotransferase 23 U/L (0-33); Albumin Level 3.8 g/dL (3.5-5.2); Alkaline Phosphatase 84 U/L (35-105); Anion Gap 14.1 (5-19); Aspartate Amino Transferase 21 U/L (0-32); Blood Urea Nitrogen 8 mg/dL (8-23); Calcium 8.8 mg/dL (8.5-10.5); Carbon Dioxide 27 mmol/L (22-29); Chloride 101 mmol/L (98-107); Glucose 108 mg/dL (65-115); Osmolality Calculated 285 mOsm/kg (285-295); Potassium 4.1 mmol/L (3.5-5.1); Sodium 138 mmol/L (136-145); Total Bilirubin 0.2 mg/dL (0.15-1.2); Total Protein 6.8 g/dL (6.6-8.7)
== END 2022-06-15 23:59 | disposition home or self-care (01) ==
PROVIDERS: PCP Nurse Practitioner Family; Visit Provider Internal Medicine Medical Oncology
DX: C34.31 Malignant neoplasm of lower lobe, right bronchus or lung (principal); Z90.2 Acquired absence of lung [part of]; C78.02 Secondary malignant neoplasm of left lung; C79.31 Secondary malignant neoplasm of brain; C79.51 Secondary malignant neoplasm of bone; I87.1 Compression of vein; J34.89 Other specified disorders of nose and nasal sinuses; H74.8X2 Other specified disorders of left middle ear and mastoid; Z79.2 Long term (current) use of antibiotics; Z79.52 Long term (current) use of systemic steroids; Z79.899 Other long term (current) drug therapy; Z87.891 Personal history of nicotine dependence; Z79.891 Long term (current) use of opiate analgesic; Z92.21 Personal history of antineoplastic chemotherapy; Z92.3 Personal history of irradiation
CPT/HCPCS: 36415; 80053; 85025; 99214

== ENCOUNTER 2022-06-29 06:58 | Outpatient (CLI) | payer MEDICARE, MEDICAID, SELFPAY ==
--- NOTE | 2022-06-29 07:15 | MR_ITS ---
WS: [id number] MRI HEAD WITH CONTRAST TECHNIQUE: Sagittal T1, T2 axial, T2 axial FLAIR, axial susceptibility weighted imaging, axial diffus ion weighted images, and coronal T2 images were obtained. Pre and post-T1 axial and post T1 coronal i mages. ADC and FSPGR images. CLINICAL INFORMATION: Restaging COMPARISON: None. FINDINGS: Previously described LEFT osseous skull base lesion progressed compared to previous. Today this measures approximately 2.9 x 4.5 x 2.5 cm with involvement of the skull base, clivus, and LEFT o ccipital condyle. This extends into the LEFT mastoid. Findings progressed compared to previous. Stable tiny enhancing LEFT cerebellar lesion measuring 3.5 mm. Stable enhancement involving the RIGHT cerebellar resection cavity unchanged. Prior postoperative changes RIGHT occipital craniotomy with r esection cavity in the RIGHT cerebellum. No evidence of restricted diffusion to suggest acute ischemia. Ventricular system and basal cisterns are patent. Moderate small vessel changes. Moderate parenchymal volume loss. Advanced parenchymal vol ume loss in the posterior fossa and vermis. Small vessel changes in the jesse. Chronic lacunar infarct s in the LEFT cerebellum. Partial opacification of the LEFT greater than RIGHT mastoid air cells. Sma ll amount of fluid in the posterior nasopharynx. Chronic hemosiderin in the RIGHT cerebellum. MR/MR head wo/w con [id number] IMPRESSION: 1. Prior postoperative changes RIGHT occipital craniotomy with resection cavit y in the RIGHT cerebellum. 2. Progressed LEFT osseous skull base lesion today appears more bulky and viviana ures 2.9 x 4.5 x 2.5 cm AP by transverse by craniocaudal. Progressed involvemen t of the clivus, LEFT skull base, LEFT occipital condyle, and LEFT mastoid. LEF T mastoid effusion. 3. Stable enhancing 3.5 mm LEFT cerebellar lesion. Stable postoperative enhanc ement in the RIGHT cerebellar resection cavity. 4. No other significant interval changes.
--- NOTE | 2022-06-29 08:00 | MR_ITS ---
WS: [id number] MRI CERVICAL SPINE NONCONTRAST AND CONTRAST TECHNIQUE: Sagittal T1, T2 and STIR imaging. Axial T2, gradient, and fiesta imaging. Post gadolinium imaging was obtained. CLINICAL INFORMATION: Neck pain COMP FINDINGS: Straightening of the normal cervical lordosis. Disc space narrowing worse at C5-C6. Enhancing metasta tic lesion involving the C5 vertebral body with associated epidural disease eccentric to the LEFT ext ending into the LEFT neural foramen. Epidural disease extends inferiorly posterior to the C6 vertebra l body on the LEFT. Mild central canal stenosis C5-C6. Additional enhancing metastatic lesion involving the LEFT skull base described on the head MRI. Addit ional enhancing metastatic disease involving the LEFT C4 posterior elements involving the LEFT facets and adjacent LEFT lamina. C2-C3: Normal. C3-C4: Mild facet arthropathy. Spinal canal and foramen are patent. C4-C5: Mild disc osteophytic ridging. Mild bilateral bony foraminal narrowing. Spinal canal is patent . C5-C6: Metastatic C5 vertebral body lesion with LEFT epidural disease extending into the LEFT neural foramen. Mild central canal stenosis with slight indentation LEFT ventral cervical cord. Moderate LEF T greater than RIGHT foraminal narrowing. C6-C7: Mild disc osteophytic ridging. Mild bilateral bony foraminal narrowing. Spinal canal is patent . C7-T1: Normal MR/MR cervical spine wo/w [id number] IMPRESSION: 1. Metastatic lesion involving the C4 vertebral body with epidural disease ecc entric to the LEFT. 2. This results in mild central canal stenosis with slight indentation the LEF T ventral cervical cord. Moderate LEFT foraminal narrowing. Epidural enhancemen t extends posterior to the C6 vertebral body on the LEFT. 3. Additional metastatic lesion involving the LEFT C4 posterior elements descr ibed above. 4. LEFT osseous skull base lesion described on the MRI.
[2022-06-29] MEDS: gadobenate dimeglumine 20 mL vial IV (08:30)
== END 2022-06-29 06:59 | disposition home or self-care (01) ==
LOC: RAD 06:59
PROVIDERS: PCP Nurse Practitioner Family; Visit Provider Internal Medicine Medical Oncology
DX: C34.31 Malignant neoplasm of lower lobe, right bronchus or lung (principal); C79.31 Secondary malignant neoplasm of brain; M54.2 Cervicalgia; G96.12 Meningeal adhesions (cerebral) (spinal); M48.02 Spinal stenosis, cervical region
CPT/HCPCS: 70553; 72156; A9577

== ENCOUNTER 2022-07-12 12:32 | Oncology outpatient (recurring) (ONCR) | payer MEDICARE, MEDICAID, SELFPAY ==
--- NOTE | 2022-07-12 13:17 | N.ONRAD NP_ITS ---
Radiation Oncology Consultation Patient Name: Kristina Bertrand Date of : 1950 Date of Service: 07/12/2022 Attending Physician: Mickey Avilez M.D. Kristina Bertrand was seen in consultation this morning at the request of Maldonado Meyer M.D. for consideration of palliative cranial radiotherapy for the management of metastatic lung cancer. She was diagnosed in December of 2012 with a right upper-lobe lung mass. A right upper lobectomy and mediastinal lymph node dissection was performed in April of 2014. A pathological stage IB (T2N0) was diagnosed. A recurrence was identified in July 2015 within the left lung. Neoadjuvant chemotherapy (cisplatin-pemetrexed) was administered followed by radiotherapy completing in August 2016. A chest CT scan obtained in November of 2017 notified a 4 cm right lower-lobe mass. A biopsy confirmed malignant cells. The lesion was treated with SABR in February 2018. She was evaluated for nausea and vomiting in April 2019. CT imaging identified a right cerebellar mass. A craniotomy was performed with resection. Pathology confirmed adenocarcinoma. SRS was prescribed to the surgical cavity. Disease progression was noted in November of 2020. The right cerebellar lesion demonstrated interval progression and new enhancing left skull base mass was reported. On account of a KRAS mutation sotorasib was prescribed in January 2021. SRS was prescribed to the skull-base mass in January of 2022. Repeat MRI of the head performed in December 2021 and March 2022 identified stable disease. In May of this year, she reported worsening neck pain. An MRI of the cervical spine ordered on June 29, 2022 described enhancing metastatic lesions involving C4 and C5 vertebral bodies with epidural disease extending into the left neural foramen and inferiorly to the C6 vertebral body. The patient was referred for spinal radiotherapy. I discussed with Ms. Bertrand the role for radiotherapy. If she elects to have treatment, I anticipate a 1 week course of treatment. A CT scan will be performed for radiotherapy planning prior to beginning treatment to delineate the clinical target volumes. The potential toxicities of spinal radiotherapy were reviewed. The patient has verbalized understanding. The patient's medical treatment plan has been discussed with Maldonado Meyer M.D. Signed by: Mickey Avilez 07/29/2022 12:35:27 PM
== END 2022-07-16 23:59 | disposition home or self-care (01) ==
PROVIDERS: PCP Nurse Practitioner Family; Visit Provider Radiology Radiation Oncology
DX: C34.31 Malignant neoplasm of lower lobe, right bronchus or lung (principal); Z90.2 Acquired absence of lung [part of]; C78.02 Secondary malignant neoplasm of left lung; C79.31 Secondary malignant neoplasm of brain; C79.51 Secondary malignant neoplasm of bone; Z79.2 Long term (current) use of antibiotics; Z79.52 Long term (current) use of systemic steroids; Z79.899 Other long term (current) drug therapy; Z79.891 Long term (current) use of opiate analgesic; Z87.891 Personal history of nicotine dependence; Z92.21 Personal history of antineoplastic chemotherapy
CPT/HCPCS: 99205

== ENCOUNTER 2022-08-04 15:34 | Oncology outpatient (recurring) (ONCR) | payer MEDICARE, MEDICAID, SELFPAY ==
--- NOTE | 2022-07-22 | CT_ITS ---
Radiation Therapy Planning CT images; total exam DLP: 928.00 mGy-cm MTDD
[2022-07-22 11:21] VITALS: BP 146/86; PULSE 94; RESP 18; TEMP 36.2; O2SAT 98
[2022-07-22 11:29] VITALS: RESP 18; O2SAT 98
[2022-07-22] MEDS: HYDROmorphone 1 mg/mL INJ 1 mL 2 MG IVP (11:29)
[2022-07-22] MEDS: sodium chloride 0.9% 500 ML IV (11:29)
[2022-07-22 11:31] LABS: Basophils % 0.6 %; Eosinophils # 0.1 10^3/uL (0.0-0.8); Eosinophils % 0.8 %; Hematocrit 39.1 % (37.0-47.0); Hemoglobin 11.9 g/dL (11.5-15.3); Lymphocytes # 1.2 10^3/uL (0.8-4.8); Lymphocytes % 19.4 %; Mean Corpuscular HGB Conc 30.4 g/dL (30.0-36.0); Mean Corpuscular Hemoglobin 27.7 pg (28.0-34.0); Mean Corpuscular Volume 90.9 fl (81-99); Mean Platelet Volume 8.5 fL (7.4-10.4); Monocytes # 0.5 10^3/uL (0.2-0.9); Monocytes % 7.4 %; Neutrophils # 4.54 10^3/uL (1.8-7.7); Neutrophils % 71.5 %; Nucleated Red Blood Cells % 0 %; Platelet Count 259 10^3/cmm (130-400); Red Cell Distribution Width 14.8 % (12.1-15.1); White Blood Count 6.4 10^3/uL (4.0-10.0)
[2022-07-22 11:48] LABS: Alanine Aminotransferase 34 U/L (0-33); Albumin Level 3.8 g/dL (3.5-5.2); Alkaline Phosphatase 109 U/L (35-105); Anion Gap 14.5 (5-19); Aspartate Amino Transferase 36 U/L (0-32); Blood Urea Nitrogen 10 mg/dL (8-23); Calcium 9.4 mg/dL (8.5-10.5); Carbon Dioxide 28 mmol/L (22-29); Chloride 102 mmol/L (98-107); Globulin 3.5 g/dL (1.3-4.6); Glucose 108 mg/dL (65-115); Osmolality Calculated 288 mOsm/kg (285-295); Potassium 5.5 mmol/L (3.5-5.1); Sodium 139 mmol/L (136-145); Total Bilirubin 0.3 mg/dL (0.15-1.2); Total Protein 7.3 g/dL (6.6-8.7)
[2022-07-22] MEDS: ondansetron 2 mg/ML SDV 2 mL 8 MG IVP (12:44)
--- NOTE | 2022-07-29 13:27 | ONCRAD TMN_ITS ---
Radiation Oncology Treatment Management Note Patient Name: Kristina Bertrand Date of : 1950 Date of Service: 07/29/2022 Attending Physician: Mickey Avilez M.D. Kristina Bertrand is a 71 year-old white female diagnosed with metastatic lung cancer. She was diagnosed in December of 2012 with a right upper-lobe lung mass. A right upper lobectomy and mediastinal lymph node dissection was performed in April of 2014. A pathological stage IB (T2N0) was diagnosed. A recurrence was identified in July 2015 within the left lung. Neoadjuvant chemotherapy (cisplatin-pemetrexed) was administered followed by radiotherapy completing in August 2016. A chest CT scan obtained in November of 2017 notified a 4 cm right lower-lobe mass. A biopsy confirmed malignant cells. The lesion was treated with SABR in February 2018. She was evaluated for nausea and vomiting in April 2019. CT imaging identified a right cerebellar mass. A craniotomy was performed with resection. Pathology confirmed adenocarcinoma. SRS was prescribed to the surgical cavity. Disease progression was noted in November of 2020. The right cerebellar lesion demonstrated interval progression and new enhancing left skull base mass was reported. On account of a KRAS mutation sotorasib was prescribed in January 2021. SRS was prescribed to the skull-base mass in January of 2022. In May of this year, she reported worsening neck pain. An MRI of the cervical spine ordered on June 29, 2022 described enhancing metastatic lesions involving C4 and C5 vertebral bodies with epidural disease extending into the left neural foramen and inferiorly to the C6 vertebral body. The patient has received 16 Gy of a prescribed 20 Gy to C4 ???C6 vertebral bodies with a 3-dimensional conformal radiotherapy plan utilizing opposed lateral treatment menendez. Upon review of systems, she continues to have left neck pain. On physical examination, the patient weighed 193 lbs. Her temperature was 98.2 ???F and the blood pressure was 141/78 mmHg. Her pulse was 89 bpm and the respiratory rate was 18. No erythema was present within the skin. Continue palliative radiotherapy as prescribed. Signed by: Mickey Avilez 07/29/2022 1:25:52 PM
--- NOTE | 2022-07-30 09:40 | N.ONRD TS_ITS ---
Radiation OncologyTreatment Summary Patient Name: Kristina Bertrand Date of : 1950 Date of Service: 07/30/2022 Attending Physician: Mickey Avilez M.D. Kristina Bertrand has completed palliative radiotherapy for the management of metastatic lung cancer. She was diagnosed in December of 2012 with a right upper-lobe lung mass. A right upper lobectomy and mediastinal lymph node dissection was performed in April of 2014. A pathological stage IB (T2N0) was diagnosed. A recurrence was identified in July 2015 within the left lung. Neoadjuvant chemotherapy (cisplatin-pemetrexed) was administered followed by radiotherapy completing in August 2016. A chest CT scan obtained in November of 2017 notified a 4 cm right lower-lobe mass. A biopsy confirmed malignant cells. The lesion was treated with SABR in February 2018. She was evaluated for nausea and vomiting in April 2019. CT imaging identified a right cerebellar mass. A craniotomy was performed with resection. Pathology confirmed adenocarcinoma. SRS was prescribed to the surgical cavity. Disease progression was noted in November of 2020. The right cerebellar lesion demonstrated interval progression and new enhancing left skull base mass was reported. SRS was prescribed to the skull-base mass in January of 2022. On account of a KRAS mutation sotorasib was prescribed in January 2021. In May of this year, she reported worsening neck pain. An MRI of the cervical spine ordered on June 29, 2022 described enhancing metastatic lesions involving C4 and C5 vertebral bodies with epidural disease extending into the left neural foramen and inferiorly to the C6 vertebral body. Daily radiotherapy was administered between the dates of July 26, 2022 through July 30, 2022. A prescribed dose of 20 Gy was delivered in 5 fractions encompassing 5 elapsed days. The C4-C6 vertebral bodies were treated utilizing a 3-dimensional conformal radiotherapy plan with lateral portal menendez. The right lateral field utilized a 270??? gantry angle with a collimator angle of 0??? and a table angle of 10???. The field size measured 3.8 cm x 3.8 cm within the X-direction and 3.5 cm x 3.2 cm within the Y-direction. The SSD measured 93 cm with the port delivering 224 monitor units. The left lateral port employed a gantry angle of 90??? and a collimator angle of 0???. The couch angle was 350???. The field size spanned 3.8cm x 3.8 cm within the X-direction and 3.5 cm x 3.5 cm within the Y-direction. The measured SSD was 93.1 cm with the field allocating 222 monitor units. ll treatments were performed with the Joyus linear accelerator and an isocentric technique. The dose was calculated by Anisotropic Analytic Algorithm. A Photon energy of 15 MV was prescribed with the plan normalized to deliver 100% of the prescription dose to 95% of the planning target volume. Signed by: Mickey Avilez 07/30/2022 9:38:53 AM
== END 2022-08-15 23:59 | disposition home or self-care (01) ==
PROVIDERS: Absent Provider Internal Medicine Medical Oncology; PCP Nurse Practitioner Family; Visit Provider Radiology Radiation Oncology
DX: C34.81 Malignant neoplasm of overlapping sites of right bronchus and lung; C78.02 Secondary malignant neoplasm of left lung; Z90.2 Acquired absence of lung [part of]; C79.31 Secondary malignant neoplasm of brain; C79.51 Secondary malignant neoplasm of bone; G89.3 Neoplasm related pain (acute) (chronic); Z79.891 Long term (current) use of opiate analgesic; Z79.52 Long term (current) use of systemic steroids; Z79.899 Other long term (current) drug therapy; Z87.891 Personal history of nicotine dependence
CPT/HCPCS: 77263; 77280; 77290; 77295; 77300; 77334; 77336; 77412; 80053; 85025; 99024; 99214; 99215; J1170; J2405; J7040

== ENCOUNTER 2022-09-01 09:30 | Oncology outpatient (recurring) (ONCR) | payer MEDICARE, MEDICAID, SELFPAY ==
[2022-08-18 09:07] LABS: Basophils % 0.4 %; Eosinophils # 0.1 10^3/uL (0.0-0.8); Eosinophils % 0.7 %; Hematocrit 40.1 % (37.0-47.0); Hemoglobin 12.3 g/dL (11.5-15.3); Lymphocytes # 1.5 10^3/uL (0.8-4.8); Lymphocytes % 16.9 %; Mean Corpuscular HGB Conc 30.7 g/dL (30.0-36.0); Mean Corpuscular Hemoglobin 26.9 pg (28.0-34.0); Mean Corpuscular Volume 87.7 fl (81-99); Mean Platelet Volume 8.3 fL (7.4-10.4); Monocytes # 0.9 10^3/uL (0.2-0.9); Monocytes % 9.6 %; Neutrophils # 6.44 10^3/uL (1.8-7.7); Neutrophils % 71.8 %; Nucleated Red Blood Cells % 0 %; Platelet Count 285 10^3/cmm (130-400); Red Blood Count 4.57 10^6/uL (4.1-5.3); Red Cell Distribution Width 14.2 % (12.1-15.1)
[2022-08-18 09:25] VITALS: RESP 16; O2SAT 98
[2022-08-18] MEDS: HYDROmorphone 1 mg/mL INJ 1 mL 2 MG IVP ×2 (09:25→12:36)
[2022-08-18] MEDS: ondansetron 2 mg/ML SDV 2 mL 8 MG IVP (09:26)
[2022-08-18] MEDS: sodium chloride 0.9% 250 ML IV (09:26)
[2022-08-18 09:58] LABS: Alanine Aminotransferase 52 U/L (0-33); Albumin Level 3.9 g/dL (3.5-5.2); Alkaline Phosphatase 103 U/L (35-105); Anion Gap 15.4 (5-19); Aspartate Amino Transferase 38 U/L (0-32); Blood Urea Nitrogen 17 mg/dL (8-23); Calcium 9.7 mg/dL (8.5-10.5); Carbon Dioxide 24 mmol/L (22-29); Chloride 99 mmol/L (98-107); Globulin 3.1 g/dL (1.3-4.6); Glucose 113 mg/dL (65-115); Osmolality Calculated 280 mOsm/kg (285-295); Potassium 4.4 mmol/L (3.5-5.1); Sodium 134 mmol/L (136-145); Thyroid Stimulating Hormone 0.88 uIU/mL (0.27-4.20); Total Bilirubin 0.3 mg/dL (0.15-1.2)
[2022-08-18 10:02] LABS: Hepatitis A Antibody IgM Non-Reactive (Nonreactive); Hepatitis B Core AB, Total Non-Reactive (Nonreactive); Hepatitis B Surface AB 3.5 (11.5-1000); Hepatitis B Surface Antigen Non-Reactive (Nonreactive); Hepatitis C Virus Antibody Non-Reactive (Nonreactive)
[2022-08-18 10:26] LABS: Immunoglobulin IGG 889 mg/dL (700-1600)
[2022-08-18] MEDS: nivolumab 240 MG in sodium chloride 0.9% 250 ML 548 MG IV (13:31)
[2022-08-18 16:37] VITALS: BP 144/78; PULSE 78; RESP 18; TEMP 36.4; O2SAT 96
[2022-09-01 09:30] VITALS: BP 136/74; PULSE 91; RESP 18; TEMP 37.4; O2SAT 93
[2022-09-01 09:42] LABS: Basophils # 0.1 10^3/uL (0.0-0.1); Basophils % 0.7 %; Eosinophils # 0.1 10^3/uL (0.0-0.8); Hematocrit 39.4 % (37.0-47.0); Hemoglobin 12.3 g/dL (11.5-15.3); Lymphocytes # 1.6 10^3/uL (0.8-4.8); Lymphocytes % 22.8 %; Mean Corpuscular HGB Conc 31.2 g/dL (30.0-36.0); Mean Corpuscular Volume 86.6 fl (81-99); Mean Platelet Volume 8.4 fL (7.4-10.4); Monocytes # 0.8 10^3/uL (0.2-0.9); Monocytes % 11.4 %; Neutrophils # 4.43 10^3/uL (1.8-7.7); Neutrophils % 63.8 %; Nucleated Red Blood Cells % 0 %; Platelet Count 269 10^3/cmm (130-400); Red Blood Count 4.55 10^6/uL (4.1-5.3); Red Cell Distribution Width 14.4 % (12.1-15.1); White Blood Count 6.9 10^3/uL (4.0-10.0)
[2022-09-01 10:16] LABS: Alanine Aminotransferase 44 U/L (0-33); Albumin Level 3.8 g/dL (3.5-5.2); Alkaline Phosphatase 113 U/L (35-105); Anion Gap 16.2 (5-19); Aspartate Amino Transferase 34 U/L (0-32); Blood Urea Nitrogen 12 mg/dL (8-23); Calcium 9.8 mg/dL (8.5-10.5); Carbon Dioxide 25 mmol/L (22-29); Chloride 97 mmol/L (98-107); Globulin 3.2 g/dL (1.3-4.6); Glucose 112 mg/dL (65-115); Osmolality Calculated 279 mOsm/kg (285-295); Potassium 4.2 mmol/L (3.5-5.1); Sodium 134 mmol/L (136-145); Thyroid Stimulating Hormone 1.58 uIU/mL (0.27-4.20); Total Bilirubin 0.3 mg/dL (0.15-1.2)
[2022-09-01] MEDS: nivolumab 240 MG in sodium chloride 0.9% 250 ML 548 MG IV (11:14)
[2022-09-01 11:55] VITALS: BP 119/71; PULSE 87; RESP 18; TEMP 36.7; O2SAT 94
== END 2022-09-01 23:59 | disposition home or self-care (01) ==
PROVIDERS: Nurse Practitioner; Absent Provider Internal Medicine Medical Oncology; PCP Nurse Practitioner Family; Visit Provider Radiology Radiation Oncology
DX: Z51.12 Encounter for antineoplastic immunotherapy (principal); C34.81 Malignant neoplasm of overlapping sites of right bronchus and lung; C78.02 Secondary malignant neoplasm of left lung; Z90.2 Acquired absence of lung [part of]; C79.31 Secondary malignant neoplasm of brain; C79.51 Secondary malignant neoplasm of bone; G89.3 Neoplasm related pain (acute) (chronic); R53.0 Neoplastic (malignant) related fatigue; Z79.52 Long term (current) use of systemic steroids; Z79.891 Long term (current) use of opiate analgesic; Z87.891 Personal history of nicotine dependence
CPT/HCPCS: 80053; 82784; 84443; 85025; 86705; 86706; 86709; 86803; 87340; 96375; 96413; 99214; 99215; J1170; J2405; J7050; J9299

== ENCOUNTER 2022-09-15 13:00 | Oncology outpatient (recurring) (ONCR) | payer MEDICARE, MEDICAID, SELFPAY ==
[2022-09-15] MEDS: nivolumab 240 MG in sodium chloride 0.9% 250 ML 548 MG IV (13:51)
[2022-09-15 16:44] VITALS: BP 131/79; PULSE 80; TEMP 36.7; O2SAT 95
== END 2022-09-15 23:59 | disposition home or self-care (01) ==
PROVIDERS: Absent Provider Internal Medicine Medical Oncology; PCP Nurse Practitioner Family; Visit Provider Radiology Radiation Oncology
DX: Z51.12 Encounter for antineoplastic immunotherapy (principal); C34.31 Malignant neoplasm of lower lobe, right bronchus or lung
CPT/HCPCS: 96413; J7050; J9299

== ENCOUNTER 2022-10-06 09:00 | Oncology outpatient (recurring) (ONCR) | payer MEDICARE, MEDICAID, SELFPAY ==
[2022-09-29 08:45] VITALS: BP 118/73; PULSE 84; RESP 18; TEMP 36.1; O2SAT 94
[2022-09-29 09:31] LABS: Basophils % 0.6 %; Eosinophils % 0.7 %; Hematocrit 42.8 % (37.0-47.0); Hemoglobin 13.6 g/dL (11.5-15.3); Lymphocytes # 1.4 10^3/uL (0.8-4.8); Lymphocytes % 25.5 %; Mean Corpuscular HGB Conc 31.8 g/dL (30.0-36.0); Mean Corpuscular Hemoglobin 26.6 pg (28.0-34.0); Mean Corpuscular Volume 83.8 fl (81-99); Mean Platelet Volume 8.7 fL (7.4-10.4); Monocytes # 0.5 10^3/uL (0.2-0.9); Monocytes % 9.8 %; Neutrophils # 3.41 10^3/uL (1.8-7.7); Nucleated Red Blood Cells % 0 %; Platelet Count 290 10^3/cmm (130-400); Red Blood Count 5.11 10^6/uL (4.1-5.3); Red Cell Distribution Width 15.2 % (12.1-15.1); White Blood Count 5.4 10^3/uL (4.0-10.0)
[2022-09-29] MEDS: sodium chloride 0.9% 1,000 ML 999 ML IV (09:33)
[2022-09-29] MEDS: ondansetron 2 mg/ML SDV 2 mL 8 MG IVP (09:43)
[2022-09-29 09:52] LABS: Alanine Aminotransferase 31 U/L (0-33); Albumin Level 3.6 g/dL (3.5-5.2); Alkaline Phosphatase 118 U/L (35-105); Anion Gap 15.1 (5-19); Aspartate Amino Transferase 30 U/L (0-32); Blood Urea Nitrogen 5 mg/dL (8-23); Calcium 8.8 mg/dL (8.5-10.5); Carbon Dioxide 24 mmol/L (22-29); Chloride 95 mmol/L (98-107); Globulin 2.7 g/dL (1.3-4.6); Glucose 101 mg/dL (65-115); Osmolality Calculated 269 mOsm/kg (285-295); Potassium 3.1 mmol/L (3.5-5.1); Sodium 131 mmol/L (136-145); Thyroid Stimulating Hormone 2.02 uIU/mL (0.27-4.20); Total Bilirubin 0.6 mg/dL (0.15-1.2); Total Protein 6.3 g/dL (6.6-8.7)
[2022-09-29 11:53] VITALS: BP 129/70; PULSE 91; RESP 18; TEMP 36.8; O2SAT 95
[2022-09-29 11:54] VITALS: BP 129/70; PULSE 91; RESP 18; TEMP 36.8; O2SAT 95
[2022-09-29] MEDS: potassium chloride premix 100 ML 50 MEQ IV (12:08)
[2022-10-06 08:56] VITALS: BP 128/84; PULSE 111; RESP 18; TEMP 36.7; O2SAT 97
[2022-10-06 09:16] LABS: Basophils # 0.1 10^3/uL (0.0-0.1); Basophils % 0.8 %; Eosinophils % 0.6 %; Hematocrit 45.1 % (37.0-47.0); Hemoglobin 14.6 g/dL (11.5-15.3); Lymphocytes # 1.5 10^3/uL (0.8-4.8); Lymphocytes % 22.8 %; Mean Corpuscular HGB Conc 32.4 g/dL (30.0-36.0); Mean Corpuscular Hemoglobin 27.1 pg (28.0-34.0); Mean Corpuscular Volume 83.7 fl (81-99); Monocytes # 0.6 10^3/uL (0.2-0.9); Monocytes % 8.4 %; Neutrophils # 4.42 10^3/uL (1.8-7.7); Neutrophils % 66.6 %; Nucleated Red Blood Cells % 0 %; Platelet Count 294 10^3/cmm (130-400); Red Blood Count 5.39 10^6/uL (4.1-5.3); Red Cell Distribution Width 15.9 % (12.1-15.1); White Blood Count 6.6 10^3/uL (4.0-10.0)
[2022-10-06 09:35] LABS: Alanine Aminotransferase 60 U/L (0-33); Albumin Level 3.5 g/dL (3.5-5.2); Alkaline Phosphatase 124 U/L (35-105); Anion Gap 14.3 (5-19); Aspartate Amino Transferase 71 U/L (0-32); Blood Urea Nitrogen 7 mg/dL (8-23); Calcium 8.8 mg/dL (8.5-10.5); Carbon Dioxide 23 mmol/L (22-29); Chloride 101 mmol/L (98-107); Glucose 119 mg/dL (65-115); Magnesium 1.9 mg/dL (1.7-2.3); Osmolality Calculated 279 mOsm/kg (285-295); Potassium 3.3 mmol/L (3.5-5.1); Sodium 135 mmol/L (136-145); Total Bilirubin 0.6 mg/dL (0.15-1.2); Total Protein 6.5 g/dL (6.6-8.7)
[2022-10-06] MEDS: nivolumab 240 MG in sodium chloride 0.9% 250 ML 548 MG IV (12:13)
[2022-10-06 13:15] VITALS: BP 114/78; PULSE 65; RESP 18; TEMP 36.6; O2SAT 98
== END 2022-10-15 23:59 | disposition home or self-care (01) ==
PROVIDERS: Nurse Practitioner; Absent Provider Internal Medicine Medical Oncology; PCP Nurse Practitioner Family; Visit Provider Radiology Radiation Oncology
DX: C34.81 Malignant neoplasm of overlapping sites of right bronchus and lung (principal); Z51.12 Encounter for antineoplastic immunotherapy; C79.51 Secondary malignant neoplasm of bone; Z85.118 Personal history of other malignant neoplasm of bronchus and lung
CPT/HCPCS: 96365; 96375; 96367; 96361; 96413 ×2; 80053; 83735; 84443; 85025; 99214; 99215; J1100; J2405; J3480; J7030; J7050; J9299

== ENCOUNTER 2022-11-03 10:00 | Oncology outpatient (recurring) (ONCR) | payer MEDICARE, MEDICAID, SELFPAY ==
[2022-10-20 09:38] VITALS: BP 127/77; PULSE 85; RESP 18; TEMP 36.1
[2022-10-20 09:56] LABS: Basophils # 0.1 10^3/uL (0.0-0.1); Basophils % 0.9 %; Eosinophils # 0.1 10^3/uL (0.0-0.8); Hematocrit 38.5 % (37.0-47.0); Hemoglobin 12.4 g/dL (11.5-15.3); Lymphocytes # 1.4 10^3/uL (0.8-4.8); Mean Corpuscular HGB Conc 32.2 g/dL (30.0-36.0); Mean Corpuscular Hemoglobin 26.8 pg (28.0-34.0); Mean Corpuscular Volume 83.3 fl (81-99); Mean Platelet Volume 8.2 fL (7.4-10.4); Monocytes # 0.6 10^3/uL (0.2-0.9); Monocytes % 8.3 %; Neutrophils # 4.63 10^3/uL (1.8-7.7); Neutrophils % 68.5 %; Nucleated Red Blood Cells % 0 %; Platelet Count 275 10^3/cmm (130-400); Red Blood Count 4.62 10^6/uL (4.1-5.3); Red Cell Distribution Width 16.4 % (12.1-15.1); White Blood Count 6.8 10^3/uL (4.0-10.0)
[2022-10-20 11:48] LABS: Alanine Aminotransferase 59 U/L (0-33); Albumin Level 3.5 g/dL (3.5-5.2); Alkaline Phosphatase 117 U/L (35-105); Anion Gap 14.7 (5-19); Aspartate Amino Transferase 50 U/L (0-32); Blood Urea Nitrogen 12 mg/dL (8-23); Calcium 9.1 mg/dL (8.5-10.5); Carbon Dioxide 23 mmol/L (22-29); Chloride 99 mmol/L (98-107); Globulin 2.6 g/dL (1.3-4.6); Glucose 129 mg/dL (65-115); Osmolality Calculated 277 mOsm/kg (285-295); Potassium 3.7 mmol/L (3.5-5.1); Sodium 133 mmol/L (136-145); Total Bilirubin 0.5 mg/dL (0.15-1.2); Total Protein 6.1 g/dL (6.6-8.7)
[2022-10-20] MEDS: nivolumab 240 MG in sodium chloride 0.9% 250 ML 548 MG IV (13:00)
[2022-10-20] MEDS: sodium chloride 0.9% 250 ML 75 ML IV (13:00)
[2022-10-20 13:59] VITALS: BP 151/77; PULSE 89; RESP 16; TEMP 37; O2SAT 95
[2022-11-03 09:51] VITALS: BMI 30.2
[2022-11-03 09:52] VITALS: BP 122/75; PULSE 89; RESP 18; TEMP 36.4; O2SAT 94
[2022-11-03 10:08] LABS: Basophils % 0.7 %; Eosinophils # 0.1 10^3/uL (0.0-0.8); Hematocrit 39.9 % (37.0-47.0); Hemoglobin 12.8 g/dL (11.5-15.3); Lymphocytes # 1.5 10^3/uL (0.8-4.8); Mean Corpuscular HGB Conc 32.1 g/dL (30.0-36.0); Mean Corpuscular Hemoglobin 27.8 pg (28.0-34.0); Mean Corpuscular Volume 86.7 fl (81-99); Monocytes # 0.6 10^3/uL (0.2-0.9); Monocytes % 10.3 %; Neutrophils # 3.57 10^3/uL (1.8-7.7); Neutrophils % 61.5 %; Nucleated Red Blood Cells % 0 %; Platelet Count 290 10^3/cmm (130-400); Red Cell Distribution Width 16.9 % (12.1-15.1); White Blood Count 5.8 10^3/uL (4.0-10.0)
[2022-11-03 10:31] LABS: Alanine Aminotransferase 38 U/L (0-33); Albumin Level 3.3 g/dL (3.5-5.2); Alkaline Phosphatase 142 U/L (35-105); Anion Gap 11.9 (5-19); Aspartate Amino Transferase 28 U/L (0-32); Blood Urea Nitrogen 7 mg/dL (8-23); Calcium 9.3 mg/dL (8.5-10.5); Carbon Dioxide 28 mmol/L (22-29); Chloride 95 mmol/L (98-107); Globulin 2.8 g/dL (1.3-4.6); Glucose 118 mg/dL (65-115); Osmolality Calculated 271 mOsm/kg (285-295); Potassium 3.9 mmol/L (3.5-5.1); Sodium 131 mmol/L (136-145); Total Bilirubin 0.4 mg/dL (0.15-1.2); Total Protein 6.1 g/dL (6.6-8.7)
[2022-11-03] MEDS: sodium chloride 0.9% 250 ML 75 ML IV (12:14)
[2022-11-03] MEDS: nivolumab 240 MG in sodium chloride 0.9% 250 ML 548 MG IV (12:15)
[2022-11-03 12:59] VITALS: RESP 18; O2SAT 94
[2022-11-03] MEDS: oxyCODONE 5 mg IR Tab/Cap 15 MG PO (12:59)
[2022-11-03 13:22] VITALS: BP 123/66; PULSE 87; RESP 18; TEMP 35.9; O2SAT 95
== END 2022-11-03 23:59 | disposition home or self-care (01) ==
PROVIDERS: Internal Medicine Medical Oncology; Absent Provider Internal Medicine Medical Oncology; PCP Nurse Practitioner Family; Visit Provider Radiology Radiation Oncology
DX: Z51.12 Encounter for antineoplastic immunotherapy (principal); C34.81 Malignant neoplasm of overlapping sites of right bronchus and lung; C79.51 Secondary malignant neoplasm of bone; E87.6 Hypokalemia; C79.31 Secondary malignant neoplasm of brain; C34.31 Malignant neoplasm of lower lobe, right bronchus or lung
CPT/HCPCS: 80053; 85025; 96413; 99214; 99215; J7050; J9299

== ENCOUNTER 2022-11-29 13:45 | Oncology outpatient (recurring) (ONCR) | payer MEDICARE, MEDICAID, SELFPAY ==
[2022-11-17 09:50] VITALS: BMI 29.3
[2022-11-17 09:52] VITALS: BP 126/76; PULSE 80; RESP 17; TEMP 36.3; O2SAT 95
[2022-11-17 10:07] LABS: Basophils % 0.2 %; Eosinophils % 0.1 %; Hematocrit 38.5 % (37.0-47.0); Hemoglobin 12.4 g/dL (11.5-15.3); Lymphocytes % 6.5 %; Mean Corpuscular HGB Conc 32.2 g/dL (30.0-36.0); Mean Corpuscular Hemoglobin 27.4 pg (28.0-34.0); Mean Corpuscular Volume 85.2 fl (81-99); Mean Platelet Volume 8.3 fL (7.4-10.4); Monocytes % 6.6 %; Neutrophils # 12.88 10^3/uL (1.8-7.7); Neutrophils % 85.9 %; Nucleated Red Blood Cells % 0 %; Platelet Count 294 10^3/cmm (130-400); Red Blood Count 4.52 10^6/uL (4.1-5.3); Red Cell Distribution Width 16.1 % (12.1-15.1)
[2022-11-17 10:42] LABS: Alanine Aminotransferase 25 U/L (0-33); Albumin Level 3.3 g/dL (3.5-5.2); Alkaline Phosphatase 142 U/L (35-105); Anion Gap 11.4 (5-19); Aspartate Amino Transferase 16 U/L (0-32); Blood Urea Nitrogen 9 mg/dL (8-23); Carbon Dioxide 30 mmol/L (22-29); Chloride 89 mmol/L (98-107); Globulin 2.7 g/dL (1.3-4.6); Glucose 127 mg/dL (65-115); Osmolality Calculated 264 mOsm/kg (285-295); Potassium 3.4 mmol/L (3.5-5.1); Sodium 127 mmol/L (136-145); Total Bilirubin 0.6 mg/dL (0.15-1.2)
[2022-11-17] MEDS: nivolumab 240 MG in sodium chloride 0.9% 250 ML 548 MG IV (12:53)
[2022-11-17 13:45] VITALS: BP 143/73; PULSE 82; RESP 18; TEMP 36.1; O2SAT 95
--- NOTE | 2022-11-29 13:45 | MR_ITS ---
WS: [id number] EXAM: MR cervical spine wo/w [id number] DATE OF EXAMINATION: 11/29/2022 COMPARISON: 06/29/2022 HISTORY: Metastatic disease TECHNIQUE: Sagittal T1, T2 and T2 inversion recovery; axial T2, T2 gradient and fiesta. Post gadolini um imaging was obtained. FINDINGS: Straightening normal cervical lordosis. Progressive metastatic disease involving the skull base and c livus extending to the left mastoid as described on the head MRI. Progressed disease today involving C1 left greater than right. Progressed enhancing metastatic disease involving the C5 vertebral body w ith slightly progressed epidural disease at this level with enhancement. Moderate central canal steno sis at this level with slight indentation and flattening of the cervical cord. Disease extends into the posterior elements at the left C4 and C5 progressed today. New metastatic di sease involving the T1 vertebral body with diffuse enhancement. This is eccentric to the left with sl ight epidural disease at this level. This extends into the left posterior elements. Progressed diseas e involving the C6 left superior endplate today. Cord signal appears normal. Left mastoid effusion. C2-3: Mild bilateral foraminal narrowing. Mild facet arthropathy. Spinal canal is patent. C3-4: Mild left foraminal narrowing. Spinal canal and right foramen are patent. C4-5: Involvement of the left C4 posterior elements progressed compared to previous. Spinal canal is patent. Moderate left and mild right bony foraminal narrowing. Moderate facet arthropathy. C5-6: Progressed involvement of the C5 vertebral body with slightly more epidural disease today. Mode rate central canal stenosis. Moderate to severe left greater than right bony foraminal narrowing. Pro gressed involvement of the left posterior elements. New involvement of the left C6 superior endplate today. C6-7: Osteophytic ridging. Mild bilateral bony foraminal narrowing. Spinal canal is patent. C7-T1: New involvement of the T1 vertebral body with extension into the left T1 posterior elements. S mall amount of epidural disease at this level. IMPRESSION: 1. Progressed metastatic disease involving the C5 vertebral body today eccentric to the left with sl ightly progressed epidural disease. Moderate central canal stenosis with slight indentation on the ce rvical cord appears minimally progressed. 2. Progressed disease in the posterior elements at C4 and C5 today. New involvement of the superior endplate at C6. 3. New metastatic disease involving the T1 vertebral body today eccentric to the left with a small a mount of epidural disease. 4. Progressed disease at the skull base with progressive involvement of the left occipital condyles, clivus, left mastoid and C1 ring.
--- NOTE | 2022-11-29 13:45 | MR_ITS ---
WS: [id number] MRI HEAD WITH CONTRAST TECHNIQUE: Sagittal T1, T2 axial, T2 axial FLAIR, axial susceptibility weighted imaging, axial diffus ion weighted images, and coronal T2 images were obtained. Pre and post-T1 axial and post T1 coronal i mages. ADC and FSPGR images. CLINICAL INFORMATION: restaging COMPARISON: MRI 07/08 FINDINGS: Osseous metastatic lesions appear progressed compared to previous. Previously described LEFT osseous skull base lesion progressed compared to previous. Progressed invol vement of the skull base, clivus, and LEFT occipital condyle. Progressed bulky disease extending into the left occipital skull base and mastoid. Today this measures approximately 5.9 x 5.4 x 3.5 cm Progressed enhancing LEFT cerebellar lesion measuring 7 mm today. Progressed soft tissue enhancement involving the RIGHT cerebellar resection cavity with new intraparenchymal metastasis in this area. Th is abuts the right sigmoid and transverse sinus. Additional new small metastasis in the cerebellum calderon ve developed compared to previous. Notable metastasis along the left tentorium measuring 7 mm is new from previous. New enhancing lesion along the left anterior sella and planum sphenoidale is new from previous measuring 9.7 x 11.6 x 10.0 mm. This abuts the left prechiasmatic optic nerve and extends al donny the left intraorbital optic nerve with enhancement. Prior postoperative changes RIGHT occipital craniotomy. Metastatic lesion C5 vertebral body with epid ural disease appears progressed compared to previous with involvement of the posterior elements. Bony metastatic disease involves the C1 ring today. Involvement of the posterior elements at C4. Central canal stenosis C5. See cervical spine MRI for further detail. No evidence of restricted diffusion to suggest acute ischemia. Ventricular system and basal cisterns are patent. Moderate small vessel changes. Moderate parenchymal volume loss. Advanced parenchymal vo lume loss in the posterior fossa and vermis. Small vessel changes in the jesse. Chronic lacunar infarc ts in the LEFT cerebellum. Partial opacification of the LEFT greater than RIGHT mastoid air cells. Ch ronic hemosiderin in the RIGHT cerebellum. IMPRESSION: Significant overall progression of disease compared to previous with progressed osseous s kull base metastasis and progressed enhancing intraparenchymal lesions described above 1. Prior postoperative changes RIGHT occipital craniotomy with resection cavity in the RIGHT cerebel lum. 2. Progressed LEFT osseous skull base lesion today with progressed involvement of the clivus, LEFT o ccipital skull base, LEFT occipital condyle, and LEFT mastoid. Involvement of the C1 arch today. 3. Progressed osseous metastasis in the cervical spine will be discussed in the cervical spine MRI. 4. Progressed and new cerebellar metastasis described above. New disease has developed in the right cerebellar resection cavity. 5. No hydrocephalus or midline shift. 6. New enhancing lesion involving the tuberculum sella and planum sphenoidale measuring 10 mm involv es the prechiasmatic left optic nerve with enhancing disease along the left optic nerve extending int o the orbit
[2022-11-29] MEDS: gadobenate dimeglumine 20 mL vial IV (15:05)
== END 2022-11-29 23:59 | disposition home or self-care (01) ==
LOC: RAD 11-30
PROVIDERS: Nurse Practitioner Family; PCP Nurse Practitioner Family; Visit Provider Internal Medicine Medical Oncology
DX: C79.51 Secondary malignant neoplasm of bone; C79.31 Secondary malignant neoplasm of brain; C34.31 Malignant neoplasm of lower lobe, right bronchus or lung; Z12.89 Encounter for screening for malignant neoplasm of other sites
CPT/HCPCS: 70553; 72156; 80053; 85025; 96413; A9577; J7050; J9299

== ENCOUNTER 2022-12-01 10:00 | Oncology outpatient (recurring) (ONCR) | payer MEDICARE, MEDICAID, SELFPAY ==
[2022-12-01 09:51] VITALS: BMI 27.4
[2022-12-01 09:52] VITALS: BP 114/77; PULSE 113; RESP 18; TEMP 36.3; O2SAT 96
[2022-12-01 10:11] LABS: Basophils # 0.1 10^3/uL (0.0-0.1); Basophils % 0.6 %; Eosinophils # 0.1 10^3/uL (0.0-0.8); Eosinophils % 0.4 %; Hematocrit 43.6 % (37.0-47.0); Hemoglobin 14.2 g/dL (11.5-15.3); Lymphocytes # 1.7 10^3/uL (0.8-4.8); Lymphocytes % 13.3 %; Mean Corpuscular HGB Conc 32.6 g/dL (30.0-36.0); Mean Corpuscular Hemoglobin 27.5 pg (28.0-34.0); Mean Corpuscular Volume 84.3 fl (81-99); Mean Platelet Volume 7.6 fL (7.4-10.4); Monocytes # 0.7 10^3/uL (0.2-0.9); Monocytes % 5.7 %; Neutrophils # 10.14 10^3/uL (1.8-7.7); Neutrophils % 79.3 %; Nucleated Red Blood Cells % 0 %; Platelet Count 364 10^3/cmm (130-400); Red Blood Count 5.17 10^6/uL (4.1-5.3); Red Cell Distribution Width 16.4 % (12.1-15.1); White Blood Count 12.8 10^3/uL (4.0-10.0)
[2022-12-01 10:36] LABS: Alanine Aminotransferase 62 U/L (0-33); Albumin Level 3.4 g/dL (3.5-5.2); Alkaline Phosphatase 223 U/L (35-105); Anion Gap 13.2 (5-19); Aspartate Amino Transferase 53 U/L (0-32); Blood Urea Nitrogen 12 mg/dL (8-23); Calcium 9.6 mg/dL (8.5-10.5); Carbon Dioxide 25 mmol/L (22-29); Chloride 90 mmol/L (98-107); Creatinine Clr Calc Pharmacy 57.4745; Globulin 3.5 g/dL (1.3-4.6); Glucose 122 mg/dL (65-115); Osmolality Calculated 259 mOsm/kg (285-295); Potassium 4.2 mmol/L (3.5-5.1); Sodium 124 mmol/L (136-145); Total Bilirubin 0.5 mg/dL (0.15-1.2); Total Protein 6.9 g/dL (6.6-8.7)
== END 2022-12-16 23:59 | disposition home or self-care (01) ==
PROVIDERS: Nurse Practitioner Family; PCP Nurse Practitioner Family; Visit Provider Internal Medicine Medical Oncology
DX: C34.31 Malignant neoplasm of lower lobe, right bronchus or lung; C79.51 Secondary malignant neoplasm of bone; C79.31 Secondary malignant neoplasm of brain; R13.10 Dysphagia, unspecified; Z87.891 Personal history of nicotine dependence; Z92.3 Personal history of irradiation; Z92.21 Personal history of antineoplastic chemotherapy
CPT/HCPCS: 80053; 85025; 99215